=== PATIENT | female | born 1950 | race American Indian/Alaskan Native ===

== ENCOUNTER 2017-01-18 07:45 | Outpatient (CLI) | payer MEDICARE ==
--- NOTE | 2017-01-18 09:22 | Mammography Report ---
BILATERAL MAMMOGRAM with CAD: HISTORY:Cancer screening. Comparison study is dated December 22, 2015. FINDINGS: The breasts are almost entirely fat (<25% glandular). No mass, distortion, suspicious calcification, or skin change is seen. IMPRESSION: Negative mammogram. There is no mammographic evidence of malignancy. RECOMMENDATION: Follow-up per ACS guidelines. BI-RADS CATEGORY: 1 = Negative ACR BI-RADS MAMMOGRAPHIC CODES: 0 = Needs additional imaging evaluation; 1 = Negative; 2 = Benign; 3 = Probably benign; 4 = Suspicious; 5 = Malignant; 6 = Known biopsy-proven malignancy COMMENT: 1. Dense breast tissue, i.e., adenosis, fibrocystic changes, etc., may obscure an underlying neoplasm. 2. Approximately 10% of cancers are not detected with mammography. 3. A negative mammography report should not delay biopsy if a clinically suspicious mass is present. COMMENT: Patient follow-up letters are generated in [employer].
== END 2017-01-18 07:46 | disposition home or self-care (01) ==
LOC: MAMMO 07:45
PROVIDERS: ATTEND Family Medicine
DX: Z12.31 Encounter for screening mammogram for malignant neoplasm of breast (principal)
CPT/HCPCS: 77067; G0202

== ENCOUNTER 2018-02-01 08:44 | Outpatient (CLI) | payer MEDICAID, MEDICARE ==
--- NOTE | 2018-02-02 11:36 | Mammography Report ---
BILATERAL DIGITAL SCREENING MAMMOGRAM with CAD: 02/01/18 08:44:00 CLINICAL: Routine screening. COMPARISON:01/18/17 FINDINGS: The breasts are almost entirely fatty. No mass, architectural distortion or suspicious calcifications. IMPRESSION: No mammographic evidence of malignancy. BI-RADS CATEGORY: 1 - - Negative RECOMMENDATION: Routine mammographic screening in one year. COMMENT: Patient follow-up letters are generated by our [employer] application.
== END 2018-02-01 08:45 | disposition home or self-care (01) ==
LOC: MAMMO 08:44
PROVIDERS: ATTEND Internal Medicine
DX: Z12.31 Encounter for screening mammogram for malignant neoplasm of breast (principal)
CPT/HCPCS: 77067

== ENCOUNTER 2018-07-08 17:53 | Inpatient (IN) | payer MEDICARE ==
--- NOTE | 2018-07-08 19:39 | Emergency Department Report ---
HPI - General Chief Complaint: Dyspnea/Respdistress Time Seen by Provider: 07/08/18 19:22 - HPI HPI: Room 3 The patient is a 67-year-old female presenting with a chief complaint of extremity paresthesia and weakness. The patient states her symptoms began at 15 :30 with numbness of the digits of the left hand and numbness in the region under her left bicep. The patient states she had difficulty moving the digits of her left hand and all her symptoms lasted for 10 minutes. 2 minutes later the patient states her right upper extremity became heavy and she developed severe pain in the right shoulder. Patient states these symptoms lasted for approximately 15 minutes and then resolved. Patient denied ever having dysarthria, dysphagia, chest pain or lower extremity symptoms. The patient states she has had dyspnea on exertion for the past 3 days. Of note the patient had a history of a CVA in 2009 but states she was taken off of aspirin approximately one year ago. Patient currently has no complaints Location: See above Duration: [See above] Quality: [See above] Severity: [See above] Modifying factors: [see above] Context: [see above] Mode of transportation: [not driving] ED Past Medical Hx - Past Medical History Hx Hypertension: Yes Hx CVA: Yes (no deficits) - Surgical History Additional Surgical History: ectopic - Family History Family history: no significant - Social History Smoking Status: Former Smoker (none 25 years) Substance Use Type: None - Medications Home Medications: Home Medications Medication Instructions Recorded Confirmed Last Taken Type Aspirin [Aspirin TAB] 325 mg PO QDAY 07/26/14 11/28/14 11/27/14 20:00 History ED Review of Systems ROS: Stated complaint: NUMB RT SIDE/PAIN Other details as noted in HPI Constitutional: no symptoms reported Eyes: denies: eye pain ENT: denies: throat pain Respiratory: no symptoms reported Cardiovascular: denies: chest pain Endocrine: no symptoms reported Gastrointestinal: denies: abdominal pain, nausea, vomiting Genitourinary: denies: dysuria Musculoskeletal: arthralgia Neurological: headache, weakness, paresthesias Physical Exam - Physical Exam Vital Signs: Vital Signs 07/08/18 07/08/18 07/08/18 18:18 18:46 19:00 Temperature 98.3 F Pulse Rate 107 H 92 H Respiratory 25 H 15 Rate Blood Pressure 188/108 159/94 O2 Sat by Pulse 81 L 94 Oximetry 07/08/18 07/08/18 19:16 19:21 Temperature Pulse Rate 89 Respiratory 21 18 Rate Blood Pressure 133/113 O2 Sat by Pulse 94 94 Oximetry Physical Exam: GENERAL: The patient is well-developed well-nourished female sitting on stretcher not appearing to be in acute distress. [] HEENT: Normocephalic. Atraumatic. Extraocular motions are intact. Patient has moist mucous membranes. NECK: Supple. Trachea midline CHEST/LUNGS: Clear to auscultation. There is no respiratory distress noted. HEART/CARDIOVASCULAR: Regular. There is no tachycardia. There is no gallop rub or murmur. ABDOMEN: Abdomen is soft, nontender. Patient has normal bowel sounds. There is no abdominal distention. SKIN: There is no rash. There is no edema. There is no diaphoresis. NEURO: The patient is awake, alert, and oriented. The patient is cooperative. The patient has no focal neurologic deficits. The patient has normal speech. Cranial nerves II through XII grossly intact, no drift. Moves all extremities well MUSCULOSKELETAL: There is no evidence of acute injury. NIHSS= 0 LOC a. Alert= 0 Not alert but arousable to minor stimuli=1 Not alert requires repeated or strong stimuli to move= 2 Responds only reflex motor or unresponsive=3 b. asks month and age answers both correctly= 0 answers one correctly= 1 answers neither correctly= 2 Best Gaze normal= 0 abnormal in one or both but forced deviation or total paresis absent= 1 forced deviation or total gaze paresis= 2 Visual no visual loss= 0 partial hemianopia= 1 complete hemianopia= 2 bilateral hemianopia= 3 Facial Palsy normal= 0 minor paralysis= 1 partial paralysis= 2 complete paralysis= 3 Motor Arm no drift= 0 drift before 10 secs but doesnt hit bed= 1 some effort against gravity= 2 no effort against gravity= 3 no movement= 4 Motor leg no drift= 0 drift before 5 secs but doesnt hit bed= 1 drifts to bed before 5 secs= 2 no effort against gravity= 3 no movement= 4 Limb ataxia absent=0 present in one limb= 1 present in two limbs= 2 Sensory normal= 0 mild sensory loss= 1 severe (unaware of being touched)= 2 Best language mild/some loss of fluency= 1 severe= 2 mute= 3 Dysarthria normal= 0 slurs some words= 1 severe/unintelligible= 2 Extinction and Inattention no abnormality= 0 visual, tactile, auditory or personal inattention= 1 profound (doesnt recognize own hand or orients to only one side= 2 ED Course Vital Signs 07/08/18 07/08/18 07/08/18 18:18 18:46 19:00 Temperature 98.3 F Pulse Rate 107 H 92 H Respiratory 25 H 15 Rate Blood Pressure 188/108 159/94 O2 Sat by Pulse 81 L 94 Oximetry 07/08/18 07/08/18 19:16 19:21 Temperature Pulse Rate 89 Respiratory 21 18 Rate Blood Pressure 133/113 O2 Sat by Pulse 94 94 Oximetry - Reevaluation(s) Reevaluation #1: 07/08/18 20:05 Informed by nursing that the patient decided to 70% when she attempted to walk to the bathroom. Patient return and placed on 6 L O2 with SPO2 94%. D-dimer added to the labs ED Medical Decision Making - Lab Data Result diagrams: 07/08/18 19:37 07/08/18 19:37 Laboratory Tests 07/08/18 07/08/18 07/08/18 19:37 19:37 19:37 WBC 6.5 RBC 4.88 Hgb 15.0 H Hct 45.1 H MCV 93 MCH 31 MCHC 33 RDW 14.7 Plt Count 172 Lymph % (Auto) 29.9 [place] % (Auto) 7.8 H Eos % (Auto) 0.4 Baso % (Auto) 0.5 Lymph # 2.0 [place] # 0.5 Eos # 0.0 Baso # 0.0 Seg Neutrophils % 61.4 Seg Neutrophils # 4.0 PT 12.9 INR 0.93 APTT 23.4 L D-Dimer Sodium 144 Potassium 3.4 L Chloride 103.1 Carbon Dioxide 26 Anion Gap 18 BUN 14 Creatinine 1.1 Estimated GFR 60 BUN/Creatinine Ratio 13 Glucose 150 H Calcium 9.5 Total Creatine Kinase 208 H CK-MB (CK-2) 6.3 H CK-MB (CK-2) Rel Index 3.0 Troponin T < 0.010 NT-Pro-B Natriuret Pep 2412 H 07/08/18 20:02 WBC RBC Hgb Hct MCV MCH MCHC RDW Plt Count Lymph % (Auto) [place] % (Auto) Eos % (Auto) Baso % (Auto) Lymph # [place] # Eos # Baso # Seg Neutrophils % Seg Neutrophils # PT INR APTT D-Dimer 6133 H Sodium Potassium Chloride Carbon Dioxide Anion Gap BUN Creatinine Estimated GFR BUN/Creatinine Ratio Glucose Calcium Total Creatine Kinase CK-MB (CK-2) CK-MB (CK-2) Rel Index Troponin T NT-Pro-B Natriuret Pep - EKG Data -: EKG Interpreted by Me EKG shows normal: sinus rhythm Rate: normal - EKG Data When compared to previous EKG there are: changes noted Interpretation: nonspecific ST-T wave milvia (T-wave inversions in leads V2, V3 not seen on previous EKG dated 03/24/2010) - Radiology Data Radiology results: report reviewed (CT head, chest x-ray), image reviewed (CT head, chest x-ray) interpreted by me: Chest x-ray-no focal infiltrates, no pneumothorax [facility] [address] [place] [address] Cat Scan Report Signed Patient: SHEELA MCGOVERN MR#: [id number] : 1949 Acct:[id number] Age/Sex: 67 / F ADM Date: 07/08/18 Loc: ED Attending Dr: Ordering Physician: WILFRIDO JOAQUIN MD Date of Service: 07/08/18 Procedure(s): CT head/brain wo con Accession Number(s): [id number] cc: WILFRIDO JOAQUIN MD FINAL REPORT EXAM: CT HEAD/BRAIN WO CON HISTORY: transient LUE paresthesia, transient RUE weakness COMPARISON: None available. TECHNIQUE: Axial images obtained skull base through vertex. FINDINGS: No acute intracranial hemorrhage, midline shift or pathologic extra axial fluid collection. Ventricles and cisterns are normal in size and configuration for the patient's age. Gonsalves-white differentiation preserved. Calvarium grossly intact. [id number] chronic small vessel ischemic disease. Mild to moderate calcified plaque along the carotid siphons. Partially calcified meningioma along the left anterior temporal convexity measuring 1.1 x 1.2 centimeters in axial dimension. No significant mass effect. Patchy low-attenuation the midbrain and crista compatible sequelae of chronic small vessel ischemic disease. Minimal mucosal thickening the paranasal sinuses. Mastoid air cells are clear. Ocular globes are grossly unremarkable. IMPRESSION: No grossly acute intracranial abnormality. Mild to moderate chronic small vessel ischemic disease. No evidence of acute transcortical infarct by CT at this time. White matter changes could obscure subtle area of ischemia. If clinical concern for acute intracranial process remains, MRI would be suggested for further evaluation. Transcribed By: LMShruthi Dictated By: LEONARDO NINO MD Electronically Authenticated By: LEONARDO NINO MD Signed Date/Time: 07/08/182009 DD/ 09 TD/TT: 07/08/182009 - Differential Diagnosis TIA, anginal equivalent Critical care attestation.: If time is entered above; I have spent that time in minutes in the direct care of this critically ill patient, excluding procedure time. ED Disposition Clinical Impression: Hypoxia, Pulmonary embolus, Transient neurological symptoms Disposition: OP ADMIT IP TO THIS HOSP Is pt being admited?: Yes Does the pt Need Aspirin: No Condition: Serious Time of Disposition: 22:10 (hospitalist notified processes Dr. Rochelle Major))
[2018-07-08 19:47] LABS: Basophils % (Auto) 0.5 % (0.0-1.8); Eosinophils % (Auto) 0.4 % (0.0-4.3); Hematocrit 45.1 % (30.3-42.9); Lymphocytes % (Auto) 29.9 % (13.4-35.0); Mean Corpuscular HGB Conc 33 % (30-34); Mean Corpuscular Hemoglobin 31 pg (28-32); Mean Corpuscular Volume 93 fl (79-97); Monocytes # (Auto) 0.5 K/mm3 (0.0-0.8); Monocytes % (Auto) 7.8 % (0.0-7.3); Platelet Count 172 K/mm3 (140-440); Red Blood Count 4.88 M/mm3 (3.65-5.03); Red Cell Distribution Width 14.7 % (13.2-15.2)
[2018-07-08 19:57] LABS: INR 0.93 (0.87-1.13)
[2018-07-08 19:58] LABS: Partial Thromboplastin Time 23.4 Sec. (24.2-36.6)
[2018-07-08 20:08] LABS: Creatine Kinase MB 6.3 ng/mL (0.0-4.0)
[2018-07-08 20:09] LABS: BUN/Creatinine Ratio 13; Blood Urea Nitrogen 14 mg/dL (7-17); Calcium 9.5 mg/dL (8.4-10.2); Hemolysis Index 9
--- NOTE | 2018-07-08 20:12 | Cat Scan Report ---
FINAL REPORT EXAM: CT HEAD/BRAIN WO CON HISTORY: transient LUE paresthesia, transient RUE weakness COMPARISON: None available. TECHNIQUE: Axial images obtained skull base through vertex. FINDINGS: No acute intracranial hemorrhage, midline shift or pathologic extra axial fluid collection. Ventricles and cisterns are normal in size and configuration for the patient's age. Gonsalves-white differentiation preserved. Calvarium grossly intact. [id number] chronic small vessel ischemic disease. Mild to moderate calcified plaque along the carotid siphons. Partially calcified meningioma along the left anterior temporal convexity measuring 1.1 x 1.2 centimeters in axial dimension. No significant mass effect. Patchy low-attenuation the midbrain and crista compatible sequelae of chronic small vessel ischemic disease. Minimal mucosal thickening the paranasal sinuses. Mastoid air cells are clear. Ocular globes are grossly unremarkable. IMPRESSION: No grossly acute intracranial abnormality. Mild to moderate chronic small vessel ischemic disease. No evidence of acute transcortical infarct by CT at this time. White matter changes could obscure subtle area of ischemia. If clinical concern for acute intracranial process remains, MRI would be suggested for further evaluation.
--- NOTE | 2018-07-08 21:00 | XRay Report ---
FINAL REPORT EXAM: XR CHEST 1V AP HISTORY: dyspnea on exertion COMPARISON: None available. FINDINGS: Frontal view(s) of the chest obtained. Cardiac silhouette within normal limits. No gross consolidation or effusion. No pneumothorax. IMPRESSION: No grossly acute findings.
--- NOTE | 2018-07-08 22:06 | Cat Scan Report ---
FINAL REPORT EXAM: CT ANGIO CHEST HISTORY: shortness of breath, elevated d-dimer COMPARISON: Chest x-ray from the same date. TECHNIQUE: Contiguous axial images were obtained. Additional sagittal and coronal reformatted images were obtained. Administration of IV contrast given per institution protocol. Images submitted for interpretation. Max intensity projection images. 100 cc Omnipaque 350. FINDINGS: Multiple bilateral pulmonary emboli with mild right ventricular strain. Right ventricle measures 5.5 centimeters in diameter in the left ventricle 5.0 centimeters. There is thrombus within the distal right main pulmonary artery and to lesser extent distal left main pulmonary artery. There nonocclusive emboli involving upper and lower lobar branches as well as occlusive thrombus within the distal right lower lobe. Main pulmonary arteries measure up to 2.5 centimeters in diameter, upper limits of normal. Heart is upper limits normal in size. Thoracic aorta is normal in caliber. No acute dissection or rupture. No pathologically enlarged intrathoracic or axillary lymph nodes. Mild linear atelectasis or scarring at the lung bases. Mild bronchial wall thickening concerning for bronchitis which may be chronic. No large airspace consolidation or pleural effusion. Mild degenerative changes of the thoracic spine. Nodular thickening of adrenal glands. Small hiatal hernia. 1 centimeter superior left hepatic lobe cyst. IMPRESSION: Extensive bilateral pulmonary emboli, slightly more numerous on the right with mild right ventricular strain. Mild linear atelectasis and scarring at the lung bases. No large consolidation or effusion. Mild bronchial wall thickening concerning for bronchitis which may be chronic. Findings discussed with Dr. Guerra on July 08, 2018 at 2205 hours EST.
[2018-07-08] MEDS ORDERED: LOVENOX SUB-Q ONE (22:09)
--- NOTE | 2018-07-08 23:37 | History and Physical Report ---
History of Present Illness Date of examination: 07/08/18 History of present illness: 6-year-old in with a history of hypertension, CVA comes to the emergency room with complaint of left arm numbness that lasted for 5 minutes. She subsequently had right arm numbness that lasted for 10 minutes. While in the emergency room, She was getting out of the bed to use the bathroom, will oxygen saturation dropped, and she complained of shortness of breath Review of systems Constitutional: no weight loss, chills, fever Ears, eyes, nose, mouth and throat: no nasal congestion, no nasal discharge, no sinus pressure, no vision change, no red eye. Neck: No neck pain or rigidity. Cardiovascular: no chest pain, palpitations Respiratory: no cough Gastrointestinal: no abdominal pain hematochezia Genitourinary : no frequency , no hematuria Musculoskeletal: no joint swelling or muscle ache Integumentary: no rash, no pruritis Neurological: no parathesias, no numbness, no focal weakness Endocrine: no cold or heat intolerance, no polyuria or polydipsia Hematologic/Lymphatic: no easy bruising, no easy bleeding, no gland swelling Allergic/Immunologic: no urticaria, no angioedema. PAST MEDICAL HISTORY: hypertension, CVA PAST SURGICAL HISTORY: None SOCIAL HISTORY: No alcohol, no drugs, tobacco FAMILY HISTORY: Hypertension Medications and Allergies Allergies Allergy/AdvReac Type Severity Reaction Status Date / Time No Known Allergies Allergy Verified 11/28/14 18:52 Home Medications Medication Instructions Recorded Confirmed Last Taken Type Aspirin [Aspirin TAB] 325 mg PO QDAY 07/26/14 11/28/14 11/27/14 20:00 History Exam - Physical Exam Narrative exam: Gen. appearance: Patient lying in bed, no apparent distress HEENT: Normocephalic, atraumatic, pupils equally round and reactive to light, extraocular movement intact, and no sclericterus,. No JVD or thyromegaly or nodule,neck supple, no carotid bruit ,mucous membranes moist, no exudate or erythema Heart: S1, S2, regular rate and rhythm Lungs: Clear bilaterally, breathing comfortable Abdomen: Positive bowel sounds, non-tender, nondistended, no organomegaly Extremity:no edema cyanosis, clubbing Skin: no rash, dry, warm Neuro: Oriented 3, cranial nerves II-12 intact, speech is fluent, motor and sensory intact - Constitutional Vitals: Temp Pulse Resp BP Pulse Ox 98.3 F 79 24 175/99 89 07/08/18 18:18 07/08/18 23:00 07/08/18 23:00 07/08/18 23:00 07/08/18 21:30 Results - Labs CBC & Chem 7: 07/08/18 19:37 07/08/18 19:37 Labs: Abnormal lab results 07/08/18 07/08/18 07/08/18 Range/Units 19:37 19:37 19:37 Hgb 15.0 H (10.1-14.3) gm/dl Hct 45.1 H (30.3-42.9) % [place] % (Auto) 7.8 H (0.0-7.3) % APTT 23.4 L (24.2-36.6) Sec. D-Dimer (0-234) ng/mlDDU Potassium 3.4 L (3.6-5.0) mmol/L Glucose 150 H (65-100) mg/dL Total Creatine Kinase 208 H (30-135) units/L CK-MB (CK-2) 6.3 H (0.0-4.0) ng/mL NT-Pro-B Natriuret Pep 2412 H (0-900) pg/mL 07/08/18 Range/Units 20:02 Hgb (10.1-14.3) gm/dl Hct (30.3-42.9) % [place] % (Auto) (0.0-7.3) % APTT (24.2-36.6) Sec. D-Dimer 6133 H (0-234) ng/mlDDU Potassium (3.6-5.0) mmol/L Glucose (65-100) mg/dL Total Creatine Kinase (30-135) units/L CK-MB (CK-2) (0.0-4.0) ng/mL NT-Pro-B Natriuret Pep (0-900) pg/mL - Imaging and Cardiology EKG: image reviewed Chest x-ray: image reviewed CT scan - chest: report reviewed Assessment and Plan Assessment Bilateral pulmonary emboli Hypertension History of CVA Plan Admit to medicine Start full dose Lovenox, obtain Doppler of the lower extremity Check cardiac enzymes, continue appropriate outpatient medications DVT prophylaxis
[2018-07-09] MEDS ORDERED: PERCOCET 5/325 PO PRN (03:04)
[2018-07-09] MEDS ORDERED: SODIUM CHLORIDE FLUSH SYRINGE 10 ML IV PRN (03:04)
[2018-07-09] MEDS ORDERED: ZOFRAN IV PRN (03:04)
[2018-07-09] MEDS ORDERED: TYLENOL PO PRN (03:04)
[2018-07-09 05:45] LABS: Basophils % (Auto) 0.5 % (0.0-1.8); Eosinophils % (Auto) 0.7 % (0.0-4.3); Hematocrit 40.8 % (30.3-42.9); Hemoglobin 13.3 gm/dl (10.1-14.3); Lymphocytes # (Auto) 3.2 K/mm3 (1.2-5.4); Lymphocytes % (Auto) 45.3 % (13.4-35.0); Mean Corpuscular HGB Conc 33 % (30-34); Mean Corpuscular Hemoglobin 31 pg (28-32); Mean Corpuscular Volume 93 fl (79-97); Monocytes # (Auto) 0.5 K/mm3 (0.0-0.8); Monocytes % (Auto) 7.7 % (0.0-7.3); Platelet Count 176 K/mm3 (140-440); Red Blood Count 4.38 M/mm3 (3.65-5.03); Red Cell Distribution Width 14.5 % (13.2-15.2)
[2018-07-09 05:56] LABS: BUN/Creatinine Ratio 14; Blood Urea Nitrogen 13 mg/dL (7-17); Calcium 8.8 mg/dL (8.4-10.2); Hemolysis Index 39
[2018-07-09 06:04] LABS: Creatine Kinase MB 5.6 ng/mL (0.0-4.0)
[2018-07-09] MEDS: LOVENOX SUB-Q SCH ×2 (09:04→22:50)
[2018-07-09] MEDS: SODIUM CHLORIDE FLUSH SYRINGE 10 ML IV SCH ×2 (09:05→22:50)
--- NOTE | 2018-07-09 15:13 | Progress Note ---
Assessment and Plan Assessment and plan: 67-year-old in with a history of hypertension, CVA comes to the emergency room with complaint of left arm numbness that lasted for 5 minutes. She subsequently had right arm numbness that lasted for 10 minutes. While in the emergency room, She was getting out of the bed to use the bathroom, will oxygen saturation dropped, and she complained of shortness of breath Bilateral pulmonary emboli DVT right lower ext Hypertension History of CVA Plan Supportive care Evaluate for CVA with MRI and carotid Doppler Continue full dose Lovenox, START Coumadin Check cardiac enzymes, continue appropriate outpatient medications DVT prophylaxis History Interval history: Patient seen and examined, son at bedside. Reports improving shortness of breath. No new complaints. Hospitalist Physical - Physical exam Narrative exam: VITAL SIGNS: Reviewed. GENERAL: The patient appeared well nourished and normally developed. Vital signs as documented. HEAD: No signs of head trauma. EYES: Pupils are equal. Extraocular motions intact. EARS: Hearing grossly intact. MOUTH: Oropharynx is normal. NECK: No adenopathy, no JVD. CHEST: Chest with clear breath sounds bilaterally. No wheezes, rales, or rhonchi. CARDIAC: Regular rate and rhythm. S1 and S2, without murmurs, gallops, or rubs. VASCULAR: No Edema. Peripheral pulses normal and equal in all extremities. ABDOMEN: Soft, without detectable tenderness. No sign of distention. No rebound or guarding, and no masses palpated. Bowel Sounds normal. MUSCULOSKELETAL: Good range of motion of all major joints. Extremities without clubbing, cyanosis or edema. NEUROLOGIC EXAM: Alert and oriented x 3. No focal sensory or strength deficits. Speech normal. Follows commands. PSYCHIATRIC: Mood normal. SKIN: No rash or lesions. - Constitutional Vitals: Temp Pulse Resp BP Pulse Ox 98.2 F 73 22 132/70 94 07/09/18 07:54 07/09/18 10:00 07/09/18 10:00 07/09/18 07:54 07/09/18 10:00 Results - Labs CBC & Chem 7: 07/09/18 05:17 07/09/18 05:17 Labs: Laboratory Last Values WBC 7.0 K/mm3 (4.5-11.0) 07/09/18 05:17 RBC 4.38 M/mm3 (3.65-5.03) 07/09/18 05:17 Hgb 13.3 gm/dl (10.1-14.3) 07/09/18 05:17 Hct 40.8 % (30.3-42.9) 07/09/18 05:17 MCV 93 fl (79-97) 07/09/18 05:17 MCH 31 pg (28-32) 07/09/18 05:17 MCHC 33 % (30-34) 07/09/18 05:17 RDW 14.5 % (13.2-15.2) 07/09/18 05:17 Plt Count 176 K/mm3 (140-440) 07/09/18 05:17 Lymph % (Auto) 45.3 % (13.4-35.0) H 07/09/18 05:17 [place] % (Auto) 7.7 % (0.0-7.3) H 07/09/18 05:17 Eos % (Auto) 0.7 % (0.0-4.3) 07/09/18 05:17 Baso % (Auto) 0.5 % (0.0-1.8) 07/09/18 05:17 Lymph # 3.2 K/mm3 (1.2-5.4) 07/09/18 05:17 [place]ell # 0.5 K/mm3 (0.0-0.8) 07/09/18 05:17 Eos # 0.0 K/mm3 (0.0-0.4) 07/09/18 05:17 Baso # 0.0 K/mm3 (0.0-0.1) 07/09/18 05:17 Seg Neutrophils % 45.8 % (40.0-70.0) 07/09/18 05:17 Seg Neutrophils # 3.2 K/mm3 (1.8-7.7) 07/09/18 05:17 PT 12.9 Sec. (12.2-14.9) 07/08/18 19:37 INR 0.93 (0.87-1.13) 07/08/18 19:37 APTT 23.4 Sec. (24.2-36.6) L 07/08/18 19:37 D-Dimer 6133 ng/mlDDU (0-234) H 07/08/18 20:02 Sodium 142 mmol/L (137-145) 07/09/18 05:17 Potassium 4.0 mmol/L (3.6-5.0) 07/09/18 05:17 Chloride 105.6 mmol/L (98-107) 07/09/18 05:17 Carbon Dioxide 25 mmol/L (22-30) 07/09/18 05:17 Anion Gap 15 mmol/L 07/09/18 05:17 BUN 13 mg/dL (7-17) 07/09/18 05:17 Creatinine 0.9 mg/dL (0.7-1.2) 07/09/18 05:17 Estimated GFR > 60 ml/min 07/09/18 05:17 BUN/Creatinine Ratio 14 % 07/09/18 05:17 Glucose 119 mg/dL (65-100) H 07/09/18 05:17 Calcium 8.8 mg/dL (8.4-10.2) 07/09/18 05:17 Total Creatine Kinase 174 units/L (30-135) H 07/09/18 05:17 CK-MB (CK-2) 5.6 ng/mL (0.0-4.0) H 07/09/18 05:17 CK-MB (CK-2) Rel Index 3.2 (0-4) 07/09/18 05:17 Troponin T 0.010 ng/mL (0.00-0.029) 07/09/18 05:17 NT-Pro-B Natriuret Pep 2412 pg/mL (0-900) H 07/08/18 19:37
--- NOTE | 2018-07-09 15:57 | Progress Note ---
Subjective Date of service: 07/09/18 Interval history: see the dictated note on the patient this was assessed and reviewed there is acute left sided medial thalamic stroke seen on the diffusion weighted images neuro exam is normal at present Objective - Vital Sign Vital Signs - 12hr 07/09/18 07/09/18 07/09/18 04:44 05:24 07:54 Temperature 98.9 F 98.2 F Pulse Rate 83 80 79 Pulse Rate [ Apical] Pulse Rate [ Left Radial] Pulse Rate [ Right Radial] Respiratory 18 20 Rate Blood Pressure 127/74 132/70 Blood Pressure 127/74 [Left] O2 Sat by Pulse 88 99 93 Oximetry 07/09/18 07/09/18 08:00 10:00 Temperature Pulse Rate 80 Pulse Rate [ 73 Apical] Pulse Rate [ 73 Left Radial] Pulse Rate [ 73 Right Radial] Respiratory 22 Rate Blood Pressure Blood Pressure [Left] O2 Sat by Pulse 94 Oximetry - Laboratory Findings CBC and BMP: 07/09/18 05:17 07/09/18 05:17 Abnormal Lab Findings: Abnormal Labs 07/08/18 07/08/18 07/08/18 19:37 19:37 19:37 Hgb 15.0 H Hct 45.1 H Lymph % (Auto) [place] % (Auto) 7.8 H APTT 23.4 L D-Dimer Potassium 3.4 L Glucose 150 H Total Creatine Kinase 208 H CK-MB (CK-2) 6.3 H NT-Pro-B Natriuret Pep 2412 H 07/08/18 07/09/18 07/09/18 20:02 05:17 05:17 Hgb Hct Lymph % (Auto) 45.3 H [place] % (Auto) 7.7 H APTT D-Dimer 6133 H Potassium Glucose 119 H Total Creatine Kinase CK-MB (CK-2) NT-Pro-B Natriuret Pep 07/09/18 05:17 Hgb Hct Lymph % (Auto) [place] % (Auto) APTT D-Dimer Potassium Glucose Total Creatine Kinase 174 H CK-MB (CK-2) 5.6 H NT-Pro-B Natriuret Pep
[2018-07-09] MEDS: COUMADIN PO SCH (17:54)
--- NOTE | 2018-07-10 01:32 | Consultation ---
HISTORY OF PRESENT ILLNESS: This is a 67-year-old female that is admitted to [facility] for an onset of severe right-sided chest pain following knee pain. History guzman, she had an injection in her right knee 4-5 days ago, cortisone for persistent right knee pain, which is a new finding, although she does have progress of her arthritis. This past week, she developed shortness of breath, right-sided chest pain and was thought to have pulmonary embolization. In addition, she now is experiencing numbness of her left arm. She has a prior history of a right-sided stroke involving face, arm, and leg and I have reviewed her CT scan of the head, which does show old pontine stroke as well as a small lesion along the inner table of the skull, which has appearance of being a small meningioma off the sphenoid wing laterally and this was seen on the current CAT scan of the brain. I plan to discuss this issue with the radiologist because they do also comment on the small meningioma which may be responsible for her current numbness of her arm. I have reviewed the CTs, the MRI scan of the brain, which shows on the diffusion weighted images a small stroke involving the left internal thalamus of the left hemisphere which still shows up on the current MRI. IMPRESSION: MRI showing an acute ischemic infarct in the medial thalamus of the left hemisphere. I think this is response for the patient's symptoms. In addition, she also has a left-sided meningioma, which is very small and probably not worth pursuing as far as workup. Carotid ultrasound is pending, I would like to look at that as well. JOB# [id number] YOSHI/NICANOR
--- NOTE | 2018-07-10 02:19 | Magnetic Resonance Report ---
FINAL REPORT PROCEDURE: MR BRAIN WO CON TECHNIQUE: Magnetic resonance imaging of the brain was performed without contrast material. HISTORY: CVA COMPARISON: No prior studies are available for comparison. FINDINGS: Skull base and calvarium: Normal. Paranasal sinuses: The visualized paranasal sinuses are clear. Cerebellum: No evidence of hemorrhage, ischemia or mass. Brainstem: There is an area of irregular signal identified in the right crista, this measures 8 millimeters and is consistent with an old lacunar infarction in this region.. Cerebrum: Restricted diffusion identified in area of the left basal ganglia this measures approximately 5 millimeters. An acute lacunar infarction this region of the left basal ganglia is noted. Remainder of the cerebral imaging shows no evidence of acute irregularity. No acute hemorrhage or hematoma. Mild atrophy and slight periventricular deep white matter changes noted.. Ventricles: Normal in size and morphology for the patient's age. Pituitary gland and sella: Normal. Globes and orbits: Normal. Vasculature: Normal arterial and venous flow voids. Other: None. IMPRESSION: Acute lacunar infarction identified in the left basal ganglia measuring approximately 5 millimeters. Mild atrophy and periventricular deep white matter change. Old lacunar infarction of the right crista measures approximately 8 millimeters.
[2018-07-10 05:40] LABS: INR 1.11 (0.87-1.13)
--- NOTE | 2018-07-10 09:00 | Progress Note ---
Assessment and Plan Assessment and plan: 67-year-old in with a history of hypertension, CVA comes to the emergency room with complaint of left arm numbness that lasted for 5 minutes. She subsequently had right arm numbness that lasted for 10 minutes. While in the emergency room, She was getting out of the bed to use the bathroom, will oxygen saturation dropped, and she complained of shortness of breath, diagnosed with bilateral pulmonary embolism Bilateral pulmonary emboli DVT right lower ext Acute ischemic stroke Hypertension History of CVA Plan Supportive care Continue full dose Lovenox, coumadin INR 1.11 today Neurology following. consult Hematology to work up DVT, PE. patient had DVT about 40yrs ago about time of giving . Family history of DVT. Her son had DVT after knee surgery patient states she had procedure to left knee last week. Check cardiac enzymes, continue appropriate outpatient medications Full code status History Interval history: Mild pain right leg, Less shortness of breath Hospitalist Physical - Physical exam Narrative exam: GEN:Not in acute distress, lying in bed HEENT: Normocephalic, atraumatic, Neck: supple, No JVD Lungs: Clear to auscultaion bilaterally, no crackles Heart:S1 and S2 reg, no murmurs, rubs or gallop Abd:soft, non-tender, non-distended, Normal bowel sounds Ext: No edema, clubbing or cyanosis Neuro: Awake, alert, oriented X 3, Moves all extremities - Constitutional Vitals: Temp Pulse Resp BP Pulse Ox 97.9 F 86 21 161/88 94 07/09/18 17:00 07/10/18 08:40 07/10/18 08:40 07/09/18 17:00 07/09/18 17:00 Results - Labs CBC & Chem 7: 07/09/18 05:17 07/09/18 05:17 Labs: Laboratory Last Values WBC 7.0 K/mm3 (4.5-11.0) 07/09/18 05:17 RBC 4.38 M/mm3 (3.65-5.03) 07/09/18 05:17 Hgb 13.3 gm/dl (10.1-14.3) 07/09/18 05:17 Hct 40.8 % (30.3-42.9) 07/09/18 05:17 MCV 93 fl (79-97) 07/09/18 05:17 MCH 31 pg (28-32) 07/09/18 05:17 MCHC 33 % (30-34) 07/09/18 05:17 RDW 14.5 % (13.2-15.2) 07/09/18 05:17 Plt Count 176 K/mm3 (140-440) 07/09/18 05:17 Lymph % (Auto) 45.3 % (13.4-35.0) H 07/09/18 05:17 [place] % (Auto) 7.7 % (0.0-7.3) H 07/09/18 05:17 Eos % (Auto) 0.7 % (0.0-4.3) 07/09/18 05:17 Baso % (Auto) 0.5 % (0.0-1.8) 07/09/18 05:17 Lymph # 3.2 K/mm3 (1.2-5.4) 07/09/18 05:17 [place] # 0.5 K/mm3 (0.0-0.8) 07/09/18 05:17 Eos # 0.0 K/mm3 (0.0-0.4) 07/09/18 05:17 Baso # 0.0 K/mm3 (0.0-0.1) 07/09/18 05:17 Seg Neutrophils % 45.8 % (40.0-70.0) 07/09/18 05:17 Seg Neutrophils # 3.2 K/mm3 (1.8-7.7) 07/09/18 05:17 PT 14.9 Sec. (12.2-14.9) 07/10/18 04:48 INR 1.11 (0.87-1.13) 07/10/18 04:48 APTT 23.4 Sec. (24.2-36.6) L 07/08/18 19:37 D-Dimer 6133 ng/mlDDU (0-234) H 07/08/18 20:02 Sodium 142 mmol/L (137-145) 07/09/18 05:17 Potassium 4.0 mmol/L (3.6-5.0) 07/09/18 05:17 Chloride 105.6 mmol/L (98-107) 07/09/18 05:17 Carbon Dioxide 25 mmol/L (22-30) 07/09/18 05:17 Anion Gap 15 mmol/L 07/09/18 05:17 BUN 13 mg/dL (7-17) 07/09/18 05:17 Creatinine 0.9 mg/dL (0.7-1.2) 07/09/18 05:17 Estimated GFR > 60 ml/min 07/09/18 05:17 BUN/Creatinine Ratio 14 % 07/09/18 05:17 Glucose 119 mg/dL (65-100) H 07/09/18 05:17 Calcium 8.8 mg/dL (8.4-10.2) 07/09/18 05:17 Total Creatine Kinase 174 units/L (30-135) H 07/09/18 05:17 CK-MB (CK-2) 5.6 ng/mL (0.0-4.0) H 07/09/18 05:17 CK-MB (CK-2) Rel Index 3.2 (0-4) 07/09/18 05:17 Troponin T 0.010 ng/mL (0.00-0.029) 07/09/18 05:17 NT-Pro-B Natriuret Pep 2412 pg/mL (0-900) H 07/08/18 19:37
[2018-07-10] MEDS: LOVENOX SUB-Q SCH (09:17)
[2018-07-10] MEDS: SODIUM CHLORIDE FLUSH SYRINGE 10 ML IV SCH (09:19)
--- NOTE | 2018-07-10 13:11 | Vascular Lab Report ---
LOWER EXTREMITY VENOUS DUPLEX: REASON FOR EXAM: Each venous thrombosis. COMMENTS ON THE RIGHT: All veins visualized are freely compressible without evidence of internal echogenicity. Flow is spontaneous and phasic throughout. COMMENTS ON THE LEFT: All veins visualized are freely compressible without evidence of internal echogenicity. Flow is spontaneous and phasic throughout. IMPRESSION: No evidence of acute or chronic deep venous thrombosis in either lower extremity.
--- NOTE | 2018-07-10 16:12 | Progress Note ---
Subjective Date of service: 07/10/18 Interval history: the formal report of the radiologist on the MRI is identical to my reading this is acute small infarct need to be sure on ECHO there is NO FFO that could result in embbolus to brain this is such tiny lacunar infarct there is no reason to hold anticoagulation based on " risk benefit ratio" explained to paient Objective - Vital Sign Vital Signs - 12hr 07/10/18 07/10/18 07/10/18 04:13 08:32 08:40 Temperature 98.6 F 97.7 F Pulse Rate 80 Pulse Rate [ 86 Apical] Pulse Rate [ 86 Left Dorsalis Pedis] Pulse Rate [ 86 Left Radial] Pulse Rate [ 86 Right Dorsalis Pedis] Pulse Rate [ 86 Right Radial] Respiratory 18 20 21 Rate Blood Pressure 117/62 137/85 Blood Pressure [Left] O2 Sat by Pulse 94 98 Oximetry 07/10/18 07/10/18 07/10/18 09:15 10:00 12:00 Temperature 98.3 F Pulse Rate 79 80 Pulse Rate [ Apical] Pulse Rate [ Left Dorsalis Pedis] Pulse Rate [ Left Radial] Pulse Rate [ Right Dorsalis Pedis] Pulse Rate [ Right Radial] Respiratory 21 Rate Blood Pressure Blood Pressure 130/77 [Left] O2 Sat by Pulse 97 97 Oximetry - Laboratory Findings CBC and BMP: 07/09/18 05:17 07/09/18 05:17 Abnormal Lab Findings: Abnormal Labs 07/08/18 07/08/18 07/08/18 19:37 19:37 19:37 Hgb 15.0 H Hct 45.1 H Lymph % (Auto) [place] % (Auto) 7.8 H APTT 23.4 L D-Dimer Potassium 3.4 L Glucose 150 H Total Creatine Kinase 208 H CK-MB (CK-2) 6.3 H NT-Pro-B Natriuret Pep 2412 H 07/08/18 07/09/18 07/09/18 20:02 05:17 05:17 Hgb Hct Lymph % (Auto) 45.3 H [place] % (Auto) 7.7 H APTT D-Dimer 6133 H Potassium Glucose 119 H Total Creatine Kinase CK-MB (CK-2) NT-Pro-B Natriuret Pep 07/09/18 05:17 Hgb Hct Lymph % (Auto) [place] % (Auto) APTT D-Dimer Potassium Glucose Total Creatine Kinase 174 H CK-MB (CK-2) 5.6 H NT-Pro-B Natriuret Pep
[2018-07-10] MEDS: COUMADIN PO SCH (16:40)
--- NOTE | 2018-07-10 21:50 | Hem/Onc Consultation ---
History of Present Illness - Reason for Consult Consult date: 07/10/18 PE Requesting physician: JAYANT SCOTT - History of Present Illness 67-year-old in with a history of hypertension, CVA comes to the emergency room with complaint of left arm numbness that lasted for 5 minutes. She subsequently had right arm numbness that lasted for 10 minutes. While in the emergency room, She was getting out of the bed to use the bathroom, will oxygen saturation dropped, and she complained of shortness of breath She mentions she was SOB ~ 2 days prior to admission Past History Past Medical History: DVT, hypertension, other (cva/TIA ) Past Surgical History: No surgical history Social history: denies: smoking, alcohol abuse Family history: hypertension Medications and Allergies Allergies Allergy/AdvReac Type Severity Reaction Status Date / Time No Known Allergies Allergy Verified 11/28/14 18:52 Home Medications Medication Instructions Recorded Confirmed Last Taken Type Aspirin [Aspirin TAB] 325 mg PO QDAY 07/26/14 07/10/18 11/27/14 20:00 History Active Meds: Active Medications Acetaminophen (Tylenol) 650 mg PO Q4H PRN PRN Reason: Pain MILD(1-3)/Fever >100.5/SARABIA Enoxaparin Sodium (Lovenox) 100 mg 1 mg/kg (100 mg) SUB-Q Q12HR [facility] Last Admin: 07/10/18 09:17 Dose: 100 mg Ondansetron HCl (Zofran) 4 mg IV Q8H PRN PRN Reason: Nausea And Vomiting Oxycodone/Acetaminophen (Percocet 5/325) 1 tab PO Q6H PRN PRN Reason: Pain, Moderate (4-6) Sodium Chloride (Sodium Chloride Flush Syringe 10 Ml) 10 ml IV BID [facility] Last Admin: 07/10/18 09:19 Dose: 10 ml Sodium Chloride (Sodium Chloride Flush Syringe 10 Ml) 10 ml IV PRN PRN PRN Reason: LINE FLUSH Warfarin Sodium (Coumadin) 5 mg PO DAILY@1700 [facility]; Protocol Last Admin: 07/10/18 16:40 Dose: 5 mg Review of Systems Constitutional: no weight loss, no fever Ears, nose, mouth and throat: no epistaxis Cardiovascular: shortness of breath Respiratory: no hemoptysis Gastrointestinal: no diarrhea Genitourinary Female: no abnormal vaginal bleeding Rectal: no pain Musculoskeletal: no neck pain Neurological: no paralysis Psychiatric: no anxiety Hematologic/Lymphatic: no easy bleeding Exam - Constitutional Vitals: Last Vital Signs Temp 98.0 F 07/10/18 18:12 Pulse 75 07/10/18 18:12 Resp 20 07/10/18 18:12 BP 125/91 07/10/18 18:12 Pulse Ox 96 07/10/18 18:12 Pain Intensity (0-10): denies any pain General appearance: no acute distress Performance status: 0-fully active - EENT Eyes: PERRL ENT: clear oral mucosa Lymph node exam: negative cervical, negative supraclavicular - Neck Neck: supple - Respiratory Respiratory effort: Positive: normal Respiratory: negative: CTA - Cardiovascular Heart Sounds: Present: S1 & S2 Extremities: No edema - Gastrointestinal General gastrointestinal: Present: soft, non-tender Rectal Exam: deferred - Genitourinary Female genitourinary: Present: deferred - Integumentary Integumentary: warm - Musculoskeletal Musculoskeletal: strength equal bilaterally - Neurologic Neurologic: moves all extremities Results - Labs lab Results: Laboratory Results - last 24 hr 07/10/18 04:48 PT 14.9 INR 1.11 - Imaging and cardiology CT scan - chest: report reviewed Assessment and Plan # Admitted for SOB - Bilateral pulmonary emboli - on anticoagulation hypercoag IX will be done - optionof IP vs OP pt had DVT after child ~ 40 years ago - was on coumadin for 1 year. Pt says had ministroke ~ 10 years ago recent h/o left arm weakness for ~ 5 mins and later rt arm weakness for 10 mins - seen by neurology # Hypertension - Patient Problems (1) Pulmonary embolus Current Visit: Yes Status: Acute
[2018-07-11] MEDS: LOVENOX SUB-Q SCH ×2 (00:18→10:21)
[2018-07-11] MEDS: SODIUM CHLORIDE FLUSH SYRINGE 10 ML IV SCH ×3 (00:19→22:04)
[2018-07-11 05:46] LABS: INR 1.08 (0.87-1.13)
--- NOTE | 2018-07-11 08:27 | Progress Note ---
Subjective Date of service: 07/11/18 Interval history: explained to patient he nature of the small stroke and provided her thorough discussion of the safety factors that must be addressed in future etc. clinically the stroke is not symptomatic at this point Objective - Vital Sign Vital Signs - 12hr 07/10/18 07/11/18 07/11/18 22:00 00:26 04:00 Temperature 98.9 F Pulse Rate 90 78 Respiratory 18 Rate Blood Pressure 118/61 [Left] O2 Sat by Pulse 97 92 Oximetry 07/11/18 05:17 Temperature 98.6 F Pulse Rate 83 Respiratory 20 Rate Blood Pressure 133/67 [Left] O2 Sat by Pulse 95 Oximetry - Laboratory Findings CBC and BMP: 07/09/18 05:17 07/09/18 05:17 Abnormal Lab Findings: Abnormal Labs 07/08/18 07/08/18 07/08/18 19:37 19:37 19:37 Hgb 15.0 H Hct 45.1 H Lymph % (Auto) [place] % (Auto) 7.8 H APTT 23.4 L D-Dimer Potassium 3.4 L Glucose 150 H Total Creatine Kinase 208 H CK-MB (CK-2) 6.3 H NT-Pro-B Natriuret Pep 2412 H 07/08/18 07/09/18 07/09/18 20:02 05:17 05:17 Hgb Hct Lymph % (Auto) 45.3 H [place] % (Auto) 7.7 H APTT D-Dimer 6133 H Potassium Glucose 119 H Total Creatine Kinase CK-MB (CK-2) NT-Pro-B Natriuret Pep 07/09/18 05:17 Hgb Hct Lymph % (Auto) [place] % (Auto) APTT D-Dimer Potassium Glucose Total Creatine Kinase 174 H CK-MB (CK-2) 5.6 H NT-Pro-B Natriuret Pep
[2018-07-11] MEDS ORDERED: SODIUM CHLORIDE FLUSH SYRINGE 10 ML IV PRN (12:20)
--- NOTE | 2018-07-11 12:26 | Hem/Onc Progress Note ---
Assessment and Plan # Admitted for SOB - Bilateral pulmonary emboli - on anticoagulation hypercoag IX will be done - option of IP vs OP. NOAC xarelto or eliquis an option pt had DVT after child ~ 40 years ago - was on coumadin for 1 year. prothrombin gene mutation and Fctor V leiden mutation # Pt says had ministroke ~ 10 years ago recent h/o left arm weakness for ~ 5 mins and later rt arm weakness for 10 mins - seen by neurology # Hypertension - Patient Problems (1) Pulmonary embolus Current Visit: Yes Status: Acute Subjective Date of service: 07/11/18 Principal diagnosis: PE Interval history: feeling better h/o leg discomfort Objective - Constitutional Vitals: Last Vital Signs Temp 98.6 F 07/11/18 05:17 Pulse 76 07/11/18 11:42 Resp 20 07/11/18 10:00 BP 133/67 07/11/18 05:17 Pulse Ox 96 07/11/18 10:00 Pain Intensity (0-10): 1/10 General appearance: no acute distress Performance status: 0-fully active - EENT Eyes: PERRL ENT: clear oral mucosa Lymph node exam: bilateral cervical, bilateral supraclavicular - Neck Neck: supple - Respiratory Respiratory effort: Positive: normal Respiratory: bilateral: CTA - Cardiovascular Heart Sounds: Present: S1 & S2 Extremities: No edema - Gastrointestinal General gastrointestinal: Present: soft, non-tender Rectal Exam: deferred - Genitourinary Female genitourinary: Present: deferred - Integumentary Integumentary: warm - Musculoskeletal Musculoskeletal: strength equal bilaterally - Neurologic Neurologic: moves all extremities - Psychiatric Psychiatric: appropriate mood/affect - Allied health notes Allied health notes reviewed: nursing - Labs Lab Results: Laboratory Results - last 24 hr 07/11/18 04:58 PT 14.6 INR 1.08
[2018-07-11 14:08] LABS: Chol/HDL Ratio 6.11 %
--- NOTE | 2018-07-11 14:27 | Progress Note ---
Assessment and Plan Assessment and plan: 67-year-old in with a history of hypertension, CVA comes to the emergency room with complaint of left arm numbness that lasted for 5 minutes. She subsequently had right arm numbness that lasted for 10 minutes. While in the emergency room, She was getting out of the bed to use the bathroom, will oxygen saturation dropped, and she complained of shortness of breath, diagnosed with bilateral pulmonary embolism Bilateral pulmonary emboli DVT right lower ext Acute ischemic stroke Hypertension History of CVA PFO Plan Supportive care On Lovenox, coumadin. Will d/c and start Eliquis. INR 1.08 today I discussed with Hematology, . He states can switch to Eliquis for PE/ DVT treatment.. I also discussed with Dr. Wilson, Neuro about antiplatelet for stroke. He states Eliquis alone is enough. No need to add aspirin. Neurology following. consult Hematology to work up DVT, PE. patient had DVT about 40yrs ago about time of giving . Family history of DVT. Her son had DVT after knee surgery patient states she had procedure to left knee last week. Obtain PT/OT/Speech Consult cardiology for PFO seen on Echo Full code status History Interval history: Mild pain right leg, Less shortness of breath Hospitalist Physical - Physical exam Narrative exam: GEN:Not in acute distress, lying in bed HEENT: Normocephalic, atraumatic, Neck: supple, No JVD Lungs: Clear to auscultaion bilaterally, no crackles Heart:S1 and S2 reg, no murmurs, rubs or gallop Abd:soft, non-tender, non-distended, Normal bowel sounds Ext: Tender right leg, no clubbing or cyanosis Neuro: Awake, alert, oriented X 3, Moves all extremities - Constitutional Vitals: Temp Pulse Resp BP Pulse Ox 98.6 F 76 20 133/67 96 07/11/18 05:17 07/11/18 11:42 07/11/18 10:00 07/11/18 05:17 07/11/18 10:00 Results - Labs CBC & Chem 7: 07/09/18 05:17 07/09/18 05:17 Labs: Laboratory Last Values WBC 7.0 K/mm3 (4.5-11.0) 07/09/18 05:17 RBC 4.38 M/mm3 (3.65-5.03) 07/09/18 05:17 Hgb 13.3 gm/dl (10.1-14.3) 07/09/18 05:17 Hct 40.8 % (30.3-42.9) 07/09/18 05:17 MCV 93 fl (79-97) 07/09/18 05:17 MCH 31 pg (28-32) 07/09/18 05:17 MCHC 33 % (30-34) 07/09/18 05:17 RDW 14.5 % (13.2-15.2) 07/09/18 05:17 Plt Count 176 K/mm3 (140-440) 07/09/18 05:17 Lymph % (Auto) 45.3 % (13.4-35.0) H 07/09/18 05:17 [place] % (Auto) 7.7 % (0.0-7.3) H 07/09/18 05:17 Eos % (Auto) 0.7 % (0.0-4.3) 07/09/18 05:17 Baso % (Auto) 0.5 % (0.0-1.8) 07/09/18 05:17 Lymph # 3.2 K/mm3 (1.2-5.4) 07/09/18 05:17 [place] # 0.5 K/mm3 (0.0-0.8) 07/09/18 05:17 Eos # 0.0 K/mm3 (0.0-0.4) 07/09/18 05:17 Baso # 0.0 K/mm3 (0.0-0.1) 07/09/18 05:17 Seg Neutrophils % 45.8 % (40.0-70.0) 07/09/18 05:17 Seg Neutrophils # 3.2 K/mm3 (1.8-7.7) 07/09/18 05:17 PT 14.6 Sec. (12.2-14.9) 07/11/18 04:58 INR 1.08 (0.87-1.13) 07/11/18 04:58 APTT 23.4 Sec. (24.2-36.6) L 07/08/18 19:37 D-Dimer 6133 ng/mlDDU (0-234) H 07/08/18 20:02 Sodium 142 mmol/L (137-145) 07/09/18 05:17 Potassium 4.0 mmol/L (3.6-5.0) 07/09/18 05:17 Chloride 105.6 mmol/L (98-107) 07/09/18 05:17 Carbon Dioxide 25 mmol/L (22-30) 07/09/18 05:17 Anion Gap 15 mmol/L 07/09/18 05:17 BUN 13 mg/dL (7-17) 07/09/18 05:17 Creatinine 0.9 mg/dL (0.7-1.2) 07/09/18 05:17 Estimated GFR > 60 ml/min 07/09/18 05:17 BUN/Creatinine Ratio 14 % 07/09/18 05:17 Glucose 119 mg/dL (65-100) H 07/09/18 05:17 Calcium 8.8 mg/dL (8.4-10.2) 07/09/18 05:17 Total Creatine Kinase 174 units/L (30-135) H 07/09/18 05:17 CK-MB (CK-2) 5.6 ng/mL (0.0-4.0) H 07/09/18 05:17 CK-MB (CK-2) Rel Index 3.2 (0-4) 07/09/18 05:17 Troponin T 0.010 ng/mL (0.00-0.029) 07/09/18 05:17 NT-Pro-B Natriuret Pep 2412 pg/mL (0-900) H 07/08/18 19:37 Triglycerides 144 mg/dL (2-149) 07/11/18 13:24 Cholesterol 275 mg/dL (50-199) H 07/11/18 13:24 LDL Cholesterol Direct 217 mg/dL (50-130) H 07/11/18 13:24 HDL Cholesterol 45 mg/dL (40-59) 07/11/18 13:24 Cholesterol/HDL Ratio 6.11 % 07/11/18 13:24
[2018-07-11] MEDS ORDERED: COUMADIN PO SCH (17:00)
[2018-07-11] MEDS: ELIQUIS PO SCH (22:03)
[2018-07-12 05:50] LABS: INR 1.17 (0.87-1.13)
[2018-07-12 08:11] LABS: Alanine Aminotransferase 20 units/L (7-56); Albumin 3.4 g/dL (3.9-5)
[2018-07-12 08:15] LABS: Bilirubin,Direct < 0.2 mg/dL (0-0.2)
[2018-07-12] MEDS: SODIUM CHLORIDE FLUSH SYRINGE 10 ML IV SCH ×2 (11:44→21:39)
[2018-07-12] MEDS: ELIQUIS PO SCH ×2 (11:44→21:38)
--- NOTE | 2018-07-12 13:09 | Hem/Onc Progress Note ---
Assessment and Plan Generic Name Dose Route Start Last Admin Trade Name Freq PRN Reason Stop Dose Admin Acetaminophen 650 mg 07/09/18 03:04 Tylenol PO Q4H PRN Pain MILD(1-3)/Fever >100.5/SARABIA Apixaban 10 mg 07/11/18 20:00 07/12/18 21:38 Eliquis PO 10 mg Q12HR SHAILESH Administration Protocol Atorvastatin Calcium 40 mg 07/12/18 12:30 07/12/18 18:32 Lipitor PO Not Given DAILY SHAILESH Ondansetron HCl 4 mg 07/09/18 03:04 Zofran IV Q8H PRN Nausea And Vomiting Oxycodone/Acetaminophen 1 tab 07/09/18 03:04 Percocet 5/325 PO Q6H PRN Pain, Moderate (4-6) Sodium Chloride 10 ml 07/09/18 10:00 07/12/18 21:39 Sodium Chloride Flush Syringe 10 Ml IV 10 ml BID SHAILESH Administration Sodium Chloride 10 ml 07/09/18 03:04 Sodium Chloride Flush Syringe 10 Ml IV PRN PRN LINE FLUSH # Admitted for SOB - Bilateral pulmonary emboli - on anticoagulation NOAC xarelto or eliquis an option pt had DVT after child ~ 40 years ago - was on coumadin for 1 year. prothrombin gene mutation and Fctor V leiden mutation # Pt says had ministroke ~ 10 years ago recent h/o left arm weakness for ~ 5 mins and later rt arm weakness for 10 mins - seen by neurology # Hypertension OP follow up an option d/w dr Vizcarra - Patient Problems (1) Pulmonary embolus Current Visit: Yes Status: Acute Subjective Date of service: 07/12/18 Principal diagnosis: PE Interval history: feeling better no leg pain no SOB now Objective - Constitutional Vitals: Last Vital Signs Temp 98.2 F 07/12/18 08:52 Pulse 83 07/12/18 08:52 Resp 20 07/12/18 08:52 BP 150/80 07/12/18 08:52 Pulse Ox 96 07/12/18 10:46 Pain Intensity (0-10): denies any pain General appearance: no acute distress Performance status: 0-fully active - EENT Eyes: PERRL ENT: clear oral mucosa Lymph node exam: negative cervical, negative supraclavicular - Neck Neck: supple - Respiratory Respiratory effort: Positive: normal Respiratory: bilateral: CTA - Cardiovascular Heart Sounds: Present: S1 & S2 Extremities: No edema - Gastrointestinal General gastrointestinal: Present: soft, non-tender Rectal Exam: deferred - Genitourinary Female genitourinary: Present: deferred - Integumentary Integumentary: warm - Musculoskeletal Musculoskeletal: strength equal bilaterally - Neurologic Neurologic: moves all extremities - Psychiatric Psychiatric: appropriate mood/affect - Labs Lab Results: Laboratory Results - last 24 hr 07/11/18 07/12/18 07/12/18 13:24 05:09 07:33 PT 15.6 H INR 1.17 H Total Bilirubin 0.20 Direct Bilirubin < 0.2 Indirect Bilirubin 0.0 AST 23 ALT 20 Alkaline Phosphatase 66 Total Protein 5.9 L Albumin 3.4 L Albumin/Globulin Ratio 1.4 Triglycerides 144 Cholesterol 275 H LDL Cholesterol Direct 217 H HDL Cholesterol 45 Cholesterol/HDL Ratio 6.11
--- NOTE | 2018-07-12 16:26 | Progress Note ---
Assessment and Plan Assessment and plan: 67-year-old in with a history of hypertension, CVA comes to the emergency room with complaint of left arm numbness that lasted for 5 minutes. She subsequently had right arm numbness that lasted for 10 minutes. While in the emergency room, She was getting out of the bed to use the bathroom, will oxygen saturation dropped, and she complained of shortness of breath, diagnosed with bilateral pulmonary embolism Acute respiratory failure due to pulmonary embolism Bilateral pulmonary emboli DVT right lower ext Acute ischemic stroke Hypertension History of CVA PFO Plan Supportive care On Lovenox, coumadin. Will d/c and start Eliquis. INR 1.08 today I discussed with Hematology, . He states can switch to Eliquis for PE/ DVT treatment.. I also discussed with Dr. Wilsno, Neuro about antiplatelet for stroke. He states Eliquis alone is enough. No need to add aspirin. Neurology following. consult Hematology to work up DVT, PE. patient had DVT about 40yrs ago about time of giving . Family history of DVT. Her son had DVT after knee surgery patient states she had procedure to left knee last week. Obtain PT/OT/Speech Consulted cardiology for PFO seen on Echo Full code status Patient had desaturation on room air o2 sat 88%. Will recheck tomorrow. cancel intended discharge. History Interval history: Mild pain right leg, shortness of breath Low Oxygen sat 88% on room air Hospitalist Physical - Physical exam Narrative exam: GEN:Not in acute distress, lying in bed HEENT: Normocephalic, atraumatic, Neck: supple, No JVD Lungs: Clear to auscultaion bilaterally, no crackles Heart:S1 and S2 reg, no murmurs, rubs or gallop Abd:soft, non-tender, non-distended, Normal bowel sounds Ext: Tender right leg, no clubbing or cyanosis Neuro: Awake, alert, oriented X 3, Moves all extremities - Constitutional Vitals: Temp Pulse Resp BP Pulse Ox 98.2 F 80 20 150/80 96 07/12/18 08:52 07/12/18 10:00 07/12/18 10:00 07/12/18 08:52 07/12/18 10:46 Results - Labs CBC & Chem 7: 07/09/18 05:17 07/09/18 05:17 Labs: Laboratory Last Values WBC 7.0 K/mm3 (4.5-11.0) 07/09/18 05:17 RBC 4.38 M/mm3 (3.65-5.03) 07/09/18 05:17 Hgb 13.3 gm/dl (10.1-14.3) 07/09/18 05:17 Hct 40.8 % (30.3-42.9) 07/09/18 05:17 MCV 93 fl (79-97) 07/09/18 05:17 MCH 31 pg (28-32) 07/09/18 05:17 MCHC 33 % (30-34) 07/09/18 05:17 RDW 14.5 % (13.2-15.2) 07/09/18 05:17 Plt Count 176 K/mm3 (140-440) 07/09/18 05:17 Lymph % (Auto) 45.3 % (13.4-35.0) H 07/09/18 05:17 [place] % (Auto) 7.7 % (0.0-7.3) H 07/09/18 05:17 Eos % (Auto) 0.7 % (0.0-4.3) 07/09/18 05:17 Baso % (Auto) 0.5 % (0.0-1.8) 07/09/18 05:17 Lymph # 3.2 K/mm3 (1.2-5.4) 07/09/18 05:17 [place] # 0.5 K/mm3 (0.0-0.8) 07/09/18 05:17 Eos # 0.0 K/mm3 (0.0-0.4) 07/09/18 05:17 Baso # 0.0 K/mm3 (0.0-0.1) 07/09/18 05:17 Seg Neutrophils % 45.8 % (40.0-70.0) 07/09/18 05:17 Seg Neutrophils # 3.2 K/mm3 (1.8-7.7) 07/09/18 05:17 PT 15.6 Sec. (12.2-14.9) H 07/12/18 05:09 INR 1.17 (0.87-1.13) H 07/12/18 05:09 APTT 23.4 Sec. (24.2-36.6) L 07/08/18 19:37 D-Dimer 6133 ng/mlDDU (0-234) H 07/08/18 20:02 Sodium 142 mmol/L (137-145) 07/09/18 05:17 Potassium 4.0 mmol/L (3.6-5.0) 07/09/18 05:17 Chloride 105.6 mmol/L (98-107) 07/09/18 05:17 Carbon Dioxide 25 mmol/L (22-30) 07/09/18 05:17 Anion Gap 15 mmol/L 07/09/18 05:17 BUN 13 mg/dL (7-17) 07/09/18 05:17 Creatinine 0.9 mg/dL (0.7-1.2) 07/09/18 05:17 Estimated GFR > 60 ml/min 07/09/18 05:17 BUN/Creatinine Ratio 14 % 07/09/18 05:17 Glucose 119 mg/dL (65-100) H 07/09/18 05:17 Calcium 8.8 mg/dL (8.4-10.2) 07/09/18 05:17 Total Bilirubin 0.20 mg/dL (0.1-1.2) 07/12/18 07:33 Direct Bilirubin < 0.2 mg/dL (0-0.2) 07/12/18 07:33 Indirect Bilirubin 0.0 mg/dL 07/12/18 07:33 AST 23 units/L (5-40) 07/12/18 07:33 ALT 20 units/L (7-56) 07/12/18 07:33 Alkaline Phosphatase 66 units/L (35-129) 07/12/18 07:33 Total Creatine Kinase 174 units/L (30-135) H 07/09/18 05:17 CK-MB (CK-2) 5.6 ng/mL (0.0-4.0) H 07/09/18 05:17 CK-MB (CK-2) Rel Index 3.2 (0-4) 07/09/18 05:17 Troponin T 0.010 ng/mL (0.00-0.029) 07/09/18 05:17 NT-Pro-B Natriuret Pep 2412 pg/mL (0-900) H 07/08/18 19:37 Total Protein 5.9 g/dL (6.3-8.2) L 07/12/18 07:33 Albumin 3.4 g/dL (3.9-5) L 07/12/18 07:33 Albumin/Globulin Ratio 1.4 % 07/12/18 07:33 Triglycerides 144 mg/dL (2-149) 07/11/18 13:24 Cholesterol 275 mg/dL (50-199) H 07/11/18 13:24 LDL Cholesterol Direct 217 mg/dL (50-130) H 07/11/18 13:24 HDL Cholesterol 45 mg/dL (40-59) 07/11/18 13:24 Cholesterol/HDL Ratio 6.11 % 07/11/18 13:24
--- NOTE | 2018-07-12 16:31 | Discharge Summary ---
Providers - Providers Date of Admission: 07/08/18 23:33 Date of discharge: 07/12/18 Attending physician: JAYANT SCOTT 07/09/18 09:58 Consult to Physician [CONS] Routine Comment: spoke with Elida at 1258 at office Consulting Provider: LOUIS DIEGO Physician Instructions: Reason For Exam: TIA 07/10/18 13:04 Consult to Physician [CONS] Routine Comment: Consulting Provider: CASSIE BARBA Physician Instructions: Reason For Exam: DVT, pulm embolism 07/11/18 12:18 Consult to Physician [CONS] Routine Comment: Consulting Provider: KENNEY PISANO Physician Instructions: Reason For Exam: PFO, Atrial septal defect in patient with stroke 07/11/18 12:20 Occupational Therapy Evaluate and Treat [CONS] Routine Comment: Reason For Exam: Neuro deficits Physical Therapy Evaluation and Treat [CONS] Routine Comment: Reason For Exam: Neuro deficits Primary care physician: PRODUCT SUPPORT ANALYST Hospitalization Condition: Fair Disposition: DC-01 TO HOME OR SELFCARE - Discharge Diagnoses (1) DVT (deep venous thrombosis) Status: Acute (2) Acute ischemic stroke Status: Acute (3) Pulmonary embolus Status: Acute (4) Acute and chronic respiratory failure Status: Acute Core Measure Documentation - Palliative Care Palliative Care/ Comfort Measures: Not Applicable - Core Measures Any of the following diagnoses?: DVT/PE, stroke - VTE Discharge Requirements Deep Vein Thrombosis/Pulmonary Embolism Present on Admission: Yes Has pt received <5 days of overlap therapy or INR<2.0: Yes Anticoagulant overlap therapy prescribed at discharge: No Contraindication No Overlap Therapy order at DC: Not Indicated (Discjharge on Eliquis) Exam - Constitutional Vitals: Temp Pulse Resp BP Pulse Ox 98.2 F 80 20 150/80 96 07/12/18 08:52 07/12/18 10:00 07/12/18 10:00 07/12/18 08:52 07/12/18 10:46 Plan Activity: advance as tolerated Diet: low fat, low cholesterol, low salt Special Instructions: home oxygen via, home health RN Additional Instructions: 1.Follow up with PCP in 1 week. 2.Follow up with Dr. Barba, Heme/Onc in 1 week. 3.Follow up with Dr. Hermann awan, Cardiology in 1 week to evaluate PFO. 4.Follow up with Dr. Lenore, Pulm for respiratory failure , on home oxygen. 5.Continue home Oxygen 2l/min Follow up with: PRIMARY CARE, [Primary Care Provider] - 3-5 Days Prescriptions: Apixaban [Eliquis] 10 mg PO Q12HR 3 Days tablet Apixaban [Eliquis] 5 mg PO BID #60 tablet AtorvaSTATin [Lipitor] 40 mg PO DAILY #30 tablet
--- NOTE | 2018-07-12 17:27 | Vascular Lab Report ---
CAROTID DUPLEX STUDY: RIGHT PSVEDV CCA PROX:6717 CCA DIST:4615 ICA PROX:6116 ICA MID:6726 ICA DIST:7226 ECA: 69 VERT: 60 23 LEFT PSVEDV CCA PROX:6719 CCA DIST:5724 ICA PROX:6927 ICA MID:9637 ICA DIST:8230 ECA: 82 VERT: 38 12 REASON FOR EXAM: Stroke. COMMENTS ON THE RIGHT: Doppler frequency analysis is consistent with 16 to 49 percent diameter reduction of the internal carotid artery. A moderate amount of extensive plaque is seen. The common carotid artery is patent. The external carotid artery is patent. The vertebral artery has antegrade flow. COMMENTS ON THE LEFT: Doppler frequency analysis is consistent with 16 to 49 percent diameter reduction of the internal carotid artery. A small amount of plaque is seen. The common carotid artery is patent. The external carotid artery is patent. The vertebral artery has antegrade flow. IMPRESSION: Less than 50% diameter reduction in the internal carotid arteries bilaterally. A moderate amount of mixed density plaque is seen in the right internal carotid artery. Consider CT angiography for further evaluation.
[2018-07-13 05:54] LABS: INR 1.17 (0.87-1.13)
[2018-07-13] MEDS: ELIQUIS PO SCH ×2 (11:13→22:47)
[2018-07-13] MEDS: SODIUM CHLORIDE FLUSH SYRINGE 10 ML IV SCH ×2 (11:14→22:47)
--- NOTE | 2018-07-13 11:17 | Consultation ---
History of Present Illness Consult date: 07/13/18 Consult reason: other (PFO) History of present illness: This is a 67 year old woman who presented to this hospital 07/08 with bilateral upper extremity numbness and shortness of breath, found to have acute DVT, bilateral PE and acute CVA. Patient reports a history of hypertension, remote history of DVT following of a child and prior CVA. She also reports recent right knee surgery. Further evaluation with an echocardiogram revealed a patent foramen ovale. There is also evidence of atrial septal aneurysm. Ejection fraction is well preserved. Cardiac consultation is requested following findings of her echocardiogram. Patient denies chest pain, shortness of breath and palpitations. There is no prior cardiac history. a week ago she underwent outpatient cardiac workup with a thallium stress test but she has not follow up for her results. 12 lead ECG shows a sinus rhythm with nonspecific Twave abnormalities. Past History Past Medical History: DVT, hypertension, other (CVA) Family history: hypertension Medications and Allergies Allergies Allergy/AdvReac Type Severity Reaction Status Date / Time No Known Allergies Allergy Verified 11/28/14 18:52 Home Medications Medication Instructions Recorded Confirmed Last Taken Type Apixaban [Eliquis] 5 mg PO BID #60 tablet 07/12/18 Unknown Rx AtorvaSTATin [Lipitor] 40 mg PO DAILY #30 tablet 07/12/18 Unknown Rx Active Meds: Active Medications Acetaminophen (Tylenol) 650 mg PO Q4H PRN PRN Reason: Pain MILD(1-3)/Fever >100.5/[place] Apixaban (Eliquis) 10 mg PO Q12HR [facility]; Protocol Last Admin: 07/12/18 21:38 Dose: 10 mg Atorvastatin Calcium (Lipitor) 40 mg PO DAILY [facility] Last Admin: 07/12/18 18:32 Dose: Not Given Ondansetron HCl (Zofran) 4 mg IV Q8H PRN PRN Reason: Nausea And Vomiting Oxycodone/Acetaminophen (Percocet 5/325) 1 tab PO Q6H PRN PRN Reason: Pain, Moderate (4-6) Sodium Chloride (Sodium Chloride Flush Syringe 10 Ml) 10 ml IV BID [facility] Last Admin: 07/12/18 21:39 Dose: 10 ml Sodium Chloride (Sodium Chloride Flush Syringe 10 Ml) 10 ml IV PRN PRN PRN Reason: LINE FLUSH Physical Examination Vital Signs Temp Pulse BP Pulse Ox 98.3 F 107 H 188/108 81 L 07/08/18 18:18 07/08/18 18:18 07/08/18 18:18 07/08/18 18:18 General appearance: no acute distress HEENT: Positive: PERRL Cardiac: Positive: Reg Rate and Rhythm Lungs: Positive: Decreased Breath Sounds Neuro: Positive: Grossly Intact Extremities: Absent: edema Results 07/09/18 05:17 07/09/18 05:17 Coagulation 07/13/18 Range/Units 05:19 PT 15.4 H (12.2-14.9) Sec. INR 1.17 H (0.87-1.13) Assessment and Plan Acute CVA/PE/DVT initiated on eliquis for oral anticoagulation Hypertension Hx of CVA Echocardiogram revealed a patent foramen ovale. There is also evidence of atrial septal aneurysm. Ejection fraction is well preserved.
--- NOTE | 2018-07-13 13:58 | Hem/Onc Progress Note ---
Assessment and Plan # Admitted for SOB - Bilateral pulmonary emboli - on anticoagulation NOAC pt had DVT after child ~ 40 years ago - was on coumadin for 1 year. prothrombin gene mutation and Fctor V leiden mutation # Pt says had ministroke ~ 10 years ago recent h/o left arm weakness for ~ 5 mins and later rt arm weakness for 10 mins - seen by neurology # Hypertension # Cardiac shunt PFO - seen byc ardiology # h/o low 02 sats OP follow up an option d/w dr Vizcarra 07/13 - Patient Problems (1) Pulmonary embolus Current Visit: Yes Status: Acute Subjective Date of service: 07/13/18 Principal diagnosis: PE Interval history: feeling better no leg pain o2 sats were low - on o2 Objective - Constitutional Vitals: Last Vital Signs Temp 98.0 F 07/13/18 09:35 Pulse 78 07/13/18 09:35 Resp 20 07/13/18 09:35 BP 120/58 07/13/18 09:35 Pulse Ox 96 07/13/18 09:35 Pain Intensity (0-10): denies any pain General appearance: no acute distress Performance status: 2- selfcare, ambulatory - EENT Eyes: PERRL ENT: clear oral mucosa Lymph node exam: negative cervical, negative supraclavicular - Neck Neck: supple - Respiratory Respiratory effort: Positive: other (on o2) Respiratory: bilateral: CTA - Cardiovascular Heart Sounds: Present: S1 & S2 Extremities: No edema - Gastrointestinal General gastrointestinal: Present: soft, non-tender Rectal Exam: deferred - Genitourinary Female genitourinary: Present: deferred - Integumentary Integumentary: warm - Musculoskeletal Musculoskeletal: strength equal bilaterally - Neurologic Neurologic: moves all extremities - Psychiatric Psychiatric: appropriate mood/affect - Allied health notes Allied health notes reviewed: nursing - Labs Lab Results: Laboratory Results - last 24 hr 07/13/18 05:19 PT 15.4 H INR 1.17 H
--- NOTE | 2018-07-13 14:11 | Event Note ---
Date: 07/13/18 Patient has acute respiratory failure due to pulmonary embolism. Oxygen saturation 80% on ambulation. She will need home Oxygen.
--- NOTE | 2018-07-13 14:54 | Event Note ---
Date: 07/13/18 Patient with acute on chronic respiratory failure. To discharge home after Oxygen arranged.
[2018-07-13] MEDS ORDERED: APRESOLINE IV PRN (17:37)
--- NOTE | 2018-07-13 19:28 | Progress Note ---
Assessment and Plan Assessment and plan: 67-year-old in with a history of hypertension, CVA comes to the emergency room with complaint of left arm numbness that lasted for 5 minutes. She subsequently had right arm numbness that lasted for 10 minutes. While in the emergency room, She was getting out of the bed to use the bathroom, will oxygen saturation dropped, and she complained of shortness of breath, diagnosed with bilateral pulmonary embolism Acute respiratory failure due to pulmonary embolism Bilateral pulmonary emboli DVT right lower ext Acute ischemic stroke Hypertension History of CVA PFO Plan Supportive care I discussed with Hematology, . He states can switch to Eliquis for PE/ DVT treatment.. I also discussed with Dr. Wilson, Neuro about antiplatelet for stroke. He states Eliquis alone is enough. No need to add aspirin. Neurology following. patient had DVT about 40yrs ago about time of giving . Family history of DVT. Her son had DVT after knee surgery patient states she had procedure to left knee last week. Obtain PT/OT/Speech Consulted cardiology for PFO seen on Echo. cardiology recommends folow up in office for poss closure. I discussed this with her. Full code status Patient had desaturation on room air o2 sat 88%. Acute on chronic respiratory failure,likely. She is medically stable to go home, awaiting home Oxygen arrangements. - Patient Problems (1) DVT (deep venous thrombosis) Current Visit: Yes Status: Acute (2) Acute ischemic stroke Current Visit: Yes Status: Acute (3) Pulmonary embolus Current Visit: Yes Status: Acute (4) Acute and chronic respiratory failure Current Visit: Yes Status: Acute History Interval history: Mild pain right leg, shortness of breath Low Oxygen sat 88% on room air, Did not go yesterday because home Oxygen not arranged Hospitalist Physical - Physical exam Narrative exam: GEN:Not in acute distress, lying in bed HEENT: Normocephalic, atraumatic, Neck: supple, No JVD Lungs: Clear to auscultaion bilaterally, no crackles Heart:S1 and S2 reg, no murmurs, rubs or gallop Abd:soft, non-tender, non-distended, Normal bowel sounds Ext: Tender right leg, no clubbing or cyanosis Neuro: Awake, alert, oriented X 3, Moves all extremities - Constitutional Vitals: Temp Pulse Resp BP Pulse Ox 97.6 F 73 20 145/79 94 07/13/18 16:35 07/13/18 16:35 07/13/18 15:56 07/13/18 16:35 07/13/18 15:56 General appearance: Present: no acute distress Results - Labs CBC & Chem 7: 07/09/18 05:17 07/09/18 05:17 Labs: Laboratory Last Values WBC 7.0 K/mm3 (4.5-11.0) 07/09/18 05:17 RBC 4.38 M/mm3 (3.65-5.03) 07/09/18 05:17 Hgb 13.3 gm/dl (10.1-14.3) 07/09/18 05:17 Hct 40.8 % (30.3-42.9) 07/09/18 05:17 MCV 93 fl (79-97) 07/09/18 05:17 MCH 31 pg (28-32) 07/09/18 05:17 MCHC 33 % (30-34) 07/09/18 05:17 RDW 14.5 % (13.2-15.2) 07/09/18 05:17 Plt Count 176 K/mm3 (140-440) 07/09/18 05:17 Lymph % (Auto) 45.3 % (13.4-35.0) H 07/09/18 05:17 [place] % (Auto) 7.7 % (0.0-7.3) H 07/09/18 05:17 Eos % (Auto) 0.7 % (0.0-4.3) 07/09/18 05:17 Baso % (Auto) 0.5 % (0.0-1.8) 07/09/18 05:17 Lymph # 3.2 K/mm3 (1.2-5.4) 07/09/18 05:17 [place] # 0.5 K/mm3 (0.0-0.8) 07/09/18 05:17 Eos # 0.0 K/mm3 (0.0-0.4) 07/09/18 05:17 Baso # 0.0 K/mm3 (0.0-0.1) 07/09/18 05:17 Seg Neutrophils % 45.8 % (40.0-70.0) 07/09/18 05:17 Seg Neutrophils # 3.2 K/mm3 (1.8-7.7) 07/09/18 05:17 PT 15.4 Sec. (12.2-14.9) H 07/13/18 05:19 INR 1.17 (0.87-1.13) H 07/13/18 05:19 APTT 23.4 Sec. (24.2-36.6) L 07/08/18 19:37 D-Dimer 6133 ng/mlDDU (0-234) H 07/08/18 20:02 Sodium 142 mmol/L (137-145) 07/09/18 05:17 Potassium 4.0 mmol/L (3.6-5.0) 07/09/18 05:17 Chloride 105.6 mmol/L (98-107) 07/09/18 05:17 Carbon Dioxide 25 mmol/L (22-30) 07/09/18 05:17 Anion Gap 15 mmol/L 07/09/18 05:17 BUN 13 mg/dL (7-17) 07/09/18 05:17 Creatinine 0.9 mg/dL (0.7-1.2) 07/09/18 05:17 Estimated GFR > 60 ml/min 07/09/18 05:17 BUN/Creatinine Ratio 14 % 07/09/18 05:17 Glucose 119 mg/dL (65-100) H 07/09/18 05:17 Calcium 8.8 mg/dL (8.4-10.2) 07/09/18 05:17 Total Bilirubin 0.20 mg/dL (0.1-1.2) 07/12/18 07:33 Direct Bilirubin < 0.2 mg/dL (0-0.2) 07/12/18 07:33 Indirect Bilirubin 0.0 mg/dL 07/12/18 07:33 AST 23 units/L (5-40) 07/12/18 07:33 ALT 20 units/L (7-56) 07/12/18 07:33 Alkaline Phosphatase 66 units/L (35-129) 07/12/18 07:33 Total Creatine Kinase 174 units/L (30-135) H 07/09/18 05:17 CK-MB (CK-2) 5.6 ng/mL (0.0-4.0) H 07/09/18 05:17 CK-MB (CK-2) Rel Index 3.2 (0-4) 07/09/18 05:17 Troponin T 0.010 ng/mL (0.00-0.029) 07/09/18 05:17 NT-Pro-B Natriuret Pep 2412 pg/mL (0-900) H 07/08/18 19:37 Total Protein 5.9 g/dL (6.3-8.2) L 07/12/18 07:33 Albumin 3.4 g/dL (3.9-5) L 07/12/18 07:33 Albumin/Globulin Ratio 1.4 % 07/12/18 07:33 Triglycerides 144 mg/dL (2-149) 07/11/18 13:24 Cholesterol 275 mg/dL (50-199) H 07/11/18 13:24 LDL Cholesterol Direct 217 mg/dL (50-130) H 07/11/18 13:24 HDL Cholesterol 45 mg/dL (40-59) 07/11/18 13:24 Cholesterol/HDL Ratio 6.11 % 07/11/18 13:24
[2018-07-14] MEDS: ELIQUIS PO SCH (09:53)
[2018-07-14] MEDS: SODIUM CHLORIDE FLUSH SYRINGE 10 ML IV SCH (09:54)
--- NOTE | 2018-07-14 11:40 | Progress Note ---
Assessment and Plan 1. Acute CVA 2. Acute bilateral pulmonary embolism 3. Acute right DVT 4. History of recent right knee surgery 5. Patent forearm and over all body within normal left ventricular ejection fraction 6. Essential hypertension. Plan. Patient is currently stable although she has episodes of arterial desaturation requiring portable oxygen. Patient has had prior episode of CVA associated with DVT. There is evidence on Echo of a patent forearm [place]. She will require anticoagulation at this point and further evaluation for patent foramen ovale closure electively Subjective Date of service: 07/14/18 Principal diagnosis: PE Interval history: No cardiac Objective Vital Signs Temp Pulse Resp BP BP Pulse Ox 07/14/18 07:50 98.3 F 71 16 137/67 94 07/14/18 04:53 98.0 F 74 18 143/82 94 07/14/18 04:00 90 07/13/18 23:36 98.3 F 85 18 110/36 95 07/13/18 22:00 18 07/13/18 19:41 97.8 F 79 18 124/61 94 07/13/18 16:35 97.6 F 73 145/79 07/13/18 15:56 97.6 F 71 20 177/81 94 - Physical Examination General: Appears Well, No Apparent Distress HEENT: Positive: PERRL, Normocephaly, Mucus Membranes Moist Neck: Positive: neck supple, trachea midline. Negative: JVD/HJR Cardiac: Positive: Reg Rate and Rhythm, Regular Rate, S1/S2, S3, PMI, Dilated, Laterally Displaced Lungs: Positive: clear to auscultation, No Wheeze, Rales, Rhonchi Neuro: Positive: Grossly Intact, No Lateralizing Findings Abdomen: Positive: Unremarkable, Active Bowel Sounds Extremities: Absent: edema - Imaging and Cardiology EKG: image reviewed
--- NOTE | 2018-07-14 12:56 | Progress Note ---
Assessment and Plan - Patient Problems (1) DVT (deep venous thrombosis) Current Visit: Yes Status: Acute (2) Acute ischemic stroke Current Visit: Yes Status: Acute (3) Pulmonary embolus Current Visit: Yes Status: Acute (4) Acute and chronic respiratory failure Current Visit: Yes Status: Acute Hospitalist Physical - Constitutional Vitals: Temp Pulse Resp BP Pulse Ox 98.3 F 71 16 137/67 94 07/14/18 07:50 07/14/18 07:50 07/14/18 07:50 07/14/18 07:50 07/14/18 07:50 General appearance: Present: no acute distress Results - Labs CBC & Chem 7: 07/09/18 05:17 07/09/18 05:17 Labs: Laboratory Last Values WBC 7.0 K/mm3 (4.5-11.0) 07/09/18 05:17 RBC 4.38 M/mm3 (3.65-5.03) 07/09/18 05:17 Hgb 13.3 gm/dl (10.1-14.3) 07/09/18 05:17 Hct 40.8 % (30.3-42.9) 07/09/18 05:17 MCV 93 fl (79-97) 07/09/18 05:17 MCH 31 pg (28-32) 07/09/18 05:17 MCHC 33 % (30-34) 07/09/18 05:17 RDW 14.5 % (13.2-15.2) 07/09/18 05:17 Plt Count 176 K/mm3 (140-440) 07/09/18 05:17 Lymph % (Auto) 45.3 % (13.4-35.0) H 07/09/18 05:17 [place] % (Auto) 7.7 % (0.0-7.3) H 07/09/18 05:17 Eos % (Auto) 0.7 % (0.0-4.3) 07/09/18 05:17 Baso % (Auto) 0.5 % (0.0-1.8) 07/09/18 05:17 Lymph # 3.2 K/mm3 (1.2-5.4) 07/09/18 05:17 [place] # 0.5 K/mm3 (0.0-0.8) 07/09/18 05:17 Eos # 0.0 K/mm3 (0.0-0.4) 07/09/18 05:17 Baso # 0.0 K/mm3 (0.0-0.1) 07/09/18 05:17 Seg Neutrophils % 45.8 % (40.0-70.0) 07/09/18 05:17 Seg Neutrophils # 3.2 K/mm3 (1.8-7.7) 07/09/18 05:17 PT 15.4 Sec. (12.2-14.9) H 07/13/18 05:19 INR 1.17 (0.87-1.13) H 07/13/18 05:19 APTT 23.4 Sec. (24.2-36.6) L 07/08/18 19:37 D-Dimer 6133 ng/mlDDU (0-234) H 07/08/18 20:02 Sodium 142 mmol/L (137-145) 07/09/18 05:17 Potassium 4.0 mmol/L (3.6-5.0) 07/09/18 05:17 Chloride 105.6 mmol/L (98-107) 07/09/18 05:17 Carbon Dioxide 25 mmol/L (22-30) 07/09/18 05:17 Anion Gap 15 mmol/L 07/09/18 05:17 BUN 13 mg/dL (7-17) 07/09/18 05:17 Creatinine 0.9 mg/dL (0.7-1.2) 07/09/18 05:17 Estimated GFR > 60 ml/min 07/09/18 05:17 BUN/Creatinine Ratio 14 % 07/09/18 05:17 Glucose 119 mg/dL (65-100) H 07/09/18 05:17 Calcium 8.8 mg/dL (8.4-10.2) 07/09/18 05:17 Total Bilirubin 0.20 mg/dL (0.1-1.2) 07/12/18 07:33 Direct Bilirubin < 0.2 mg/dL (0-0.2) 07/12/18 07:33 Indirect Bilirubin 0.0 mg/dL 07/12/18 07:33 AST 23 units/L (5-40) 07/12/18 07:33 ALT 20 units/L (7-56) 07/12/18 07:33 Alkaline Phosphatase 66 units/L (35-129) 07/12/18 07:33 Total Creatine Kinase 174 units/L (30-135) H 07/09/18 05:17 CK-MB (CK-2) 5.6 ng/mL (0.0-4.0) H 07/09/18 05:17 CK-MB (CK-2) Rel Index 3.2 (0-4) 07/09/18 05:17 Troponin T 0.010 ng/mL (0.00-0.029) 07/09/18 05:17 NT-Pro-B Natriuret Pep 2412 pg/mL (0-900) H 07/08/18 19:37 Total Protein 5.9 g/dL (6.3-8.2) L 07/12/18 07:33 Albumin 3.4 g/dL (3.9-5) L 07/12/18 07:33 Albumin/Globulin Ratio 1.4 % 07/12/18 07:33 Triglycerides 144 mg/dL (2-149) 07/11/18 13:24 Cholesterol 275 mg/dL (50-199) H 07/11/18 13:24 LDL Cholesterol Direct 217 mg/dL (50-130) H 07/11/18 13:24 HDL Cholesterol 45 mg/dL (40-59) 07/11/18 13:24 Cholesterol/HDL Ratio 6.11 % 07/11/18 13:24
[2018-07-14 13:25] VITALS: BP 140/79
--- NOTE | 2018-07-14 14:29 | Progress Note ---
Subjective Date of service: 07/14/18 Principal diagnosis: PE Interval history: patient will follow up with me she has patent PFO this explained the small embolus with embiolic snall stroke agree with anrticoaman patient explained risk /benefit of therapy Objective - Vital Sign Vital Signs - 12hr 07/14/18 07/14/18 07/14/18 04:00 04:53 07:50 Temperature 98.0 F 98.3 F Pulse Rate 90 74 71 Respiratory 18 16 Rate Blood Pressure 143/82 137/67 O2 Sat by Pulse 94 94 Oximetry 07/14/18 11:42 Temperature 98.3 F Pulse Rate 71 Respiratory 18 Rate Blood Pressure 140/79 O2 Sat by Pulse 93 Oximetry - Laboratory Findings CBC and BMP: 07/09/18 05:17 07/09/18 05:17 Abnormal Lab Findings: Abnormal Labs 07/08/18 07/08/18 07/08/18 19:37 19:37 19:37 Hgb 15.0 H Hct 45.1 H Lymph % (Auto) [place] % (Auto) 7.8 H PT INR APTT 23.4 L D-Dimer Potassium 3.4 L Glucose 150 H Total Creatine Kinase 208 H CK-MB (CK-2) 6.3 H NT-Pro-B Natriuret Pep 2412 H Total Protein Albumin Cholesterol LDL Cholesterol Direct 07/08/18 07/09/18 07/09/18 20:02 05:17 05:17 Hgb Hct Lymph % (Auto) 45.3 H [place] % (Auto) 7.7 H PT INR APTT D-Dimer 6133 H Potassium Glucose 119 H Total Creatine Kinase CK-MB (CK-2) NT-Pro-B Natriuret Pep Total Protein Albumin Cholesterol LDL Cholesterol Direct 07/09/18 07/11/18 07/12/18 05:17 13:24 05:09 Hgb Hct Lymph % (Auto) [place] % (Auto) PT 15.6 H INR 1.17 H APTT D-Dimer Potassium Glucose Total Creatine Kinase 174 H CK-MB (CK-2) 5.6 H NT-Pro-B Natriuret Pep Total Protein Albumin Cholesterol 275 H LDL Cholesterol Direct 217 H 07/12/18 07/13/18 07:33 05:19 Hgb Hct Lymph % (Auto) [place] % (Auto) PT 15.4 H INR 1.17 H APTT D-Dimer Potassium Glucose Total Creatine Kinase CK-MB (CK-2) NT-Pro-B Natriuret Pep Total Protein 5.9 L Albumin 3.4 L Cholesterol LDL Cholesterol Direct
[2018-07-18] MEDS ORDERED: ELIQUIS PO SCH (22:00)
== END 2018-07-14 15:00 | disposition home or self-care (01) | DRG 64 ==
LOC: ED 17:53 → 4A 23:33
PROVIDERS: ADMIT Internal Medicine; ATTEND Internal Medicine
DX: I63.9 Cerebral infarction, unspecified (principal); I26.99 Other pulmonary embolism without acute cor pulmonale; J96.21 Acute and chronic respiratory failure with hypoxia; Q21.1 Atrial septal defect; I82.401 Acute embolism and thrombosis of unspecified deep veins of right lower extremity; I10 Essential (primary) hypertension; Z82.49 Family history of ischemic heart disease and other diseases of the circulatory system; Z79.899 Other long term (current) drug therapy; Z79.82 Long term (current) use of aspirin
CPT/HCPCS: 36415; 70450; 70551; 71045; 71275; 80048; 80061; 80074; 82550; 82553; 83880; 84484; 85025; 85210; 85220; 85379; 85610; 85730; 93005; 93010; 93306; 93880; 93970; 94760; 96372; A9270-GY; G8978-GP; G8979-GP; J1650; Q9967

== ENCOUNTER 2018-08-01 08:28 | Outpatient (CLI) | payer MEDICARE, MEDICAID ==
--- NOTE | 2018-08-02 08:27 | Mammography Report ---
BONE DEXA:08/01/18 09:30:00 CLINICAL: Postmenopausal COMPARISON: 11/23/15 TECHNIQUE: Two site bone DEXA performed on an [employer] scanner. FINDINGS: The average BMD of the lumbar spine L1-L4 is 0.846g/cm squared with a T-score of -1.8 and a Z-score of +0.1. This compares to 0.881 g/cm squared on the last exam and represents a -3.9% change in BMD. The average BMD of the left hip is 0.732g/cm squared with a T-score of -1.7 and a Z-score of -0.3.This compares to 0.800g/cm squared on the last exam and represents a -8.5% change in BMD. IMPRESSION: 1.WHO classification: Osteopenia with increased fracture risk based on both spine and left hip measurements. A moderate decrease in spine BMD and a greater decrease in left hip BMD compared to baseline. 2. The FRAX 10 year fracture probability for a major osteoporotic fracture is 12%. 3.The FRAX 10 year fracture probability for hip fracture is 2.3%. Note: FRAX version 3.01. Fracture probability calculated for an untreated patient. Fracture probability may be lower if the patient has received treatment. RECOMMENDATION: Clinical correlation and routine screening. DEFINITIONS: BMD = Bone Mineral Density T-score = BMD related to mean peak bone mass of young adult (mean expressed in Standard Deviation) Z-score = Age matched BMD expressed in SD World Health Organization (WHO) Diagnostic Criteria Normal T-score > -1 SD Osteopenia T-score between -1 and -2.4 SD Osteoporosis T-score -2.5 SD or below NOTE: BMD is not the only risk factor for fracture; also consider factors such as the patient's age, risk of falling, previous osteoporotic fracture, family history of osteoporotic fractures, current smoker, and low body weight. All treatment decisions require clinical judgment and consideration of individual patient factors, including patient preferences, comorbidities, previous drug use and wrist factors not captured in the FRAX model (e.g. frailty, falls, vitamin D deficiency, increased bone turnover, interval significant decline in BMD). Z-scores are not calculated if >80 years of age.
== END 2018-08-01 08:29 | disposition home or self-care (01) ==
LOC: MAMMO 08:28
PROVIDERS: ATTEND Hospitalist
DX: M85.88 Other specified disorders of bone density and structure, other site (principal); E55.9 Vitamin D deficiency, unspecified; Z87.891 Personal history of nicotine dependence
CPT/HCPCS: 77080

== ENCOUNTER 2019-04-07 09:16 | Inpatient (IN) | payer MEDICARE ==
--- NOTE | 2019-04-07 09:31 | Consultation ---
History of Present Illness Consult date: 04/07/19 Medications and Allergies Allergies Allergy/AdvReac Type Severity Reaction Status Date / Time No Known Allergies Allergy Verified 11/28/14 18:52 Home Medications Medication Instructions Recorded Confirmed Last Taken Type Apixaban [Eliquis] 5 mg PO BID #60 tablet 07/12/18 Unknown Rx AtorvaSTATin [Lipitor] 40 mg PO DAILY #30 tablet 07/12/18 Unknown Rx Apixaban [Eliquis] 10 mg PO Q12HR 3 Days tablet 07/14/18 Unknown Rx Physical Examination - Vital Signs Vital Signs: Vital Signs Temp Pulse Resp BP Pulse Ox 98 F 90 18 223/91 98 04/07/19 09:19 04/07/19 09:19 04/07/19 09:19 04/07/19 09:19 04/07/19 09:19 - Assessment Assessment Interval: Baseline - Level of Consciousness 1a. Level of Consciousness: alert/keenly responsive - LOC Questions 1b. LOC Questions: answers both correctly - LOC Command 1c. LOC Commands: performs tasks correctly - Best Gaze 2. Best Gaze: normal - Visual 3. Visual: no visual loss - Facial Palsy 4. Facial Palsy: normal symmetrical movement - Motor Arm 5a. Motor Arm Left: no drift 5b. Motor Arm Right: no drift - Motor Leg 6a. Motor Leg Left: no drift 6b. Motor Leg Right: drift - Limb Ataxia 7. Limb Ataxia: absent - Sensory 8. Sensory: normal - Best Language 9. Best Language: no aphasia - Dysarthria 10. Dysarthria: mild/moderate dysarthria - Extinction and Inattention 11. Extinction/Inattention: no abnormality - Scoring Total Score: 2 Stroke Severity: Minor Stroke Results - Laboratory Findings Abnormal Lab Findings: Abnormal Labs 04/07/19 09:24 POC Glucose 150 H Assessment and Plan Date of Service 04/07/2019 [facility] Comments: Last time known well: _ 04/06/19 21:00 Door time: _916 [facility] contacted: _[phone] [facility] at bedside: _926 NIHSS assessment time: _931 consult end time: _ 9:46 Impression: slurred speech and mild right sided weakness Consistent with Acute Ischemic Stroke Does (not) meet Large Vessel Occlusion (LVO) screening criteria (Aphasia, Neglect, Gaze deviation/preference, Dense hemiparesis, or Visual field deficits on exam), therefore advanced imaging (CTA head and neck and CTP brain) is (not) indicated. Differential Diagnosis: 1. Cardioembolic stroke 2. Small vessel disease/ lacune 3. Thromboembolic, [id number] mechanism 4. Hypercoagulable state-related infarct 5. Transient ischemic attack 6. Thrombotic mechanism, large artery disease tPA decision and other recommendations: _ Patient is not a tPA candidate Head CT did not show any acute hemorrhage. reviewed report (if available) and images Reason: _ last time known well>4.5 hours, also on eliquis Patient is not a REGINA candidate: _ Thrombectomy not considered since large proximal intracranial vessel occlusion is not suspected. Recommendations dysphagia screen (General approach to antithrombotic therapy for acute ischemic stroke (suspected or proven) in patient on long-term anticoagulation (appropriately) prior to stroke onset) Will hold anticoagulation and will start aspirin for now (if no contraindication) till follow up head imaging result is available within 24 hours, if follow up head imaging (preferably a brain MRI) shows no acute stroke or small ischemic stroke without any hemorrhage then can stop aspirin and resume anticoagulation in 24-48 hours after stroke symptom onset, if imaging shows large stroke (but no hemorrhagic conversion) then will continue aspirin and keep holding anticoagulation (Warfarin for at least 10 days and NOAC agents for 14 days (from onset of stroke)). prior to initiating anticoagulation, a noncontrast head CT should be obtained to evaluate for hemorrhagic conversion. once anticoagulation started then aspirin should be stopped. head of bed flat IV fluids NS Stroke work up with: noncontrast brain MRI, head and neck MRA (or CTA), 2D ECHO, lipid panel, HbA1c (Goal LDL<70, HbA1c<7) inpatient neurology consultation Inpatient stroke evaluation as per Neurology/ Internal Medicine Discussed with ED physician/medical staff Please contact [facility] to reach me if further questions/concerns arise. Reason for Stroke Alert and History of Present Illness: _ Patient is a(n) 68 years old female, with history of DVT on Eliquis, hypertension last known well: 04/06/19 21:00 woke up at about 5:30 had walking difficulty and then developed speech difficulty Review of Systems: Constitutional: Negative except as documented in history of present illness. Eye: Negative except as documented in history of present illness. Ear/Nose/Mouth/Throat: Negative except as documented in history of present illness. Respiratory: Negative except as documented in history of present illness. Cardiovascular: Negative except as documented in history of present illness. Gastrointestinal: Negative except as documented in history of present illness. Musculoskeletal: Negative except as documented in history of present illness. Neurologic: Negative except as documented in history of present illness. ------- Examination: NIHSS Details documented in the note ___ 2 Medical Decision Making: - Extensive number of diagnosis or management options are considered above. - Extensive amount of complex data reviewed. - High risk of complication and/or morbidity or mortality are associated with differential diagnostic considerations above. - There may be Uncertain outcome and increased probability of prolonged functional impairment or high probability of severe prolonged functional impairment associated with some of these differential diagnoses. Medical Data Reviewed: 1.Data reviewed include clinical labs, radiology, Medical Tests; 2.Tests results discussed w/performing or interpreting physician; 3.Obtaining/reviewing old medical records; 4.Obtaining case history from another source; 5.Independent review of image, tracing or specimen. When possible Patient/family were informed the Neurology Consult would happen via TeleHealth consult by way of interactive audio and video telecommunications and consented to receiving care in this manner. Case discussed with the Medical staff. Critical Care notation: I was called to see this critical patient emergently. I personally evaluated this critical patient for acute stroke evaluation and determining their eligibility for IV Alteplase and interventional therapies. I have spent approximately _20_ minutes with the patient, including time at bedside, time discussing the case with other physicians, reviewing plan of care, and time independently reviewing the records and scans.
--- NOTE | 2019-04-07 09:42 | Cat Scan Report ---
PROCEDURE: CT HEAD/BRAIN WO CON TECHNIQUE: Computerized tomography of the head was performed without contrast material. CT DOSE LENGTH PRODUCT: 805.42 mGy-cm. HISTORY: neuro deficits <6hrs or sx present upon awakening COMPARISONS: CT head July 08, 2018. FINDINGS: Decreased attenuation regions in the periventricular and subcortical white matter are nonspecific and may represent small vessel ischemic disease, encephalopathy, edema, or a demyelinating process. Smal l vessel ischemic disease (leukoaraiosis) favored. Chronic encephalomalacia at the crista is stable compared to prior and probably represent chronic ische nino disease. Vascular calcifications. There is no evidence for acute ischemia. Calcified left frontal temporal extra-axial lesion measuring 1.1 cm is stable compared to prior and r epresents a calcified meningioma. There is no hemorrhage. There is no midline shift. There is no hydrocephalus. Age appropriate savage-white matter attenuation is noted. There is no calvarial fracture. The temporal bones demonstrate aerated mastoid air cells. The middle ears appear unremarkable. Paranasal sinuses are unremarkable. Globes are intact. IMPRESSION: * Comparison with prior will be made as an addendum once requested prior images and report are provi ded. * No acute intracranial findings. * Chronic ischemic disease. * Stable left frontal temporal calcified meningioma. * 04/07/2019 at 0640 PT: I, Lior Abdi MD, discussed the findings over the phone with Dr. Connolly. This document is electronically signed by Lior Abdi MD., April 07 2019 09:40:38 AM ET
[2019-04-07 09:50] LABS: Basophils # (Auto) 0.1 K/mm3 (0.0-0.1); Basophils % (Auto) 1.6 % (0.0-1.8); Eosinophils % (Auto) 0.3 % (0.0-4.3); Hematocrit 44.1 % (30.3-42.9); Hemoglobin 15.3 gm/dl (10.1-14.3); Lymphocytes % (Auto) 17.9 % (13.4-35.0); Mean Corpuscular HGB Conc 35 % (30-34); Mean Corpuscular Volume 91 fl (79-97); Monocytes # (Auto) 0.4 K/mm3 (0.0-0.8); Monocytes % (Auto) 6.1 % (0.0-7.3); Platelet Count 267 K/mm3 (140-440); Red Blood Count 4.85 M/mm3 (3.65-5.03); Red Cell Distribution Width 14.2 % (13.2-15.2)
[2019-04-07 10:05] LABS: INR 1.05 (0.87-1.13); Partial Thromboplastin Time 26.1 Sec. (24.2-36.6); Thrombin Time 18.1 Sec. (15.1-19.6)
[2019-04-07 10:08] LABS: BUN/Creatinine Ratio 11; Blood Urea Nitrogen 11 mg/dL (7-17); Hemolysis Index 4
[2019-04-07 10:10] LABS: Creatine Kinase MB 4.1 ng/mL (0.0-4.0)
[2019-04-07 10:12] LABS: Alanine Aminotransferase 23 units/L (7-56); Albumin 4.1 g/dL (3.9-5)
[2019-04-07 10:13] LABS: Bilirubin,Direct < 0.2 mg/dL (0-0.2)
--- NOTE | 2019-04-07 10:17 | Emergency Department Report ---
ED Neuro Deficit HPI - General Chief Complaint: Neuro Symptoms/Deficit Stated Complaint: CVA Time Seen by Provider: 04/07/19 09:23 Source: patient, family Mode of arrival: Wheelchair Limitations: Physical Limitation - History of Present Illness Initial Comments: This 68 year old woman with stroke symptoms at wake up this morning. Patient had difficulty ambulating secondary to right sided weakness. She has residual right-sided weakness from a prior stroke but is able to ambulate. She also is able to speak coherently but was found to be dysarthric by her son this morning. The son stated that the difficulty with her slurred speech was improving and routes of the hospital. The patient states that she has some weakness on her right side but thinks she has returned to her baseline. She is still dysarthric at the time of my evaluation. The son reports that the patient has had similar presentations. Last presentation was in 2018. The patient has a history of DVT and pulmonary embolism. She was found to have a patent foramen ovale. She was placed on Eliquis. She states she took her last Eliquis this morning. The patient herself is able to tell me that she has a "hole in her heart". Her previous cardiology note 2018: 1. Acute CVA 2. Acute bilateral pulmonary embolism 3. Acute right DVT 4. History of recent right knee surgery 5. Patent forearm and over all body within normal left ventricular ejection fraction 6. Essential hypertension. Plan. Patient is currently stable although she has episodes of arterial desaturation requiring portable oxygen. Patient has had prior episode of CVA associated with DVT. There is evidence on Echo of a patent forearm [place]. She will require anticoagulation at this point and further evaluation for patent foramen ovale closure electively -: During the night Location: right face, right arm, right leg Presenting Symptoms: Present: Weak/Paralyzed One Side, Unable to Speak Clearly History of same: Yes Place: home Severity: mild, moderate Quality: weak Improves With: other (spontaneously improving) Worsens With: none On Anticoagulants: Yes Context: other (wake-up symptoms. Greater than 4.5 hours outside the window for TPA.) Associated Symptoms: denies other symptoms - Related Data Home Medications: Previous Rx's Medication Instructions Recorded Last Taken Type Apixaban [Eliquis] 5 mg PO BID #60 tablet 07/12/18 Unknown Rx AtorvaSTATin [Lipitor] 40 mg PO DAILY #30 tablet 07/12/18 Unknown Rx Apixaban [Eliquis] 10 mg PO Q12HR 3 Days tablet 07/14/18 Unknown Rx Allergies/Adverse Reactions: Allergies Allergy/AdvReac Type Severity Reaction Status Date / Time No Known Allergies Allergy Verified 11/28/14 18:52 ED Review of Systems ROS: Stated complaint: CVA Other details as noted in HPI Constitutional: denies: chills, fever Eyes: denies: eye pain, eye discharge, vision change ENT: denies: ear pain, throat pain Respiratory: denies: cough, shortness of breath, wheezing Cardiovascular: denies: chest pain, palpitations Endocrine: no symptoms reported Gastrointestinal: denies: abdominal pain, nausea, diarrhea Genitourinary: denies: urgency, dysuria, discharge Musculoskeletal: denies: back pain, joint swelling, arthralgia Skin: denies: rash, lesions Neurological: as per HPI, weakness. denies: headache, paresthesias Psychiatric: denies: anxiety, depression Hematological/Lymphatic: denies: easy bleeding, easy bruising ED Past Medical Hx - Past Medical History Previous Medical History?: Yes Hx Hypertension: Yes Hx CVA: Yes (no deficits) - Surgical History Past Surgical History?: Yes Additional Surgical History: ectopic - Social History Smoking Status: Never Smoker Substance Use Type: Prescribed - Medications Home Medications: Home Medications Medication Instructions Recorded Confirmed Last Taken Type Apixaban [Eliquis] 5 mg PO BID #60 tablet 07/12/18 Unknown Rx AtorvaSTATin [Lipitor] 40 mg PO DAILY #30 tablet 07/12/18 Unknown Rx Apixaban [Eliquis] 10 mg PO Q12HR 3 Days tablet 07/14/18 Unknown Rx ED Neuro Physical Exam - General Limitations: Physical Limitation General appearance: alert, in no apparent distress, obese Suspected Stroke: Yes - Head Head exam: Present: atraumatic, normocephalic - Eye Eye exam: Present: normal appearance, PERRL, EOMI. Absent: scleral icterus - ENT ENT exam: Present: mucous membranes moist - Neck Neck exam: Present: normal inspection - Respiratory Respiratory exam: Present: normal lung sounds bilaterally. Absent: respiratory distress - Cardiovascular Cardiovascular Exam: Present: regular rate, normal rhythm. Absent: systolic murmur, diastolic murmur, rubs, gallop - GI/Abdominal GI/Abdominal exam: Present: soft, normal bowel sounds. Absent: distended, tenderness, guarding, rebound, rigid - Extremities Exam Extremities exam: Present: other (pretibial edema bilaterally) - Back Exam Back exam: Present: normal inspection - Neurological Exam Neurological exam: Present: alert, oriented X3, motor sensory deficit (mild right hemiparesis). Absent: CN II-XII intact (right facial asymmetry), normal gait (not tested probably abnormal) - NIHSS Assessment Interval: Baseline 1a. Level of Consciousness: alert/keenly responsive 1b. LOC Questions: answers both correctly 1c. LOC Commands: performs tasks correctly 2. Best Gaze: normal 3. Visual: no visual loss 4. Facial Palsy: minor paralysis 5b. Motor Arm Right: drift (very mild drift) 5a. Motor Arm Left: no drift 6a. Motor Leg Left: drift (t) 6b. Motor Leg Right: no drift (mild drift) 7. Limb Ataxia: absent 8. Sensory: normal 9. Best Language: no aphasia 10. Dysarthria: mild/moderate dysarthria 11. Extinction/Inattention: no abnormality Total Score: 4 Stroke Severity: Minor Stroke - Psychiatric Psychiatric exam: Present: normal affect, normal mood - Skin Skin exam: Present: warm, dry, intact, normal color. Absent: rash ED Course Vital Signs 04/07/19 04/07/19 04/07/19 09:19 09:47 09:50 Temperature 98 F Pulse Rate 90 88 Respiratory 18 18 Rate Blood Pressure 223/91 Blood Pressure 157/85 [Right] O2 Sat by Pulse 98 98 94 Oximetry - Reevaluation(s) Reevaluation #1: The tele-neurologist came up with a lower NIHSS than I did. Patient does have stroke syndrome which appears to be subacute and outside the window for TPA. She has other concerns for relative exclusions to include the fact that she is t aking Eliquis and took it this morning. She has a large calcified meningioma on the left which is could potentially have something to do with her symptoms. I would have a concern for paradoxical embolism and pulmonary embolism. Patient was found to have a pulse-oximetry of 80% on room air. She does not complain of shortness of breath. She has had previous pulmonary embolism. We'll check a d-dimer and decide on pulmonary angiography. 04/07/19 10:26 The neurologist stated to hold the patient's Eliquis onto an MRI could determine the size of her stroke. However this may be a especially more complex situation if the patient is found to have pulmonary embolism or acute DVT with a patent foramen ovale. It is certainly a bit of a high risk situation. Reevaluation #2: 04/07/19 10:[address] angiogram is pending. Further care and man agement of anticoagulation status per hospitalist. Neurologist does recommend aspirin. - Lab Data Result diagrams: 04/07/19 09:43 04/07/19 09:43 Lab Results 04/07/19 04/07/19 04/07/19 Range/Units 09:24 09:43 09:43 WBC 5.8 (4.5-11.0) K/mm3 RBC 4.85 (3.65-5.03) M/mm3 Hgb 15.3 H (10.1-14.3) gm/dl Hct 44.1 H (30.3-42.9) % MCV 91 (79-97) fl MCH 32 (28-32) pg MCHC 35 H (30-34) % RDW 14.2 (13.2-15.2) % Plt Count 267 (140-440) K/mm3 Lymph % (Auto) 17.9 (13.4-35.0) % [place]chran % (Auto) 6.1 (0.0-7.3) % Eos % (Auto) 0.3 (0.0-4.3) % Baso % (Auto) 1.6 (0.0-1.8) % Lymph # 1.0 L (1.2-5.4) K/mm3 [place]chran # 0.4 (0.0-0.8) K/mm3 Eos # 0.0 (0.0-0.4) K/mm3 Baso # 0.1 (0.0-0.1) K/mm3 Seg Neutrophils % 74.1 H (40.0-70.0) % Seg Neutrophils # 4.3 (1.8-7.7) K/mm3 PT 14.4 (12.2-14.9) Sec. INR 1.05 (0.87-1.13) APTT 26.1 (24.2-36.6) Sec. Thrombin Time 18.1 (15.1-19.6) Sec. D-Dimer 532.59 H (0-234) ng/mlDDU Sodium (137-145) mmol/L Potassium (3.6-5.0) mmol/L Chloride (98-107) mmol/L Carbon Dioxide (22-30) mmol/L Anion Gap mmol/L BUN (7-17) mg/dL Creatinine (0.7-1.2) mg/dL Estimated GFR ml/min BUN/Creatinine Ratio % Glucose (65-100) mg/dL POC Glucose 150 H (70-105) Calcium (8.4-10.2) mg/dL Magnesium (1.7-2.3) mg/dL Total Bilirubin (0.1-1.2) mg/dL Direct Bilirubin (0-0.2) mg/dL Indirect Bilirubin mg/dL AST (5-40) units/L ALT (7-56) units/L Alkaline Phosphatase (35-129) units/L Total Creatine Kinase (30-135) units/L CK-MB (CK-2) (0.0-4.0) ng/mL CK-MB (CK-2) Rel Index (0-4) Troponin T (0.00-0.029) ng/mL NT-Pro-B Natriuret Pep (0-900) pg/mL Total Protein (6.3-8.2) g/dL Albumin (3.9-5) g/dL Albumin/Globulin Ratio % 04/07/19 04/07/19 Range/Units 09:43 09:43 WBC (4.5-11.0) K/mm3 RBC (3.65-5.03) M/mm3 Hgb (10.1-14.3) gm/dl Hct (30.3-42.9) % MCV (79-97) fl MCH (28-32) pg MCHC (30-34) % RDW (13.2-15.2) % Plt Count (140-440) K/mm3 Lymph % (Auto) (13.4-35.0) % [place]ran % (Auto) (0.0-7.3) % Eos % (Auto) (0.0-4.3) % Baso % (Auto) (0.0-1.8) % Lymph # (1.2-5.4) K/mm3 [place]ran # (0.0-0.8) K/mm3 Eos # (0.0-0.4) K/mm3 Baso # (0.0-0.1) K/mm3 Seg Neutrophils % (40.0-70.0) % Seg Neutrophils # (1.8-7.7) K/mm3 PT (12.2-14.9) Sec. INR (0.87-1.13) APTT (24.2-36.6) Sec. Thrombin Time (15.1-19.6) Sec. D-Dimer (0-234) ng/mlDDU Sodium 142 (137-145) mmol/L Potassium 4.2 (3.6-5.0) mmol/L Chloride 100.6 (98-107) mmol/L Carbon Dioxide 26 (22-30) mmol/L Anion Gap 20 mmol/L BUN 11 (7-17) mg/dL Creatinine 1.0 (0.7-1.2) mg/dL Estimated GFR > 60 ml/min BUN/Creatinine Ratio 11 % Glucose 154 H (65-100) mg/dL POC Glucose (70-105) Calcium 9.0 (8.4-10.2) mg/dL Magnesium 1.90 (1.7-2.3) mg/dL Total Bilirubin 0.40 (0.1-1.2) mg/dL Direct Bilirubin < 0.2 (0-0.2) mg/dL Indirect Bilirubin 0.2 mg/dL AST 23 (5-40) units/L ALT 23 (7-56) units/L Alkaline Phosphatase 71 (35-129) units/L Total Creatine Kinase 277 H (30-135) units/L CK-MB (CK-2) 4.1 H (0.0-4.0) ng/mL CK-MB (CK-2) Rel Index 1.4 (0-4) Troponin T < 0.010 (0.00-0.029) ng/mL NT-Pro-B Natriuret Pep 103.4 (0-900) pg/mL Total Protein 7.7 (6.3-8.2) g/dL Albumin 4.1 (3.9-5) g/dL Albumin/Globulin Ratio 1.1 % Laboratory Results - last 24 hr 04/07/19 04/07/19 04/07/19 09:24 09:43 09:43 WBC 5.8 RBC 4.85 Hgb 15.3 H Hct 44.1 H MCV 91 MCH 32 MCHC 35 H RDW 14.2 Plt Count 267 Lymph % (Auto) 17.9 [place]chran % (Auto) 6.1 Eos % (Auto) 0.3 Baso % (Auto) 1.6 Lymph # 1.0 L [place]chran # 0.4 Eos # 0.0 Baso # 0.1 Seg Neutrophils % 74.1 H Seg Neutrophils # 4.3 PT 14.4 INR 1.05 APTT 26.1 Thrombin Time 18.1 D-Dimer 532.59 H Sodium Potassium Chloride Carbon Dioxide Anion Gap BUN Creatinine Estimated GFR BUN/Creatinine Ratio Glucose POC Glucose 150 H Calcium Magnesium Total Bilirubin Direct Bilirubin Indirect Bilirubin AST ALT Alkaline Phosphatase Total Creatine Kinase CK-MB (CK-2) CK-MB (CK-2) Rel Index Troponin T NT-Pro-B Natriuret Pep Total Protein Albumin Albumin/Globulin Ratio 04/07/19 04/07/19 09:43 09:43 WBC RBC Hgb Hct MCV MCH MCHC RDW Plt Count Lymph % (Auto) Cochran % (Auto) Eos % (Auto) Baso % (Auto) Lymph # Cochran # Eos # Baso # Seg Neutrophils % Seg Neutrophils # PT INR APTT Thrombin Time D-Dimer Sodium 142 Potassium 4.2 Chloride 100.6 Carbon Dioxide 26 Anion Gap 20 BUN 11 Creatinine 1.0 Estimated GFR > 60 BUN/Creatinine Ratio 11 Glucose 154 H POC Glucose Calcium 9.0 Magnesium 1.90 Total Bilirubin 0.40 Direct Bilirubin < 0.2 Indirect Bilirubin 0.2 AST 23 ALT 23 Alkaline Phosphatase 71 Total Creatine Kinase 277 H CK-MB (CK-2) 4.1 H CK-MB (CK-2) Rel Index 1.4 Troponin T < 0.010 NT-Pro-B Natriuret Pep 103.4 Total Protein 7.7 Albumin 4.1 Albumin/Globulin Ratio 1.1 Critical Care Time: Yes Critical care time in (mins) excluding proc time.: 70 Critical care attestation.: If time is entered above; I have spent that time in minutes in the direct care of this critically ill patient, excluding procedure time. ED Disposition Clinical Impression: Acute CVA (cerebrovascular accident), Patent foramen ovale, History of pulmon susan embolism Disposition: OP ADMIT IP TO THIS HOSP Is pt being admited?: Yes Does the pt Need Aspirin: Yes Condition: Stable Time of Disposition: 10:35
[2019-04-07] MEDS ORDERED: BABY ASPIRIN PO ONE (10:35)
--- NOTE | 2019-04-07 10:58 | XRay Report ---
PROCEDURE: XR CHEST 1V AP TECHNIQUE: Chest radiograph, AP portable upright view. HISTORY: hypertension COMPARISONS: Chest x-ray July 08, 2018. FINDINGS: Cardiac silhouette is within normal limits. Aortic calcifications. There is no effusion. There is no pneumothorax. There is no consolidation. There are no suspicious osseous lesions. IMPRESSION: * No acute cardiopulmonary findings. This document is electronically signed by Lior Abdi MD., April 07 2019 10:56:41 AM ET
--- NOTE | 2019-04-07 11:54 | Cat Scan Report ---
PROCEDURE: CT ANGIO CHEST TECHNIQUE: Computerized tomographic angiography of the chest was performed after the IV injection of iodinated nonionic contrast including image processing. The image data was postprocessed using 2-di mensional multiplanar reformatted (MPR) and 3-dimensional (MIP and/or volume rendered) techniques. Au tomated exposure control, adjustment of mA and/or kV according to patient size, or iterative reconstr uction dose optimization techniques were utilized. CT DOSE LENGTH PRODUCT: 826.17 mGy-cm. HISTORY: elevated d-dimer, PFO, history of PE COMPARISONS: CT chest July 08, 2018. FINDINGS: Chest: Scattered areas of interseptal thickening at the periphery of both lungs identified. Scattered areas of cystic change or honeycombing noted. No traction bronchiectasis. No centrilobular nodules. 4.8 mm subpleural solid nodule right upper lobe series 2:52. No pneumothorax. No consolidation. No effusion. No endobronchial lesions. Mild groundglass opacities in both perihilar regions. Prominent main pulmonary artery may represent hypertension pulmonary vascular congestion. Congestion favored. No aneurysm. No dissection. Major branch arteries are within normal limits. Mild atherosclerotic dise ase. [id number] cardiomegaly. No pericardial effusion. Coronary artery disease. There is no axillary adenopathy. There is no hilar or mediastinal mass or adenopathy. Limited images of the thyroid gland are unremarkable. Limited images of the esophagus are unremarkable. Bones: No suspicious osseous lesions on this limited examination of the skeleton. Metastatic disease better evaluated with bone scan. Degenerative changes are present in the spine. IMPRESSION: * Comparison with prior will be made as an addendum once requested prior images and report are provi ded. * No pulmonary embolus. No aortic aneurysm. No dissection. * Suspect mild pulmonary vascular congestion. Differential diagnosis includes interstitial pneumonit is. * Mild to moderate cardiomegaly. * Right upper lobe subcentimeter pulmonary nodule. Stable compared to prior. 2017 [employer] GUIDELINES FOR PULMONARY NODULE MANAGEMENT Solitary nodule size: <6 mm * low risk patients: no follow-up needed * high risk patients: optional CT at 12 months Solitary nodule size: 6-8 mm * low risk patients: follow-up at 6-12 months, then consider further follow-up at 18-24 months * high risk patients: initial follow-up CT at 6-12 months and then at 18-24 months if no change Solitary nodule size: >8 mm * either low or high risk patients * consider follow-up CT at 3 months, and/or CT-PET, and/or biopsy and then at 18-24 months if no milvia nge. Note: newly detected indeterminate nodule in persons 35 years of age or older Low risk patients: minimal or absent history of smoking and or other known risk factors High risk patients: history of smoking or of other known risk factors (e.g. first degree relative wit h lung cancer, or exposure to asbestos, radon, uranium) This document is electronically signed by Lior Abdi MD., April 07 2019 11:53:11 AM ET
[2019-04-07] MEDS ORDERED: TYLENOL PO PRN (12:20)
[2019-04-07] MEDS ORDERED: REGLAN PO PRN (12:20)
[2019-04-07] MEDS ORDERED: DULCOLAX PR PRN (12:20)
[2019-04-07] MEDS ORDERED: PHENERGAN PR PRN (12:20)
[2019-04-07] MEDS ORDERED: MILK OF MAGNESIA PO PRN (12:20)
[2019-04-07] MEDS ORDERED: ZOFRAN IV PRN (12:20)
[2019-04-07 12:57] LABS: Amorphous Crystals,Urine Few; Bilirubin,Urine NEG (Negative); Blood,Urine NEG (Negative); Color,Urine Yellow (Yellow); Mucus,Urine FEW /HPF; Protein,Urine <15 mg/dL mg/dL (Negative); Urobilinogen,Urine < 2.0 mg/dL (<2.0)
[2019-04-07 13:05] LABS: Amphetamine Screen,Urine PRESUMPTIVE NEGATIVE; Benzodiazepines Screen,Urine PRESUMPTIVE NEGATIVE; Cannabinoid Screen,Urine PRESUMPTIVE NEGATIVE; Cocaine Screen,Urine PRESUMPTIVE NEGATIVE; Methadone Screen,Urine PRESUMPTIVE NEGATIVE; Opiate Screen,Urine PRESUMPTIVE NEGATIVE
[2019-04-07] MEDS ORDERED: NORMODYNE IV PRN (13:23)
[2019-04-07 13:36] LABS: Creatine Kinase MB 3.5 ng/mL (0.0-4.0)
--- NOTE | 2019-04-07 14:35 | Vascular Lab Report ---
PROCEDURE: VL CAROTID DUPLEX BILAT TECHNIQUE: Carotid ultrasound. Degree of carotid stenosis calculated by indirect methods via the peak systolic velocities of the ICA and CCA and reference with the society of Radiologist and Ultrasound consensus conference radiology 2003. HISTORY: stroke COMPARISONS: Carotid ultrasound July 09, 2018. FINDINGS: Note: Measurement of carotid stenosis is based on flow velocity values that correlate with the [place] Symptomatic Carotid Endarterectomy Trial (NASCET) based stenosis criteria using the internal carotid artery diameter as the denominator for stenosis calculation. RIGHT CCA, ICA, and ECA (cm/s): 70, 86, and 77. Ratio = 1.22. LEFT CCA, ICA, and ECA (cm/s): 85, 89, and 65. Ratio = 1.05. There is plaque in both carotids. Both vertebral arteries demonstrate antegrade flow. Normal spectral rhythm is identified. IMPRESSION: * Comparison with prior will be made as an addendum once requested prior images and report are provi ded. * No hemodynamically significant (>50%) stenosis noted based on the ratios, velocities, and color Do ppler images. This document is electronically signed by Lior Abdi MD., April 07 2019 02:33:38 PM ET
--- NOTE | 2019-04-07 21:06 | History and Physical Report ---
History of Present Illness Date of admission: 04/07/19 12:20 Chief complaint: Right-sided weakness History of present illness: 68-year-old woman with history of multiple strokes who presents with right-sided weakness. He states that she has residual right-sided weakness from previous stroke but was able to ambulate at that time. Also Noted Some Dysarthria. The Patient Seemed Less Bothered, but Her Son States That She's Had Multiple Strokes and Continues to Get Worse after Each Stroke. Past Medical History; Hypertension, Multiple Strokes Greater Than 6 Strokes, not on statin because she had muscle weakness -History of PFO, patient also has history of right lower extremity DVT which she takes eliquis for Surgical History; Salpingectomy for Ectopic Social History; Never Smoker, Denies Tobacco or Illicit Drug Use Lives at Home Family History; History of Strokes and CAD in Her Family Medications and Allergies Allergies Allergy/AdvReac Type Severity Reaction Status Date / Time atorvastatin [From Lipitor] AdvReac Unknown Verified 04/07/19 22:51 Home Medications Medication Instructions Recorded Confirmed Last Taken Type Hydrochlorothiazide 25 mg PO DAILY 04/07/19 04/12/19 04/06/19 History Losartan Potassium 100 mg PO DAILY 04/07/19 04/12/19 04/06/19 History Aspirin EC 81 mg PO QDAY #30 tablet. 04/11/19 04/12/19 Unknown Rx Warfarin [Coumadin] 7.5 mg PO DAILY@1700 tablet 04/11/19 04/12/19 Unknown Rx Active Meds: Active Medications Acetaminophen (Tylenol) 650 mg PO Q4H PRN PRN Reason: Pain, Mild (1-3) Aspirin (Aspirin) 325 mg PO QDAY SHAILESH Atorvastatin Calcium (Lipitor) 40 mg PO QHS SHAILESH Bisacodyl (Dulcolax) 10 mg IA QDAY PRN PRN Reason: Constipation Labetalol HCl (Normodyne) 10 mg IV Q4H PRN PRN Reason: BP >170/105; hold for HR <60 Magnesium Hydroxide (Milk Of Magnesia) 30 ml PO Q4H PRN PRN Reason: Constipation Metoclopramide HCl (Reglan) 10 mg PO Q6H PRN PRN Reason: Nausea And Vomiting Ondansetron HCl (Zofran) 4 mg IV Q8H PRN PRN Reason: Nausea And Vomiting Promethazine HCl (Phenergan) 25 mg IA Q6H PRN PRN Reason: Nausea And Vomiting Sodium Chloride (Sodium Chloride Flush Syringe 10 Ml) 10 ml IV PRN PRN PRN Reason: LINE FLUSH Exam - Constitutional Vitals: Temp Pulse Resp BP Pulse Ox 98 F 72 22 141/71 96 04/07/19 09:19 04/07/19 16:15 04/07/19 16:15 04/07/19 16:15 04/07/19 16:15 General appearance: Present: no acute distress, well-nourished - EENT Eyes: Present: PERRL ENT: hearing intact, clear oral mucosa - Neck Neck: Present: supple, normal ROM - Respiratory Respiratory effort: normal Respiratory: bilateral: CTA - Cardiovascular Heart Sounds: Present: S1 & S2. Absent: rub, click - Extremities Extremities: pulses symmetrical, No edema Peripheral Pulses: within normal limits - Abdominal General gastrointestinal: Present: soft, non-tender, non-distended, normal bowel sounds Female genitourinary: Present: normal - Integumentary Integumentary: Present: clear, warm, dry - Musculoskeletal Musculoskeletal: gait normal, strength equal bilaterally - Psychiatric Psychiatric: appropriate mood/affect, intact judgment & insight - Neurologic Neurologic: CNII-XII intact, focal deficits (r weakness, slurred speech), moves all extremities Results - Labs CBC & Chem 7: 04/07/19 09:43 04/07/19 09:43 Labs: Laboratory Last Values WBC 5.8 K/mm3 (4.5-11.0) 04/07/19 09:43 RBC 4.85 M/mm3 (3.65-5.03) 04/07/19 09:43 Hgb 15.3 gm/dl (10.1-14.3) H 04/07/19 09:43 Hct 44.1 % (30.3-42.9) H 04/07/19 09:43 MCV 91 fl (79-97) 04/07/19 09:43 MCH 32 pg (28-32) 04/07/19 09:43 MCHC 35 % (30-34) H 04/07/19 09:43 RDW 14.2 % (13.2-15.2) 04/07/19 09:43 Plt Count 267 K/mm3 (140-440) 04/07/19 09:43 Lymph % (Auto) 17.9 % (13.4-35.0) 04/07/19 09:43 [place] % (Auto) 6.1 % (0.0-7.3) 04/07/19 09:43 Eos % (Auto) 0.3 % (0.0-4.3) 04/07/19 09:43 Baso % (Auto) 1.6 % (0.0-1.8) 04/07/19 09:43 Lymph # 1.0 K/mm3 (1.2-5.4) L 04/07/19 09:43 [place] # 0.4 K/mm3 (0.0-0.8) 04/07/19 09:43 Eos # 0.0 K/mm3 (0.0-0.4) 04/07/19 09:43 Baso # 0.1 K/mm3 (0.0-0.1) 04/07/19 09:43 Seg Neutrophils % 74.1 % (40.0-70.0) H 04/07/19 09:43 Seg Neutrophils # 4.3 K/mm3 (1.8-7.7) 04/07/19 09:43 PT 14.4 Sec. (12.2-14.9) 04/07/19 09:43 INR 1.05 (0.87-1.13) 04/07/19 09:43 APTT 26.1 Sec. (24.2-36.6) 04/07/19 09:43 18.1 Sec. (15.1-19.6) 04/07/19 09:43 532.59 ng/mlDDU (0-234) H 04/07/19 09:43 Sodium 142 mmol/L (137-145) 04/07/19 09:43 Potassium 4.2 mmol/L (3.6-5.0) 04/07/19 09:43 Chloride 100.6 mmol/L (98-107) 04/07/19 09:43 Carbon Dioxide 26 mmol/L (22-30) 04/07/19 09:43 20 mmol/L 04/07/19 09:43 BUN 11 mg/dL (7-17) 04/07/19 09:43 1.0 mg/dL (0.7-1.2) 04/07/19 09:43 Estimated GFR > 60 ml/min 04/07/19 09:43 11 % 04/07/19 09:43 Glucose 154 mg/dL (65-100) H 04/07/19 09:43 POC Glucose 150 (70-105) H 04/07/19 09:24 Calcium 9.0 mg/dL (8.4-10.2) 04/07/19 09:43 Magnesium 1.90 mg/dL (1.7-2.3) 04/07/19 09:43 0.40 mg/dL (0.1-1.2) 04/07/19 09:43 < 0.2 mg/dL (0-0.2) 04/07/19 09:43 0.2 mg/dL 04/07/19 09:43 AST 23 units/L (5-40) 04/07/19 09:43 ALT 23 units/L (7-56) 04/07/19 09:43 71 units/L (35-129) 04/07/19 09:43 278 units/L (30-135) H 04/07/19 12:35 CK-MB (CK-2) 3.5 ng/mL (0.0-4.0) 04/07/19 12:35 CK-MB (CK-2) Rel Index 1.2 (0-4) 04/07/19 12:35 < 0.010 ng/mL (0.00-0.029) 04/07/19 12:35 NT-Pro-B Natriuret Pep 103.4 pg/mL (0-900) 04/07/19 09:43 7.7 g/dL (6.3-8.2) 04/07/19 09:43 4.1 g/dL (3.9-5) 04/07/19 09:43 1.1 % 04/07/19 09:43 Yellow (Yellow) 04/07/19 12:39 Hazy (Clear) 04/07/19 12:39 8.0 (5.0-7.0) H 04/07/19 12:39 Ur Specific [place] 1.016 (1.003-1.030) 04/07/19 12:39 <15 mg/dl mg/dL (Negative) 04/07/19 12:39 Neg mg/dL (Negative) 04/07/19 12:39 Neg mg/dL (Negative) 04/07/19 12:39 Neg (Negative) 04/07/19 12:39 Neg (Negative) 04/07/19 12:39 Neg (Negative) 04/07/19 12:39 < 2.0 mg/dL (<2.0) 04/07/19 12:39 Ur Leukocyte Esterase Tr (Negative) 04/07/19 12:39 3.0 /HPF (0.0-6.0) 04/07/19 12:39 1.0 /HPF (0.0-6.0) 04/07/19 12:39 U Epithel Cells (Auto) 4.0 /HPF (0-13.0) 04/07/19 12:39 Amorphous Crystals Few 04/07/19 12:39 Few /HPF 04/07/19 12:39 Presumptive negative 04/07/19 12:39 Presumptive negative 04/07/19 12:39 Ur Barbiturates Screen Presumptive negative 04/07/19 12:39 Ur Phencyclidine Scrn Presumptive negative 04/07/19 12:39 Ur Amphetamines Screen Presumptive negative 04/07/19 12:39 U Benzodiazepines Scrn Presumptive negative 04/07/19 12:39 Presumptive negative 04/07/19 12:39 U Marijuana (THC) Screen Presumptive negative 04/07/19 12:39 Disclamer 04/07/19 12:39 Assessment and Plan Assessment and plan: 68F with hx of multiple cva who pw cva Acute Stroke -stroke protocol, fup MRI -aspirin, statin -neurology consult -allow permissive htn hx of RLE dvt eliquis on hold per tele-neurologist htn -allow permissive htn given acute cva
[2019-04-08 05:18] LABS: Chol/HDL Ratio 4.93 %
--- NOTE | 2019-04-08 12:16 | Magnetic Resonance Report ---
MRI BRAIN WITHOUT CONTRAST: 04/07/19 12:20:00 CLINICAL: Stroke. COMPARISON: 04/07/19 CT head TECHNIQUE: Axial diffusion, T1, T2, gradient echo T2*, coronal and axial FLAIR and sagittal T1 sequences on a 1.5 Sandra magnet. FINDINGS: Normal ventricles and sulci. Two foci of restricted diffusion in the left crista measure 1.0 x 0.8 cm and 0.4 x 0.4 cm. No corresponding signal abnormality on T2 or FLAIR. No other restricted diffusion. Chronic lacunar infarcts in the right crista. Extensive bilateral multifocal periventricular and subcortical white matter hyperintensities on FLAIR and T2. No mass or mass effect. No hemorrhage, edema or extra-axial collection. Normal pituitary and optic chiasm. The cerebellum is normal. Intact vascular flow voids. Normal sinuses. The orbits, and soft tissues are normal. Normal calvarium and skull base. IMPRESSION: 1. Acute nonhemorrhagic left pontine lacunar infarcts and no other acute infarct. 2. Chronic right pontine lacunar infarcts. 3. Extensive bilateral chronic white matter microangiopathy. 4. No hemorrhage.
--- NOTE | 2019-04-08 12:16 | Consultation ---
History of Present Illness Consult date: 04/08/19 Medications and Allergies Allergies Allergy/AdvReac Type Severity Reaction Status Date / Time atorvastatin [From Lipitor] AdvReac Unknown Verified 04/07/19 22:51 Home Medications Medication Instructions Recorded Confirmed Last Taken Type Apixaban [Eliquis] 5 mg PO Q12HR 04/07/19 04/07/19 04/07/19 07:30 History Hydrochlorothiazide 25 mg PO DAILY 04/07/19 04/07/19 04/06/19 History Losartan Potassium 100 mg PO DAILY 04/07/19 04/07/19 04/06/19 History Active Meds: Active Medications Acetaminophen (Tylenol) 650 mg PO Q4H PRN PRN Reason: Pain, Mild (1-3) Aspirin (Aspirin) 325 mg PO QDAY SHAILESH Atorvastatin Calcium (Lipitor) 40 mg PO QHS SHAILESH Bisacodyl (Dulcolax) 10 mg SD QDAY PRN PRN Reason: Constipation Labetalol HCl (Normodyne) 10 mg IV Q4H PRN PRN Reason: BP >170/105; hold for HR <60 Magnesium Hydroxide (Milk Of Magnesia) 30 ml PO Q4H PRN PRN Reason: Constipation Metoclopramide HCl (Reglan) 10 mg PO Q6H PRN PRN Reason: Nausea And Vomiting Ondansetron HCl (Zofran) 4 mg IV Q8H PRN PRN Reason: Nausea And Vomiting Promethazine HCl (Phenergan) 25 mg SD Q6H PRN PRN Reason: Nausea And Vomiting Sodium Chloride (Sodium Chloride Flush Syringe 10 Ml) 10 ml IV PRN PRN PRN Reason: LINE FLUSH Physical Examination - Vital Signs Vital Signs: Vital Signs Temp Pulse Resp BP Pulse Ox 98 F 90 18 223/91 98 04/07/19 09:19 04/07/19 09:19 04/07/19 09:19 04/07/19 09:19 04/07/19 09:19 Results - Laboratory Findings CBC and BMP: 04/07/19 09:43 04/07/19 09:43 Abnormal Lab Findings: Abnormal Labs 04/07/19 04/07/19 04/07/19 09:24 09:43 09:43 Hgb 15.3 H Hct 44.1 H MCHC 35 H Lymph # 1.0 L Seg Neutrophils % 74.1 H D-Dimer 532.59 H Glucose POC Glucose 150 H Hemoglobin A1c Total Creatine Kinase CK-MB (CK-2) Cholesterol LDL Cholesterol Direct HDL Cholesterol Urine pH 04/07/19 04/07/19 04/07/19 09:43 09:43 12:35 Hgb Hct MCHC Lymph # Seg Neutrophils % D-Dimer Glucose 154 H POC Glucose Hemoglobin A1c Total Creatine Kinase 277 H 278 H CK-MB (CK-2) 4.1 H Cholesterol LDL Cholesterol Direct HDL Cholesterol Urine pH 04/07/19 04/08/19 04/08/19 12:39 04:11 04:11 Hgb Hct MCHC Lymph # Seg Neutrophils % D-Dimer Glucose POC Glucose Hemoglobin A1c 6.6 H Total Creatine Kinase CK-MB (CK-2) Cholesterol 306 H LDL Cholesterol Direct 235 H HDL Cholesterol 62 H Urine pH 8.0 H Assessment and Plan 68-year-old female with history of prior stroke with very minimal residual right-sided weakness, hypertension hyperlipidemia and patent foramen ovale who came into the hospital on 04/07/2019 because of increased weakness on the right side which she noticed on waking up from sleep. Right-sided weakness was also associated with slurred speech. Patient stated that she understood what was spoken to her but could not get the word out, and when she did get the words out they were slurred. Patient was brought to the hospital by her son and since the therapeutic window was more than 4.5 hour,tPA was not given. Patient was evaluated by Teleneurologist and necessary recommendations were given. CT scan was done which did not show any acute change any acute infarct or hemorrhage. MRI of the brain was done which has not been read by radiologist but I have seen the MRI and to me seems that she has left frontal infarct. Labs shows that the patient's triglycerides and LDL including total cholesterol is very high. Her LDL is 235, total cholesterol visits 306. HDL is 62. Workup including carotid duplex showed evidence of stenosis in both internal carotid arteries but they are not hemodynamically significant both stenoses at less than 50%. Patient has been on Apixaban, current dose is 5 mg by mouth twice a day and patient states that se has been following up with her [employer] and last time she saw her was in . Patient stated that she was complaint with the medication. Physical examination. Patient is alert and awake and answers questions appropriately has insight into her problem she is a good historian. Speech. Comprehension was intact. Seemed to have expressive aphasia. Heart. Normal rate and rhythm. Carotid both palpable no bruit. Cranial nerves. Patient has right facial weakness, upper motor neuron type, and sparing the right forehead. Extraocular movements are intact patient could swallow, and other cranial nerves are within normal limits. Motor. Patient has weak right upper and lower extremities, muscle tones are increased in both upper and lower extremities right upper extremity cannot be released against gravity. Right lower extremity is also weak both proximally and distally but not as much as the right upper extremity. Reflexes. Increased reflexes on the right upper and lower extremities with upgoing toe on the right site. Sensory. Sensory examination was grossly within normal limits. Coordination. Finger to nose within normal limit. On the right side was not able to perform finger to nose test. Unable to perform [id number] on the right site. Gait. Gait testing was deferred considering discomfort to the patient. Impression. Right hemiparesis with expressive aphasia new-onset in a patient with similar symptoms the past from which she recovered almost completely. It seems anticoagulation at a dose of 5 mg po bid is not protecting her. Patient also has hyperlipidemia and hypercholesterolemia,patient also has foramen ovale which is patent, indicating that she is at the risk of emboli contributing to stroke which are coming from DVT or any other source from the right side of the heart getting into left atrium. Recommendation #1 since Apixaban 5mg bid is not preventing stroke, it may be incraesed to 10 mg bid. # 2. Dietary and nutritional consult # Continue PT,OT and speech therapy. #. Lipitor 40mg po qd. #. Will need Cardiology consult to close the patent foramen ovale,as she is at a risk of future stroke if the foramen is not closed.
[2019-04-08] MEDS: ASPIRIN PO SCH (12:19)
--- NOTE | 2019-04-08 13:00 | Magnetic Resonance Report ---
MRA HEAD WITHOUT CONTRAST: 04/07/19 CLINICAL: Stroke TECHNIQUE: Axial 3-D [id number] MR angiography of the [place] with review of axial source images. FINDINGS: There is a 5 mm saccular aneurysm of the right ICA lacerum segment(C3) which is apparent on MIP and source images. The [place] is otherwise intact with no stenosis or occlusion. Symmetric blood flow in the anterior, middle and posterior cerebral arteries. Normal basilar and vertebral arteries. The right vertebral artery is dominant. IMPRESSION: 1. 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 2. No evidence of stenosis or occlusion.
--- NOTE | 2019-04-08 14:17 | Progress Note ---
Assessment and Plan Assessment and plan: 60-year-old woman with history of multiple strokes who presents with acute onset of worsening right-sided weakness Acute Stroke -stroke protocol, fup MRI -aspirin, statin -neurology consult appreciated -allow permissive htn -cardiology consult given PFO -increase eliquis to 10 bid per neurologist hx of RLE dvt anticoagulated htn -allow permissive htn given acute cva History Interval history: Continues to have right-sided weakness Review of systems Constitutional: No fevers, no malaise, no joint pains CVS: No chest pain, no orthopnea, no dyspnea on exertion, no pedal edema GI: No abdominal pain, no diarrhea, no vomiting, no constipation Respiratory: no wheezing, no coughing Hospitalist Physical - Physical exam Narrative exam: General.: Appears well, no distress, nontoxic HEENT: Moist mucous membranes, extraocular muscles intact, no lymphadenopathy Neck: supple Cardiac: S1-S2 heard Lungs: clear to auscultation bilaterally Abdomen: soft , nontender, nondistended, bowel sounds positive Extremities: no edema clubbing or cyanosis Skin: no rash or lesions Neurologic: Right-sided weakness Psych: calm, and cooperative - Constitutional Vitals: Temp Pulse Resp BP Pulse Ox 98.9 F 68 18 156/81 93 04/08/19 07:37 04/08/19 12:00 04/08/19 12:00 04/08/19 07:37 04/08/19 12:00 Results - Labs CBC & Chem 7: 04/07/19 09:43 04/07/19 09:43 Labs: Laboratory Last Values WBC 5.8 K/mm3 (4.5-11.0) 04/07/19 09:43 RBC 4.85 M/mm3 (3.65-5.03) 04/07/19 09:43 Hgb 15.3 gm/dl (10.1-14.3) H 04/07/19 09:43 Hct 44.1 % (30.3-42.9) H 04/07/19 09:43 MCV 91 fl (79-97) 04/07/19 09:43 MCH 32 pg (28-32) 04/07/19 09:43 MCHC 35 % (30-34) H 04/07/19 09:43 RDW 14.2 % (13.2-15.2) 04/07/19 09:43 Plt Count 267 K/mm3 (140-440) 04/07/19 09:43 Lymph % (Auto) 17.9 % (13.4-35.0) 04/07/19 09:43 [place] % (Auto) 6.1 % (0.0-7.3) 04/07/19 09:43 Eos % (Auto) 0.3 % (0.0-4.3) 04/07/19 09:43 Baso % (Auto) 1.6 % (0.0-1.8) 04/07/19 09:43 Lymph # 1.0 K/mm3 (1.2-5.4) L 04/07/19 09:43 [place] # 0.4 K/mm3 (0.0-0.8) 04/07/19 09:43 Eos # 0.0 K/mm3 (0.0-0.4) 04/07/19 09:43 Baso # 0.1 K/mm3 (0.0-0.1) 04/07/19 09:43 Seg Neutrophils % 74.1 % (40.0-70.0) H 04/07/19 09:43 Seg Neutrophils # 4.3 K/mm3 (1.8-7.7) 04/07/19 09:43 PT 14.4 Sec. (12.2-14.9) 04/07/19 09:43 INR 1.05 (0.87-1.13) 04/07/19 09:43 APTT 26.1 Sec. (24.2-36.6) 04/07/19 09:43 18.1 Sec. (15.1-19.6) 04/07/19 09:43 532.59 ng/mlDDU (0-234) H 04/07/19 09:43 Sodium 142 mmol/L (137-145) 04/07/19 09:43 Potassium 4.2 mmol/L (3.6-5.0) 04/07/19 09:43 Chloride 100.6 mmol/L (98-107) 04/07/19 09:43 Carbon Dioxide 26 mmol/L (22-30) 04/07/19 09:43 20 mmol/L 04/07/19 09:43 BUN 11 mg/dL (7-17) 04/07/19 09:43 1.0 mg/dL (0.7-1.2) 04/07/19 09:43 Estimated GFR > 60 ml/min 04/07/19 09:43 11 % 04/07/19 09:43 Glucose 154 mg/dL (65-100) H 04/07/19 09:43 POC Glucose 150 (70-105) H 04/07/19 09:24 6.6 % (4-6) H 04/08/19 04:11 Calcium 9.0 mg/dL (8.4-10.2) 04/07/19 09:43 Magnesium 1.90 mg/dL (1.7-2.3) 04/07/19 09:43 0.40 mg/dL (0.1-1.2) 04/07/19 09:43 < 0.2 mg/dL (0-0.2) 04/07/19 09:43 0.2 mg/dL 04/07/19 09:43 AST 23 units/L (5-40) 04/07/19 09:43 ALT 23 units/L (7-56) 04/07/19 09:43 71 units/L (35-129) 04/07/19 09:43 278 units/L (30-135) H 04/07/19 12:35 CK-MB (CK-2) 3.5 ng/mL (0.0-4.0) 04/07/19 12:35 CK-MB (CK-2) Rel Index 1.2 (0-4) 04/07/19 12:35 < 0.010 ng/mL (0.00-0.029) 04/07/19 12:35 NT-Pro-B Natriuret Pep 103.4 pg/mL (0-900) 04/07/19 09:43 7.7 g/dL (6.3-8.2) 04/07/19 09:43 4.1 g/dL (3.9-5) 04/07/19 09:43 1.1 % 04/07/19 09:43 Triglycerides 107 mg/dL (2-149) 04/08/19 04:11 Cholesterol 306 mg/dL (50-199) H 04/08/19 04:11 235 mg/dL (50-130) H 04/08/19 04:11 62 mg/dL (40-59) H 04/08/19 04:11 4.93 % 04/08/19 04:11 Yellow (Yellow) 04/07/19 12:39 Hazy (Clear) 04/07/19 12:39 8.0 (5.0-7.0) H 04/07/19 12:39 Ur Specific [place] 1.016 (1.003-1.030) 04/07/19 12:39 <15 mg/dl mg/dL (Negative) 04/07/19 12:39 Neg mg/dL (Negative) 04/07/19 12:39 Neg mg/dL (Negative) 04/07/19 12:39 Neg (Negative) 04/07/19 12:39 Neg (Negative) 04/07/19 12:39 Neg (Negative) 04/07/19 12:39 < 2.0 mg/dL (<2.0) 04/07/19 12:39 Ur Leukocyte Esterase Tr (Negative) 04/07/19 12:39 3.0 /HPF (0.0-6.0) 04/07/19 12:39 1.0 /HPF (0.0-6.0) 04/07/19 12:39 U Epithel Cells (Auto) 4.0 /HPF (0-13.0) 04/07/19 12:39 Amorphous Crystals Few 04/07/19 12:39 Few /HPF 04/07/19 12:39 Presumptive negative 04/07/19 12:39 Presumptive negative 04/07/19 12:39 Ur Barbiturates Screen Presumptive negative 04/07/19 12:39 Ur Phencyclidine Scrn Presumptive negative 04/07/19 12:39 Ur Amphetamines Screen Presumptive negative 04/07/19 12:39 U Benzodiazepines Scrn Presumptive negative 04/07/19 12:39 Presumptive negative 04/07/19 12:39 U Marijuana (THC) Screen Presumptive negative 04/07/19 12:39 Disclamer 04/07/19 12:39 Active Medications - Current Medications Current Medications: Generic Name Dose Route Start Last Admin Trade Name Freq PRN Reason Stop Dose Admin Acetaminophen 650 mg 04/07/19 12:20 Tylenol PO Q4H PRN Pain, Mild (1-3) Aspirin 325 mg 04/08/19 10:00 04/08/19 12:19 Aspirin PO Not Given QDAY SHAILESH Atorvastatin Calcium 40 mg 04/08/19 22:00 Lipitor PO QHS SHAILESH Bisacodyl 10 mg 04/07/19 12:20 Dulcolax ND QDAY PRN Constipation Labetalol HCl 10 mg 04/07/19 13:23 Normodyne IV Q4H PRN BP >170/105; hold for HR <60 Magnesium Hydroxide 30 ml 04/07/19 12:20 Milk Of Magnesia PO Q4H PRN Constipation Metoclopramide HCl 10 mg 04/07/19 12:20 Reglan PO Q6H PRN Nausea And Vomiting Ondansetron HCl 4 mg 04/07/19 12:20 Zofran IV Q8H PRN Nausea And Vomiting Promethazine HCl 25 mg 04/07/19 12:20 Phenergan ND Q6H PRN Nausea And Vomiting Sodium Chloride 10 ml 04/07/19 12:20 Sodium Chloride Flush Syringe 10 Ml IV PRN PRN LINE FLUSH
[2019-04-08] MEDS: ELIQUIS PO SCH (22:11)
[2019-04-08] MEDS: PRAVACHOL PO SCH (22:11)
[2019-04-09] MEDS: ELIQUIS PO SCH (10:00)
[2019-04-09] MEDS: ASPIRIN PO SCH (10:00)
--- NOTE | 2019-04-09 11:33 | Consultation ---
History of Present Illness Consult date: 04/09/19 Consult reason: other (PFO) History of present illness: This is a 68 year old woman admitted with acute CVA with right sided deficits. Neurology evaluation and management is in progress. Patient has a history of hypertension, remote history of DVT following of a child and prior CVA. She is on eliquis for oral anticoagulation and reports compliance. An echocardiogram 8 months ago revealed a patent foramen ovale. There is also evidence of atrial septal aneurysm. Ejection fraction is well preserved. As an outpatient, patient was referred to Dr Elliott for PFO closure evaluation. Patient declined stating his office was too far from her home. Cardiac consultation is requested. Patient denies chest pain, shortness of breath and palpitations. There is no prior cardiac history. Patient has a normal treadmill test, as an outpatient, w filiberto the last year. Medications and Allergies Allergies Allergy/AdvReac Type Severity Reaction Status Date / Time atorvastatin [From Lipitor] AdvReac Unknown Verified 04/07/19 22:51 Home Medications Medication Instructions Recorded Confirmed Last Taken Type Apixaban [Eliquis] 5 mg PO Q12HR 04/07/19 04/07/19 04/07/19 07:30 History Hydrochlorothiazide 25 mg PO DAILY 04/07/19 04/07/19 04/06/19 History Losartan Potassium 100 mg PO DAILY 04/07/19 04/07/19 04/06/19 History Active Meds: Active Medications Acetaminophen (Tylenol) 650 mg PO Q4H PRN PRN Reason: Pain, Mild (1-3) Apixaban (Eliquis) 10 mg PO Q12HR [facility]; Protocol Last Admin: 04/09/19 10:00 Dose: 10 mg Documented by: Aspirin (Aspirin) 325 mg PO QDAY [facility] Last Admin: 04/09/19 10:00 Dose: Not Given Documented by: Bisacodyl (Dulcolax) 10 mg MO QDAY PRN PRN Reason: Constipation Labetalol HCl (Normodyne) 10 mg IV Q4H PRN PRN Reason: BP >170/105; hold for HR <60 Magnesium Hydroxide (Milk Of Magnesia) 30 ml PO Q4H PRN PRN Reason: Constipation Metoclopramide HCl (Reglan) 10 mg PO Q6H PRN PRN Reason: Nausea And Vomiting Ondansetron HCl (Zofran) 4 mg IV Q8H PRN PRN Reason: Nausea And Vomiting Pravastatin Sodium (Pravachol) 40 mg PO QHS SHAILESH Last Admin: 04/08/19 22:11 Dose: 40 mg Documented by: Promethazine HCl (Phenergan) 25 mg MO Q6H PRN PRN Reason: Nausea And Vomiting Sodium Chloride (Sodium Chloride Flush Syringe 10 Ml) 10 ml IV PRN PRN PRN Reason: LINE FLUSH Physical Examination Vital Signs Temp Pulse Resp BP Pulse Ox 98 F 90 18 223/91 98 04/07/19 09:19 04/07/19 09:19 04/07/19 09:19 04/07/19 09:19 04/07/19 09:19 General appearance: no acute distress HEENT: Positive: PERRL Cardiac: Positive: Reg Rate and Rhythm Lungs: Positive: Decreased Breath Sounds Neuro: Positive: Other (right sided residual) Extremities: Absent: edema Results 04/07/19 09:43 04/07/19 09:43
--- NOTE | 2019-04-09 11:46 | Progress Note ---
Assessment and Plan Assessment and plan: Acute Stroke -stroke protocol, MRI confirms acute pontine cva -aspirin, statin -neurology consult appreciated -allow permissive htn -cardiology consult given PFO, they recommended warfarin as she is still having strokes on eliquis, switched to warfarin hx of RLE dvt anticoagulated htn -allow permissive htn given acute cva History Interval history: Continues to have right-sided weakness Review of systems Constitutional: No fevers, no malaise, no joint pains CVS: No chest pain, no orthopnea, no dyspnea on exertion, no pedal edema GI: No abdominal pain, no diarrhea, no vomiting, no constipation Respiratory: no wheezing, no coughing Hospitalist Physical - Physical exam Narrative exam: General.: Appears well, no distress, nontoxic HEENT: Moist mucous membranes, extraocular muscles intact, no lymphadenopathy Neck: supple Cardiac: S1-S2 heard Lungs: clear to auscultation bilaterally Abdomen: soft , nontender, nondistended, bowel sounds positive Extremities: no edema clubbing or cyanosis Skin: no rash or lesions Neurologic: Right-sided weakness Psych: calm, and cooperative - Constitutional Vitals: Temp Pulse Resp BP Pulse Ox 98.3 F 64 20 156/77 95 04/09/19 07:28 04/09/19 07:28 04/09/19 07:28 04/09/19 07:28 04/09/19 07:28 General appearance: Present: no acute distress Results - Labs CBC & Chem 7: 04/07/19 09:43 04/07/19 09:43 Labs: Laboratory Last Values WBC 5.8 K/mm3 (4.5-11.0) 04/07/19 09:43 RBC 4.85 M/mm3 (3.65-5.03) 04/07/19 09:43 Hgb 15.3 gm/dl (10.1-14.3) H 04/07/19 09:43 Hct 44.1 % (30.3-42.9) H 04/07/19 09:43 MCV 91 fl (79-97) 04/07/19 09:43 MCH 32 pg (28-32) 04/07/19 09:43 MCHC 35 % (30-34) H 04/07/19 09:43 RDW 14.2 % (13.2-15.2) 04/07/19 09:43 Plt Count 267 K/mm3 (140-440) 04/07/19 09:43 Lymph % (Auto) 17.9 % (13.4-35.0) 04/07/19 09:43 [place] % (Auto) 6.1 % (0.0-7.3) 04/07/19 09:43 Eos % (Auto) 0.3 % (0.0-4.3) 04/07/19 09:43 Baso % (Auto) 1.6 % (0.0-1.8) 04/07/19 09:43 Lymph # 1.0 K/mm3 (1.2-5.4) L 04/07/19 09:43 [place] # 0.4 K/mm3 (0.0-0.8) 04/07/19 09:43 Eos # 0.0 K/mm3 (0.0-0.4) 04/07/19 09:43 Baso # 0.1 K/mm3 (0.0-0.1) 04/07/19 09:43 Seg Neutrophils % 74.1 % (40.0-70.0) H 04/07/19 09:43 Seg Neutrophils # 4.3 K/mm3 (1.8-7.7) 04/07/19 09:43 PT 14.4 Sec. (12.2-14.9) 04/07/19 09:43 INR 1.05 (0.87-1.13) 04/07/19 09:43 APTT 26.1 Sec. (24.2-36.6) 04/07/19 09:43 18.1 Sec. (15.1-19.6) 04/07/19 09:43 532.59 ng/mlDDU (0-234) H 04/07/19 09:43 Sodium 142 mmol/L (137-145) 04/07/19 09:43 Potassium 4.2 mmol/L (3.6-5.0) 04/07/19 09:43 Chloride 100.6 mmol/L (98-107) 04/07/19 09:43 Carbon Dioxide 26 mmol/L (22-30) 04/07/19 09:43 20 mmol/L 04/07/19 09:43 BUN 11 mg/dL (7-17) 04/07/19 09:43 1.0 mg/dL (0.7-1.2) 04/07/19 09:43 Estimated GFR > 60 ml/min 04/07/19 09:43 11 % 04/07/19 09:43 Glucose 154 mg/dL (65-100) H 04/07/19 09:43 POC Glucose 150 (70-105) H 04/07/19 09:24 6.6 % (4-6) H 04/08/19 04:11 Calcium 9.0 mg/dL (8.4-10.2) 04/07/19 09:43 Magnesium 1.90 mg/dL (1.7-2.3) 04/07/19 09:43 0.40 mg/dL (0.1-1.2) 04/07/19 09:43 < 0.2 mg/dL (0-0.2) 04/07/19 09:43 0.2 mg/dL 04/07/19 09:43 AST 23 units/L (5-40) 04/07/19 09:43 ALT 23 units/L (7-56) 04/07/19 09:43 71 units/L (35-129) 04/07/19 09:43 278 units/L (30-135) H 04/07/19 12:35 CK-MB (CK-2) 3.5 ng/mL (0.0-4.0) 04/07/19 12:35 CK-MB (CK-2) Rel Index 1.2 (0-4) 04/07/19 12:35 < 0.010 ng/mL (0.00-0.029) 04/07/19 12:35 NT-Pro-B Natriuret Pep 103.4 pg/mL (0-900) 04/07/19 09:43 7.7 g/dL (6.3-8.2) 04/07/19 09:43 4.1 g/dL (3.9-5) 04/07/19 09:43 1.1 % 04/07/19 09:43 Triglycerides 107 mg/dL (2-149) 04/08/19 04:11 Cholesterol 306 mg/dL (50-199) H 04/08/19 04:11 235 mg/dL (50-130) H 04/08/19 04:11 62 mg/dL (40-59) H 04/08/19 04:11 4.93 % 04/08/19 04:11 Yellow (Yellow) 04/07/19 12:39 Hazy (Clear) 04/07/19 12:39 8.0 (5.0-7.0) H 04/07/19 12:39 Ur Specific [place] 1.016 (1.003-1.030) 04/07/19 12:39 <15 mg/dl mg/dL (Negative) 04/07/19 12:39 Neg mg/dL (Negative) 04/07/19 12:39 Neg mg/dL (Negative) 04/07/19 12:39 Neg (Negative) 04/07/19 12:39 Neg (Negative) 04/07/19 12:39 Neg (Negative) 04/07/19 12:39 < 2.0 mg/dL (<2.0) 04/07/19 12:39 Ur Leukocyte Esterase Tr (Negative) 04/07/19 12:39 3.0 /HPF (0.0-6.0) 04/07/19 12:39 1.0 /HPF (0.0-6.0) 04/07/19 12:39 U Epithel Cells (Auto) 4.0 /HPF (0-13.0) 04/07/19 12:39 Amorphous Crystals Few 04/07/19 12:39 Few /HPF 04/07/19 12:39 Presumptive negative 04/07/19 12:39 Presumptive negative 04/07/19 12:39 Ur Barbiturates Screen Presumptive negative 04/07/19 12:39 Ur Phencyclidine Scrn Presumptive negative 04/07/19 12:39 Ur Amphetamines Screen Presumptive negative 04/07/19 12:39 U Benzodiazepines Scrn Presumptive negative 04/07/19 12:39 Presumptive negative 04/07/19 12:39 U Marijuana (THC) Screen Presumptive negative 04/07/19 12:39 Disclamer 04/07/19 12:39 Active Medications - Current Medications Current Medications: Generic Name Dose Route Start Last Admin Trade Name Freq PRN Reason Stop Dose Admin Acetaminophen 650 mg 04/07/19 12:20 Tylenol PO Q4H PRN Pain, Mild (1-3) Apixaban 10 mg 04/08/19 22:00 04/09/19 10:00 Eliquis PO 10 mg Q12HR SHAILESH Administration Protocol Aspirin 325 mg 04/08/19 10:00 04/09/19 10:00 Aspirin PO Not Given QDAY SHAILESH Bisacodyl 10 mg 04/07/19 12:20 Dulcolax IA QDAY PRN Constipation Labetalol HCl 10 mg 04/07/19 13:23 Normodyne IV Q4H PRN BP >170/105; hold for HR <60 Magnesium Hydroxide 30 ml 04/07/19 12:20 Milk Of Magnesia PO Q4H PRN Constipation Metoclopramide HCl 10 mg 04/07/19 12:20 Reglan PO Q6H PRN Nausea And Vomiting Ondansetron HCl 4 mg 04/07/19 12:20 Zofran IV Q8H PRN Nausea And Vomiting Pravastatin Sodium 40 mg 04/08/19 22:00 04/08/19 22:11 Pravachol PO 40 mg QHS SHAILESH Administration Promethazine HCl 25 mg 04/07/19 12:20 Phenergan IA Q6H PRN Nausea And Vomiting Sodium Chloride 10 ml 04/07/19 12:20 Sodium Chloride Flush Syringe 10 Ml IV PRN PRN LINE FLUSH Nutrition/Malnutrition Assess - Dietary Evaluation Nutrition/Malnutrition Findings: Nutrition Notes Start: 04/08/19 16:36 Freq: Status: Active Protocol: Document 04/08/19 16:36 RM (Rec: 04/08/19 16:40 RM [id number]) Nutrition Notes Need for Assessment generated from: MD Order,Education Initial or Follow up Assessment Current Diagnosis Hypertension,Stroke Current Diet Cardiac Labs/Tests A1c 6.6 Pertinent Medications Reviewed Height 5 ft 6 in Weight 117.934 kg [place] Body Weight (kg) 59.09 BMI 41.9 Subjective/Other Information Consulted for CVA diet education and nutrition recommendations. Jameel 21 points. Pt stated that her appetite is good and that she eats most of her meals. Pt already familiar w/CVA diet . Reviewed DM diet education and gave handout. Burn Absent Trauma Absent #1 Nutrition Diagnosis Food and nutrition-related knowledge deficit Etiology lack of prior education As Evidenced by Signs and Symptoms no prior knowledge of need for food and nutrition recommendations Nutrition Intervention Teaching Recipient Patient Learning Readiness Good Teaching Methods Discussion,Handout Response to Teaching Reinforcement needed Education Handouts Provided Carbohydrate counting for people with diabetes Barriers to Learning No Barriers RD phone number provided Yes Patient aware of follow up options Yes Goal #1 Utilize carbohydrate counting Revisit per MD consult or patient Sign Off request:
[2019-04-09 13:25] LABS: INR 1.19 (0.87-1.13)
[2019-04-09] MEDS: COUMADIN PO SCH (17:12)
[2019-04-09] MEDS: PRAVACHOL PO SCH (22:00)
[2019-04-09] MEDS: SODIUM CHLORIDE FLUSH SYRINGE 10 ML IV PRN (22:00)
[2019-04-10 06:22] LABS: INR 0.97 (0.87-1.13)
--- NOTE | 2019-04-10 08:29 | Anesthesia Consultation ---
Anesthesia Consult and Med Hx Date of service: 04/10/19 - Airway Anesthetic Teeth Evaluation: Partials (upper ) ROM Head & Neck: Adequate Mental/Hyoid Distance: Adequate Mallampati Class: Class II Intubation Access Assessment: Probably Good - Pre-Operative Health Status ASA Pre-Surgery Classification: ASA3 Proposed Anesthetic Plan: MAC - Pulmonary Hx Smoking: Yes - Cardiovascular System Hx Hypertension: Yes Hx Heart Murmur: Yes - Central Nervous System CVA: Yes (stroke x 3, right hemiparesis ) - Other Systems Hx Cancer: No Hx Obesity: Yes (BMI 42.0)
--- NOTE | 2019-04-10 08:29 | Anesthesia Day of Surgery ---
Anesthesia Day of Surgery - Day of Surgery Patient Examined: Yes Patient H&P Reviewed: Yes Patient is NPO: Yes Beta Blockers: Yes
[2019-04-10] MEDS ORDERED: XYLOCAINE MPF 2% ONE (09:19)
[2019-04-10] MEDS ORDERED: DIPRIVAN 10 MG/ML IV ONE ×2 (09:19)
[2019-04-10] MEDS ORDERED: HURRICAINE ONE 20% TOPICAL SPRAY MM (09:33)
[2019-04-10] MEDS ORDERED: NACL 0.9% 500 ML 500 ML IV SCH (10:00)
[2019-04-10] MEDS ORDERED: HURRICAINE ONE 20% TOPICAL SPRAY MM NR (10:00)
--- NOTE | 2019-04-10 10:44 | Progress Note ---
Assessment and Plan Acute CVA with right sided hemiparesis Patent foramen ovale with interatrial septal aneurysm documented by JAN this admission History of DVT and PE Systemic Hypertension Type II DM Hyperlipidemia LDL 254 Recommendations: Risk factor modification with antiplatelet therapy, statin therapy, BP and glucose control Continue warfarin therapy with a target INR 2-3 Need neurology confirmation that this is truly an embolic stroke and not a thrombotic stroke prior to PFO closure. Patient with multiple stroke risk factors (DM, HTN, Hyperlipidemia) If deemed embolic then PFO closure is warranted in the near future Patient is also a great candidate for PCSk9 inhibitor therapy Subjective Date of service: 04/10/19 Principal diagnosis: CVA Interval history: Patient underwent a JAN today without complications Objective Vital Signs Temp Temp Temp Pulse Pulse Pulse Resp 04/10/19 10:10 63 04/10/19 09:56 98.1 F 66 04/10/19 09:40 98.1 F 72 04/10/19 07:00 97.8 F 63 18 04/10/19 02:19 99.1 F 74 18 04/10/19 00:00 20 04/09/19 22:00 04/09/19 19:24 97.7 F 72 18 04/09/19 19:17 04/09/19 13:49 97.6 F 68 20 04/09/19 12:54 100 H 04/09/19 12:00 Resp Resp Resp BP BP BP BP 04/10/19 10:10 22 143/67 04/10/19 09:56 18 164/82 04/10/19 09:40 24 158/85 04/10/19 07:00 148/72 04/10/19 02:19 148/83 04/10/19 00:00 04/09/19 22:00 20 04/09/19 19:24 137/74 04/09/19 19:17 137/74 04/09/19 13:49 141/65 04/09/19 12:54 04/09/19 12:00 Pulse Ox Pulse Ox Pulse Ox 04/10/19 10:10 95 04/10/19 09:56 96 04/10/19 09:40 95 04/10/19 07:00 96 04/10/19 02:19 97 04/10/19 00:00 04/09/19 22:00 04/09/19 19:24 96 04/09/19 19:17 76 L 04/09/19 13:49 97 04/09/19 12:54 04/09/19 12:00 95 - Physical Examination HEENT: Positive: PERRL Neck: Positive: neck supple Cardiac: Positive: Reg Rate and Rhythm Lungs: Positive: Normal Exam Neuro: Positive: Other (right sided residual) Abdomen: Positive: Soft Extremities: Absent: edema - Labs and Meds Coagulation 04/09/19 04/10/19 Range/Units 12:31 05:11 PT 15.9 H 13.5 (12.2-14.9) Sec. INR 1.19 H 0.97 (0.87-1.13)
[2019-04-10] MEDS: ASPIRIN PO SCH (11:28)
--- NOTE | 2019-04-10 13:30 | Progress Note ---
Assessment and Plan Assessment and plan: Acute Stroke -stroke protocol, MRI confirms acute pontine cva -aspirin, statin -neurology consult appreciated -allow permissive htn -cardiology consult given PFO, they recommended warfarin as she is still having strokes on eliquis, switched to warfarin sp JAN no clots in atria, no significant atrial dysfunction, PFO closure not indicated at this time, OP cardiology fup hx of RLE dvt anticoagulated htn -optimize bp meds History Interval history: Continues to have right-sided weakness Review of systems Constitutional: No fevers, no malaise, no joint pains CVS: No chest pain, no orthopnea, no dyspnea on exertion, no pedal edema GI: No abdominal pain, no diarrhea, no vomiting, no constipation Respiratory: no wheezing, no coughing Hospitalist Physical - Physical exam Narrative exam: General.: Appears well, no distress, nontoxic HEENT: Moist mucous membranes, extraocular muscles intact, no lymphadenopathy Neck: supple Cardiac: S1-S2 heard Lungs: clear to auscultation bilaterally Abdomen: soft , nontender, nondistended, bowel sounds positive Extremities: no edema clubbing or cyanosis Skin: no rash or lesions Neurologic: Right-sided weakness Psych: calm, and cooperative - Constitutional Vitals: Temp Pulse Resp BP Pulse Ox 98.1 F 61 18 155/73 95 04/10/19 09:56 04/10/19 10:25 04/10/19 11:15 04/10/19 10:25 04/10/19 10:25 General appearance: Present: no acute distress Results - Labs CBC & Chem 7: 04/07/19 09:43 04/07/19 09:43 Labs: Laboratory Last Values WBC 5.8 K/mm3 (4.5-11.0) 04/07/19 09:43 RBC 4.85 M/mm3 (3.65-5.03) 04/07/19 09:43 Hgb 15.3 gm/dl (10.1-14.3) H 04/07/19 09:43 Hct 44.1 % (30.3-42.9) H 04/07/19 09:43 MCV 91 fl (79-97) 04/07/19 09:43 MCH 32 pg (28-32) 04/07/19 09:43 MCHC 35 % (30-34) H 04/07/19 09:43 RDW 14.2 % (13.2-15.2) 04/07/19 09:43 Plt Count 267 K/mm3 (140-440) 04/07/19 09:43 Lymph % (Auto) 17.9 % (13.4-35.0) 04/07/19 09:43 [place] % (Auto) 6.1 % (0.0-7.3) 04/07/19 09:43 Eos % (Auto) 0.3 % (0.0-4.3) 04/07/19 09:43 Baso % (Auto) 1.6 % (0.0-1.8) 04/07/19 09:43 Lymph # 1.0 K/mm3 (1.2-5.4) L 04/07/19 09:43 [place] # 0.4 K/mm3 (0.0-0.8) 04/07/19 09:43 Eos # 0.0 K/mm3 (0.0-0.4) 04/07/19 09:43 Baso # 0.1 K/mm3 (0.0-0.1) 04/07/19 09:43 Seg Neutrophils % 74.1 % (40.0-70.0) H 04/07/19 09:43 Seg Neutrophils # 4.3 K/mm3 (1.8-7.7) 04/07/19 09:43 PT 13.5 Sec. (12.2-14.9) 04/10/19 05:11 INR 0.97 (0.87-1.13) 04/10/19 05:11 APTT 26.1 Sec. (24.2-36.6) 04/07/19 09:43 18.1 Sec. (15.1-19.6) 04/07/19 09:43 532.59 ng/mlDDU (0-234) H 04/07/19 09:43 Sodium 142 mmol/L (137-145) 04/07/19 09:43 Potassium 4.2 mmol/L (3.6-5.0) 04/07/19 09:43 Chloride 100.6 mmol/L (98-107) 04/07/19 09:43 Carbon Dioxide 26 mmol/L (22-30) 04/07/19 09:43 20 mmol/L 04/07/19 09:43 BUN 11 mg/dL (7-17) 04/07/19 09:43 1.0 mg/dL (0.7-1.2) 04/07/19 09:43 Estimated GFR > 60 ml/min 04/07/19 09:43 11 % 04/07/19 09:43 Glucose 154 mg/dL (65-100) H 04/07/19 09:43 POC Glucose 150 (70-105) H 04/07/19 09:24 6.6 % (4-6) H 04/08/19 04:11 Calcium 9.0 mg/dL (8.4-10.2) 04/07/19 09:43 Magnesium 1.90 mg/dL (1.7-2.3) 04/07/19 09:43 0.40 mg/dL (0.1-1.2) 04/07/19 09:43 < 0.2 mg/dL (0-0.2) 04/07/19 09:43 0.2 mg/dL 04/07/19 09:43 AST 23 units/L (5-40) 04/07/19 09:43 ALT 23 units/L (7-56) 04/07/19 09:43 71 units/L (35-129) 04/07/19 09:43 278 units/L (30-135) H 04/07/19 12:35 CK-MB (CK-2) 3.5 ng/mL (0.0-4.0) 04/07/19 12:35 CK-MB (CK-2) Rel Index 1.2 (0-4) 04/07/19 12:35 < 0.010 ng/mL (0.00-0.029) 04/07/19 12:35 NT-Pro-B Natriuret Pep 103.4 pg/mL (0-900) 04/07/19 09:43 7.7 g/dL (6.3-8.2) 04/07/19 09:43 4.1 g/dL (3.9-5) 04/07/19 09:43 1.1 % 04/07/19 09:43 Triglycerides 107 mg/dL (2-149) 04/08/19 04:11 Cholesterol 306 mg/dL (50-199) H 04/08/19 04:11 235 mg/dL (50-130) H 04/08/19 04:11 62 mg/dL (40-59) H 04/08/19 04:11 4.93 % 04/08/19 04:11 Yellow (Yellow) 04/07/19 12:39 Hazy (Clear) 04/07/19 12:39 8.0 (5.0-7.0) H 04/07/19 12:39 Ur Specific [place] 1.016 (1.003-1.030) 04/07/19 12:39 <15 mg/dl mg/dL (Negative) 04/07/19 12:39 Neg mg/dL (Negative) 04/07/19 12:39 Neg mg/dL (Negative) 04/07/19 12:39 Neg (Negative) 04/07/19 12:39 Neg (Negative) 04/07/19 12:39 Neg (Negative) 04/07/19 12:39 < 2.0 mg/dL (<2.0) 04/07/19 12:39 Ur Leukocyte Esterase Tr (Negative) 04/07/19 12:39 3.0 /HPF (0.0-6.0) 04/07/19 12:39 1.0 /HPF (0.0-6.0) 04/07/19 12:39 U Epithel Cells (Auto) 4.0 /HPF (0-13.0) 04/07/19 12:39 Amorphous Crystals Few 04/07/19 12:39 Few /HPF 04/07/19 12:39 Presumptive negative 04/07/19 12:39 Presumptive negative 04/07/19 12:39 Ur Barbiturates Screen Presumptive negative 04/07/19 12:39 Ur Phencyclidine Scrn Presumptive negative 04/07/19 12:39 Ur Amphetamines Screen Presumptive negative 04/07/19 12:39 U Benzodiazepines Scrn Presumptive negative 04/07/19 12:39 Presumptive negative 04/07/19 12:39 U Marijuana (THC) Screen Presumptive negative 04/07/19 12:39 Disclamer 04/07/19 12:39 Active Medications - Current Medications Current Medications: Generic Name Dose Route Start Last Admin Trade Name Freq PRN Reason Stop Dose Admin Acetaminophen 650 mg 04/07/19 12:20 Tylenol PO Q4H PRN Pain, Mild (1-3) Aspirin 325 mg 04/08/19 10:00 04/10/19 11:28 Aspirin PO Not Given QDAY SHAILESH Benzocaine 3 spray 04/10/19 10:00 04/10/19 09:43 Hurricaine One 20% Topical [place] MM 04/10/19 23:59 3 spray PREOP NR Administration Bisacodyl 10 mg 04/07/19 12:20 Dulcolax [place] QDAY PRN Constipation Sodium Chloride 500 mls @ 50 mls/hr 04/10/19 10:00 04/10/19 09:40 Nacl 0.9% 500 Ml IV 50 mls/hr DIRECT SHAILESH Administration Labetalol HCl 10 mg 04/07/19 13:23 Normodyne IV Q4H PRN BP >170/105; hold for HR <60 Magnesium Hydroxide 30 ml 04/07/19 12:20 04/09/19 15:05 Milk Of Magnesia PO 30 ml Q4H PRN Administration Constipation Metoclopramide HCl 10 mg 04/07/19 12:20 Reglan PO Q6H PRN Nausea And Vomiting Ondansetron HCl 4 mg 04/07/19 12:20 Zofran IV Q8H PRN Nausea And Vomiting Pravastatin Sodium 40 mg 04/08/19 22:00 04/09/19 22:00 Pravachol PO 40 mg QHS SHAILESH Administration Promethazine HCl 25 mg 04/07/19 12:20 Phenergan [place] Q6H PRN Nausea And Vomiting Sodium Chloride 10 ml 04/07/19 12:20 04/09/19 22:00 Sodium Chloride Flush Syringe 10 Ml IV 10 ml PRN PRN Administration LINE FLUSH Warfarin Sodium 7.5 mg 04/09/19 17:00 04/09/19 17:12 Coumadin PO 7.5 mg DAILY@1700 SHAILESH Administration Nutrition/Malnutrition Assess - Dietary Evaluation Nutrition/Malnutrition Findings: Nutrition Notes Start: 04/08/19 16:36 Freq: Status: Active Protocol: Document 04/08/19 16:36 RM (Rec: 04/08/19 16:40 RM [id number]) Nutrition Notes Need for Assessment generated from: MD Order,Education Initial or Follow up Assessment Current Diagnosis Hypertension,Stroke Current Diet Cardiac Labs/Tests A1c 6.6 Pertinent Medications Reviewed Height 5 ft 6 in Weight 117.934 kg [place] Body Weight (kg) 59.09 BMI 41.9 Subjective/Other Information Consulted for CVA diet education and nutrition recommendations. Jameel 21 points. Pt stated that her appetite is good and that she eats most of her meals. Pt already familiar w/CVA diet . Reviewed DM diet education and gave handout. Burn Absent Trauma Absent #1 Nutrition Diagnosis Food and nutrition-related knowledge deficit Etiology lack of prior education As Evidenced by Signs and Symptoms no prior knowledge of need for food and nutrition recommendations Nutrition Intervention Teaching Recipient Patient Learning Readiness Good Teaching Methods Discussion,Handout Response to Teaching Reinforcement needed Education Handouts Provided Carbohydrate counting for people with diabetes Barriers to Learning No Barriers RD phone number provided Yes Patient aware of follow up options Yes Goal #1 Utilize carbohydrate counting Revisit per MD consult or patient Sign Off request:
[2019-04-10] MEDS: COUMADIN PO SCH (16:47)
[2019-04-10] MEDS: PRAVACHOL PO SCH (22:00)
[2019-04-11 07:05] LABS: INR 1.05 (0.87-1.13)
[2019-04-11 08:34] VITALS: BP 153/79
[2019-04-11] MEDS: ASPIRIN PO SCH (09:54)
[2019-04-11] MEDS: SODIUM CHLORIDE FLUSH SYRINGE 10 ML IV PRN (09:54)
--- NOTE | 2019-04-11 11:22 | Progress Note ---
Assessment and Plan Acute CVA with right sided hemiparesis while on eliquis. Patient has been initiated on warfarin. Patent foramen ovale with interatrial septal aneurysm documented by JAN this admission History of DVT and PE Systemic Hypertension Type II DM Hyperlipidemia Recommendations: Continue warfarin therapy with a target INR 2-3. Continue physical therapy for neuro deficits. PFO closure is warranted in the near future. 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 Subjective Date of service: 04/11/19 Principal diagnosis: CVA Interval history: Patient is sitting up in the bedside chair. She has no complaints. Objective Vital Signs Temp Pulse Resp BP BP Pulse Ox 04/11/19 08:08 98.2 F 64 20 153/79 92 04/11/19 03:00 69 94 04/11/19 02:49 98.6 F 20 147/84 04/10/19 19:40 67 96 04/10/19 19:39 98.3 F 18 133/69 04/10/19 14:49 98.0 F 78 16 141/72 93 04/10/19 14:19 98.0 F 16 141/72 - Physical Examination General: No Apparent Distress HEENT: Positive: PERRL Neck: Positive: trachea midline Cardiac: Positive: Reg Rate and Rhythm Lungs: Positive: Decreased Breath Sounds Neuro: Positive: Other (right sided residual) Abdomen: Positive: Soft Extremities: Absent: edema - Labs and Meds Coagulation 04/11/19 Range/Units 05:40 PT 14.4 (12.2-14.9) Sec. INR 1.05 (0.87-1.13)
--- NOTE | 2019-04-11 11:31 | Discharge Summary ---
Providers - Providers Date of Admission: 04/07/19 12:20 Attending physician: YOSSI JOHNSON MD 04/07/19 Consult to Physician [CONS] Routine Comment: desiree/michelle Consulting Provider: IZAIAH FAUSTIN Physician Instructions: Reason For Exam: cva 04/07/19 12:20 Consult to Dietitian/Nutrition [CONS] Routine Physician Instructions: Reason For Exam: Reason for Consult: Nutrition Recommendations Reason for Consult: Diet education Occupational Therapy Evaluate and Treat [CONS] Routine Comment: Reason For Exam: Neuro deficits Physical Therapy Evaluation and Treat [CONS] Routine Comment: Reason For Exam: Neuro deficits 04/08/19 14:15 Consult to Physician [CONS] Routine Comment: Consulting Provider: KATE AGUIRRE Physician Instructions: Reason For Exam: pfo Primary care physician: GUMARO LOTT Hospitalization Condition: Stable Hospital course: 68F w worsening of R sided weakness Acute Stroke -she received stroke protocol, MRI confirms acute pontine cva -she was medically rx, she had had muscle weakness from statins in the past therefore she was switched to a different statin encouraged to take it -neurology consult appreciated -allow permissive htn and then restarted her blood pressure medications -cardiology consult given PFO, they recommended warfarin as she is still having strokes on eliquis, switched to warfarin sp JAN no clots in atria, no significant atrial dysfunction, PFO closure not indicated at this time, OP cardiology fup hx of RLE dvt anticoagulated htn -optimize bp meds Disposition: [id number] Time spent for discharge: 35 minutes Core Measure Documentation - Palliative Care Palliative Care/ Comfort Measures: Not Applicable - Core Measures Any of the following diagnoses?: stroke - Stroke Discharge Requirements Statin for LDL = or >70 mg/dl on DC: Yes Anticoag for atrial fib/atrial flutter: Not Applicable Antithrombotic for ischemic stroke: Yes Exam - Physical Exam Narrative exam: General.: Appears well, no distress, nontoxic HEENT: Moist mucous membranes, extraocular muscles intact, no lymphadenopathy Neck: supple Cardiac: S1-S2 heard Lungs: clear to auscultation bilaterally Abdomen: soft , nontender, nondistended, bowel sounds positive Extremities: no edema clubbing or cyanosis Skin: no rash or lesions Neurologic: Right-sided weakness Psych: calm, and cooperative - Constitutional Vitals: Temp Pulse Resp BP Pulse Ox 98.2 F 64 20 153/79 92 04/11/19 08:08 04/11/19 08:08 04/11/19 08:08 04/11/19 08:08 04/11/19 08:08 Plan Follow up with: GUMARO LOTT MD [Primary Care Provider] - 3-5 Days Forms: Warfarin Discharge Instruction Prescriptions: Aspirin EC 81 mg PO QDAY #30 tablet.
[2019-04-12] MEDS ORDERED: COZAAR PO SCH (10:00)
[2019-04-12] MEDS ORDERED: HCTZ PO SCH (10:00)
[2019-04-12] MEDS ORDERED: NON-FORMULARY (Hydrochlorothiazide 25 MG) PO SCH (10:00)
[2019-04-12] MEDS ORDERED: NON-FORMULARY (Losartan Potassium 100 MG) PO SCH (10:00)
== END 2019-04-11 14:15 | DRG 65 ==
LOC: ED 09:16 → 2B-ACE 12:20
PROVIDERS: ADMIT Internal Medicine; ATTEND Internal Medicine
DX: I63.9 Cerebral infarction, unspecified (principal); G81.91 Hemiplegia, unspecified affecting right dominant side; Q21.1 Atrial septal defect; R47.1 Dysarthria and anarthria; Z88.8 Allergy status to other drugs, medicaments and biological substances; I10 Essential (primary) hypertension; E78.5 Hyperlipidemia, unspecified; R47.81 Slurred speech; Z86.718 Personal history of other venous thrombosis and embolism; Z86.711 Personal history of pulmonary embolism; E11.9 Type 2 diabetes mellitus without complications
CPT/HCPCS: 36415; 70450; 70544; 70551; 71045; 71275; 80048; 80061; 80076; 80307; 81001; 82550; 82553; 82962; 83036; 83735; 83880; 84484; 85025; 85379; 85610; 85670; 85730; 87116; 93005; 93010; 93306; 93312; 93320; 93325; 93880; G0378; A9270-GY; J2704; J7040; Q9967

== ENCOUNTER 2019-04-11 09:36 | Inpatient (IN) | payer MEDICARE ==
[2019-04-11] MEDS ORDERED: MILK OF MAGNESIA PO PRN (12:58)
[2019-04-11] MEDS ORDERED: TYLENOL PO PRN (12:58)
[2019-04-11] MEDS ORDERED: DULCOLAX PR PRN (12:58)
[2019-04-11] MEDS ORDERED: PHENERGAN PO PRN (13:18)
[2019-04-11] MEDS: GLUCOPHAGE PO SCH (17:54)
--- NOTE | 2019-04-11 19:32 | History and Physical Report ---
History of Present Illness Date: 04/11/19 Date of admission: 04/11/19 15:18 Chief Complaint: CVA History of present illness: 68 yo RHD female who woke up with right sided weakness and dysarthria. Son was present for the exam. She states she had a previous CVA and TIA and records confirm. She was evaluated and found to have acute left pontine lacunar infarcts. Cardiology was consulted due to previously known PFO. JAN showed EF 55-60, no thrombus and a PFO. She was advised to follow up as outpatient for PFO closure. No PE seen on chest CTA. Per cardiology, she was transitioned from Eliquis to Coumadin and is currently subtherapeutic. I will start her on a lovenox bridge until she has therapeutic INR. A1C was above the cutoff for diabetes - discussed with her and her son. Will start on carb controlled diet and metformin. After the patient was medically stabilized they were transferred for further rehabilitation. All available medical records have been reviewed. Plan of care was discussed with patient and family. Past History Past Medical History: DVT, hypertension, stroke Past Surgical History: Other (knee surgery) Social history: single, lives with family (single level, spends time between [place], [place]. Family in [place]), full code. denies: smoking, alcohol abuse, prescription drug abuse, IV drug use Family history: hypertension Medications and Allergies Allergies Allergy/AdvReac Type Severity Reaction Status Date / Time atorvastatin [From Lipitor] AdvReac Unknown Verified 04/07/19 22:51 Home Medications Medication Instructions Recorded Confirmed Last Taken Type Hydrochlorothiazide 25 mg PO DAILY 04/07/19 04/12/19 04/06/19 History Losartan Potassium 100 mg PO DAILY 04/07/19 04/12/19 04/06/19 History Aspirin EC 81 mg PO QDAY #30 tablet. 04/11/19 04/12/19 Unknown Rx Warfarin [Coumadin] 7.5 mg PO DAILY@1700 tablet 04/11/19 04/12/19 Unknown Rx Active Meds: Active Medications Acetaminophen (Tylenol) 650 mg PO Q4H PRN PRN Reason: Pain MILD(1-3)/Fever >100.5/SARABIA Aspirin (Halfprin Ec) 81 mg PO QDAY [facility] Bisacodyl (Dulcolax) 10 mg ME QDAY PRN PRN Reason: Constipation unrelieved by MOM Enoxaparin Sodium (Lovenox) 40 mg SUB-Q QDAY [facility] Hydrochlorothiazide (Hctz) 25 mg PO QDAY [facility] Losartan Potassium (Cozaar) 100 mg PO QDAY [facility] Magnesium Hydroxide (Milk Of Magnesia) 30 ml PO Q4H PRN PRN Reason: Constipation Metformin HCl (Glucophage) 500 mg PO BIDDIAB [facility] Last Admin: 04/11/19 17:54 Dose: Not Given Documented by: Pravastatin Sodium (Pravachol) 40 mg PO QHS [facility] Promethazine HCl (Phenergan) 25 mg PO Q6H PRN PRN Reason: Nausea And Vomiting Warfarin Sodium (Coumadin) 7.5 mg PO DAILY@1700 [facility] Review of Systems All systems: negative (ROS negative for 12 systems except as noted below with pertinent positives and negatives.) Ears, nose, mouth and throat: no dysphagia (Denies but sounds uncertain. Will have BIOINFORMATICS ENGINEER assess) Cardiovascular: high blood pressure, decreased exercise tolerance, no chest pain, no palpitations, no rapid/irregular heart beat, no edema, no dyspnea on exertion Respiratory: no cough Gastrointestinal: no abdominal pain, no nausea, no vomiting, no diarrhea, no constipation Musculoskeletal: gait dysfunction Integumentary: no rash, no pruritis, no sores Neurological: change in speech, balance difficulties, gait dysfunction, paralysis (right angel) Psychiatric: no anxiety, no depression Exam - Exam Narrative exam: MUSCULOSKELETAL SPECIALTY EXAM CONSTITUTIONAL: Well developed, well nourished, obese, appropriately groomed. RIGHT hand dominant. LYMPHATIC: No appreciable abnormalities palpable in neck RESPIRATORY: Clear to auscultation bilaterally, no increased work of breathing CARDIOVASCULAR: Regular Rate/ Rhythm, no swelling, edema or tenderness in BUE or BLE. Pulses palpable in all extremities. All extremities warm. GI: + bowel sounds, soft, NTTP, nondistended. INTEGUMENTARY: Normal, no lesion, rash, masses or bruising noted in extremities. MUSCULOSKELETAL: BUE and BLE normal without defect, crepitus, subluxation, effusion, arthritic changes or TTP. SA EF WE EE FF FA HF KE ADF EHL APF R 1/5 2/5 1/5 1/5 0/5 0/5 0/5 0/5 0/5 0/5 0/5 L 4+/5 ROM decreased on right Tone decreased on the right NEURO: CN II : Visual glass full to confrontation CN II, III : PERRL CN III, IV, : EOMI CN V : Facial sensation intact CN VII : Right facial droop and symmetric eye closure CN VIII : Hearing intact to finger rustle CN IX, X : Palate/uvula elevate midline, phonation normal CN XI : Intact shoulder shrug and head rotation CN XII : Tongue protrudes slightly left Sensation intact in all extremities without extinction. Reflexes 2+ bilaterally at biceps, brachioradialis and patella. No clonus at ankles. Coordination intact in LUE, no dysmetria noted. No tremor noted in 4 extremities. Naming and repetition intact. Follows 2 step commands. Aphasia not appreciated Dysarthria present Dysphagia uncertain Neglect not appreciated POSTURE and GAIT: Sitting posture good. Balance and Gait deferred until seen with therapy. PSYCH: Alert, orientated x3, affect appears euthymic. Insight appears intact. - Constitutional Vitals: Vital Signs - 12hr 04/11/19 04/11/19 15:00 18:12 Temperature 36.8 C 36.8 C Pulse Rate 72 Pulse Rate [ 72 Left] Respiratory 18 20 Rate Blood Pressure 134/64 [Left Arm] Blood Pressure 134/64 [Left] O2 Sat by Pulse 96 Oximetry - Labs CBC & Chem 7: 04/12/19 04:40 04/12/19 04:40 Assessment and Plan Assessment and plan: Patient was assessed and evaluated for Acute Inpatient Rehab Unit. Due to the patients above-mentioned medical complexity, along with decreased functional mobility and self care, this patient continues to require and be appropriate for a comprehensive, multidisciplinary [id number] rehabilitation program. These needs cannot be met in an outpatient or other less intensive setting. The patient would continue to benefit from skilled therapy intervention for at least 3 hours per day, five days a week, with techniques specific to the needs of the patient to improve function, activities of daily living, and reintegration into the community. The patient continues to require: -- OT to improve ROM, self-care, and learn use of adaptive equipment -- PT to improve strength and balance, functional transfers, and ambulation with energy conservation techniques to improve functional mobility -- BIOINFORMATICS ENGINEER to address cognitive deficits and swallowing ability -- 24 hour RN to ensure and prevent skin breakdown, promote progressive independence while ensuring safety, ensure education regarding medications, and incorporation of the rehabilitation at the bedside -- 24 hour Administrative Representative to coordinate this interdisciplinary program, and to manage/prevent complications as a result of the patients medical comorbidities. -Plan of care by day 4 -Weekly team conferences With such a program, there is a reasonable certainty that the goals individualized for this patient can be achieved within the specified length of stay. I69.351 hemiplegia affecting right dominant side after CVA: Continue secondary stroke prevention, discussed prognosis with patient and family, monitor for neurological decline, therapy is below, monitor for post stroke depression, monitor for shoulder hand syndrome. I69.322 dysarthria: BIOINFORMATICS ENGINEER for improving ability to speak clearly and improve vocal quality. I10 hypertension: Continue medications and adjust as needed. We'll consult medicine for further management. E11.9 DM: A1c this admission is 6.6, cutoff for prediabetes is 6.4 according to [facility]. Discussed with patient that this is also a risk factor for future strokes and will need to monitor this closely for her via dietary control and starting low-dose metformin. She may be able to discontinue metformin in the future if she is able to control her glucose with diet. Z73.6 ADL dysfunction: OT will work on improving ability to perform ADLs (including assistive devices) to increase independence and decrease caregiver burden and improve functional transfers and mobility training. R26.2 Difficulty walking: PT will work on gait training and proper use of assistive devices and advance as appropriate to use of stairs and outside ambulation on uneven surfaces. R26.81 Unsteadiness on feet: PT will work on improving static and dynamic sitting and standing balance as well as proper use of assistive devices to decrease risk of falls. R26.89 Abnormality of gait: PT will work to improve safety and efficiency of gait through neuromotor training and gait training along with instruction on proper use of assistive devices. M62.81 Muscle weakness: PT & OT will work on strengthening exercises to improve functional strength including mixture of closed and open kinetic chain exerc ises. R53.81 Debility: PT & OT will work on improving overall functional status to improve participation with ADLs, mobility and social involvement. R53.83 Fatigue: PT & OT will work on improving endurance through aerobic exercises and therapeutic activity while monitoring patients tolerance for ac tivity and vital signs as needed. PFO: We'll maintain patient on Coumadin with a goal INR of 2-3. She transitioned from Eliquis but did not have Lovenox in place. She is currently subtherapeutic. Will continue Lovenox daily until she has a therapeutic INR. DVT ppx: Coumadin with lovenox bridge Pain: Continue physical modalities in therapy and pain medications as needed to achieve functional pain control. Sleep: Monitor and address as needed. Bowel: Monitor and address as needed. Appetite: Monitor and address as needed. Discharge planning: Pending therapy progress and care plan meeting. Will continue discussion with therapy team, SW, patient and family. Restrictions/ Precautions: Falls, aspiration until cleared by BIOINFORMATICS ENGINEER WB status: FWB Functional Hx: ADLs: Independent Cognition: Independent Mobility: No AD mostly, used a cane occasionally. Barriers to Discharge: Decreased mobility and ability to perform self care, balance deficits, weakness, dysarthria, possible dysphagia and visual field deficit Estimated Length of Stay: 14-21 days Discharge Destination: Home with family POST ADMISSION PHYSICIAN EVALUATION I have examined the patient and find that functional status, medical condition and appropriateness for IRF admission are essentially unchanged from those described in the preadmission screening. Will monitor for worsening neurologic condition, aspiration, shoulder hand syndrome, poststroke depression, DVT/PE, bowel and bladder complications and complications due to HTN, hyperglycemia, and electrolyte abnormalities. Will attempt to avoid occurrence of these issues or treat them if they present themselves.
[2019-04-11] MEDS: PRAVACHOL PO SCH (22:49)
[2019-04-11] MEDS: COUMADIN PO SCH (22:52)
[2019-04-12 05:09] LABS: Basophils % (Auto) 0.6 % (0.0-1.8); Eosinophils # (Auto) 0.1 K/mm3 (0.0-0.4); Eosinophils % (Auto) 2.1 % (0.0-4.3); Hematocrit 39.4 % (30.3-42.9); Hemoglobin 13.3 gm/dl (10.1-14.3); Lymphocytes # (Auto) 2.1 K/mm3 (1.2-5.4); Lymphocytes % (Auto) 43.7 % (13.4-35.0); Mean Corpuscular HGB Conc 34 % (30-34); Mean Corpuscular Volume 93 fl (79-97); Monocytes # (Auto) 0.5 K/mm3 (0.0-0.8); Monocytes % (Auto) 9.6 % (0.0-7.3); Platelet Count 236 K/mm3 (140-440); Red Blood Count 4.24 M/mm3 (3.65-5.03); Red Cell Distribution Width 14.4 % (13.2-15.2)
[2019-04-12 05:27] LABS: Alanine Aminotransferase 17 units/L (7-56); Albumin 3.3 g/dL (3.9-5); BUN/Creatinine Ratio 15; Blood Urea Nitrogen 12 mg/dL (7-17); Calcium 8.9 mg/dL (8.4-10.2); Hemolysis Index 3
[2019-04-12 07:40] LABS: INR 1.28 (0.87-1.13)
[2019-04-12] MEDS: COZAAR PO SCH (08:52)
[2019-04-12] MEDS: HALFPRIN EC PO SCH (08:53)
[2019-04-12] MEDS: GLUCOPHAGE PO SCH ×2 (08:54→18:43)
[2019-04-12] MEDS: LOVENOX SUB-Q SCH (08:54)
--- NOTE | 2019-04-12 14:15 | Consultation ---
History of Present Illness - Reason for Consult Consult date: 04/12/19 medical management Requesting physician: DIONI STOKES III - History of Present Illness Patient is a 68 year old male admitted to the Inpatient Rehab unit for management of right sided weakness and dysarthria secondary to CVA. Patient has had 2 perivous CVA in the past, multiple work up has not shown an etiology and there is currently a discussion about Outpatien PFO closure as PFO was see on JAN with no thrombus and an EF of 55-60% Patient was transitioned to coumadin and is subtherapeutic on arrival to our facility and has been started on a lovenox bridge, she was previously on Eliquis but transition was done per the patient due to recurrent stroke on Eliquis She reports compliance with her medication. She also has metabolic syndrome with boardline DM and on carb controlled diet an d metformin. At the time of my exam she denies any chest pain, nausea, vomiting, blurry vision, polyuria. she is transferring from bed to chair with the Nurse Past History Past Medical History: DVT, hypertension, stroke Past Surgical History: Other (knee surgery) Social history: single, lives with family (single level, spends time between [place], [place]. Family in [place]), full code. denies: smoking, alcohol abuse, prescription drug abuse, IV drug use Family history: hypertension Medications and Allergies Allergies Allergy/AdvReac Type Severity Reaction Status Date / Time atorvastatin [From Lipitor] AdvReac Unknown Verified 04/07/19 22:51 Home Medications Medication Instructions Recorded Confirmed Last Taken Type Hydrochlorothiazide 25 mg PO DAILY 04/07/19 04/12/19 04/06/19 History Losartan Potassium 100 mg PO DAILY 04/07/19 04/12/19 04/06/19 History Aspirin EC 81 mg PO QDAY #30 tablet. 04/11/19 04/12/19 Unknown Rx Warfarin [Coumadin] 7.5 mg PO DAILY@1700 tablet 04/11/19 04/12/19 Unknown Rx Active Meds: Active Medications Acetaminophen (Tylenol) 650 mg PO Q4H PRN PRN Reason: Pain MILD(1-3)/Fever >100.5/SAR[place]IA Aspirin (Halfprin Ec) 81 mg PO QDAY [facility] Last Admin: 04/12/19 08:53 Dose: 81 mg Documented by: Bisacodyl (Dulcolax) 10 mg ME QDAY PRN PRN Reason: Constipation unrelieved by MOM Enoxaparin Sodium (Lovenox) 40 mg SUB-Q QDAY [facility] Last Admin: 04/12/19 08:54 Dose: 40 mg Documented by: Hydrochlorothiazide (Hctz) 25 mg PO QDAY [facility] Losartan Potassium (Cozaar) 100 mg PO QDAY [facility] Last Admin: 04/12/19 08:52 Dose: 100 mg Documented by: Magnesium Hydroxide (Milk Of Magnesia) 30 ml PO Q4H PRN PRN Reason: Constipation Metformin HCl (Glucophage) 500 mg PO BIDDIAB [facility] Last Admin: 04/12/19 08:54 Dose: 500 mg Documented by: Pravastatin Sodium (Pravachol) 40 mg PO QHS [facility] Last Admin: 04/11/19 22:49 Dose: 40 mg Documented by: Promethazine HCl (Phenergan) 25 mg PO Q6H PRN PRN Reason: Nausea And Vomiting Warfarin Sodium (Coumadin) 7.5 mg PO DAILY@1700 [facility] Last Admin: 04/11/19 22:52 Dose: 7.5 mg Documented by: Review of Systems All systems: negative Constitutional: weakness (RIGHT SIDED) Musculoskeletal: limitation of motion Neurological: paralysis, parathesias, ataxia, gait dysfunction, motor disturbance, sensory deficit Exam - Constitutional Vitals: Temp Pulse Resp BP Pulse Ox 97.3 F L 68 18 164/83 94 04/12/19 12:29 04/12/19 12:29 04/12/19 12:29 04/12/19 12:29 04/12/19 12:29 General appearance: Present: no acute distress, well-nourished - EENT Eyes: Present: PERRL ENT: clear oral mucosa - Neck Neck: Present: supple, normal ROM - Respiratory Respiratory effort: normal Respiratory: bilateral: CTA - Cardiovascular Rhythm: regular Heart Sounds: Present: S1 & S2. Absent: systolic murmur - Extremities Extremities: no ischemia, pulses intact, pulses symmetrical, No edema, normal temperature, normal color, Full ROM Peripheral Pulses: within normal limits - Abdominal General gastrointestinal: Present: soft, non-tender, non-distended, normal bowel sounds - Integumentary Integumentary: Present: clear, warm, dry - Musculoskeletal Musculoskeletal: right sided weakness - Psychiatric Psychiatric: appropriate mood/affect, intact judgment & insight, cooperative - Neurologic Neurologic: CNII-XII intact, focal deficits (right sided hemiparesis) - Allied Health Allied health notes reviewed: nursing Results - Labs CBC & Chem 7: 04/12/19 04:40 04/12/19 04:40 Labs: Abnormal lab results 04/12/19 04/12/19 04/12/19 Range/Units 00:06 04:40 04:40 Lymph % (Auto) 43.7 H (13.4-35.0) % Day % (Auto) 9.6 H (0.0-7.3) % PT (12.2-14.9) Sec. INR (0.87-1.13) Chloride 107.7 H (98-107) mmol/L Glucose 121 H (65-100) mg/dL POC Glucose 120 H (70-105) Albumin 3.3 L (3.9-5) g/dL 04/12/19 Range/Units 07:19 Lymph % (Auto) (13.4-35.0) % Day % (Auto) (0.0-7.3) % PT 16.8 H (12.2-14.9) Sec. INR 1.28 H (0.87-1.13) Chloride (98-107) mmol/L Glucose (65-100) mg/dL POC Glucose (70-105) Albumin (3.9-5) g/dL Assessment and Plan Patient is a 68 year old male admitted to the Inpatient Rehab unit for management of right sided weakness and dysarthria secondary to CVA. 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 She also has metabolic syndrome with boardeline DM and on carb controlled diet and metformin. At the time of my exam she denies any chest pain, nausea, vomiting, blurry vision, polyuria. she is transferring from bed to chair with the Nurse CVA-Right sided Hemiplegia Dysarthria Hypertension DM Obese Debility PFO Plan Continue supportive care Accu check AcHS Continue Metformin Continue Rehab assessment and plan Continue Coumadin with a goal INR of 2-3. continue Lovenox daily until she has a therapeutic INR. DVT and GI prophy
[2019-04-12] MEDS: HCTZ PO SCH (16:30)
[2019-04-12] MEDS: COUMADIN PO SCH (18:43)
[2019-04-12] MEDS: PRAVACHOL PO SCH (21:30)
[2019-04-13 07:28] LABS: INR 1.48 (0.87-1.13)
--- NOTE | 2019-04-13 09:01 | Progress Note ---
Subjective Date of service: 04/13/19 Principal diagnosis: CVA Interval history: 68 yo RHD female who woke up with right sided weakness and dysarthria. Son was present for the exam. She states she had a previous CVA and TIA and records confirm. She was evaluated and found to have acute left pontine lacunar infarcts. Cardiology was consulted due to previously known PFO. JAN showed EF 55-60, no thrombus and a PFO. She was advised to follow up as outpatient for PFO closure. No PE seen on chest CTA. Per cardiology, she was transitioned from Eliquis to Coumadin and is currently subtherapeutic. I will start her on a lovenox bridge until she has therapeutic INR. A1C was above the cutoff for diabetes - discussed with her and her son. Will start on carb controlled diet and metformin. Patient is participating in therapy and making reasonable progress. Taking rest breaks as needed. +BM but not quite her normal schedule, no incontinence of B/B. Denies pain, palpitations, dyspnea, cough, N/V, or joint pain. Has not walked yet but is tolerating some standing - will continue to build up pre-gait ability. Reminded to elevate right hand, and was propped on a pillow however her hand itself was in a down position at the wrist. We'll continue to monitor and remind her to elevate the hand itself to avoid any issues with dependent edema until she gets muscular function back. No tenderness to palpation or signs of shoulder-hand syndrome at this point. INR is not therapeutic yet, continue Lovenox. All records, vitals, labs and medications were reviewed. No other issues per p atient, nursing or therapy. Objective - Exam Narrative Exam: MUSCULOSKELETAL SPECIALTY EXAM CONSTITUTIONAL: Well developed, well nourished, obese, appropriately groomed. RIGHT hand dominant. RESPIRATORY: Clear to auscultation bilaterally, no increased work of breathing CARDIOVASCULAR: Regular Rate/ Rhythm, no swelling, edema or tenderness in BUE or BLE. All extremities warm. GI: + bowel sounds, soft, NTTP, nondistended. INTEGUMENTARY: Normal, no lesion, rash, masses or bruising noted in extremities. MUSCULOSKELETAL: BUE and BLE normal without defect, crepitus, subluxation, effusion, arthritic changes or TTP. SA EF WE EE FF FA HF KE ADF EHL APF R / 2/5 1/5 1/5 0/5 0/5 0/5 0/5 0/5 0/5 0/5 L 4+/5 ROM decreased on right Tone decreased on the right NEURO: CN II-XII grossly intact except for Right facial droop and tongue protrudes slightly left Sensation intact in all extremities without extinction. No tremor noted in 4 extremities. Naming and repetition intact. Follows 2 step commands. Aphasia not appreciated Dysarthria present Dysphagia not appreciated Neglect not appreciated POSTURE and GAIT: Sitting posture good. Balance and Gait deferred until seen with therapy. PSYCH: Alert, orientated x3, affect appears euthymic. Insight appears intact. - Constitutional Vitals: Vital Signs - 12hr 04/12/19 04/12/19 04/13/19 22:38 23:36 04:30 Temperature 36.7 C 37.0 C Pulse Rate 78 80 Respiratory 18 18 18 Rate Blood Pressure 112/66 126/69 O2 Sat by Pulse 95 95 Oximetry 04/13/19 04/13/19 04/13/19 04:31 07:07 07:28 Temperature 36.8 C Pulse Rate 81 63 Respiratory 18 Rate Blood Pressure 143/68 O2 Sat by Pulse 96 96 96 Oximetry - Allied health notes Allied health notes reviewed: nursing, PT, ST, OT FIMS assessment as documented by PT/OT/ST: Grooming Patient cleans teeth/dentures: Yes Patient capellan/brushes hair: No Patient washes, rinses and Yes dries face: Patient washes, rinses and Yes dries hands: Patient performs (no make-up/ 3/4 (75%) shaving): Grooming FIM Score 4. Minimal Assistance (Patient = 75% or more. Needs touching.) Toileting Patient able to: Clean self Patient able to perform: 1/3 (33%) Toileting FIM Score 2. Maximal Assistance (Patient = 25% or more) Social interaction/Memory/Problem solving Social Interaction FIM Score 7. Complete [place] (Interacts appropriately. Controls temper.) Memory FIM Score 7. Complete [place] (Remembers people and routines.) Problem Solving FIM Score 7. Complete [place] (Solves complex problems. Self corrects.) Transfers Mode of Locomotion: Wheelchair Bed/Chair/Wheelchair Transfers 3. Moderate Assistance (Patient = 50% or more. FIM Score Some lifting.) Toilet Transfers FIM Score 3. Moderate Assistance (Patient = 50% or more. Some lifting.) Patient transferred to: Shower Shower Transfers FIM Score 3. Moderate Assistance (Patient = 50% or more. Some lifting.) Eating Eating FIM Score 5. Supervision/Set-Up (Needs help w/ containers, cutting meat, etc.) Dressing-Upper body Patient retrieves clothing No items: Patient applies/removes UE n/a prosthesis or orthosis: Upper Body Dressing FIM Score 2. Maximal Assistance (Patient = 25% or more) Dressing-lower body Patient retrieves clothing No items: Patient applies/removes LE n/a prosthesis or orthosis: Lower Body Dressing FIM Score 2. Maximal Assistance (Patient = 25% or more) - Labs CBC & Chem 7: 04/12/19 04:40 04/12/19 04:40 Labs: Laboratory Results - last 72 hr 04/12/19 04/12/19 04/12/19 00:06 04:40 04:40 WBC 4.7 RBC 4.24 Hgb 13.3 Hct 39.4 MCV 93 MCH 31 MCHC 34 RDW 14.4 Plt Count 236 Lymph % (Auto) 43.7 H [place] % (Auto) 9.6 H Eos % (Auto) 2.1 Baso % (Auto) 0.6 Lymph # 2.1 [place] # 0.5 Eos # 0.1 Baso # 0.0 Seg Neutrophils % 44.0 Seg Neutrophils # 2.1 PT INR Sodium 144 Potassium 3.9 Chloride 107.7 H Carbon Dioxide 25 Anion Gap 15 BUN 12 Creatinine 0.8 Estimated GFR > 60 BUN/Creatinine Ratio 15 Glucose 121 H POC Glucose 120 H Calcium 8.9 Total Bilirubin 0.30 AST 16 ALT 17 Alkaline Phosphatase 57 Total Protein 6.3 Albumin 3.3 L Albumin/Globulin Ratio 1.1 04/12/19 04/12/19 04/13/19 07:19 23:24 06:45 WBC RBC Hgb Hct MCV MCH MCHC RDW Plt Count Lymph % (Auto) [place] % (Auto) Eos % (Auto) Baso % (Auto) Lymph # [place] # Eos # Baso # Seg Neutrophils % Seg Neutrophils # PT 16.8 H 17.6 H INR 1.28 H 1.48 H Sodium Potassium Chloride Carbon Dioxide Anion Gap BUN Creatinine Estimated GFR BUN/Creatinine Ratio Glucose POC Glucose 138 H Calcium Total Bilirubin AST ALT Alkaline Phosphatase Total Protein Albumin Albumin/Globulin Ratio Assessment and Plan I69.351 hemiplegia affecting right dominant side after CVA: Continue secondary stroke prevention, discussed prognosis with patient and family, monitor for neurological decline, therapy is below, monitor for post stroke depression, monitor for shoulder hand syndrome. I69.322 dysarthria: P[employer]ER for improving ability to speak clearly and improve vocal quality. I10 hypertension: Continue medications and adjust as needed. We'll consult medicine for further management. E11.9 DM: A1c this admission is 6.6, cutoff for prediabetes is 6.4 according to [facility]. Discussed with patient that this is also a risk factor for future strokes and will need to monitor this closely for her via dietary control and starting low-dose metformin. She may be able to discontinue metformin in the future if she is able to control her glucose with diet. Z73.6 ADL dysfunction: OT will work on improving ability to perform ADLs (including assistive devices) to increase independence and decrease caregiver burden and improve functional transfers and mobility training. R26.2 Difficulty walking: PT will work on gait training and proper use of assistive devices and advance as appropriate to use of stairs and outside ambulation on uneven surfaces. R26.81 Unsteadiness on feet: PT will work on improving static and dynamic sitting and standing balance as well as proper use of assistive devices to decrease risk of falls. R26.89 Abnormality of gait: PT will work to improve safety and efficiency of gait through neuromotor training and gait training along with instruction on proper use of assistive devices. M62.81 Muscle weakness: PT & OT will work on strengthening exercises to improve functional strength including mixture of closed and open kinetic chain exercises. R53.81 Debility: PT & OT will work on improving overall functional status to improve participation with ADLs, mobility and social involvement. R53.83 Fatigue: PT & OT will work on improving endurance through aerobic exercises and therapeutic activity while monitoring patients tolerance for activity and vital signs as needed. PFO: We'll maintain patient on Coumadin with a goal INR of 2-3. She transitioned from Eliquis but did not have Lovenox in place. She is currently subtherapeutic. Will continue Lovenox daily until she has a therapeutic INR. DVT ppx: Coumadin with lovenox bridge Pain: Continue physical modalities in therapy and pain medications as needed to achieve functional pain control. Sleep: Monitor and address as needed. Bowel: Monitor and address as needed. Appetite: Monitor and address as needed. Discharge planning: Pending therapy progress and care plan meeting. Will continue discussion with therapy team, SW, patient and family. Restrictions/ Precautions: Falls, aspiration until cleared by PICKER FEEDER WB status: FWB Functional Hx: ADLs: Independent Cognition: Independent Mobility: No AD mostly, used a cane occasionally. Barriers to Discharge: Decreased mobility and ability to perform self care, balance deficits, weakness, dysarthria, possible dysphagia and visual field deficit Estimated Length of Stay: 14-21 days Discharge Destination: Home with family
[2019-04-13] MEDS: GLUCOPHAGE PO SCH ×2 (11:30→17:38)
[2019-04-13] MEDS: HCTZ PO SCH (11:34)
[2019-04-13] MEDS: COZAAR PO SCH (11:46)
[2019-04-13] MEDS: HALFPRIN EC PO SCH (11:47)
[2019-04-13] MEDS: LOVENOX SUB-Q SCH (11:49)
--- NOTE | 2019-04-13 12:14 | Progress Note ---
Assessment and Plan Assessment and plan: Patient is a 68 year old male admitted to the Inpatient Rehab unit for management of right sided weakness and dysarthria secondary to CVA. 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 She also has metabolic syndrome with boardeline DM and on carb controlled diet and metformin. At the time of my exam she denies any chest pain, nausea, vomiting, blurry vision, polyuria. she is transferring from bed to chair with the Nurse CVA-Right sided Hemiplegia Dysarthria Hypertension Costochondritis-improved with adjustment of bra DM-DISCUSSED Diagnosis with the patient. Obese Debility PFO Plan Continue supportive care Accu check AcHS still subtherapeutic, pharmacy adjusting meds check troponin x1 Continue Metformin Continue Rehab assessment and plan Outpatient cardiolog Continue Coumadin with a goal INR of 2-3. continue Lovenox daily until she has a therapeutic INR. DVT and GI prophy History Interval history: Patient seen and examined, reports mild intermittent left sided chest dyscomfo rt, now resolved. lasted a few seconds, non radiating no associated shortness of breath or palpitation or diaphoresis associated Hospitalist Physical - Physical exam Narrative exam: General appearance: Present: no acute distress, well-nourished - EENT Eyes: Present: PERRL ENT: clear oral mucosa - Neck Neck: Present: supple, normal ROM - Respiratory Respiratory effort: normal Respiratory: bilateral: CTA - Cardiovascular Rhythm: regular Heart Sounds: Present: S1 & S2. Absent: systolic murmur - Extremities Extremities: no ischemia, pulses intact, pulses symmetrical, No edema, normal temperature, normal color, Full ROM Peripheral Pulses: within normal limits - Abdominal General gastrointestinal: Present: soft, non-tender, non-distended, normal bowel sounds - Integumentary Integumentary: Present: clear, warm, dry - Musculoskeletal Musculoskeletal: right sided weakness - Psychiatric Psychiatric: appropriate mood/affect, intact judgment & insight, cooperative - Neurologic Neurologic: CNII-XII intact, focal deficits (right sided hemiparesis) - Allied Health Allied health notes reviewed: nursing - Constitutional Vitals: Temp Pulse Resp BP Pulse Ox 98.2 F 85 18 145/79 95 04/13/19 07:07 04/13/19 11:49 04/13/19 11:49 04/13/19 11:49 04/13/19 11:49 General appearance: Present: no acute distress, well-nourished Results - Labs CBC & Chem 7: 04/12/19 04:40 04/12/19 04:40 Labs: Laboratory Last Values WBC 4.7 K/mm3 (4.5-11.0) 04/12/19 04:40 RBC 4.24 M/mm3 (3.65-5.03) 04/12/19 04:40 Hgb 13.3 gm/dl (10.1-14.3) 04/12/19 04:40 Hct 39.4 % (30.3-42.9) 04/12/19 04:40 MCV 93 fl (79-97) 04/12/19 04:40 MCH 31 pg (28-32) 04/12/19 04:40 MCHC 34 % (30-34) 04/12/19 04:40 RDW 14.4 % (13.2-15.2) 04/12/19 04:40 Plt Count 236 K/mm3 (140-440) 04/12/19 04:40 Lymph % (Auto) 43.7 % (13.4-35.0) H 04/12/19 04:40 [place] % (Auto) 9.6 % (0.0-7.3) H 04/12/19 04:40 Eos % (Auto) 2.1 % (0.0-4.3) 04/12/19 04:40 Baso % (Auto) 0.6 % (0.0-1.8) 04/12/19 04:40 Lymph # 2.1 K/mm3 (1.2-5.4) 04/12/19 04:40 [place] # 0.5 K/mm3 (0.0-0.8) 04/12/19 04:40 Eos # 0.1 K/mm3 (0.0-0.4) 04/12/19 04:40 Baso # 0.0 K/mm3 (0.0-0.1) 04/12/19 04:40 Seg Neutrophils % 44.0 % (40.0-70.0) 04/12/19 04:40 Seg Neutrophils # 2.1 K/mm3 (1.8-7.7) 04/12/19 04:40 PT 17.6 Sec. (12.2-14.9) H 04/13/19 06:45 INR 1.48 (0.87-1.13) H 04/13/19 06:45 Sodium 144 mmol/L (137-145) 04/12/19 04:40 Potassium 3.9 mmol/L (3.6-5.0) 04/12/19 04:40 Chloride 107.7 mmol/L (98-107) H 04/12/19 04:40 Carbon Dioxide 25 mmol/L (22-30) 04/12/19 04:40 15 mmol/L 04/12/19 04:40 BUN 12 mg/dL (7-17) 04/12/19 04:40 0.8 mg/dL (0.7-1.2) 04/12/19 04:40 Estimated GFR > 60 ml/min 04/12/19 04:40 15 % 04/12/19 04:40 Glucose 121 mg/dL (65-100) H 04/12/19 04:40 POC Glucose 138 (70-105) H 04/12/19 23:24 Calcium 8.9 mg/dL (8.4-10.2) 04/12/19 04:40 0.30 mg/dL (0.1-1.2) 04/12/19 04:40 AST 16 units/L (5-40) 04/12/19 04:40 ALT 17 units/L (7-56) 04/12/19 04:40 57 units/L (35-129) 04/12/19 04:40 6.3 g/dL (6.3-8.2) 04/12/19 04:40 3.3 g/dL (3.9-5) L 04/12/19 04:40 1.1 % 04/12/19 04:40 Active Medications - Current Medications Current Medications: Generic Name Dose Route Start Last Admin Trade Name Freq PRN Reason Stop Dose Admin Acetaminophen 650 mg 04/11/19 12:58 Tylenol PO Q4H PRN Pain MILD(1-3)/Fever >100.5/[place] Aspirin 81 mg 04/12/19 08:00 04/13/19 11:47 Halfprin Ec PO 81 mg QDAY SHAILESH Administration Bisacodyl 10 mg 04/11/19 12:58 Dulcolax IA QDAY PRN Constipation unrelieved by MOM Enoxaparin Sodium 40 mg 04/12/19 08:00 04/13/19 11:49 Lovenox SUB-Q 40 mg QDAY SHAILESH Administration Hydrochlorothiazide 25 mg 04/12/19 08:00 04/12/19 16:30 Hctz PO 25 mg QDAY SHAILESH Administration Losartan Potassium 100 mg 04/12/19 08:00 04/13/19 11:46 Cozaar PO 100 mg QDAY SHAILESH Administration Magnesium Hydroxide 30 ml 04/11/19 12:58 Milk Of Magnesia PO Q4H PRN Constipation Metformin HCl 500 mg 04/11/19 17:00 04/13/19 11:30 Glucophage PO 500 mg BIDDIAB SHAILESH Administration Pravastatin Sodium 40 mg 04/11/19 21:00 04/12/19 21:30 Pravachol PO 40 mg QHS SHAILESH Administration Promethazine HCl 25 mg 04/11/19 13:18 Phenergan PO Q6H PRN Nausea And Vomiting Warfarin Sodium 7.5 mg 04/11/19 20:00 04/12/19 18:43 Coumadin PO 7.5 mg DAILY@1700 SHAILESH Administration Nutrition/Malnutrition Assess - Dietary Evaluation Nutrition/Malnutrition Findings: Nutrition Notes Start: 04/12/19 17:44 Freq: Status: Active Protocol: Document 04/12/19 17:44 RM (Rec: 04/12/19 17:55 RM [id number]) Nutrition Notes Need for Assessment generated from: MD Order Initial or Follow up Assessment Current Diagnosis Hypertension,Stroke Current Diet Consistent CHO, Mech soft Labs/Tests Reviewed Pertinent Medications Reviewed Height 5 ft 6 in Weight 105 kg [place] Body Weight (kg) 59.09 BMI 37.3 Subjective/Other Information Consulted for DM diet education. Screened for DNI. Consistent CHO, Mech soft diet in place earlier today. Consistent CHO regular consistency ordered later today. Pt stated that her appetite is good but that she eats 25% of her meals d/t disliking the consistency of them. Stated that ST is planning to reevaluate her soon and she thinks she will eat more once her diet is advanced. Pt is already familiar w/DM and DNI diet education. Percent of energy/protein needs met: 36%/27% Burn Absent Trauma Absent #1 Nutrition Diagnosis Inadequate oral intake Etiology diet consistency As Evidenced by Signs and Symptoms pt statement that she eats 25% of her meals Is Patient Ambulatory and/or Out of Bed No REE-(Warren- Cathryn-confined to bed) 1921.368 Kcal/Kg value to use for calculation 14 Approximate Energy Requirements Using 1470 kcal/Kg Calculation Used for Recommendations Kcal/kg Additional Notes Protein Needs: 82-98g (1-1.25g /kg 82 kg adjBW) Fluid Needs: 1 ml/kcal Nutrition Intervention Change Diet Order: Cardiac/Consistent CHO Add Supplement/Snack (indicate name/kcal Glucerna Chocolate 1 daily /protein ) Provides kCal: 220 Provides Protein (gm) 10 Goal #1 Meet at least 75% of calorie and protein needs via PO and ONS intakes Anticipated Discharge Needs: Cardiac/Consistent CHO diet Follow-Up By: 04/16/19 Additional Comments Follow for PO and ONS intakes
[2019-04-13] MEDS: COUMADIN PO SCH (17:38)
[2019-04-13] MEDS: PRAVACHOL PO SCH (21:47)
--- NOTE | 2019-04-14 08:00 | Progress Note ---
Assessment and Plan Assessment and plan: Patient is a 68 year old male admitted to the Inpatient Rehab unit for management of right sided weakness and dysarthria secondary to CVA. 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 She also has metabolic syndrome with boardeline DM and on carb controlled diet and metformin. At the time of my exam she denies any chest pain, nausea, vomiting, blurry vision, polyuria. she is transferring from bed to chair with the Nurse CVA-Right sided Hemiplegia Dysarthria Hypertension Costochondritis-improved * cardiac enzymes are negative. No reoccurrence DM-DISCUSSED Diagnosis with the patient. Obese Debility PFO Plan Continue supportive care Accu check AcHS still subtherapeutic, pharmacy adjusting meds Continue Metformin Continue Rehab assessment and plan Outpatient cardiology for PFO closure Continue Coumadin with a goal INR of 2-3. continue Lovenox daily until she has a therapeutic INR. DVT and GI prophy History Interval history: Patient seen and examined, No new complaints. Tolerating Therapy Hospitalist Physical - Physical exam Narrative exam: General appearance: Present: no acute distress, well-nourished - EENT Eyes: Present: PERRL ENT: clear oral mucosa - Neck Neck: Present: supple, normal ROM - Respiratory Respiratory effort: normal Respiratory: bilateral: CTA - Cardiovascular Rhythm: regular Heart Sounds: Present: S1 & S2. Absent: systolic murmur - Extremities Extremities: no ischemia, pulses intact, pulses symmetrical, No edema, normal temperature, normal color, Full ROM Peripheral Pulses: within normal limits - Abdominal General gastrointestinal: Present: soft, non-tender, non-distended, normal bowel sounds - Integumentary Integumentary: Present: clear, warm, dry - Musculoskeletal Musculoskeletal: right sided weakness - Psychiatric Psychiatric: appropriate mood/affect, intact judgment & insight, cooperative - Neurologic Neurologic: CNII-XII intact, focal deficits (right sided hemiparesis) - Allied Health Allied health notes reviewed: nursing - Constitutional Vitals: Temp Pulse Resp BP Pulse Ox 98.0 F 71 17 155/89 96 04/13/19 19:08 04/13/19 19:08 04/14/19 01:00 04/13/19 19:08 04/14/19 01:00 General appearance: Present: no acute distress, well-nourished Results - Labs CBC & Chem 7: 04/14/19 10:49 04/12/19 04:40 Labs: Laboratory Last Values WBC 4.7 K/mm3 (4.5-11.0) 04/12/19 04:40 RBC 4.24 M/mm3 (3.65-5.03) 04/12/19 04:40 Hgb 13.3 gm/dl (10.1-14.3) 04/12/19 04:40 Hct 39.4 % (30.3-42.9) 04/12/19 04:40 MCV 93 fl (79-97) 04/12/19 04:40 MCH 31 pg (28-32) 04/12/19 04:40 MCHC 34 % (30-34) 04/12/19 04:40 RDW 14.4 % (13.2-15.2) 04/12/19 04:40 Plt Count 236 K/mm3 (140-440) 04/12/19 04:40 Lymph % (Auto) 43.7 % (13.4-35.0) H 04/12/19 04:40 Alexander % (Auto) 9.6 % (0.0-7.3) H 04/12/19 04:40 Eos % (Auto) 2.1 % (0.0-4.3) 04/12/19 04:40 Baso % (Auto) 0.6 % (0.0-1.8) 04/12/19 04:40 Lymph # 2.1 K/mm3 (1.2-5.4) 04/12/19 04:40 Alexander # 0.5 K/mm3 (0.0-0.8) 04/12/19 04:40 Eos # 0.1 K/mm3 (0.0-0.4) 04/12/19 04:40 Baso # 0.0 K/mm3 (0.0-0.1) 04/12/19 04:40 Seg Neutrophils % 44.0 % (40.0-70.0) 04/12/19 04:40 Seg Neutrophils # 2.1 K/mm3 (1.8-7.7) 04/12/19 04:40 PT 17.6 Sec. (12.2-14.9) H 04/13/19 06:45 INR 1.48 (0.87-1.13) H 04/13/19 06:45 Sodium 144 mmol/L (137-145) 04/12/19 04:40 Potassium 3.9 mmol/L (3.6-5.0) 04/12/19 04:40 Chloride 107.7 mmol/L (98-107) H 04/12/19 04:40 Carbon Dioxide 25 mmol/L (22-30) 04/12/19 04:40 15 mmol/L 04/12/19 04:40 BUN 12 mg/dL (7-17) 04/12/19 04:40 0.8 mg/dL (0.7-1.2) 04/12/19 04:40 Estimated GFR > 60 ml/min 04/12/19 04:40 15 % 04/12/19 04:40 Glucose 121 mg/dL (65-100) H 04/12/19 04:40 POC Glucose 112 (70-105) H 04/14/19 00:24 Calcium 8.9 mg/dL (8.4-10.2) 04/12/19 04:40 0.30 mg/dL (0.1-1.2) 04/12/19 04:40 AST 16 units/L (5-40) 04/12/19 04:40 ALT 17 units/L (7-56) 04/12/19 04:40 57 units/L (35-129) 04/12/19 04:40 < 0.010 ng/mL (0.00-0.029) 04/13/19 16:42 6.3 g/dL (6.3-8.2) 04/12/19 04:40 3.3 g/dL (3.9-5) L 04/12/19 04:40 1.1 % 04/12/19 04:40 Active Medications - Current Medications Current Medications: Generic Name Dose Route Start Last Admin Trade Name Freq PRN Reason Stop Dose Admin Acetaminophen 650 mg 04/11/19 12:58 Tylenol PO Q4H PRN Pain MILD(1-3)/Fever >100.5/SARABIA Aspirin 81 mg 04/12/19 08:00 04/13/19 11:47 Halfprin Ec PO 81 mg QDAY SHAILESH Administration Bisacodyl 10 mg 04/11/19 12:58 Dulcolax UT QDAY PRN Constipation unrelieved by MOM Enoxaparin Sodium 40 mg 04/12/19 08:00 04/13/19 11:49 Lovenox SUB-Q 40 mg QDAY SHAILESH Administration Hydrochlorothiazide 25 mg 04/12/19 08:00 04/13/19 11:34 Hctz PO 25 mg QDAY SHAILESH Administration Losartan Potassium 100 mg 04/12/19 08:00 04/13/19 11:46 Cozaar PO 100 mg QDAY SHAILESH Administration Magnesium Hydroxide 30 ml 04/11/19 12:58 Milk Of Magnesia PO Q4H PRN Constipation Metformin HCl 500 mg 04/11/19 17:00 04/13/19 17:38 Glucophage PO 500 mg BIDDIAB SHAILESH Administration Pravastatin Sodium 40 mg 04/11/19 21:00 04/13/19 21:47 Pravachol PO 40 mg QHS SHAILESH Administration Promethazine HCl 25 mg 04/11/19 13:18 Phenergan PO Q6H PRN Nausea And Vomiting Warfarin Sodium 7.5 mg 04/11/19 20:00 04/13/19 17:38 Coumadin PO 7.5 mg DAILY@1700 [facility] Administration Nutrition/Malnutrition Assess - Dietary Evaluation Nutrition/Malnutrition Findings: Nutrition Notes Start: 04/12/19 17:44 Freq: Status: Active Protocol: Document 04/12/19 17:44 RM (Rec: 04/12/19 17:55 RM [id number]) Nutrition Notes Need for Assessment generated from: MD Order Initial or Follow up Assessment Current Diagnosis Hypertension,Stroke Current Diet Consistent CHO, Mech soft Labs/Tests Reviewed Pertinent Medications Reviewed Height 5 ft 6 in Weight 105 kg [place] Body Weight (kg) 59.09 BMI 37.3 Subjective/Other Information Consulted for DM diet education. Screened for DNI. Consistent CHO, Mech soft diet in place earlier today. Consistent CHO regular consistency ordered later today. Pt stated that her appetite is good but that she eats 25% of her meals d/t disliking the consistency of them. Stated that ST is planning to reevaluate her soon and she thinks she will eat more once her diet is advanced. Pt is already familiar w/DM and DNI diet education. Percent of energy/protein needs met: 36%/27% Burn Absent Trauma Absent #1 Nutrition Diagnosis Inadequate oral intake Etiology diet consistency As Evidenced by Signs and Symptoms pt statement that she eats 25% of her meals Is Patient Ambulatory and/or Out of Bed No REE-([place]-StKait Cathryn-confined to bed) 1921.368 Kcal/Kg value to use for calculation 14 Approximate Energy Requirements Using 1470 kcal/Kg Calculation Used for Recommendations Kcal/kg Additional Notes Protein Needs: 82-98g (1-1.25g /kg 82 kg adjBW) Fluid Needs: 1 ml/kcal Nutrition Intervention Change Diet Order: Cardiac/Consistent CHO Add Supplement/Snack (indicate name/kcal Glucerna Chocolate 1 daily /protein ) Provides kCal: 220 Provides Protein (gm) 10 Goal #1 Meet at least 75% of calorie and protein needs via PO and ONS intakes Anticipated Discharge Needs: Cardiac/Consistent CHO diet Follow-Up By: 04/16/19 Additional Comments Follow for PO and ONS intakes
[2019-04-14] MEDS: HALFPRIN EC PO SCH (11:05)
[2019-04-14] MEDS: COZAAR PO SCH (11:08)
[2019-04-14] MEDS: GLUCOPHAGE PO SCH ×2 (11:09→17:10)
[2019-04-14 12:09] LABS: Hemoglobin 13.9 gm/dl (10.1-14.3); Mean Corpuscular HGB Conc 34 % (30-34); Mean Corpuscular Volume 92 fl (79-97); Platelet Count 243 K/mm3 (140-440); Red Blood Count 4.45 M/mm3 (3.65-5.03); Red Cell Distribution Width 14.6 % (13.2-15.2)
[2019-04-14] MEDS: HCTZ PO SCH (12:09)
[2019-04-14] MEDS: LOVENOX SUB-Q SCH (12:10)
[2019-04-14 12:24] LABS: INR 1.78 (0.87-1.13)
[2019-04-14] MEDS: COUMADIN PO SCH (17:09)
--- NOTE | 2019-04-14 22:24 | IRU Plan of Care ---
Interdisciplinary Plan of Care - IP IRU INTERDISCIPLINARY PLAN: [facility] Inpatient Rehab Unit Plan of Care IRU Interdisciplinary Care Plan Start: 04/11/19 15:56 Freq: Admission then PRN Status: Active Protocol: Document 04/14/19 08:23 TH (Rec: 04/14/19 08:26 TH [id number]) Interdisciplinary Problem List Interdisciplinary Problem List Interdisciplinary Problem List Impaired Bathing/Grooming, Query Text:Answers will Trigger Problems Impaired Dressing,Impaired and Outcomes on Worklist. Mobility,Impaired Transfers, Impaired Toileting,Impaired Expression,Discharge Concerns, Impaired Safety,Medications Education IRU Interdisciplinary Care Plan Therapy Services Therapy Services Will Include: Physical Therapy,Occupational Query Text:Patient will be seen for a Therapy,Speech Therapy minimum of 3 hours of daily therapy 5 out of 7 days a week. Therapy intensity may be adjusted within a 7 consecutive day period to effectively serve the individual needs of the patient. Treatment Frequency/Intensity/Duration Treatment Frequency 5 days per week Treatment Intensity 3 hours per day Treatment Duration 14-21 days Problem Area: Eating/Swallowing Eating/Swallowing Outcomes Eating/Swallowing Interventions Problem Area: Bathing/Grooming Bathing/Grooming Outcomes Improve Milnor w/ Grooming,Improve Milnor w/ Bathing Bathing/Grooming Interventions ADL Training,Use of Assistive Devices,Therapeutic Exercise, Therapeutic Activity, Neuromuscular Re-Education, Balance Work,Activity Tolerance Work,Patient/ Caregiver Education Problem Area: Dressing Dressing Outcomes Improve Milnor w/ UB Dressing,Improve Milnor w/ LB Dressing Dressing Interventions ADL Training,Use of Assistive Devices,Neuromuscular Re- Education,Therapeutic Exercise ,Balance Work,Modalities, Patient/Caregiver Education Problem Area: Mobility Mobility Outcomes Improve Milnor w/ Bed Mobility,Improve Milnor w/ Ambulation,Improve Milnor w/ Stairs/Curb, Improve Milnor w/ Wheelchair Mobility Interventions Therapeutic Exercise, Neuromuscular Re-Ed.,Activity Tolerance Work,Use of Assistive Devices,Patient/ Caregiver Education,Bed Mobility Work,Gait Training,W/ C Mobility Work Problem Area: Transfers Transfers Outcomes Improve Milnor w/ Bed Transfers,Improve Milnor w/ Toilet Transfers,Improve Milnor w/ Tub/Shower Transfers,Improve Milnor w/ Car Transfers Transfers Interventions Transfer Training,Therapeutic Exercise,Neuromuscular Re- Education,Visual/Perceptual Training,Activity Tolerance Work,Modalities,Use of Assistive Devices,Patient/ Caregiver Education Problem Area: Bowel/Bladder Managment Bowel/Bladder Outcomes Bowel/Bladder Interventions Problem Area: Toileting Toileting Outcomes Improve Milnor w/ Toileting Toileting Interventions ADL Training,Balance Work,Use of Assistive Devices,Patient/ Caregiver Education Problem Area: Nutrition Nutrition Outcomes Nutrition Interventions Problem Area: Comprehension Comprehension Outcomes Comprehension Interventions Problem Area: Expression Expression Outcomes Improve Intelligibility Expression Interventions Patient/Caregiver Education Problem Area: Problem Solving Problem Solving Outcomes Problem Solving Interventions Problem Area: Memory Memory Outcomes Memory Interventions Problem Area: Pain Management Pain Management Outcomes Pain Management Interventions Problem Area: Knowledge Deficits Knowledge Deficits Outcomes Knowledge Deficits Interventions Problem Area: Skin/Tissue Integrity Skin/Tissue Integrity Outcomes Skin/Tissue Integrity Interventions Problem Area: Social Interaction Social Interaction Outcomes Social Interaction Interventions Problem Area: Adjustment to Disability Adjustment to Disability Outcomes Adjustment to Disability Interventions Problem Area: Discharge Concerns Discharge Concerns Outcomes Discharge w/ Necessary Equipment,Have Home Health/ Outpatient Services Discharge Concerns Interventions Discharge Planning,Equipment Assessment, Acquisition and Placement,Family/Caregiver Training Problem Area: Community Reintegration Community Reintegration Outcomes Community Reintegration Interventions Problem Area: Home Management Home Management Outcomes Improve Milnor w/ Home Management Home Management Interventions Clothing Care,Activity Tolerance Work,Patient/ Caregiver Education Problem Area: Safety Safety Outcomes Provide Safe Environment, Perform Selfcare Safely, Demonstrate Good Safety w/ Transfers/Mobility Safety Interventions Identify Fall Risk,Dover Pt. to Environment,Reduce Environmental Hazards, Implement Mechanical Devices, i.e. Chair Alarm (Post Fall Update),Re-Educate Patient/ Caregiver for Safety (Post Fall Update) Problem Area: Medication Education Medication Education Outcomes Patient/Caregiver will Verbalize Understanding of Medications Medication Education Interventions Explain Administration/Side Effects/Interactions Problem Area: Diabetes Education Diabetes Education Outcomes Diabetes Education Interventions Problem Area: Oxygenation Oxygenation Outcomes Oxygenation Interventions Problem Area: Cardiovascular Cardiovascular Outcomes Cardiovascular Interventions Physician Only Medical Prognosis and Rehabilitation Fair prognosis, good rehab potential. New diabetes. Will monitor for post stroke depression. Will need R AFO. Continue to urge follow up for PFO closure. Potential (Completed by Physician) This plan of care has been developed based on the findings from the pre-adm ission assessment, post admission physician evaluation, information gathered from the assessments from all therapy disciplines and other pertinent clinicians. The plan of care has been reviewed and discussed in collaboration with the interdisciplinary team. The plan of care will be reviewed and updated at least weekly.
[2019-04-14] MEDS: PRAVACHOL PO SCH (23:37)
[2019-04-15 08:27] LABS: INR 1.91 (0.87-1.13)
[2019-04-15] MEDS: LOVENOX SUB-Q SCH (08:34)
[2019-04-15] MEDS: HALFPRIN EC PO SCH (08:34)
[2019-04-15] MEDS: COZAAR PO SCH (08:34)
[2019-04-15] MEDS: GLUCOPHAGE PO SCH ×2 (08:34→16:44)
[2019-04-15] MEDS: HCTZ PO SCH (08:34)
[2019-04-15] MEDS: COUMADIN PO SCH (16:43)
[2019-04-15] MEDS: PRAVACHOL PO SCH (21:44)
[2019-04-16 07:26] LABS: INR 2.15 (0.87-1.13)
--- NOTE | 2019-04-16 11:21 | Progress Note ---
Subjective Date of service: 04/16/19 Principal diagnosis: CVA Interval history: 68 yo RHD female who woke up with right sided weakness and dysarthria. Son was present for the exam. She states she had a previous CVA and TIA and records confirm. She was evaluated and found to have acute left pontine lacunar infarcts. Cardiology was consulted due to previously known PFO. JAN showed EF 55-60, no thrombus and a PFO. She was advised to follow up as outpatient for PFO closure. No PE seen on chest CTA. Per cardiology, she was transitioned from Eliquis to Coumadin and is currently subtherapeutic. I will start her on a lovenox bridge until she has therapeutic INR. A1C was above the cutoff for diabetes - discussed with her and her son. Will start on carb controlled diet and metformin. Patient is participating in therapy and making reasonable progress. Taking rest breaks as needed. +BM, no incontinence of B/B. Denies pain, palpitations, dyspnea, cough, N/V. Has increased pain in the right knee worse with weightbearing and not as bad when sitting or lying. States that she had an injection in the past but this caused a blood clot and at that time she was told she had fairly bad arthritis. We'll try Voltaren gel to see if this helps improve the pain. Able to walk with a hemiwalker and assistance as well as knee immobilizer and dorsiflexion assist. We'll continue improving balance and ambulation and may need to order a custom KAFO. Right hand strength has improved and she can make a fist currently with some pressure to reduce ability to remove my fingers when she is squeezing. No tenderness to palpation or signs of shoulder-hand syndrome at this point. INR is therapeutic d/c Lovenox. Uncertain if medicine is signed off or not, there was not a note yesterday. I will adjust her losartan slightly to better improve blood pressure without hypotension. Patient was discussed in team conference today. She is making improvements and has returned strength in her left upper extremity, still fairly weak. He also has some proximal return of strength in left lower extremity still does not have stability of the knee are dorsiflexion at the ankle. She is walking with a hemiwalker and assistance and does require a knee immobilizer and dorsiflexion assistance in order to take steps. We will continue therapy to improve her balance and gait as well as her dysarthria. Set a planned discharge date for the week of May 02 depending on her recovery level. All records, vitals, labs and medications were reviewed. No other issues per patient, nursing or therapy. Objective - Exam Narrative Exam: MUSCULOSKELETAL SPECIALTY EXAM CONSTITUTIONAL: Well developed, well nourished, obese, appropriately groomed. RIGHT hand dominant. RESPIRATORY: Clear to auscultation bilaterally, no increased work of breathing CARDIOVASCULAR: Regular Rate/ Rhythm, no swelling, edema or tenderness in BUE or BLE. All extremities warm. GI: + bowel sounds, soft, NTTP, nondistended. INTEGUMENTARY: Normal, no lesion, rash, masses or bruising noted in extremities. MUSCULOSKELETAL: BUE and BLE normal without defect, crepitus, subluxation, effusion, arthritic changes or TTP. SA EF WE EE FF FA HF KE ADF EHL APF R 2/5 3/5 3/5 3/5 3/5 3/5 2/5 0/5 0/5 0/5 0/5 L 4+/5 ROM decreased on right Tone decreased on the right NEURO: CN II-XII grossly intact except for Right facial droop and tongue protrudes slightly left Sensation intact in all extremities without extinction. No tremor noted in 4 extremities. Naming and repetition intact. Follows 2 step commands. Aphasia not appreciated Dysarthria present Dysphagia not appreciated Neglect not appreciated POSTURE and GAIT: Sitting posture good. Balance and Gait need improvement. Utilizing hemiwalker, knee immobilizer and dorsiflexion assist PSYCH: Alert, orientated x3, affect appears euthymic. Insight appears intact. - Constitutional Vitals: Vital Signs - 12hr 04/16/19 04/16/19 04/16/19 04:23 05:53 07:30 Temperature 36.8 C 36.5 C Pulse Rate 84 63 Respiratory 18 20 Rate Blood Pressure 133/82 121/67 O2 Sat by Pulse 94 95 98 Oximetry - Allied health notes Allied health notes reviewed: nursing, PT, ST, OT FIMS assessment as documented by PT/OT/ST: Grooming Patient cleans teeth/dentures: Yes Patient capellan/brushes hair: Yes Patient washes, rinses and Yes dries face: Patient washes, rinses and Yes dries hands: Patient shaves: No Patient applies make-up: No Patient performs (no make-up/ 01/31 (100%) shaving): Grooming FIM Score 5. Supervision ([place] applies toothpaste or opens containers.) Toileting Patient able to: Clean self Patient able to perform: 1/3 (33%) Toileting FIM Score 2. Maximal Assistance (Patient = 25% or more) Social interaction/Memory/Problem solving Social Interaction FIM Score 7. Complete [place] (Interacts appropriately. Controls temper.) Memory FIM Score 7. Complete [place] (Remembers people and routines.) Problem Solving FIM Score 7. Complete [place] (Solves complex problems. Self corrects.) Transfers Mode of Locomotion: Wheelchair Bed/Chair/Wheelchair Transfers 4. Minimal Assistance (Patient = 75% or more. FIM Score Needs touching.) Toilet Transfers FIM Score 3. Moderate Assistance (Patient = 50% or more. Some lifting.) Patient transferred to: Shower Shower Transfers FIM Score 3. Moderate Assistance (Patient = 50% or more. Some lifting.) Locomotion- walk/wheelchair Most Frequent Mode of Wheelchair Locomotion: Ambulation Distance 12 Walking FIM Score 1. Total Assistance (Pt. < 25%, 2 or more person assist, or <50 ft.) Wheelchair Propulsion Distance 75 Wheelchair FIM Score 2. Maximal Assistance (Patient = 25% or more. Minimum of 50 ft.) Eating Eating FIM Score 5. Supervision/Set-Up (Needs help w/ containers, cutting meat, etc.) Dressing-Upper body Patient retrieves clothing No items: Patient applies/removes UE n/a prosthesis or orthosis: Upper Body Dressing FIM Score 2. Maximal Assistance (Patient = 25% or more) Dressing-lower body Patient retrieves clothing No items: Patient applies/removes LE n/a prosthesis or orthosis: Lower Body Dressing FIM Score 2. Maximal Assistance (Patient = 25% or more) - Labs CBC & Chem 7: 04/14/19 10:49 04/12/19 04:40 Labs: Laboratory Results - last 72 hr 04/13/19 04/13/19 04/14/19 13:34 16:42 00:24 WBC RBC Hgb Hct MCV MCH MCHC RDW Plt Count PT INR POC Glucose 112 H Troponin T < 0.010 < 0.010 04/14/19 04/14/19 04/15/19 10:49 10:49 06:09 WBC 4.9 RBC 4.45 Hgb 13.9 Hct 41.0 MCV 92 MCH 31 MCHC 34 RDW 14.6 Plt Count 243 PT 20.3 H INR 1.78 H POC Glucose 191 H Troponin T 04/15/19 04/15/19 04/15/19 08:06 11:26 16:13 WBC RBC Hgb Hct MCV MCH MCHC RDW Plt Count PT 21.5 H INR 1.91 H POC Glucose 96 148 H Troponin T 04/15/19 04/16/19 04/16/19 23:43 06:00 06:51 WBC RBC Hgb Hct MCV MCH MCHC RDW Plt Count PT 23.6 H INR 2.15 H POC Glucose 111 H 107 H Troponin T Assessment and Plan I69.351 hemiplegia affecting right dominant side after CVA: Continue secondary stroke prevention, discussed prognosis with patient and family, monitor for neurological decline, therapy is below, monitor for post stroke depression, monitor for shoulder hand syndrome. I69.322 dysarthria: RESIDENTIAL ELECTRICIAN for improving ability to speak clearly and improve vocal quality. I10 hypertension: Continue medications and adjust as needed. We'll consult medicine for further management. E11.9 DM: A1c this admission is 6.6, cutoff for prediabetes is 6.4 according to NIH. Discussed with patient that this is also a risk factor for future strokes and will need to monitor this closely for her via dietary control and starting low-dose metformin. She may be able to discontinue metformin in the future if she is able to control her glucose with diet. Z73.6 ADL dysfunction: OT will work on improving ability to perform ADLs (including assistive devices) to increase independence and decrease caregiver burden and improve functional transfers and mobility training. R26.2 Difficulty walking: PT will work on gait training and proper use of assistive devices and advance as appropriate to use of stairs and outside ambulation on uneven surfaces. R26.81 Unsteadiness on feet: PT will work on improving static and dynamic sitting and standing balance as well as proper use of assistive devices to decrease risk of falls. R26.89 Abnormality of gait: PT will work to improve safety and efficiency of gait through neuromotor training and gait training along with instruction on proper use of assistive devices. M62.81 Muscle weakness: PT & OT will work on strengthening exercises to improve functional strength including mixture of closed and open kinetic chain exercises. R53.81 Debility: PT & OT will work on improving overall functional status to improve participation with ADLs, mobility and social involvement. R53.83 Fatigue: PT & OT will work on improving endurance through aerobic exercises and therapeutic activity while monitoring patients tolerance for activity and vital signs as needed. PFO: We'll maintain patient on Coumadin with a goal INR of 2-3. DVT ppx: Coumadin for a/c Pain: Continue physical modalities in therapy and pain medications as needed to achieve functional pain control. Sleep: Monitor and address as needed. Bowel: Monitor and address as needed. Appetite: Monitor and address as needed. Discharge planning: Pending therapy progress and care plan meeting. Will vipul nue discussion with therapy team, SW, patient and family. Restrictions/ Precautions: Falls, aspiration until cleared by RESIDENTIAL ELECTRICIAN WB status: FWB Functional Hx: ADLs: Independent Cognition: Independent Mobility: No AD mostly, used a cane occasionally. Barriers to Discharge: Decreased mobility and ability to perform self care, balance deficits, weakness, dysarthria, possible dysphagia and visual field deficit Estimated Length of Stay: 14-21 days Discharge Destination: Home with family
[2019-04-16] MEDS: HCTZ PO SCH (11:59)
[2019-04-16] MEDS: HALFPRIN EC PO SCH (11:59)
[2019-04-16] MEDS: GLUCOPHAGE PO SCH ×2 (11:59→17:36)
[2019-04-16] MEDS: COZAAR PO SCH ×2 (12:00→17:35)
[2019-04-16] MEDS ORDERED: MYLICON PO PRN (13:10)
--- NOTE | 2019-04-16 15:32 | Progress Note ---
Assessment and Plan Assessment and plan: Patient is a 68 year old male admitted to the Inpatient Rehab unit for management of right sided weakness and dysarthria secondary to CVA. 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 She also has metabolic syndrome with boardeline DM and on carb controlled diet and metformin. At the time of my exam she denies any chest pain, nausea, vomiting, blurry vision, polyuria. she is transferring from bed to chair with the Nurse CVA-Right sided Hemiplegia Dysarthria Hypertension Costochondritis-improved * cardiac enzymes are negative. No reoccurrence DM Type 2, new onset-Discussed this new diagnosis with the patient. Obese Debility PFO Plan Continue supportive care Accu check AcHS still subtherapeutic, pharmacy adjusting meds Continue Metformin Continue Rehab assessment and plan Outpatient cardiology for PFO closure Continue Coumadin with a goal INR of 2-3. INR 2.15 today. DVT and GI prophy History Interval history: Stroke with right sided weakness No chest pain Hospitalist Physical - Physical exam Narrative exam: Gen: Not in acute distress, lying in bed,obese HEENT: Normocephalic, atraumatic Neck: supple, no JVD Heart: S1 and S2 reg, no murmurs, rubs or gallop Lungs: Clear, no crackles, no wheeze Abd: soft, non tender, non distended, normal BS Ext: No edema, no clubbing, no cyanosis, Neuro: Awake,alert, oriented x 3, right sided weakness residual from stroke - Constitutional Vitals: Temp Pulse Resp BP Pulse Ox 97.7 F 79 20 104/69 91 04/16/19 12:49 04/16/19 12:49 04/16/19 12:49 04/16/19 12:49 04/16/19 12:49 General appearance: Present: no acute distress, obese Results - Labs CBC & Chem 7: 04/14/19 10:49 04/12/19 04:40 Labs: Laboratory Last Values WBC 4.9 K/mm3 (4.5-11.0) 04/14/19 10:49 RBC 4.45 M/mm3 (3.65-5.03) 04/14/19 10:49 Hgb 13.9 gm/dl (10.1-14.3) 04/14/19 10:49 Hct 41.0 % (30.3-42.9) 04/14/19 10:49 MCV 92 fl (79-97) 04/14/19 10:49 MCH 31 pg (28-32) 04/14/19 10:49 MCHC 34 % (30-34) 04/14/19 10:49 RDW 14.6 % (13.2-15.2) 04/14/19 10:49 Plt Count 243 K/mm3 (140-440) 04/14/19 10:49 Lymph % (Auto) 43.7 % (13.4-35.0) H 04/12/19 04:40 [place] % (Auto) 9.6 % (0.0-7.3) H 04/12/19 04:40 Eos % (Auto) 2.1 % (0.0-4.3) 04/12/19 04:40 Baso % (Auto) 0.6 % (0.0-1.8) 04/12/19 04:40 Lymph # 2.1 K/mm3 (1.2-5.4) 04/12/19 04:40 [place] # 0.5 K/mm3 (0.0-0.8) 04/12/19 04:40 Eos # 0.1 K/mm3 (0.0-0.4) 04/12/19 04:40 Baso # 0.0 K/mm3 (0.0-0.1) 04/12/19 04:40 Seg Neutrophils % 44.0 % (40.0-70.0) 04/12/19 04:40 Seg Neutrophils # 2.1 K/mm3 (1.8-7.7) 04/12/19 04:40 PT 23.6 Sec. (12.2-14.9) H 04/16/19 06:51 INR 2.15 (0.87-1.13) H 04/16/19 06:51 Sodium 144 mmol/L (137-145) 04/12/19 04:40 Potassium 3.9 mmol/L (3.6-5.0) 04/12/19 04:40 Chloride 107.7 mmol/L (98-107) H 04/12/19 04:40 Carbon Dioxide 25 mmol/L (22-30) 04/12/19 04:40 15 mmol/L 04/12/19 04:40 BUN 12 mg/dL (7-17) 04/12/19 04:40 0.8 mg/dL (0.7-1.2) 04/12/19 04:40 Estimated GFR > 60 ml/min 04/12/19 04:40 15 % 04/12/19 04:40 Glucose 121 mg/dL (65-100) H 04/12/19 04:40 POC Glucose 140 (70-105) H 04/16/19 11:39 Calcium 8.9 mg/dL (8.4-10.2) 04/12/19 04:40 0.30 mg/dL (0.1-1.2) 04/12/19 04:40 AST 16 units/L (5-40) 04/12/19 04:40 ALT 17 units/L (7-56) 04/12/19 04:40 57 units/L (35-129) 04/12/19 04:40 < 0.010 ng/mL (0.00-0.029) 04/13/19 16:42 6.3 g/dL (6.3-8.2) 04/12/19 04:40 3.3 g/dL (3.9-5) L 04/12/19 04:40 1.1 % 04/12/19 04:40 Active Medications - Current Medications Current Medications: Generic Name Dose Route Start Last Admin Trade Name Freq PRN Reason Stop Dose Admin Acetaminophen 650 mg 04/11/19 12:58 Tylenol PO Q4H PRN Pain MILD(1-3)/Fever >100.5/[place]AR[place]IA Aspirin 81 mg 04/12/19 08:00 04/16/19 11:59 Halfprin Ec PO 81 mg QDAY SHAILESH Administration Bisacodyl 10 mg 04/11/19 12:58 Dulcolax CA QDAY PRN Constipation unrelieved by MOM Diclofenac Sodium 1 applic 04/16/19 14:00 Diclofenac 1% TP 04/30/19 13:59 TID SHAILESH Hydrochlorothiazide 25 mg 04/12/19 08:00 04/16/19 11:59 Hctz PO 25 mg QDAY SHAILESH Administration Losartan Potassium 75 mg 04/16/19 13:11 Cozaar PO QDAY SHAILESH Magnesium Hydroxide 30 ml 04/11/19 12:58 Milk Of Magnesia PO Q4H PRN Constipation Metformin HCl 500 mg 04/11/19 17:00 04/16/19 11:59 Glucophage PO 500 mg BIDDIAB SHAILESH Administration Pravastatin Sodium 40 mg 04/11/19 21:00 04/15/19 21:44 Pravachol PO 40 mg QHS SHAILESH Administration Promethazine HCl 25 mg 04/11/19 13:18 Phenergan PO Q6H PRN Nausea And Vomiting Simethicone 80 mg 04/16/19 13:10 Mylicon PO Q6H PRN Gas pain Warfarin Sodium 7.5 mg 04/11/19 20:00 04/15/19 16:43 Coumadin PO 7.5 mg DAILY@1700 [facility] Administration Nutrition/Malnutrition Assess - Dietary Evaluation Nutrition/Malnutrition Findings: Nutrition Notes Start: 04/12/19 17:44 Freq: Status: Active Protocol: Document 04/12/19 17:44 RM (Rec: 04/12/19 17:55 RM [id number]) Nutrition Notes Need for Assessment generated from: MD Order Initial or Follow up Assessment Current Diagnosis Hypertension,Stroke Current Diet Consistent CHO, Mech soft Labs/Tests Reviewed Pertinent Medications Reviewed Height 5 ft 6 in Weight 105 kg [place] Body Weight (kg) 59.09 BMI 37.3 Subjective/Other Information Consulted for DM diet education. Screened for DNI. Consistent CHO, Mech soft diet in place earlier today. Consistent CHO regular consistency ordered later today. Pt stated that her appetite is good but that she eats 25% of her meals d/t disliking the consistency of them. Stated that ST is planning to reevaluate her soon and she thinks she will eat more once her diet is advanced. Pt is already familiar w/DM and DNI diet education. Percent of energy/protein needs met: 36%/27% Burn Absent Trauma Absent #1 Nutrition Diagnosis Inadequate oral intake Etiology diet consistency As Evidenced by Signs and Symptoms pt statement that she eats 25% of her meals Is Patient Ambulatory and/or Out of Bed No REE-([place]-St Jeor-confined to bed) 1921.368 Kcal/Kg value to use for calculation 14 Approximate Energy Requirements Using 1470 kcal/Kg Calculation Used for Recommendations Kcal/kg Additional Notes Protein Needs: 82-98g (1-1.25g /kg 82 kg adjBW) Fluid Needs: 1 ml/kcal Nutrition Intervention Change Diet Order: Cardiac/Consistent CHO Add Supplement/Snack (indicate name/kcal Glucerna Chocolate 1 daily /protein ) Provides kCal: 220 Provides Protein (gm) 10 Goal #1 Meet at least 75% of calorie and protein needs via PO and ONS intakes Anticipated Discharge Needs: Cardiac/Consistent CHO diet Follow-Up By: 04/16/19 Additional Comments Follow for PO and ONS intakes
[2019-04-16] MEDS: DICLOFENAC 1% TP SCH ×2 (15:36→21:38)
[2019-04-16] MEDS: COUMADIN PO SCH (17:36)
[2019-04-16] MEDS: PRAVACHOL PO SCH (21:37)
[2019-04-17] MEDS: GLUCOPHAGE PO SCH ×2 (08:46→17:05)
[2019-04-17] MEDS: HALFPRIN EC PO SCH (08:46)
[2019-04-17] MEDS: COZAAR PO SCH (08:47)
[2019-04-17] MEDS: DICLOFENAC 1% TP SCH ×3 (08:49→21:44)
[2019-04-17 10:25] LABS: INR 2.59 (0.87-1.13)
[2019-04-17] MEDS: HCTZ PO SCH (12:45)
--- NOTE | 2019-04-17 14:10 | Progress Note ---
Assessment and Plan Assessment and plan: Patient is a 68 year old male admitted to the Inpatient Rehab unit for management of right sided weakness and dysarthria secondary to CVA. 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 She also has metabolic syndrome with boardeline DM and on carb controlled diet and metformin. At the time of my exam she denies any chest pain, nausea, vomiting, blurry vision, polyuria. she is transferring from bed to chair with the Nurse CVA-Right sided Hemiplegia Dysarthria Hypertension Costochondritis-improved * cardiac enzymes are negative. No reoccurrence DM Type 2, new onset-Discussed this new diagnosis with the patient. Obese Debility PFO Plan Continue supportive care Accu check AcHS still subtherapeutic, pharmacy adjusting meds Continue Metformin Continue Rehab assessment and plan Outpatient cardiology for PFO closure Continue Coumadin with a goal INR of 2-3. INR 2.59 today. DVT and GI prophy History Interval history: Stroke with right sided weakness No chest pain Hospitalist Physical - Physical exam Narrative exam: Gen: Not in acute distress, lying in bed,obese HEENT: Normocephalic, atraumatic Neck: supple, no JVD Heart: S1 and S2 reg, no murmurs, rubs or gallop Lungs: Clear, no crackles, no wheeze Abd: soft, non tender, non distended, normal BS Ext: No edema, no clubbing, no cyanosis, Neuro: Awake,alert, oriented x 3, right sided weakness residual from stroke - Constitutional Vitals: Temp Pulse Resp BP Pulse Ox 97 F L 74 18 126/56 91 04/17/19 08:41 04/17/19 08:47 04/17/19 08:41 04/17/19 08:47 04/17/19 08:41 General appearance: Present: no acute distress, obese Results - Labs CBC & Chem 7: 04/18/19 07:37 04/18/19 07:37 Labs: Laboratory Last Values WBC 4.9 K/mm3 (4.5-11.0) 04/14/19 10:49 RBC 4.45 M/mm3 (3.65-5.03) 04/14/19 10:49 Hgb 13.9 gm/dl (10.1-14.3) 04/14/19 10:49 Hct 41.0 % (30.3-42.9) 04/14/19 10:49 MCV 92 fl (79-97) 04/14/19 10:49 MCH 31 pg (28-32) 04/14/19 10:49 MCHC 34 % (30-34) 04/14/19 10:49 RDW 14.6 % (13.2-15.2) 04/14/19 10:49 Plt Count 243 K/mm3 (140-440) 04/14/19 10:49 Lymph % (Auto) 43.7 % (13.4-35.0) H 04/12/19 04:40 [place] % (Auto) 9.6 % (0.0-7.3) H 04/12/19 04:40 Eos % (Auto) 2.1 % (0.0-4.3) 04/12/19 04:40 Baso % (Auto) 0.6 % (0.0-1.8) 04/12/19 04:40 Lymph # 2.1 K/mm3 (1.2-5.4) 04/12/19 04:40 [place] # 0.5 K/mm3 (0.0-0.8) 04/12/19 04:40 Eos # 0.1 K/mm3 (0.0-0.4) 04/12/19 04:40 Baso # 0.0 K/mm3 (0.0-0.1) 04/12/19 04:40 Seg Neutrophils % 44.0 % (40.0-70.0) 04/12/19 04:40 Seg Neutrophils # 2.1 K/mm3 (1.8-7.7) 04/12/19 04:40 PT 27.3 Sec. (12.2-14.9) H 04/17/19 09:40 INR 2.59 (0.87-1.13) H 04/17/19 09:40 Sodium 144 mmol/L (137-145) 04/12/19 04:40 Potassium 3.9 mmol/L (3.6-5.0) 04/12/19 04:40 Chloride 107.7 mmol/L (98-107) H 04/12/19 04:40 Carbon Dioxide 25 mmol/L (22-30) 04/12/19 04:40 15 mmol/L 04/12/19 04:40 BUN 12 mg/dL (7-17) 04/12/19 04:40 0.8 mg/dL (0.7-1.2) 04/12/19 04:40 Estimated GFR > 60 ml/min 04/12/19 04:40 15 % 04/12/19 04:40 Glucose 121 mg/dL (65-100) H 04/12/19 04:40 POC Glucose 86 (70-105) 04/17/19 12:26 Calcium 8.9 mg/dL (8.4-10.2) 04/12/19 04:40 0.30 mg/dL (0.1-1.2) 04/12/19 04:40 AST 16 units/L (5-40) 04/12/19 04:40 ALT 17 units/L (7-56) 04/12/19 04:40 57 units/L (35-129) 04/12/19 04:40 < 0.010 ng/mL (0.00-0.029) 04/13/19 16:42 6.3 g/dL (6.3-8.2) 04/12/19 04:40 3.3 g/dL (3.9-5) L 04/12/19 04:40 1.1 % 04/12/19 04:40 Active Medications - Current Medications Current Medications: Generic Name Dose Route Start Last Admin Trade Name Freq PRN Reason Stop Dose Admin Acetaminophen 650 mg 04/11/19 12:58 Tylenol PO Q4H PRN Pain MILD(1-3)/Fever >100.5/[place] Aspirin 81 mg 04/12/19 08:00 04/17/19 08:46 Halfprin Ec PO 81 mg QDAY SHAILESH Administration Bisacodyl 10 mg 04/11/19 12:58 Dulcolax [place] QDAY PRN Constipation unrelieved by MOM Diclofenac Sodium 1 applic 04/16/19 14:00 04/17/19 08:49 Diclofenac 1% TP 04/30/19 13:59 1 applic TID SHAILESH Administration Hydrochlorothiazide 25 mg 04/12/19 08:00 04/16/19 11:59 Hctz PO 25 mg QDAY SHAILESH Administration Losartan Potassium 75 mg 04/16/19 14:11 04/17/19 08:47 Cozaar PO 75 mg QDAY SHAILESH Administration Magnesium Hydroxide 30 ml 04/11/19 12:58 Milk Of Magnesia PO Q4H PRN Constipation Metformin HCl 500 mg 04/11/19 17:00 04/17/19 08:46 Glucophage PO 500 mg BIDDIAB SHAILESH Administration Pravastatin Sodium 40 mg 04/11/19 21:00 04/16/19 21:37 Pravachol PO 40 mg QHS SHAILESH Administration Promethazine HCl 25 mg 04/11/19 13:18 Phenergan PO Q6H PRN Nausea And Vomiting Simethicone 80 mg 04/16/19 13:10 Mylicon PO Q6H PRN Gas pain Warfarin Sodium 7.5 mg 04/11/19 20:00 04/16/19 17:36 Coumadin PO 7.5 mg DAILY@1700 SHAILESH Administration Nutrition/Malnutrition Assess - Dietary Evaluation Nutrition/Malnutrition Findings: Nutrition Notes Start: 04/12/19 17:44 Freq: Status: Active Protocol: Document 04/16/19 16:38 RM (Rec: 04/16/19 16:41 RM [id number]) Nutrition Notes Initial or Follow up Reassessment Current Diagnosis Hypertension,Stroke Current Diet Consistent CHO, Cardiac w/ Glucerna Chocolate daily Labs/Tests No recent labs Pertinent Medications Reviewed Height 5 ft 6 in Weight 105 kg [place] Body Weight (kg) 59.09 BMI 37.3 Subjective/Other Information Pt stated that her appetite is good and that she eats 50% of her meals. Stated she is also drinking the Glucerna. Percent of energy/protein needs met: 82%/63% Burn Absent Trauma Absent #1 Nutrition Diagnosis Inadequate oral intake As Evidenced by Signs and Symptoms pt meeting 82% of calorie and 63% of protein needs Diagnosis Progress(for reassessment Improved documentation) Is patient on ventilator? No Is Patient Ambulatory and/or Out of Bed No REE-([place]-St. Jeor-confined to bed) 1921.368 Kcal/Kg value to use for calculation 14 Approximate Energy Requirements Using 1470 kcal/Kg Calculation Used for Recommendations Kcal/kg Additional Notes Protein Needs: 82-98g (1-1.25g /kg 82 kg adjBW) Fluid Needs: 1 ml/kcal Nutrition Intervention Change Diet Order: Cardiac/Consistent CHO Add Supplement/Snack (indicate name/kcal Glucerna Chocolate 1 daily /protein ) Provides kCal: 220 Provides Protein (gm) 10 Goal #1 Meet at least 75% of calorie and protein needs via PO and ONS intakes Anticipated Discharge Needs: Cardiac/Consistent CHO diet Follow-Up By: 04/19/19 Additional Comments Follow for PO and ONS intakes
[2019-04-17] MEDS: COUMADIN PO SCH (17:05)
[2019-04-17] MEDS: PRAVACHOL PO SCH (21:43)
[2019-04-18 08:08] LABS: Hematocrit 40.7 % (30.3-42.9); Hemoglobin 14.2 gm/dl (10.1-14.3); Mean Corpuscular HGB Conc 35 % (30-34); Mean Corpuscular Volume 91 fl (79-97); Platelet Count 271 K/mm3 (140-440); Red Blood Count 4.46 M/mm3 (3.65-5.03); Red Cell Distribution Width 14.1 % (13.2-15.2)
[2019-04-18 08:19] LABS: INR 2.79 (0.87-1.13)
[2019-04-18] MEDS: GLUCOPHAGE PO SCH ×2 (08:20→17:04)
[2019-04-18 08:28] LABS: Calcium 9.1 mg/dL (8.4-10.2)
[2019-04-18] MEDS: DICLOFENAC 1% TP SCH ×3 (08:35→21:58)
--- NOTE | 2019-04-18 09:45 | Progress Note ---
Subjective Date of service: 04/18/19 Principal diagnosis: CVA Interval history: 68 yo RHD female who woke up with right sided weakness and dysarthria. Son was present for the exam. She states she had a previous CVA and TIA and records confirm. She was evaluated and found to have acute left pontine lacunar infarcts. Cardiology was consulted due to previously known PFO. JAN showed EF 55-60, no thrombus and a PFO. She was advised to follow up as outpatient for PFO closure. No PE seen on chest CTA. Per cardiology, she was transitioned from Eliquis to Coumadin and is currently subtherapeutic. I will start her on a lovenox bridge until she has therapeutic INR. A1C was above the cutoff for diabetes - discussed with her and her son. Will start on carb controlled diet and metformin. Patient is participating in therapy and making reasonable progress. Taking rest breaks as needed. +BM, no incontinence of B/B. Denies pain, palpitations, dyspnea, cough, N/V. Has increased pain in the right knee worse with weightbearing and not as bad when sitting or lying. Ordered XR today and knee brace States that she had an injection in the past but this caused a blood clot and at that time she was told she had fairly bad arthritis. We'll try Voltaren gel to see if this helps improve the pain. Able to walk with a hemiwalker and assistance as well as knee immobilizer and dorsiflexion assist. We'll continue improving balance and ambulation and may need to order a custom KAFO. Right hand strength has improved since Monday and she can make a tighter fist currently. No tenderness to palpation or signs of shoulder-hand syndrome at this point. INR 2.79, likely need to reduce dose slightly due to rate of increase, pharmacy is managing. Vitals better with reduction of losartan. Monitor All records, vitals, labs and medications were reviewed. No other issues per patient, nursing or therapy. Objective - Exam Narrative Exam: MUSCULOSKELETAL SPECIALTY EXAM CONSTITUTIONAL: Well developed, well nourished, obese, appropriately groomed. RIGHT hand dominant. RESPIRATORY: Clear to auscultation bilaterally, no increased work of breathing CARDIOVASCULAR: Regular Rate/ Rhythm, no swelling, edema or tenderness in BUE or BLE. All extremities warm. GI: + bowel sounds, soft, NTTP, nondistended. INTEGUMENTARY: Normal, no lesion, rash, masses or bruising noted in extremities. MUSCULOSKELETAL: BUE and BLE normal without defect, crepitus, subluxation, effusion, arthritic changes or TTP. Likely Arthritis in right knee but NTTP SA EF WE EE FF FA HF KE ADF EHL APF R 2/5 3/5 3/5 3/5 3/5 3/5 2/5 0/5 0/5 0/5 0/5 L 4+/5 ROM decreased on right Tone decreased on the right NEURO: CN II-XII grossly intact except for Right facial droop and tongue protrudes slightly left Sensation intact in all extremities without extinction. No tremor noted in 4 extremities. Naming and repetition intact. Follows 2 step commands. Aphasia not appreciated Dysarthria present but improved today Dysphagia not appreciated Neglect not appreciated POSTURE and GAIT: Sitting posture good. Balance and Gait need improvement. Utilizing hemiwalker, knee immobilizer and dorsiflexion assist PSYCH: Alert, orientated x3, affect appears euthymic. Insight appears intact. - Constitutional Vitals: Vital Signs - 12hr 04/18/19 04/18/19 04:49 07:22 Temperature 36.7 C Pulse Rate 71 67 Respiratory 19 Rate Blood Pressure 135/62 O2 Sat by Pulse 91 95 Oximetry - Allied health notes Allied health notes reviewed: nursing, PT, ST, OT FIMS assessment as documented by PT/OT/ST: Grooming Patient cleans teeth/dentures: Yes Patient capellan/brushes hair: Yes Patient washes, rinses and Yes dries face: Patient washes, rinses and Yes dries hands: Patient shaves: No Patient applies make-up: No Patient performs (no make-up/ / (100%) shaving): Grooming FIM Score 5. Supervision ([place] applies toothpaste or opens containers.) Toileting Patient able to: Clean self Patient able to perform: 1/3 (33%) Toileting FIM Score 2. Maximal Assistance (Patient = 25% or more) Social interaction/Memory/Problem solving Social Interaction FIM Score 7. Complete [place] (Interacts appropriately. Controls temper.) Memory FIM Score 7. Complete [place] (Remembers people and routines.) Problem Solving FIM Score 7. Complete [place] (Solves complex problems. Self corrects.) Transfers Mode of Locomotion: Wheelchair Bed/Chair/Wheelchair Transfers 4. Minimal Assistance (Patient = 75% or more. FIM Score Needs touching.) Toilet Transfers FIM Score 3. Moderate Assistance (Patient = 50% or more. Some lifting.) Patient transferred to: Shower Shower Transfers FIM Score 3. Moderate Assistance (Patient = 50% or more. Some lifting.) Locomotion- walk/wheelchair Most Frequent Mode of Wheelchair Locomotion: Ambulation Distance 68 Walking FIM Score 2. Maximal Assistance (Patient = 25% or more. Minimum of 50 ft.) Wheelchair Propulsion Distance 20 Wheelchair FIM Score 2. Maximal Assistance (Patient = 25% or more. Minimum of 50 ft.) Eating Eating FIM Score 5. Supervision/Set-Up (Needs help w/ containers, cutting meat, etc.) Dressing-Upper body Patient retrieves clothing No items: Patient applies/removes UE n/a prosthesis or orthosis: Upper Body Dressing FIM Score 2. Maximal Assistance (Patient = 25% or more) Dressing-lower body Patient retrieves clothing No items: Patient applies/removes LE n/a prosthesis or orthosis: Lower Body Dressing FIM Score 2. Maximal Assistance (Patient = 25% or more) - Labs CBC & Chem 7: 04/18/19 07:37 04/18/19 07:37 Labs: Laboratory Results - last 72 hr 04/15/19 04/15/19 04/15/19 11:26 16:13 23:43 WBC RBC Hgb Hct MCV MCH MCHC RDW Plt Count PT INR Sodium Potassium Chloride Carbon Dioxide Anion Gap BUN Creatinine Estimated GFR BUN/Creatinine Ratio Glucose POC Glucose 96 148 H 111 H Calcium 04/16/19 04/16/19 04/16/19 06:00 06:51 11:39 WBC RBC Hgb Hct MCV MCH MCHC RDW Plt Count PT 23.6 H INR 2.15 H Sodium Potassium Chloride Carbon Dioxide Anion Gap BUN Creatinine Estimated GFR BUN/Creatinine Ratio Glucose POC Glucose 107 H 140 H Calcium 04/16/19 04/16/19 04/17/19 18:29 23:45 06:52 WBC RBC Hgb Hct MCV MCH MCHC RDW Plt Count PT INR Sodium Potassium Chloride Carbon Dioxide Anion Gap BUN Creatinine Estimated GFR BUN/Creatinine Ratio Glucose POC Glucose 134 H 107 H 115 H Calcium 04/17/19 04/17/19 04/17/19 09:40 12:26 17:18 WBC RBC Hgb Hct MCV MCH MCHC RDW Plt Count PT 27.3 H INR 2.59 H Sodium Potassium Chloride Carbon Dioxide Anion Gap BUN Creatinine Estimated GFR BUN/Creatinine Ratio Glucose POC Glucose 86 119 H Calcium 04/17/19 04/18/19 04/18/19 23:45 06:13 07:37 WBC RBC Hgb Hct MCV MCH MCHC RDW Plt Count PT 28.9 H INR 2.79 H Sodium Potassium Chloride Carbon Dioxide Anion Gap BUN Creatinine Estimated GFR BUN/Creatinine Ratio Glucose POC Glucose 100 109 H Calcium 04/18/19 04/18/19 07:37 07:37 WBC 4.7 RBC 4.46 Hgb 14.2 Hct 40.7 MCV 91 MCH 32 MCHC 35 H RDW 14.1 Plt Count 271 PT INR Sodium 141 Potassium 3.8 Chloride 99.8 Carbon Dioxide 28 Anion Gap 17 BUN 26 H Creatinine 1.2 Estimated GFR 54 BUN/Creatinine Ratio 22 Glucose 112 H POC Glucose Calcium 9.1 Assessment and Plan I69.351 hemiplegia affecting right dominant side after CVA: Continue secondary stroke prevention, discussed prognosis with patient and family, monitor for neurological decline, therapy is below, monitor for post stroke depression, monitor for shoulder hand syndrome. I69.322 dysarthria: DIGITAL MEDIA ASSOCIATE for improving ability to speak clearly and improve vocal quality. I10 hypertension: Continue medications and adjust as needed. We'll consult medicine for further management. E11.9 DM: A1c this admission is 6.6, cutoff for prediabetes is 6.4 according to [facility]. Discussed with patient that this is also a risk factor for future strokes and will need to monitor this closely for her via dietary control and starting low-dose metformin. She may be able to discontinue metformin in the future if she is able to control her glucose with diet. Z73.6 ADL dysfunction: OT will work on improving ability to perform ADLs ( including assistive devices) to increase independence and decrease caregiver burden and improve functional transfers and mobility training. R26.2 Difficulty walking: PT will work on gait training and proper use of assistive devices and advance as appropriate to use of stairs and outside ambulation on uneven surfaces. R26.81 Unsteadiness on feet: PT will work on improving static and dynamic sitting and standing balance as well as proper use of assistive devices to decrease risk of falls. R26.89 Abnormality of gait: PT will work to improve safety and efficiency of gait through neuromotor training and gait training along with instruction on proper use of assistive devices. M62.81 Muscle weakness: PT & OT will work on strengthening exercises to improve functional strength including mixture of closed and open kinetic chain exercises. R53.81 Debility: PT & OT will work on improving overall functional status to improve participation with ADLs, mobility and social involvement. R53.83 Fatigue: PT & OT will work on improving endurance through aerobic exercises and therapeutic activity while monitoring patients tolerance for activity and vital signs as needed. Right Knee pain: continue Voltaren gel, XR, knee brace PFO: We'll maintain patient on Coumadin with a goal INR of 2-3. DVT ppx: Coumadin for a/c Pain: Continue physical modalities in therapy and pain medications as needed to achieve functional pain control. Sleep: Monitor and address as needed. Bowel: Monitor and address as needed. Appetite: Monitor and address as needed. Discharge planning: Pending therapy progress and care plan meeting. Will continue discussion with therapy team, SW, patient and family. Restrictions/ Precautions: Falls, aspiration until cleared by DIGITAL MEDIA ASSOCIATE WB status: FWB Functional Hx: ADLs: Independent Cognition: Independent Mobility: No AD mostly, used a cane occasionally. Barriers to Discharge: Decreased mobility and ability to perform self care, balance deficits, weakness, dysarthria, possible dysphagia and visual field deficit Estimated Length of Stay: 14-21 days Discharge Destination: Home with family
--- NOTE | 2019-04-18 11:29 | Progress Note ---
Assessment and Plan Assessment and plan: Patient is a 68 year old male admitted to the Inpatient Rehab unit for management of right sided weakness and dysarthria secondary to CVA. 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 She also has metabolic syndrome with boardeline DM and on carb controlled diet and metformin. At the time of my exam she denies any chest pain, nausea, vomiting, blurry vision, polyuria. she is transferring from bed to chair with the Nurse CVA-Right sided Hemiplegia Dysarthria Hypertension Costochondritis-improved * cardiac enzymes are negative. No reoccurrence DM Type 2, new onset-Discussed this new diagnosis with the patient. Obese Debility PFO Plan Continue supportive care Accu check AcHS Continue Metformin Continue Rehab assessment and plan Outpatient cardiology for PFO closure Continue Coumadin with a goal INR of 2-3. INR therapeutic DVT and GI prophylaxis History Interval history: Stroke with right sided weakness No chest pain Hospitalist Physical - Physical exam Narrative exam: Gen: Not in acute distress, lying in bed,obese HEENT: Normocephalic, atraumatic Neck: supple, no JVD Heart: S1 and S2 reg, no murmurs, rubs or gallop Lungs: Clear, no crackles, no wheeze Abd: soft, non tender, non distended, normal BS Ext: No edema, no clubbing, no cyanosis, Neuro: Awake,alert, oriented x 3, right sided weakness residual from stroke - Constitutional Vitals: Temp Pulse Resp BP Pulse Ox 98.0 F 67 19 135/62 95 04/18/19 04:49 04/18/19 07:22 04/18/19 04:49 04/18/19 04:49 04/18/19 07:22 General appearance: Present: no acute distress, obese Results - Labs CBC & Chem 7: 04/18/19 07:37 04/18/19 07:37 Labs: Laboratory Last Values WBC 4.7 K/mm3 (4.5-11.0) 04/18/19 07:37 RBC 4.46 M/mm3 (3.65-5.03) 04/18/19 07:37 Hgb 14.2 gm/dl (10.1-14.3) 04/18/19 07:37 Hct 40.7 % (30.3-42.9) 04/18/19 07:37 MCV 91 fl (79-97) 04/18/19 07:37 MCH 32 pg (28-32) 04/18/19 07:37 MCHC 35 % (30-34) H 04/18/19 07:37 RDW 14.1 % (13.2-15.2) 04/18/19 07:37 Plt Count 271 K/mm3 (140-440) 04/18/19 07:37 Lymph % (Auto) 43.7 % (13.4-35.0) H 04/12/19 04:40 [place] % (Auto) 9.6 % (0.0-7.3) H 04/12/19 04:40 Eos % (Auto) 2.1 % (0.0-4.3) 04/12/19 04:40 Baso % (Auto) 0.6 % (0.0-1.8) 04/12/19 04:40 Lymph # 2.1 K/mm3 (1.2-5.4) 04/12/19 04:40 [place] # 0.5 K/mm3 (0.0-0.8) 04/12/19 04:40 Eos # 0.1 K/mm3 (0.0-0.4) 04/12/19 04:40 Baso # 0.0 K/mm3 (0.0-0.1) 04/12/19 04:40 Seg Neutrophils % 44.0 % (40.0-70.0) 04/12/19 04:40 Seg Neutrophils # 2.1 K/mm3 (1.8-7.7) 04/12/19 04:40 PT 28.9 Sec. (12.2-14.9) H 04/18/19 07:37 INR 2.79 (0.87-1.13) H 04/18/19 07:37 Sodium 141 mmol/L (137-145) 04/18/19 07:37 Potassium 3.8 mmol/L (3.6-5.0) 04/18/19 07:37 Chloride 99.8 mmol/L (98-107) 04/18/19 07:37 Carbon Dioxide 28 mmol/L (22-30) 04/18/19 07:37 17 mmol/L 04/18/19 07:37 BUN 26 mg/dL (7-17) H 04/18/19 07:37 1.2 mg/dL (0.7-1.2) 04/18/19 07:37 Estimated GFR 54 ml/min 04/18/19 07:37 22 % 04/18/19 07:37 Glucose 112 mg/dL (65-100) H 04/18/19 07:37 POC Glucose 109 (70-105) H 04/18/19 06:13 Calcium 9.1 mg/dL (8.4-10.2) 04/18/19 07:37 0.30 mg/dL (0.1-1.2) 04/12/19 04:40 AST 16 units/L (5-40) 04/12/19 04:40 ALT 17 units/L (7-56) 04/12/19 04:40 57 units/L (35-129) 04/12/19 04:40 < 0.010 ng/mL (0.00-0.029) 04/13/19 16:42 6.3 g/dL (6.3-8.2) 04/12/19 04:40 3.3 g/dL (3.9-5) L 04/12/19 04:40 1.1 % 04/12/19 04:40 Active Medications - Current Medications Current Medications: Generic Name Dose Route Start Last Admin Trade Name Freq PRN Reason Stop Dose Admin Acetaminophen 650 mg 04/11/19 12:58 Tylenol PO Q4H PRN Pain MILD(1-3)/Fever >100.5/[place] Aspirin 81 mg 04/12/19 08:00 04/17/19 08:46 Halfprin Ec PO 81 mg QDAY SHAILESH Administration Bisacodyl 10 mg 04/11/19 12:58 Dulcolax [place] QDAY PRN Constipation unrelieved by MOM Diclofenac Sodium 1 applic 04/16/19 14:00 04/17/19 21:44 Diclofenac 1% TP 04/30/19 13:59 1 applic TID SHAILESH Administration Hydrochlorothiazide 25 mg 04/12/19 08:00 04/17/19 12:45 Hctz PO 25 mg QDAY SHAILESH Administration Losartan Potassium 75 mg 04/16/19 14:11 04/17/19 08:47 Cozaar PO 75 mg QDAY SHAILESH Administration Magnesium Hydroxide 30 ml 04/11/19 12:58 Milk Of Magnesia PO Q4H PRN Constipation Metformin HCl 500 mg 04/11/19 17:00 04/17/19 17:05 Glucophage PO 500 mg BIDDIAB SHAILESH Administration Pravastatin Sodium 40 mg 04/11/19 21:00 04/17/19 21:43 Pravachol PO 40 mg QHS SHAILESH Administration Promethazine HCl 25 mg 04/11/19 13:18 Phenergan PO Q6H PRN Nausea And Vomiting Simethicone 80 mg 04/16/19 13:10 Mylicon PO Q6H PRN Gas pain Warfarin Sodium 7.5 mg 04/11/19 20:00 04/17/19 17:05 Coumadin PO 7.5 mg DAILY@1700 SHAILESH Administration Nutrition/Malnutrition Assess - Dietary Evaluation Nutrition/Malnutrition Findings: Nutrition Notes Start: 04/12/19 17:44 Freq: Status: Active Protocol: Document 04/16/19 16:38 RM (Rec: 04/16/19 16:41 RM [id number]) Nutrition Notes Initial or Follow up Reassessment Current Diagnosis Hypertension,Stroke Current Diet Consistent CHO, Cardiac w/ Glucerna Chocolate daily Labs/Tests No recent labs Pertinent Medications Reviewed Height 5 ft 6 in Weight 105 kg [place] Body Weight (kg) 59.09 BMI 37.3 Subjective/Other Information Pt stated that her appetite is good and that she eats 50% of her meals. Stated she is also drinking the Glucerna. Percent of energy/protein needs met: 82%/63% Burn Absent Trauma Absent #1 Nutrition Diagnosis Inadequate oral intake As Evidenced by Signs and Symptoms pt meeting 82% of calorie and 63% of protein needs Diagnosis Progress(for reassessment Improved documentation) Is patient on ventilator? No Is Patient Ambulatory and/or Out of Bed No REE-([facility]-confined to bed) 1921.368 Kcal/Kg value to use for calculation 14 Approximate Energy Requirements Using 1470 kcal/Kg Calculation Used for Recommendations Kcal/kg Additional Notes Protein Needs: 82-98g (1-1.25g /kg 82 kg adjBW) Fluid Needs: 1 ml/kcal Nutrition Intervention Change Diet Order: Cardiac/Consistent CHO Add Supplement/Snack (indicate name/kcal Glucerna Chocolate 1 daily /protein ) Provides kCal: 220 Provides Protein (gm) 10 Goal #1 Meet at least 75% of calorie and protein needs via PO and ONS intakes Anticipated Discharge Needs: Cardiac/Consistent CHO diet Follow-Up By: 04/19/19 Additional Comments Follow for PO and ONS intakes
[2019-04-18] MEDS: HALFPRIN EC PO SCH (12:35)
--- NOTE | 2019-04-18 13:35 | XRay Report ---
RIGHT KNEE, 3 views: History: Right knee pain. Findings: Mild osteoarthritic changes are identified in all 3 compartments. No evidence for fracture, bone lesion or joint effusion. The soft tissues are unremarkable. IMPRESSION: Mild osteoarthritis.
[2019-04-18] MEDS: HCTZ PO SCH (16:00)
[2019-04-18] MEDS ORDERED: COUMADIN PO SCH (17:00)
[2019-04-18] MEDS: COZAAR PO SCH (17:02)
[2019-04-18] MEDS: PRAVACHOL PO SCH (21:58)
[2019-04-19] MEDS: HALFPRIN EC PO SCH (08:13)
[2019-04-19] MEDS: GLUCOPHAGE PO SCH ×2 (08:13→17:47)
[2019-04-19] MEDS: COZAAR PO SCH (08:13)
[2019-04-19] MEDS: HCTZ PO SCH (08:13)
[2019-04-19] MEDS: DICLOFENAC 1% TP SCH ×3 (08:17→22:11)
[2019-04-19 12:58] LABS: INR 3.06 (0.87-1.13)
--- NOTE | 2019-04-19 14:18 | Progress Note ---
Assessment and Plan Assessment and plan: Patient is a 68 year old male admitted to the Inpatient Rehab unit for management of right sided weakness and dysarthria secondary to CVA. 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 She also has metabolic syndrome with boardeline DM and on carb controlled diet and metformin. At the time of my exam she denies any chest pain, nausea, vomiting, blurry vision, polyuria. she is transferring from bed to chair with the Nurse CVA-Right sided Hemiplegia Dysarthria Hypertension Costochondritis-improved * cardiac enzymes are negative. No reoccurrence DM Type 2, new onset-Discussed this new diagnosis with the patient. Obese Debility PFO Plan Continue supportive care Accu check ACHS Continue Metformin Continue Rehab assessment and plan Outpatient cardiology for PFO closure Continue Coumadin with a goal INR of 2-3. DVT and GI prophylaxis History Interval history: Stroke with right sided weakness No chest pain Hospitalist Physical - Physical exam Narrative exam: Gen: Not in acute distress, lying in bed,obese HEENT: Normocephalic, atraumatic Neck: supple, no JVD Heart: S1 and S2 reg, no murmurs, rubs or gallop Lungs: Clear, no crackles, no wheeze Abd: soft, non tender, non distended, normal BS Ext: No edema, no clubbing, no cyanosis, Neuro: Awake,alert, oriented x 3, right sided weakness residual from stroke - Constitutional Vitals: Temp Pulse Resp BP Pulse Ox 98.5 F 80 20 111/66 90 04/19/19 04:00 04/19/19 04:00 04/19/19 04:00 04/19/19 04:00 04/19/19 04:00 General appearance: Present: no acute distress, obese Results - Labs CBC & Chem 7: 04/18/19 07:37 04/18/19 07:37 Labs: Laboratory Last Values WBC 4.7 K/mm3 (4.5-11.0) 04/18/19 07:37 RBC 4.46 M/mm3 (3.65-5.03) 04/18/19 07:37 Hgb 14.2 gm/dl (10.1-14.3) 04/18/19 07:37 Hct 40.7 % (30.3-42.9) 04/18/19 07:37 MCV 91 fl (79-97) 04/18/19 07:37 MCH 32 pg (28-32) 04/18/19 07:37 MCHC 35 % (30-34) H 04/18/19 07:37 RDW 14.1 % (13.2-15.2) 04/18/19 07:37 Plt Count 271 K/mm3 (140-440) 04/18/19 07:37 Lymph % (Auto) 43.7 % (13.4-35.0) H 04/12/19 04:40 [place] % (Auto) 9.6 % (0.0-7.3) H 04/12/19 04:40 Eos % (Auto) 2.1 % (0.0-4.3) 04/12/19 04:40 Baso % (Auto) 0.6 % (0.0-1.8) 04/12/19 04:40 Lymph # 2.1 K/mm3 (1.2-5.4) 04/12/19 04:40 [place] # 0.5 K/mm3 (0.0-0.8) 04/12/19 04:40 Eos # 0.1 K/mm3 (0.0-0.4) 04/12/19 04:40 Baso # 0.0 K/mm3 (0.0-0.1) 04/12/19 04:40 Seg Neutrophils % 44.0 % (40.0-70.0) 04/12/19 04:40 Seg Neutrophils # 2.1 K/mm3 (1.8-7.7) 04/12/19 04:40 PT 31.1 Sec. (12.2-14.9) H 04/19/19 12:25 INR 3.06 (0.87-1.13) H 04/19/19 12:25 Sodium 141 mmol/L (137-145) 04/18/19 07:37 Potassium 3.8 mmol/L (3.6-5.0) 04/18/19 07:37 Chloride 99.8 mmol/L (98-107) 04/18/19 07:37 Carbon Dioxide 28 mmol/L (22-30) 04/18/19 07:37 17 mmol/L 04/18/19 07:37 BUN 26 mg/dL (7-17) H 04/18/19 07:37 1.2 mg/dL (0.7-1.2) 04/18/19 07:37 Estimated GFR 54 ml/min 04/18/19 07:37 22 % 04/18/19 07:37 Glucose 112 mg/dL (65-100) H 04/18/19 07:37 POC Glucose 85 (70-105) 04/19/19 11:34 Calcium 9.1 mg/dL (8.4-10.2) 04/18/19 07:37 0.30 mg/dL (0.1-1.2) 04/12/19 04:40 AST 16 units/L (5-40) 04/12/19 04:40 ALT 17 units/L (7-56) 04/12/19 04:40 57 units/L (35-129) 04/12/19 04:40 < 0.010 ng/mL (0.00-0.029) 04/13/19 16:42 6.3 g/dL (6.3-8.2) 04/12/19 04:40 3.3 g/dL (3.9-5) L 04/12/19 04:40 1.1 % 04/12/19 04:40 Active Medications - Current Medications Current Medications: Generic Name Dose Route Start Last Admin Trade Name Freq PRN Reason Stop Dose Admin Acetaminophen 650 mg 04/11/19 12:58 Tylenol PO Q4H PRN Pain MILD(1-3)/Fever >100.5/[place] Aspirin 81 mg 04/12/19 08:00 04/19/19 08:13 Halfprin Ec PO 81 mg QDAY SHAILESH Administration Bisacodyl 10 mg 04/11/19 12:58 Dulcolax [place] QDAY PRN Constipation unrelieved by MOM Diclofenac Sodium 1 applic 04/16/19 14:00 04/19/19 08:17 Diclofenac 1% TP 04/30/19 13:59 1 applic TID SHAILESH Administration Hydrochlorothiazide 25 mg 04/12/19 08:00 04/19/19 08:13 Hctz PO 25 mg QDAY SHAILESH Administration Losartan Potassium 75 mg 04/16/19 14:11 04/19/19 08:13 Cozaar PO 75 mg QDAY SHAILESH Administration Magnesium Hydroxide 30 ml 04/11/19 12:58 Milk Of Magnesia PO Q4H PRN Constipation Metformin HCl 500 mg 04/11/19 17:00 04/19/19 08:13 Glucophage PO 500 mg BIDDIAB SHAILESH Administration Pravastatin Sodium 40 mg 04/11/19 21:00 04/18/19 21:58 Pravachol PO 40 mg QHS SHAILESH Administration Promethazine HCl 25 mg 04/11/19 13:18 Phenergan PO Q6H PRN Nausea And Vomiting Simethicone 80 mg 04/16/19 13:10 Mylicon PO Q6H PRN Gas pain Warfarin Sodium 5 mg 04/18/19 17:00 04/18/19 17:05 Coumadin PO 5 mg DAILY@1700 SHAILESH Administration Nutrition/Malnutrition Assess - Dietary Evaluation Nutrition/Malnutrition Findings: Nutrition Notes Start: 04/12/19 17:44 Freq: Status: Active Protocol: Document 04/16/19 16:38 RM (Rec: 04/16/19 16:41 RM [id number]) Nutrition Notes Initial or Follow up Reassessment Current Diagnosis Hypertension,Stroke Current Diet Consistent CHO, Cardiac w/ Glucerna Chocolate daily Labs/Tests No recent labs Pertinent Medications Reviewed Height 5 ft 6 in Weight 105 kg [place] Body Weight (kg) 59.09 BMI 37.3 Subjective/Other Information Pt stated that her appetite is good and that she eats 50% of her meals. Stated she is also drinking the Glucerna. Percent of energy/protein needs met: 82%/63% Burn Absent Trauma Absent #1 Nutrition Diagnosis Inadequate oral intake As Evidenced by Signs and Symptoms pt meeting 82% of calorie and 63% of protein needs Diagnosis Progress(for reassessment Improved documentation) Is patient on ventilator? No Is Patient Ambulatory and/or Out of Bed No REE-([facility]-confined to bed) 192.368 Kcal/Kg value to use for calculation 14 Approximate Energy Requirements Using 1470 kcal/Kg Calculation Used for Recommendations Kcal/kg Additional Notes Protein Needs: 82-98g (1-1.25g /kg 82 kg adjBW) Fluid Needs: 1 ml/kcal Nutrition Intervention Change Diet Order: Cardiac/Consistent CHO Add Supplement/Snack (indicate name/kcal Glucerna Chocolate 1 daily /protein ) Provides kCal: 220 Provides Protein (gm) 10 Goal #1 Meet at least 75% of calorie and protein needs via PO and ONS intakes Anticipated Discharge Needs: Cardiac/Consistent CHO diet Follow-Up By: 04/19/19 Additional Comments Follow for PO and ONS intakes
[2019-04-19] MEDS: COUMADIN PO SCH (17:46)
[2019-04-19] MEDS: PRAVACHOL PO SCH (22:07)
[2019-04-20] MEDS: COZAAR PO SCH (08:30)
[2019-04-20] MEDS: HCTZ PO SCH (08:30)
[2019-04-20] MEDS: GLUCOPHAGE PO SCH ×2 (08:31→17:26)
[2019-04-20] MEDS: HALFPRIN EC PO SCH (08:31)
[2019-04-20] MEDS: DICLOFENAC 1% TP SCH ×3 (08:33→20:00)
--- NOTE | 2019-04-20 10:27 | Progress Note ---
Subjective Date of service: 04/20/19 Principal diagnosis: CVA Interval history: 68 yo RHD female who woke up with right sided weakness and dysarthria. Son was present for the exam. She states she had a previous CVA and TIA and records confirm. She was evaluated and found to have acute left pontine lacunar infarcts. Cardiology was consulted due to previously known PFO. JAN showed EF 55-60, no thrombus and a PFO. She was advised to follow up as outpatient for PFO closure. No PE seen on chest CTA. Per cardiology, she was transitioned from Eliquis to Coumadin and is currently subtherapeutic. I will start her on a lovenox bridge until she has therapeutic INR. A1C was above the cutoff for diabetes - discussed with her and her son. Will start on carb controlled diet and metformin. Patient is participating in therapy and making reasonable progress. Taking rest breaks as needed. +BM, no incontinence of B/B. Denies pain, palpitations, dyspnea, cough, N/V. Has increased pain in the right knee worse with weightbearing and not as bad when sitting or lying. Knee x-ray reviewed, mild arthritis, expected to see it worse picture of arthritis then was actually visualized. She states she is only getting the Voltaren gel once a day. I have asked that he be given 3 times a day as ordered. Patient also states that she is having her glucose checked 3-4 times daily, this was only ordered once daily have discussed this with nursing and will only have it once daily. Able to walk with a hemiwalker and assistance as well as knee immobilizer and dorsiflexion assist. We'll continue improving balance and ambulation and may need to order a custom KAFO. Right hand strength has improved but her fine motor skills are still lacking in the right hand. Right lower extremity strength is improving as well. No tenderness to palpation or signs of shoulder-hand syndrome at this point. INR did go supratherapeutic as expected, dose was reduced and pharmacy is still managing. Vitals stable. Monitor All records, vitals, labs and medications were reviewed. No other issues per patient, nursing or therapy. Objective - Exam Narrative Exam: MUSCULOSKELETAL SPECIALTY EXAM CONSTITUTIONAL: Well developed, well nourished, obese, appropriately groomed. RIGHT hand dominant. RESPIRATORY: Clear to auscultation bilaterally, no increased work of breathing CARDIOVASCULAR: Regular Rate/ Rhythm, no swelling, edema or tenderness in BUE or BLE. All extremities warm. GI: + bowel sounds, soft, NTTP, nondistended. INTEGUMENTARY: Normal, no lesion, rash, masses or bruising noted in extremities. MUSCULOSKELETAL: BUE and BLE normal without defect, crepitus, subluxation, effusion, arthritic changes or TTP. Likely Arthritis in right knee but NTTP SA EF WE EE FF FA HF KE ADF EHL APF R 2/5 4-/5 3/5 3/5 4-/5 3/5 2/5 2/5 2/5 2/5 2/5 L 4+/5 ROM decreased on right Tone decreased on the right NEURO: CN II-XII grossly intact except for Right facial droop and tongue protrudes slightly left Sensation intact in all extremities without extinction. No tremor noted in 4 extremities. Naming and repetition intact. Follows 2 step commands. Aphasia not appreciated Dysarthria present but improved today Dysphagia not appreciated Neglect not appreciated POSTURE and GAIT: Sitting posture good. Balance and Gait need improvement. Utilizing hemiwalker, knee immobilizer and dorsiflexion assist PSYCH: Alert, orientated x3, affect appears euthymic. Insight appears intact. - Constitutional Vitals: Vital Signs - 12hr 04/20/19 04/20/19 04/20/19 05:00 06:23 07:12 Temperature 36.7 C 36.7 C Pulse Rate 75 70 70 Respiratory 18 18 Rate Blood Pressure 117/62 117/62 [Right] O2 Sat by Pulse 98 90 90 Oximetry - Allied health notes Allied health notes reviewed: nursing, PT, ST, OT FIMS assessment as documented by PT/OT/ST: Grooming Patient cleans teeth/dentures: Yes Patient capellan/brushes hair: Yes Patient washes, rinses and Yes dries face: Patient washes, rinses and Yes dries hands: Patient shaves: No Patient applies make-up: No Patient performs (no make-up/ 01/31 (100%) shaving): Grooming FIM Score 4. Minimal Assistance (Patient = 75% or more. Needs touching.) Toileting Patient able to: Clean self Patient able to perform: 1/3 (33%) Toileting FIM Score 2. Maximal Assistance (Patient = 25% or more) Social interaction/Memory/Problem solving Social Interaction FIM Score 5. Supervision (Needs supv. <10%. Needs encouragement to participate.) Memory FIM Score 5. Supervision (Needs cueing <10%, stressful/ unfamiliar situations.) Problem Solving FIM Score 4. Minimal Assistance (Solves routine problems 75-90%.) Transfers Mode of Locomotion: Wheelchair Bed/Chair/Wheelchair Transfers 4. Minimal Assistance (Patient = 75% or more. FIM Score Needs touching.) Toilet Transfers FIM Score 3. Moderate Assistance (Patient = 50% or more. Some lifting.) Patient transferred to: Shower Shower Transfers FIM Score 3. Moderate Assistance (Patient = 50% or more. Some lifting.) Locomotion- walk/wheelchair Most Frequent Mode of Wheelchair Locomotion: Ambulation Distance 115 Walking FIM Score 2. Maximal Assistance (Patient = 25% or more. Minimum of 50 ft.) Wheelchair Propulsion Distance 150 Wheelchair FIM Score 3. Moderate Assistance (Patient = 50% or more. Minimum of 150 ft.) Eating Eating FIM Score 4. Minimal Assistance (Patient = 75% or more) Dressing-Upper body Patient retrieves clothing No items: Patient applies/removes UE n/a prosthesis or orthosis: Upper Body Dressing FIM Score 2. Maximal Assistance (Patient = 25% or more) Dressing-lower body Patient retrieves clothing No items: Patient applies/removes LE n/a prosthesis or orthosis: Lower Body Dressing FIM Score 2. Maximal Assistance (Patient = 25% or more) - Labs CBC & Chem 7: 04/18/19 07:37 04/18/19 07:37 Labs: Laboratory Results - last 72 hr 04/17/19 04/17/19 04/17/19 12:26 17:18 23:45 WBC RBC Hgb Hct MCV MCH MCHC RDW Plt Count PT INR Sodium Potassium Chloride Carbon Dioxide Anion Gap BUN Creatinine Estimated GFR BUN/Creatinine Ratio Glucose POC Glucose 86 119 H 100 Calcium 04/18/19 04/18/19 04/18/19 06:13 07:37 07:37 WBC 4.7 RBC 4.46 Hgb 14.2 Hct 40.7 MCV 91 MCH 32 MCHC 35 H RDW 14.1 Plt Count 271 PT 28.9 H INR 2.79 H Sodium Potassium Chloride Carbon Dioxide Anion Gap BUN Creatinine Estimated GFR BUN/Creatinine Ratio Glucose POC Glucose 109 H Calcium 0604/18/19 04/18/19 07:37 11:36 16:24 WBC RBC Hgb Hct MCV MCH MCHC RDW Plt Count PT INR Sodium 141 Potassium 3.8 Chloride 99.8 Carbon Dioxide 28 Anion Gap 17 BUN 26 H Creatinine 1.2 Estimated GFR 54 BUN/Creatinine Ratio 22 Glucose 112 H POC Glucose 76 107 H Calcium 9.1 04/18/19 04/19/19 04/19/19 23:37 06:14 11:34 WBC RBC Hgb Hct MCV MCH MCHC RDW Plt Count PT INR Sodium Potassium Chloride Carbon Dioxide Anion Gap BUN Creatinine Estimated GFR BUN/Creatinine Ratio Glucose POC Glucose 116 H 104 85 Calcium 04/19/19 04/19/19 04/19/19 12:25 16:39 21:43 WBC RBC Hgb Hct MCV MCH MCHC RDW Plt Count PT 31.1 H INR 3.06 H Sodium Potassium Chloride Carbon Dioxide Anion Gap BUN Creatinine Estimated GFR BUN/Creatinine Ratio Glucose POC Glucose 126 H 123 H Calcium 04/20/19 04/20/19 04:40 06:16 WBC RBC Hgb Hct MCV MCH MCHC RDW Plt Count PT 30.6 H INR 3.00 H Sodium Potassium Chloride Carbon Dioxide Anion Gap BUN Creatinine Estimated GFR BUN/Creatinine Ratio Glucose POC Glucose 113 H Calcium - Imaging and cardiology Other: report reviewed (right knee x-ray mild arthritis), image reviewed Assessment and Plan I69.351 hemiplegia affecting right dominant side after CVA: Continue secondary stroke prevention, discussed prognosis with patient and family, monitor for neurological decline, therapy is below, monitor for post stroke depression, monitor for shoulder hand syndrome. Strength is improving as noted in exam I69.322 dysarthria: [employer] for improving ability to speak clearly and improve vocal quality, improving I10 hypertension: Continue medications and adjust as needed. We'll consult medicine for further management. E11.9 DM: A1c this admission is 6.6, cutoff for prediabetes is 6.4 according to [employer]. Discussed with patient that this is also a risk factor for future strokes and will need to monitor this closely for her via dietary control and starting low-dose metformin. She may be able to discontinue metformin in the future if she is able to control her glucose with diet. Discussed with nursing to check glucose once daily, range has improved on metformin. Z73.6 ADL dysfunction: OT will work on improving ability to perform ADLs (including assistive devices) to increase independence and decrease caregiver burden and improve functional transfers and mobility training. R26.2 Difficulty walking: PT will work on gait training and proper use of assistive devices and advance as appropriate to use of stairs and outside ambulation on uneven surfaces. R26.81 Unsteadiness on feet: PT will work on improving static and dynamic sitting and standing balance as well as proper use of assistive devices to decrease risk of falls. R26.89 Abnormality of gait: PT will work to improve safety and efficiency of gait through neuromotor training and gait training along with instruction on proper use of assistive devices. M62.81 Muscle weakness: PT & OT will work on strengthening exercises to improve functional strength including mixture of closed and open kinetic chain exercises. R53.81 Debility: PT & OT will work on improving overall functional status to improve participation with ADLs, mobility and social involvement. R53.83 Fatigue: PT & OT will work on improving endurance through aerobic exercises and therapeutic activity while monitoring patients tolerance for activity and vital signs as needed. Right Knee pain: continue Voltaren gel 3 times a day as ordered, XR shows mild arthritis, knee brace. PFO: We'll maintain patient on Coumadin with a goal INR of 2-3. DVT ppx: Coumadin for a/c Pain: Continue physical modalities in therapy and pain medications as needed to achieve functional pain control. Sleep: Monitor and address as needed. Bowel: Monitor and address as needed. Appetite: Monitor and address as needed. Discharge planning: Pending therapy progress and care plan meeting. Will continue discussion with therapy team, SW, patient and family. Restrictions/ Precautions: Falls WB status: FWB Functional Hx: ADLs: Independent Cognition: Independent Mobility: No AD mostly, used a cane occasionally. Barriers to Discharge: Decreased mobility and ability to perform self care, balance deficits, weakness, dysarthria, possible dysphagia and visual field deficit Estimated Length of Stay: 14-21 days Discharge Destination: Home with family
--- NOTE | 2019-04-20 13:21 | Progress Note ---
Assessment and Plan Assessment and plan: Patient is a 68 year old male admitted to the Inpatient Rehab unit for management of right sided weakness and dysarthria secondary to CVA. 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 She also has metabolic syndrome with boardeline DM and on carb controlled diet and metformin. At the time of my exam she denies any chest pain, nausea, vomiting, blurry vision, polyuria. she is transferring from bed to chair with the Nurse CVA-Right sided Hemiplegia Dysarthria Hypertension Costochondritis-improved * cardiac enzymes are negative. No reoccurrence DM Type 2, new onset-Discussed this new diagnosis with the patient. Obese Debility PFO Plan Continue supportive care Accu check ACHS Continue Metformin Continue Rehab assessment and plan Outpatient cardiology for PFO closure Continue Coumadin with a goal INR of 2-3. DVT and GI prophylaxis History Interval history: Stroke with right sided weakness No chest pain Hospitalist Physical - Physical exam Narrative exam: Gen: Not in acute distress, lying in bed,obese HEENT: Normocephalic, atraumatic Neck: supple, no JVD Heart: S1 and S2 reg, no murmurs, rubs or gallop Lungs: Clear, no crackles, no wheeze Abd: soft, non tender, non distended, normal BS Ext: No edema, no clubbing, no cyanosis, Neuro: Awake,alert, oriented x 3, right sided weakness residual from stroke - Constitutional Vitals: Temp Pulse Resp BP Pulse Ox 98.2 F 82 18 115/60 95 04/20/19 11:47 04/20/19 11:47 04/20/19 11:47 04/20/19 11:47 04/20/19 11:49 General appearance: Present: no acute distress, obese Results - Labs CBC & Chem 7: 04/18/19 07:37 04/18/19 07:37 Labs: Laboratory Last Values WBC 4.7 K/mm3 (4.5-11.0) 04/18/19 07:37 RBC 4.46 M/mm3 (3.65-5.03) 04/18/19 07:37 Hgb 14.2 gm/dl (10.1-14.3) 04/18/19 07:37 Hct 40.7 % (30.3-42.9) 04/18/19 07:37 MCV 91 fl (79-97) 04/18/19 07:37 MCH 32 pg (28-32) 04/18/19 07:37 MCHC 35 % (30-34) H 04/18/19 07:37 RDW 14.1 % (13.2-15.2) 04/18/19 07:37 Plt Count 271 K/mm3 (140-440) 04/18/19 07:37 Lymph % (Auto) 43.7 % (13.4-35.0) H 04/12/19 04:40 Clarke % (Auto) 9.6 % (0.0-7.3) H 04/12/19 04:40 Eos % (Auto) 2.1 % (0.0-4.3) 04/12/19 04:40 Baso % (Auto) 0.6 % (0.0-1.8) 04/12/19 04:40 Lymph # 2.1 K/mm3 (1.2-5.4) 04/12/19 04:40 Clarke # 0.5 K/mm3 (0.0-0.8) 04/12/19 04:40 Eos # 0.1 K/mm3 (0.0-0.4) 04/12/19 04:40 Baso # 0.0 K/mm3 (0.0-0.1) 04/12/19 04:40 Seg Neutrophils % 44.0 % (40.0-70.0) 04/12/19 04:40 Seg Neutrophils # 2.1 K/mm3 (1.8-7.7) 04/12/19 04:40 PT 30.6 Sec. (12.2-14.9) H 04/20/19 04:40 INR 3.00 (0.87-1.13) H 04/20/19 04:40 Sodium 141 mmol/L (137-145) 04/18/19 07:37 Potassium 3.8 mmol/L (3.6-5.0) 04/18/19 07:37 Chloride 99.8 mmol/L (98-107) 04/18/19 07:37 Carbon Dioxide 28 mmol/L (22-30) 04/18/19 07:37 17 mmol/L 04/18/19 07:37 BUN 26 mg/dL (7-17) H 04/18/19 07:37 1.2 mg/dL (0.7-1.2) 04/18/19 07:37 Estimated GFR 54 ml/min 04/18/19 07:37 22 % 04/18/19 07:37 Glucose 112 mg/dL (65-100) H 04/18/19 07:37 POC Glucose 113 (70-105) H 04/20/19 06:16 Calcium 9.1 mg/dL (8.4-10.2) 04/18/19 07:37 0.30 mg/dL (0.1-1.2) 04/12/19 04:40 AST 16 units/L (5-40) 04/12/19 04:40 ALT 17 units/L (7-56) 04/12/19 04:40 57 units/L (35-129) 04/12/19 04:40 < 0.010 ng/mL (0.00-0.029) 04/13/19 16:42 6.3 g/dL (6.3-8.2) 04/12/19 04:40 3.3 g/dL (3.9-5) L 04/12/19 04:40 1.1 % 04/12/19 04:40 Active Medications - Current Medications Current Medications: Generic Name Dose Route Start Last Admin Trade Name Freq PRN Reason Stop Dose Admin Acetaminophen 650 mg 04/11/19 12:58 Tylenol PO Q4H PRN Pain MILD(1-3)/Fever >100.5/[place] Aspirin 81 mg 04/12/19 08:00 04/20/19 08:31 Halfprin Ec PO 81 mg QDAY SHAILESH Administration Bisacodyl 10 mg 04/11/19 12:58 Dulcolax IN QDAY PRN Constipation unrelieved by MOM Diclofenac Sodium 1 applic 04/16/19 14:00 04/20/19 08:33 Diclofenac 1% TP 04/30/19 13:59 Not Given TID SHAILESH Hydrochlorothiazide 25 mg 04/12/19 08:00 04/20/19 08:30 Hctz PO 25 mg QDAY SHAILESH Administration Losartan Potassium 75 mg 04/16/19 14:11 04/20/19 08:30 Cozaar PO 75 mg QDAY SHAILESH Administration Magnesium Hydroxide 30 ml 04/11/19 12:58 04/20/19 13:02 Milk Of Magnesia PO 30 ml Q4H PRN Administration Constipation Metformin HCl 500 mg 04/11/19 17:00 04/20/19 08:31 Glucophage PO 500 mg BIDDIAB SHAILESH Administration Pravastatin Sodium 40 mg 04/11/19 21:00 04/19/19 22:07 Pravachol PO 40 mg QHS SHAILESH Administration Promethazine HCl 25 mg 04/11/19 13:18 Phenergan PO Q6H PRN Nausea And Vomiting Simethicone 80 mg 04/16/19 13:10 Mylicon PO Q6H PRN Gas pain Warfarin Sodium 2.5 mg 04/19/19 17:00 04/19/19 17:46 Coumadin PO 2.5 mg DAILY@1700 SHAILESH Administration Nutrition/Malnutrition Assess - Dietary Evaluation Nutrition/Malnutrition Findings: Nutrition Notes Start: 04/12/19 17:44 Freq: Status: Active Protocol: Document 04/19/19 18:16 RM (Rec: 04/19/19 18:21 RM [id number]) Nutrition Notes Initial or Follow up Reassessment Current Diagnosis Hypertension,Stroke Current Diet Consistent CHO, Cardiac w/ Glucerna Chocolate daily Labs/Tests Reviewed Pertinent Medications Reviewed Height 5 ft 6 in Weight 105 kg [place] Body Weight (kg) 59.09 BMI 37.3 Subjective/Other Information Pt stated that she eats 1/3 of her meals. Stated she does not like the Glucerna but will try a different flavor. Percent of energy/protein needs met: 45%/34% Burn Absent Trauma Absent #1 Nutrition Diagnosis Inadequate oral intake As Evidenced by Signs and Symptoms pt meeting 45% of calorie and 34% of protein needs Diagnosis Progress(for reassessment Worsened documentation) Is patient on ventilator? No Is Patient Ambulatory and/or Out of Bed No REE-([place] Jeor-confined to bed) 1921.368 Kcal/Kg value to use for calculation 14 Approximate Energy Requirements Using 1470 kcal/Kg Calculation Used for Recommendations Kcal/kg Additional Notes Protein Needs: 82-98g (1-1.25g /kg 82 kg adjBW) Fluid Needs: 1 ml/kcal Nutrition Intervention Change Diet Order: Cardiac/Consistent CHO Add Supplement/Snack (indicate name/kcal Glucerna Butter Pecan 1 daily /protein ) Provides kCal: 220 Provides Protein (gm) 10 Goal #1 Meet at least 75% of calorie and protein needs via PO and ONS intakes Anticipated Discharge Needs: Cardiac/Consistent CHO diet Follow-Up By: 04/24/19 Additional Comments Follow for PO and ONS intakes
[2019-04-20] MEDS: COUMADIN PO SCH (17:25)
[2019-04-20] MEDS: PRAVACHOL PO SCH (21:34)
[2019-04-21 05:28] LABS: INR 2.48 (0.87-1.13)
[2019-04-21] MEDS: DICLOFENAC 1% TP SCH ×3 (08:40→21:59)
[2019-04-21] MEDS: COZAAR PO SCH (08:43)
[2019-04-21] MEDS: HCTZ PO SCH (08:43)
[2019-04-21] MEDS: GLUCOPHAGE PO SCH ×2 (08:44→18:01)
[2019-04-21] MEDS: HALFPRIN EC PO SCH (08:45)
--- NOTE | 2019-04-21 12:12 | Progress Note ---
Assessment and Plan Assessment and plan: Patient is a 68 year old male admitted to the Inpatient Rehab unit for management of right sided weakness and dysarthria secondary to CVA. Patient has had 2 previous strokes in the past, multiple work up has not shown an etiology and there is currently a discussion about Outpatien PFO closure as PFO was seen on JAN with no thrombus and an EF of 55-60% Patient was transitioned to Coumadin and is subtherapeutic on arrival to our facility and has been started on a lovenox bridge, she was previously on Eliquis but transition was done per the patient due to recurrent stroke on Eliquis She reports compliance with her medication. She also has metabolic syndrome with diabetes mellitus CVA-Right sided Hemiplegia Dysarthria Hypertension Costochondritis-improved * cardiac enzymes are negative. No reoccurrence DM Type 2, new onset-Discussed this new diagnosis with the patient. Obese Debility PFO Plan Continue supportive care Accu check ACHS Continue Metformin Continue Rehab assessment and plan Outpatient cardiology for PFO closure Continue Coumadin with a goal INR of 2-3. INR therapeutic today. DVT and GI prophylaxis To follow up with outpatient cardiology for PFO closure History Interval history: Stroke with right sided weakness No chest pain No new complaints Hospitalist Physical - Physical exam Narrative exam: Gen: Not in acute distress, lying in bed,obese HEENT: Normocephalic, atraumatic Neck: supple, no JVD Heart: S1 and S2 reg, no murmurs, rubs or gallop Lungs: Clear, no crackles, no wheeze Abd: soft, non tender, non distended, normal BS Ext: No edema, no clubbing, no cyanosis, Neuro: Awake,alert, oriented x 3, right sided weakness residual from stroke - Constitutional Vitals: Temp Pulse Resp BP Pulse Ox 98.0 F 73 20 122/75 95 04/21/19 07:22 04/21/19 08:43 04/21/19 07:22 04/21/19 08:43 04/21/19 11:56 General appearance: Present: no acute distress, obese Results - Labs CBC & Chem 7: 04/18/19 07:37 04/18/19 07:37 Labs: Laboratory Last Values WBC 4.7 K/mm3 (4.5-11.0) 04/18/19 07:37 RBC 4.46 M/mm3 (3.65-5.03) 04/18/19 07:37 Hgb 14.2 gm/dl (10.1-14.3) 04/18/19 07:37 Hct 40.7 % (30.3-42.9) 04/18/19 07:37 MCV 91 fl (79-97) 04/18/19 07:37 MCH 32 pg (28-32) 04/18/19 07:37 MCHC 35 % (30-34) H 04/18/19 07:37 RDW 14.1 % (13.2-15.2) 04/18/19 07:37 Plt Count 271 K/mm3 (140-440) 04/18/19 07:37 Lymph % (Auto) 43.7 % (13.4-35.0) H 04/12/19 04:40 [place] % (Auto) 9.6 % (0.0-7.3) H 04/12/19 04:40 Eos % (Auto) 2.1 % (0.0-4.3) 04/12/19 04:40 Baso % (Auto) 0.6 % (0.0-1.8) 04/12/19 04:40 Lymph # 2.1 K/mm3 (1.2-5.4) 04/12/19 04:40 [place] # 0.5 K/mm3 (0.0-0.8) 04/12/19 04:40 Eos # 0.1 K/mm3 (0.0-0.4) 04/12/19 04:40 Baso # 0.0 K/mm3 (0.0-0.1) 04/12/19 04:40 Seg Neutrophils % 44.0 % (40.0-70.0) 04/12/19 04:40 Seg Neutrophils # 2.1 K/mm3 (1.8-7.7) 04/12/19 04:40 PT 26.4 Sec. (12.2-14.9) H 04/21/19 04:33 INR 2.48 (0.87-1.13) H 04/21/19 04:33 Sodium 141 mmol/L (137-145) 04/18/19 07:37 Potassium 3.8 mmol/L (3.6-5.0) 04/18/19 07:37 Chloride 99.8 mmol/L (98-107) 04/18/19 07:37 Carbon Dioxide 28 mmol/L (22-30) 04/18/19 07:37 17 mmol/L 04/18/19 07:37 BUN 26 mg/dL (7-17) H 04/18/19 07:37 1.2 mg/dL (0.7-1.2) 04/18/19 07:37 Estimated GFR 54 ml/min 04/18/19 07:37 22 % 04/18/19 07:37 Glucose 112 mg/dL (65-100) H 04/18/19 07:37 POC Glucose 110 (70-105) H 04/21/19 07:27 Calcium 9.1 mg/dL (8.4-10.2) 04/18/19 07:37 0.30 mg/dL (0.1-1.2) 04/12/19 04:40 AST 16 units/L (5-40) 04/12/19 04:40 ALT 17 units/L (7-56) 04/12/19 04:40 57 units/L (35-129) 04/12/19 04:40 < 0.010 ng/mL (0.00-0.029) 04/13/19 16:42 6.3 g/dL (6.3-8.2) 04/12/19 04:40 3.3 g/dL (3.9-5) L 04/12/19 04:40 1.1 % 04/12/19 04:40 Active Medications - Current Medications Current Medications: Generic Name Dose Route Start Last Admin Trade Name Freq PRN Reason Stop Dose Admin Acetaminophen 650 mg 04/11/19 12:58 Tylenol PO Q4H PRN Pain MILD(1-3)/Fever >100.5/SARABIA Aspirin 81 mg 04/12/19 08:00 04/21/19 08:45 Halfprin Ec PO 81 mg QDAY SHAILESH Administration Bisacodyl 10 mg 04/11/19 12:58 Dulcolax OR QDAY PRN Constipation unrelieved by MOM Diclofenac Sodium 1 applic 04/16/19 14:00 04/21/19 08:40 Diclofenac 1% TP 04/30/19 13:59 1 applic TID SHAILESH Administration Hydrochlorothiazide 25 mg 04/12/19 08:00 04/21/19 08:43 Hctz PO 25 mg QDAY SHAILESH Administration Losartan Potassium 75 mg 04/16/19 14:11 04/21/19 08:43 Cozaar PO 75 mg QDAY SHAILESH Administration Magnesium Hydroxide 30 ml 04/11/19 12:58 04/20/19 13:02 Milk Of Magnesia PO 30 ml Q4H PRN Administration Constipation Metformin HCl 500 mg 04/11/19 17:00 04/21/19 08:44 Glucophage PO 500 mg BIDDIAB SHAILESH Administration Pravastatin Sodium 40 mg 04/11/19 21:00 04/20/19 21:34 Pravachol PO 40 mg QHS SHAILESH Administration Promethazine HCl 25 mg 04/11/19 13:18 Phenergan PO Q6H PRN Nausea And Vomiting Simethicone 80 mg 04/16/19 13:10 Mylicon PO Q6H PRN Gas pain Warfarin Sodium 2.5 mg 04/19/19 17:00 04/20/19 17:25 Coumadin PO 2.5 mg DAILY@1700 SHAILESH Administration Nutrition/Malnutrition Assess - Dietary Evaluation Nutrition/Malnutrition Findings: Nutrition Notes Start: 04/12/19 17:44 Freq: Status: Active Protocol: Document 04/19/19 18:16 RM (Rec: 04/19/19 18:21 RM [id number]) Nutrition Notes Initial or Follow up Reassessment Current Diagnosis Hypertension,Stroke Current Diet Consistent CHO, Cardiac w/ Glucerna Chocolate daily Labs/Tests Reviewed Pertinent Medications Reviewed Height 5 ft 6 in Weight 105 kg [place] Body Weight (kg) 59.09 BMI 37.3 Subjective/Other Information Pt stated that she eats 1/3 of her meals. Stated she does not like the Glucerna but will try a different flavor. Percent of energy/protein needs met: 45%/34% Burn Absent Trauma Absent #1 Nutrition Diagnosis Inadequate oral intake As Evidenced by Signs and Symptoms pt meeting 45% of calorie and 34% of protein needs Diagnosis Progress(for reassessment Worsened documentation) Is patient on ventilator? No Is Patient Ambulatory and/or Out of Bed No REE-([place]-confined to bed) 1921.368 Kcal/Kg value to use for calculation 14 Approximate Energy Requirements Using 1470 kcal/Kg Calculation Used for Recommendations Kcal/kg Additional Notes Protein Needs: 82-98g (1-1.25g /kg 82 kg adjBW) Fluid Needs: 1 ml/kcal Nutrition Intervention Change Diet Order: Cardiac/Consistent CHO Add Supplement/Snack (indicate name/kcal Glucerna Butter Pecan 1 daily /protein ) Provides kCal: 220 Provides Protein (gm) 10 Goal #1 Meet at least 75% of calorie and protein needs via PO and ONS intakes Anticipated Discharge Needs: Cardiac/Consistent CHO diet Follow-Up By: 04/24/19 Additional Comments Follow for PO and ONS intakes
[2019-04-21] MEDS ORDERED: COUMADIN PO SCH (17:00)
[2019-04-21] MEDS: PRAVACHOL PO SCH (21:59)
[2019-04-22 05:00] LABS: INR 2.31 (0.87-1.13)
[2019-04-22] MEDS: HALFPRIN EC PO SCH (07:53)
[2019-04-22] MEDS: COZAAR PO SCH (07:53)
[2019-04-22] MEDS: GLUCOPHAGE PO SCH ×2 (07:53→17:42)
[2019-04-22] MEDS: DICLOFENAC 1% TP SCH ×3 (07:54→21:37)
[2019-04-22] MEDS: HCTZ PO SCH (08:14)
[2019-04-22] MEDS ORDERED: COUMADIN PO SCH ×2 (17:00)
--- NOTE | 2019-04-22 19:43 | Progress Note ---
Assessment and Plan - Patient Problems (1) Diabetes 1.5, managed as type 1 Current Visit: Yes Status: Acute Plan to address problem: Patient diabetes as optimal control blood pressure 113 126. Continue metformin. His scale insulin coverage. (2) Diabetes 1.5, managed as type 2 Current Visit: Yes Status: Acute (3) Acute CVA (cerebrovascular accident) Current Visit: No Status: Acute Plan to address problem: It seemed to be coming along well with therapy. Continue current physical th erapy risk factors very well controlled. (4) Hypertension Current Visit: Yes Status: Acute Plan to address problem: Currently has optimal control with losartan. (5) Lipidemia Current Visit: Yes Status: Acute Plan to address problem: Continue statin goal LDL less than 70. History Interval history: 68-year-old presented with right sided weakness secondary to CVA. Found to have PFO on JAN patient started on Coumadin here for continue physical therapy. Patient states she's been doing well with physical therapy. No new concerns today stable vital stable. Hospitalist Physical - Constitutional Vitals: Temp Pulse Resp BP Pulse Ox 98 F 76 20 114/74 98 04/22/19 15:15 04/22/19 15:15 04/22/19 15:15 04/22/19 15:15 04/22/19 15:15 General appearance: Present: no acute distress, obese - EENT Eyes: Present: PERRL, EOM intact ENT: hearing intact, clear oral mucosa, dentition normal - Neck Neck: Present: supple, normal ROM - Respiratory Respiratory effort: normal Respiratory: bilateral: CTA - Cardiovascular Rhythm: regular - Extremities Extremities: no ischemia, pulses intact, pulses symmetrical, No edema, normal temperature Extremity abnormal: other (sided weakness. Right) Peripheral Pulses: within normal limits - Abdominal General gastrointestinal: soft, non-tender, non-distended, normal bowel sounds - Integumentary Integumentary: Present: clear, warm, dry - Psychiatric Psychiatric: appropriate mood/affect, intact judgment & insight, cooperative - Neurologic Neurologic: focal deficits, moves all extremities Results - Labs CBC & Chem 7: 04/18/19 07:37 04/18/19 07:37 Labs: Laboratory Last Values WBC 4.7 K/mm3 (4.5-11.0) 04/18/19 07:37 RBC 4.46 M/mm3 (3.65-5.03) 04/18/19 07:37 Hgb 14.2 gm/dl (10.1-14.3) 04/18/19 07:37 Hct 40.7 % (30.3-42.9) 04/18/19 07:37 MCV 91 fl (79-97) 04/18/19 07:37 MCH 32 pg (28-32) 04/18/19 07:37 MCHC 35 % (30-34) H 04/18/19 07:37 RDW 14.1 % (13.2-15.2) 04/18/19 07:37 Plt Count 271 K/mm3 (140-440) 04/18/19 07:37 Lymph % (Auto) 43.7 % (13.4-35.0) H 04/12/19 04:40 [place] % (Auto) 9.6 % (0.0-7.3) H 04/12/19 04:40 Eos % (Auto) 2.1 % (0.0-4.3) 04/12/19 04:40 Baso % (Auto) 0.6 % (0.0-1.8) 04/12/19 04:40 Lymph # 2.1 K/mm3 (1.2-5.4) 04/12/19 04:40 [place] # 0.5 K/mm3 (0.0-0.8) 04/12/19 04:40 Eos # 0.1 K/mm3 (0.0-0.4) 04/12/19 04:40 Baso # 0.0 K/mm3 (0.0-0.1) 04/12/19 04:40 Seg Neutrophils % 44.0 % (40.0-70.0) 04/12/19 04:40 Seg Neutrophils # 2.1 K/mm3 (1.8-7.7) 04/12/19 04:40 PT 24.9 Sec. (12.2-14.9) H 04/22/19 04:24 INR 2.31 (0.87-1.13) H 04/22/19 04:24 Sodium 141 mmol/L (137-145) 04/18/19 07:37 Potassium 3.8 mmol/L (3.6-5.0) 04/18/19 07:37 Chloride 99.8 mmol/L (98-107) 04/18/19 07:37 Carbon Dioxide 28 mmol/L (22-30) 04/18/19 07:37 17 mmol/L 04/18/19 07:37 BUN 26 mg/dL (7-17) H 04/18/19 07:37 1.2 mg/dL (0.7-1.2) 04/18/19 07:37 Estimated GFR 54 ml/min 04/18/19 07:37 22 % 04/18/19 07:37 Glucose 112 mg/dL (65-100) H 04/18/19 07:37 POC Glucose 113 (70-105) H 04/22/19 06:55 Calcium 9.1 mg/dL (8.4-10.2) 04/18/19 07:37 0.30 mg/dL (0.1-1.2) 04/12/19 04:40 AST 16 units/L (5-40) 04/12/19 04:40 ALT 17 units/L (7-56) 04/12/19 04:40 57 units/L (35-129) 04/12/19 04:40 < 0.010 ng/mL (0.00-0.029) 04/13/19 16:42 6.3 g/dL (6.3-8.2) 04/12/19 04:40 3.3 g/dL (3.9-5) L 04/12/19 04:40 1.1 % 04/12/19 04:40 Active Medications - Current Medications Current Medications: Generic Name Dose Route Start Last Admin Trade Name Jose Franciscoq PRN Reason Stop Dose Admin Acetaminophen 650 mg 04/11/19 12:58 Tylenol PO Q4H PRN Pain MILD(1-3)/Fever >100.5/[place]AR[place] Aspirin 81 mg 04/12/19 08:00 04/22/19 07:53 Halfprin Ec PO 81 mg QDAY SHAILESH Administration Bisacodyl 10 mg 04/11/19 12:58 Dulcolax [place] QDAY PRN Constipation unrelieved by MOM Diclofenac Sodium 1 applic 04/16/19 14:00 04/22/19 15:59 Diclofenac 1% TP 04/30/19 13:59 Not Given TID [facility] Hydrochlorothiazide 25 mg 04/12/19 08:00 04/22/19 08:14 Hctz PO 25 mg QDAY SHAILESH Administration Losartan Potassium 75 mg 04/16/19 14:11 04/22/19 07:53 Cozaar PO 75 mg QDAY SHAILESH Administration Magnesium Hydroxide 30 ml 04/11/19 12:58 04/20/19 13:02 Milk Of Magnesia PO 30 ml Q4H PRN Administration Constipation Metformin HCl 500 mg 04/11/19 17:00 04/22/19 17:42 Glucophage PO 500 mg BIDDIAB SHAILESH Administration Pravastatin Sodium 40 mg 04/11/19 21:00 04/21/19 21:59 Pravachol PO 40 mg QHS SHAILESH Administration Promethazine HCl 25 mg 04/11/19 13:18 Phenergan PO Q6H PRN Nausea And Vomiting Simethicone 80 mg 04/16/19 13:10 Mylicon PO Q6H PRN Gas pain Warfarin Sodium 5 mg 04/22/19 17:00 04/22/19 17:42 Coumadin PO 5 mg DAILY@1700 SHAILESH Administration Nutrition/Malnutrition Assess - Dietary Evaluation Nutrition/Malnutrition Findings: Nutrition Notes Start: 04/12/19 17:44 Freq: Status: Active Protocol: Document 04/19/19 18:16 RM (Rec: 04/19/19 18:21 RM [id number]) Nutrition Notes Initial or Follow up Reassessment Current Diagnosis Hypertension,Stroke Current Diet Consistent CHO, Cardiac w/ Glucerna Chocolate daily Labs/Tests Reviewed Pertinent Medications Reviewed Height 5 ft 6 in Weight 105 kg [place] Body Weight (kg) 59.09 BMI 37.3 Subjective/Other Information Pt stated that she eats 1/3 of her meals. Stated she does not like the Glucerna but will try a different flavor. Percent of energy/protein needs met: 45%/34% Burn Absent Trauma Absent #1 Nutrition Diagnosis Inadequate oral intake As Evidenced by Signs and Symptoms pt meeting 45% of calorie and 34% of protein needs Diagnosis Progress(for reassessment Worsened documentation) Is patient on ventilator? No Is Patient Ambulatory and/or Out of Bed No REE-([place]-confined to bed) 1921.368 Kcal/Kg value to use for calculation 14 Approximate Energy Requirements Using 1470 kcal/Kg Calculation Used for Recommendations Kcal/kg Additional Notes Protein Needs: 82-98g (1-1.25g /kg 82 kg adjBW) Fluid Needs: 1 ml/kcal Nutrition Intervention Change Diet Order: Cardiac/Consistent CHO Add Supplement/Snack (indicate name/kcal Glucerna Butter Pecan 1 daily /protein ) Provides kCal: 220 Provides Protein (gm) 10 Goal #1 Meet at least 75% of calorie and protein needs via PO and ONS intakes Anticipated Discharge Needs: Cardiac/Consistent CHO diet Follow-Up By: 04/24/19 Additional Comments Follow for PO and ONS intakes
[2019-04-22] MEDS: PRAVACHOL PO SCH (21:36)
[2019-04-23] MEDS: COZAAR PO SCH (07:07)
[2019-04-23] MEDS: GLUCOPHAGE PO SCH ×2 (07:07→17:19)
[2019-04-23] MEDS: HALFPRIN EC PO SCH (07:07)
[2019-04-23] MEDS: DICLOFENAC 1% TP SCH ×3 (07:07→21:50)
[2019-04-23] MEDS: HCTZ PO SCH (07:07)
--- NOTE | 2019-04-23 09:54 | Progress Note ---
Subjective Date of service: 04/23/19 Principal diagnosis: CVA Interval history: 68 yo RHD female who woke up with right sided weakness and dysarthria. Son was present for the exam. She states she had a previous CVA and TIA and records confirm. She was evaluated and found to have acute left pontine lacunar infarcts. Cardiology was consulted due to previously known PFO. JAN showed EF 55-60, no thrombus and a PFO. She was advised to follow up as outpatient for PFO closure. No PE seen on chest CTA. Per cardiology, she was transitioned from Eliquis to Coumadin and is currently subtherapeutic. I will start her on a lovenox bridge until she has therapeutic INR. A1C was above the cutoff for diabetes - discussed with her and her son. Will start on carb controlled diet and metformin. Patient is participating in therapy and making reasonable progress. Taking rest breaks as needed. +BM, no incontinence of B/B. Does note that she is having episodes of of urge but no UOP. Have asked nursing to obtain a post void residual bladder scan. Also notes tenderness in right flank, but NTTP. Denies pain, palpitations, dyspnea, cough, N/V. Has increased pain in the right knee worse with weightbearing and not as bad when sitting or lying. Able to walk with a hemiwalker and assistance as well as knee immobilizer and dorsiflexion assist. We'll continue improving balance and ambulation and may need to order a custom KAFO. Right hand strength has improved but her fine motor skills are still lacking in the right hand. Right lower extremity strength is improving as well. No tenderness to palpation or signs of shoulder-hand syndrome at this point. INR in range, pharmacy is still managing. Vitals stable. Monitor Discussed in Team Conference. Making good progress in all therapies. Will see if she tolerates walking without knee brace (not ordered yet). Concern for possible skin breakdown with use. On track for discharge next week. All records, vitals, labs and medications were reviewed. No other issues per patient, nursing or therapy. Objective - Exam Narrative Exam: MUSCULOSKELETAL SPECIALTY EXAM CONSTITUTIONAL: Well developed, well nourished, obese, appropriately groomed. RIGHT hand dominant. RESPIRATORY: Clear to auscultation bilaterally, no increased work of breathing CARDIOVASCULAR: Regular Rate/ Rhythm, no swelling, edema or tenderness in BUE or BLE. All extremities warm. GI: + bowel sounds, soft, NTTP, nondistended. INTEGUMENTARY: Normal, no lesion, rash, masses or bruising noted in extremities. MUSCULOSKELETAL: BUE and BLE normal without defect, crepitus, subluxation, effusion, arthritic changes or TTP. SA EF WE EE FF FA HF KE ADF EHL APF R 2/5 4-/5 3/5 3/5 4-/5 3/5 2/5 2/5 2/5 2/5 2/5 L 4+/5 ROM decreased on right Tone decreased on the right NEURO: CN II-XII grossly intact except for Right facial droop and tongue protrudes slightly left Sensation intact in all extremities without extinction. No tremor noted in 4 extremities. Naming and repetition intact. Follows 2 step commands. Aphasia not appreciated Dysarthria present but improved Dysphagia not appreciated Neglect not appreciated POSTURE and GAIT: Sitting posture good. Balance and Gait need improvement. Utilizing hemiwalker, knee immobilizer and dorsiflexion assist PSYCH: Alert, orientated x3, affect appears euthymic. Insight appears intact. - Constitutional Vitals: Vital Signs - 12hr 04/23/19 04/23/19 04/23/19 00:26 00:51 07:02 Temperature 37.1 C Pulse Rate 82 75 71 Respiratory 18 Rate Blood Pressure 105/70 [Right] O2 Sat by Pulse 86 94 94 Oximetry 04/23/19 07:05 Temperature 36.5 C Pulse Rate 71 Respiratory 18 Rate Blood Pressure 110/68 [Right] O2 Sat by Pulse 94 Oximetry - Allied health notes Allied health notes reviewed: nursing, PT, ST, OT FIMS assessment as documented by PT/OT/ST: Grooming Patient cleans teeth/dentures: Yes Patient capellan/brushes hair: Yes Patient washes, rinses and Yes dries face: Patient washes, rinses and Yes dries hands: Patient shaves: No Patient applies make-up: No Patient performs (no make-up/ 01/31 (100%) shaving): Grooming FIM Score 4. Minimal Assistance (Patient = 75% or more. Needs touching.) Toileting Patient able to: Clean self Patient able to perform: 1/3 (33%) Toileting FIM Score 2. Maximal Assistance (Patient = 25% or more) Social interaction/Memory/Problem solving Social Interaction FIM Score 5. Supervision (Needs supv. <10%. Needs encouragement to participate.) Memory FIM Score 5. Supervision (Needs cueing <10%, stressful/ unfamiliar situations.) Problem Solving FIM Score 5. Supervision (Needs cueing <10% to solve routine problems.) Transfers Mode of Locomotion: Wheelchair Bed/Chair/Wheelchair Transfers 4. Minimal Assistance (Patient = 75% or more. FIM Score Needs touching.) Toilet Transfers FIM Score 3. Moderate Assistance (Patient = 50% or more. Some lifting.) Patient transferred to: Shower Shower Transfers FIM Score 3. Moderate Assistance (Patient = 50% or more. Some lifting.) Locomotion- walk/wheelchair Most Frequent Mode of Wheelchair Locomotion: Ambulation Distance 110 Walking FIM Score 2. Maximal Assistance (Patient = 25% or more. Minimum of 50 ft.) Wheelchair Propulsion Distance 150 Wheelchair FIM Score 4. Minimal Assistance (Patient = 75% or more. Minimum of 150 ft.) Eating Eating FIM Score 4. Minimal Assistance (Patient = 75% or more) Dressing-Upper body Patient retrieves clothing No items: Patient applies/removes UE n/a prosthesis or orthosis: Upper Body Dressing FIM Score 2. Maximal Assistance (Patient = 25% or more) Dressing-lower body Patient retrieves clothing No items: Patient applies/removes LE n/a prosthesis or orthosis: Lower Body Dressing FIM Score 2. Maximal Assistance (Patient = 25% or more) - Labs CBC & Chem 7: 04/18/19 07:37 04/18/19 07:37 Labs: Laboratory Results - last 72 hr 04/21/19 04/21/19 04/22/19 04:33 07:27 04:24 PT 26.4 H 24.9 H INR 2.48 H 2.31 H POC Glucose 110 H 04/22/19 04/23/19 06:55 06:53 PT INR POC Glucose 113 H 119 H Assessment and Plan I69.351 hemiplegia affecting right dominant side after CVA: Continue secondary stroke prevention, discussed prognosis with patient and family, monitor for neurological decline, therapy is below, monitor for post stroke depression, monitor for shoulder hand syndrome. Strength is improving as noted in exam I69.322 dysarthria: POKE IN for improving ability to speak clearly and improve vocal quality, improving I10 hypertension: Continue medications and adjust as needed. We'll consult tawnya cooper for further management. E11.9 DM: A1c this admission is 6.6, cutoff for prediabetes is 6.4 according to [employer]. Discussed with patient that this is also a risk factor for future strokes and will need to monitor this closely for her via dietary control and starting low-dose metformin. She may be able to discontinue metformin in the future if she is able to control her glucose with diet. Discussed with nursing to check glucose once daily, range has improved on metformin. Z73.6 ADL dysfunction: OT will work on improving ability to perform ADLs (including assistive devices) to increase independence and decrease caregiver burden and improve functional transfers and mobility training. R26.2 Difficulty walking: PT will work on gait training and proper use of assistive devices and advance as appropriate to use of stairs and outside ambulation on uneven surfaces. R26.81 Unsteadiness on feet: PT will work on improving static and dynamic sitting and standing balance as well as proper use of assistive devices to decrease risk of falls. R26.89 Abnormality of gait: PT will work to improve safety and efficiency of gait through neuromotor training and gait training along with instruction on proper use of assistive devices. M62.81 Muscle weakness: PT & OT will work on strengthening exercises to improve functional strength including mixture of closed and open kinetic chain exercises. R53.81 Debility: PT & OT will work on improving overall functional status to improve participation with ADLs, mobility and social involvement. R53.83 Fatigue: PT & OT will work on improving endurance through aerobic exercises and therapeutic activity while monitoring patients tolerance for activity and vital signs as needed. Right Knee pain: continue Voltaren gel 3 times a day as ordered, XR shows mild arthritis, knee brace. PFO: We'll maintain patient on Coumadin with a goal INR of 2-3. Will need to follow up with cardiology as outpatient Bladder: likely incomplete emptying. Check PVR. Also check UA/C&S DVT ppx: Coumadin for a/c Pain: Continue physical modalities in therapy and pain medications as needed to achieve functional pain control. Sleep: Monitor and address as needed. Bowel: Monitor and address as needed. Appetite: Monitor and address as needed. Discharge planning: Pending therapy progress and care plan meeting. Will continue discussion with therapy team, SW, patient and family. Restrictions/ Precautions: Falls WB status: FWB Functional Hx: ADLs: Independent Cognition: Independent Mobility: No AD mostly, used a cane occasionally. Barriers to Discharge: Decreased mobility and ability to perform self care, balance deficits, weakness, dysarthria, possible dysphagia and visual field deficit Estimated Length of Stay: 14-21 days Discharge Destination: Home with family
[2019-04-23 14:40] LABS: INR 1.95 (0.87-1.13)
[2019-04-23] MEDS: COUMADIN PO SCH (17:19)
[2019-04-23 17:48] LABS: Bilirubin,Urine NEG (Negative); Blood,Urine NEG (Negative); Color,Urine Yellow (Yellow); Mucus,Urine FEW /HPF; Protein,Urine <15 mg/dL mg/dL (Negative); Urobilinogen,Urine < 2.0 mg/dL (<2.0)
[2019-04-23] MEDS: PRAVACHOL PO SCH (21:50)
[2019-04-24 05:31] LABS: INR 2.07 (0.87-1.13)
[2019-04-24] MEDS: GLUCOPHAGE PO SCH ×2 (09:16→17:29)
[2019-04-24] MEDS: HCTZ PO SCH (09:16)
[2019-04-24] MEDS: HALFPRIN EC PO SCH (09:17)
[2019-04-24] MEDS: COZAAR PO SCH (09:17)
[2019-04-24] MEDS: DICLOFENAC 1% TP SCH ×3 (09:19→22:12)
--- NOTE | 2019-04-24 12:13 | Progress Note ---
Assessment and Plan Assessment and plan: CVA-Right sided Hemiplegia Dysarthria Hypertension Costochondritis-improved * cardiac enzymes are negative. No reoccurrence DM Type 2, new onset-Discussed this new diagnosis with the patient. Obese Debility PFO Plan Continue supportive care Accu check ACHS Continue Metformin Continue Rehab assessment and plan Outpatient cardiology for PFO closure Continue Coumadin with a goal INR of 2-3. INR therapeutic today. DVT and GI prophylaxis To follow up with outpatient cardiology for PFO closure History Interval history: Patient is a 68 year old male admitted to the Inpatient Rehab unit for management of right sided weakness and dysarthria secondary to CVA. Patient has had 2 previous strokes in the past, multiple work up has not shown an etiology and there is currently a discussion about Outpatien PFO closure as PFO was seen on JAN with no thrombus and an EF of 55-60% Patient was transitioned to Coumadin and is subtherapeutic on arrival to our facility and has been started on a lovenox bridge, she was previously on Eliquis but transition was done per the patient due to recurrent stroke on Eliquis She reports compliance with her medication. She also has metabolic syndrome with diabetes mellitus No new issues overnight. Hospitalist Physical - Constitutional Vitals: Temp Pulse Resp BP Pulse Ox 97.0 F L 72 20 134/68 95 04/24/19 07:42 04/24/19 07:42 04/24/19 07:42 04/24/19 07:42 04/24/19 07:42 General appearance: Present: no acute distress, obese - EENT Eyes: Present: PERRL, EOM intact ENT: hearing intact, clear oral mucosa, dentition normal - Neck Neck: Present: supple, normal ROM - Respiratory Respiratory effort: normal Respiratory: bilateral: CTA - Cardiovascular Rhythm: regular Heart Sounds: Present: S1 & S2. Absent: gallop, rub - Extremities Extremities: no ischemia, No edema, Full ROM - Abdominal General gastrointestinal: soft, non-tender, non-distended, normal bowel sounds - Integumentary Integumentary: Present: clear, warm, dry - Neurologic Neurologic: CNII-XII intact, moves all extremities Results - Labs CBC & Chem 7: 04/18/19 07:37 04/18/19 07:37 Labs: Laboratory Last Values WBC 4.7 K/mm3 (4.5-11.0) 04/18/19 07:37 RBC 4.46 M/mm3 (3.65-5.03) 04/18/19 07:37 Hgb 14.2 gm/dl (10.1-14.3) 04/18/19 07:37 Hct 40.7 % (30.3-42.9) 04/18/19 07:37 MCV 91 fl (79-97) 04/18/19 07:37 MCH 32 pg (28-32) 04/18/19 07:37 MCHC 35 % (30-34) H 04/18/19 07:37 RDW 14.1 % (13.2-15.2) 04/18/19 07:37 Plt Count 271 K/mm3 (140-440) 04/18/19 07:37 Lymph % (Auto) 43.7 % (13.4-35.0) H 04/12/19 04:40 [place] % (Auto) 9.6 % (0.0-7.3) H 04/12/19 04:40 Eos % (Auto) 2.1 % (0.0-4.3) 04/12/19 04:40 Baso % (Auto) 0.6 % (0.0-1.8) 04/12/19 04:40 Lymph # 2.1 K/mm3 (1.2-5.4) 04/12/19 04:40 [place] # 0.5 K/mm3 (0.0-0.8) 04/12/19 04:40 Eos # 0.1 K/mm3 (0.0-0.4) 04/12/19 04:40 Baso # 0.0 K/mm3 (0.0-0.1) 04/12/19 04:40 Seg Neutrophils % 44.0 % (40.0-70.0) 04/12/19 04:40 Seg Neutrophils # 2.1 K/mm3 (1.8-7.7) 04/12/19 04:40 PT 22.9 Sec. (12.2-14.9) H 04/24/19 04:48 INR 2.07 (0.87-1.13) H 04/24/19 04:48 Sodium 141 mmol/L (137-145) 04/18/19 07:37 Potassium 3.8 mmol/L (3.6-5.0) 04/18/19 07:37 Chloride 99.8 mmol/L (98-107) 04/18/19 07:37 Carbon Dioxide 28 mmol/L (22-30) 04/18/19 07:37 17 mmol/L 04/18/19 07:37 BUN 26 mg/dL (7-17) H 04/18/19 07:37 1.2 mg/dL (0.7-1.2) 04/18/19 07:37 Estimated GFR 54 ml/min 04/18/19 07:37 22 % 04/18/19 07:37 Glucose 112 mg/dL (65-100) H 04/18/19 07:37 POC Glucose 113 (70-105) H 04/24/19 07:02 Calcium 9.1 mg/dL (8.4-10.2) 04/18/19 07:37 0.30 mg/dL (0.1-1.2) 04/12/19 04:40 AST 16 units/L (5-40) 04/12/19 04:40 ALT 17 units/L (7-56) 04/12/19 04:40 57 units/L (35-129) 04/12/19 04:40 < 0.010 ng/mL (0.00-0.029) 04/13/19 16:42 6.3 g/dL (6.3-8.2) 04/12/19 04:40 3.3 g/dL (3.9-5) L 04/12/19 04:40 1.1 % 04/12/19 04:40 Yellow (Yellow) 04/23/19 16:35 Slightly-cloudy (Clear) 04/23/19 16:35 5.0 (5.0-7.0) 04/23/19 16:35 Ur Specific [place] 1.019 (1.003-1.030) 04/23/19 16:35 <15 mg/dl mg/dL (Negative) 04/23/19 16:35 Neg mg/dL (Negative) 04/23/19 16:35 Neg mg/dL (Negative) 04/23/19 16:35 Neg (Negative) 04/23/19 16:35 Neg (Negative) 04/23/19 16:35 Neg (Negative) 04/23/19 16:35 < 2.0 mg/dL (<2.0) 04/23/19 16:35 Ur Leukocyte Esterase Lg (Negative) 04/23/19 16:35 12.0 /HPF (0.0-6.0) H 04/23/19 16:35 7.0 /HPF (0.0-6.0) 04/23/19 16:35 U Epithel Cells (Auto) 6.0 /HPF (0-13.0) 04/23/19 16:35 Few /HPF 04/23/19 16:35 Active Medications - Current Medications Current Medications: Generic Name Dose Route Start Last Admin Trade Name Freq PRN Reason Stop Dose Admin Acetaminophen 650 mg 04/11/19 12:58 Tylenol PO Q4H PRN Pain MILD(1-3)/Fever >100.5/SARABIA Aspirin 81 mg 04/12/19 08:00 04/24/19 09:17 Halfprin Ec PO 81 mg QDAY SHAILESH Administration Bisacodyl 10 mg 04/11/19 12:58 Dulcolax MI QDAY PRN Constipation unrelieved by MOM Diclofenac Sodium 1 applic 04/16/19 14:00 04/24/19 09:19 Diclofenac 1% TP 04/30/19 13:59 1 applic TID SHAILESH Administration Hydrochlorothiazide 25 mg 04/12/19 08:00 04/24/19 09:16 Hctz PO 25 mg QDAY SHAILESH Administration Losartan Potassium 75 mg 04/16/19 14:11 04/24/19 09:17 Cozaar PO 75 mg QDAY SHAILESH Administration Magnesium Hydroxide 30 ml 04/11/19 12:58 04/20/19 13:02 Milk Of Magnesia PO 30 ml Q4H PRN Administration Constipation Metformin HCl 500 mg 04/11/19 17:00 04/24/19 09:16 Glucophage PO 500 mg BIDDIAB SHAILESH Administration Pravastatin Sodium 40 mg 04/11/19 21:00 04/23/19 21:50 Pravachol PO 40 mg QHS SHAILESH Administration Promethazine HCl 25 mg 04/11/19 13:18 Phenergan PO Q6H PRN Nausea And Vomiting Simethicone 80 mg 04/16/19 13:10 Mylicon PO Q6H PRN Gas pain Warfarin Sodium 6 mg 04/23/19 17:00 04/23/19 17:19 Coumadin PO 6 mg DAILY@1700 SHAILESH Administration Nutrition/Malnutrition Assess - Dietary Evaluation Nutrition/Malnutrition Findings: Nutrition Notes Start: 04/12/19 1 7:44 Freq: Status: Active Protocol: Document 04/19/19 18:16 RM (Rec: 04/19/19 18:21 RM [id number]) Nutrition Notes Initial or Follow up Reassessment Current Diagnosis Hypertension,Stroke Current Diet Consistent CHO, Cardiac w/ Glucerna Chocolate daily Labs/Tests Reviewed Pertinent Medications Reviewed Height 5 ft 6 in Weight 105 kg [place] Body Weight (kg) 59.09 BMI 37.3 Subjective/Other Information Pt stated that she eats 1/3 of her meals. Stated she does not like the Glucerna but will try a different flavor. Percent of energy/protein needs met: 45%/34% Burn Absent Trauma Absent #1 Nutrition Diagnosis Inadequate oral intake As Evidenced by Signs and Symptoms pt meeting 45% of calorie and 34% of protein needs Diagnosis Progress(for reassessment Worsened documentation) Is patient on ventilator? No Is Patient Ambulatory and/or Out of Bed No REE-([facility]-confined to bed) 1921.368 Kcal/Kg value to use for calculation 14 Approximate Energy Requirements Using 1470 kcal/Kg Calculation Used for Recommendations Kcal/kg Additional Notes Protein Needs: 82-98g (1-1.25g /kg 82 kg adjBW) Fluid Needs: 1 ml/kcal Nutrition Intervention Change Diet Order: Cardiac/Consistent CHO Add Supplement/Snack (indicate name/kcal Glucerna Butter Pecan 1 daily /protein ) Provides kCal: 220 Provides Protein (gm) 10 Goal #1 Meet at least 75% of calorie and protein needs via PO and ONS intakes Anticipated Discharge Needs: Cardiac/Consistent CHO diet Follow-Up By: 04/24/19 Additional Comments Follow for PO and ONS intakes
[2019-04-24] MEDS: COUMADIN PO SCH (17:29)
[2019-04-24] MEDS: PRAVACHOL PO SCH (22:12)
[2019-04-25 10:07] LABS: Hematocrit 42.6 % (30.3-42.9); Mean Corpuscular HGB Conc 33 % (30-34); Mean Corpuscular Volume 93 fl (79-97); Platelet Count 295 K/mm3 (140-440); Red Blood Count 4.58 M/mm3 (3.65-5.03); Red Cell Distribution Width 13.9 % (13.2-15.2)
[2019-04-25 10:14] LABS: INR 2.35 (0.87-1.13)
[2019-04-25] MEDS: COZAAR PO SCH (10:22)
[2019-04-25] MEDS: HCTZ PO SCH (10:23)
[2019-04-25] MEDS: GLUCOPHAGE PO SCH ×2 (10:23→18:13)
[2019-04-25] MEDS: HALFPRIN EC PO SCH (10:23)
[2019-04-25 10:26] LABS: BUN/Creatinine Ratio 19; Blood Urea Nitrogen 19 mg/dL (7-17); Calcium 9.1 mg/dL (8.4-10.2); Hemolysis Index 9
[2019-04-25] MEDS: DICLOFENAC 1% TP SCH ×3 (10:26→23:03)
--- NOTE | 2019-04-25 10:28 | Progress Note ---
Subjective Date of service: 04/25/19 Principal diagnosis: CVA Interval history: 68 yo RHD female who woke up with right sided weakness and dysarthria. Son was present for the exam. She states she had a previous CVA and TIA and records confirm. She was evaluated and found to have acute left pontine lacunar infarcts. Cardiology was consulted due to previously known PFO. JAN showed EF 55-60, no thrombus and a PFO. She was advised to follow up as outpatient for PFO closure. No PE seen on chest CTA. Per cardiology, she was transitioned from Eliquis to Coumadin and is currently subtherapeutic. I will start her on a lovenox bridge until she has therapeutic INR. A1C was above the cutoff for diabetes - discussed with her and her son. Will start on carb controlled diet and metformin. Patient is participating in therapy and making reasonable progress. Taking rest breaks as needed. +BM, no incontinence of B/B. UA was possibly contaminated but did have elevated LE and WBC. Will start short course of Bactrim. Denies pain, palpitations, dyspnea, cough, N/V. Has increased pain in the right knee worse with weightbearing and not as bad when sitting or lying. Able to walk with a hemiwalker and assistance as well as knee immobilizer and dorsiflexion assist. Right hand strength has improved but her fine motor skills are still lacking in the right hand. Right lower extremity strength is improving as well. No tenderness to palpation or signs of shoulder-hand syndrome at this point. INR in range, pharmacy is still managing. Vitals stable, with some episodes of hypotension accompanied by dizziness. Will adjust medications. Monitor. Patient concerned today about going home and asked about SNF. Explained she is not appropriate for SNF but could consider [facility]. Will likely d/c with son. Walked outside on uneven surfaces today. All records, vitals, labs and medications were reviewed. No other issues per patient, nursing or therapy. Objective - Exam Narrative Exam: MUSCULOSKELETAL SPECIALTY EXAM CONSTITUTIONAL: Well developed, well nourished, obese, appropriately groomed. RIGHT hand dominant. RESPIRATORY: Clear to auscultation bilaterally, no increased work of breathing CARDIOVASCULAR: Regular Rate/ Rhythm, no swelling, edema or tenderness in BUE or BLE. All extremities warm. GI: + bowel sounds, soft, NTTP, nondistended. INTEGUMENTARY: Normal, no lesion, rash, masses or bruising noted in extremities. MUSCULOSKELETAL: BUE and BLE normal without defect, crepitus, subluxation, effusion, arthritic changes or TTP. SA EF WE EE FF FA HF KE ADF EHL APF R 2/5 4-/5 3/5 3/5 4-/5 3/5 2/5 2/5 2/5 2/5 2/5 L 4+/5 ROM decreased on right Tone decreased on the right NEURO: CN II-XII grossly intact except for Right facial droop and tongue protrudes slightly left Sensation intact in all extremities without extinction. No tremor noted in 4 extremities. Naming and repetition intact. Follows 2 step commands. Aphasia not appreciated Dysarthria present but improved Dysphagia not appreciated Neglect not appreciated POSTURE and GAIT: Sitting posture good. Balance and Gait need improvement. Utilizing hemiwalker, knee immobilizer and dorsiflexion assist PSYCH: Alert, orientated x3, affect appears euthymic. Insight appears intact. - Constitutional Vitals: Vital Signs - 12hr 04/25/19 04/25/19 03:21 10:22 Temperature 36.7 C Pulse Rate 70 77 Respiratory 19 Rate Blood Pressure 122/69 106/68 O2 Sat by Pulse 94 Oximetry - Allied health notes Allied health notes reviewed: nursing, PT, ST, OT FIMS assessment as documented by PT/OT/ST: Grooming Patient cleans teeth/dentures: Yes Patient capellan/brushes hair: Yes Patient washes, rinses and Yes dries face: Patient washes, rinses and Yes dries hands: Patient shaves: No Patient applies make-up: No Patient performs (no make-up/ 01/31 (100%) shaving): Grooming FIM Score 5. Supervision ([place] applies toothpaste or opens containers.) Toileting Patient able to: Clean self Patient able to perform: 1/3 (33%) Toileting FIM Score 2. Maximal Assistance (Patient = 25% or more) Social interaction/Memory/Problem solving Social Interaction FIM Score 7. Complete Hunt (Interacts appropriately. Controls temper.) Memory FIM Score 7. Complete Hunt (Remembers people and routines.) Problem Solving FIM Score 7. Complete Hunt (Solves complex problems. Self corrects.) Transfers Mode of Locomotion: Wheelchair Bed/Chair/Wheelchair Transfers 4. Minimal Assistance (Patient = 75% or more. FIM Score Needs touching.) Toilet Transfers FIM Score 3. Moderate Assistance (Patient = 50% or more. Some lifting.) Patient transferred to: Shower Shower Transfers FIM Score 3. Moderate Assistance (Patient = 50% or more. Some lifting.) Locomotion- walk/wheelchair Most Frequent Mode of Wheelchair Locomotion: Ambulation Distance 170 Walking FIM Score 4. Minimal Assistance (Patient = 75% or more. Minimum of 150 ft.) Wheelchair Propulsion Distance 350 Wheelchair FIM Score 5. Supervision (Minimum 150 ft. supv./cues or 50 ft. independently.) Eating Eating FIM Score 5. Supervision/Set-Up (Needs help w/ con tainers, cutting meat, etc.) Dressing-Upper body Patient retrieves clothing No items: Patient applies/removes UE n/a prosthesis or orthosis: Upper Body Dressing FIM Score 4. Minimal Assistance (Patient = 75% or more. Needs touching.) Dressing-lower body Patient retrieves clothing No items: Patient applies/removes LE n/a prosthesis or orthosis: Lower Body Dressing FIM Score 4. Minimal Assistance (Patient = 75% or more. Needs touching.) - Labs CBC & Chem 7: 04/25/19 09:24 04/25/19 09:24 Labs: Laboratory Results - last 72 hr 04/23/19 04/23/19 04/23/19 06:53 13:25 16:35 WBC RBC Hgb Hct MCV MCH MCHC RDW Plt Count PT 21.8 H INR 1.95 H Sodium Potassium Chloride Carbon Dioxide Anion Gap BUN Creatinine Estimated GFR BUN/Creatinine Ratio Glucose POC Glucose 119 H Calcium Urine Color Yellow Urine Turbidity Slightly-cloudy Urine pH 5.0 Ur Specific [place] 1.019 Urine Protein <15 mg/dl Urine Glucose (UA) Neg Urine Ketones Neg Urine Blood Neg Urine Nitrite Neg Urine Bilirubin Neg Urine Urobilinogen < 2.0 Ur Leukocyte Esterase Lg Urine WBC (Auto) 12.0 H Urine RBC (Auto) 7.0 U Epithel Cells (Auto) 6.0 Urine Mucus Few 04/24/19 04/24/19 04/25/19 04:48 07:02 06:07 WBC RBC Hgb Hct MCV MCH MCHC RDW Plt Count PT 22.9 H INR 2.07 H Sodium Potassium Chloride Carbon Dioxide Anion Gap BUN Creatinine Estimated GFR BUN/Creatinine Ratio Glucose POC Glucose 113 H 116 H Calcium Urine Color Urine Turbidity Urine pH Ur Specific [place] Urine Protein Urine Glucose (UA) Urine Ketones Urine Blood Urine Nitrite Urine Bilirubin Urine Urobilinogen Ur Leukocyte Esterase Urine WBC (Auto) Urine RBC (Auto) U Epithel Cells (Auto) Urine Mucus 04/25/19 04/25/19 04/25/19 09:24 09:24 09:24 WBC 4.7 RBC 4.58 Hgb 14.0 Hct 42.6 MCV 93 MCH 31 MCHC 33 RDW 13.9 Plt Count 295 PT 25.3 H INR 2.35 H Sodium 138 Potassium 3.5 L Chloride 99.7 Carbon Dioxide 24 Anion Gap 18 BUN 19 H Creatinine 1.0 Estimated GFR > 60 BUN/Creatinine Ratio 19 Glucose 168 H POC Glucose Calcium 9.1 Urine Color Urine Turbidity Urine pH Ur Specific [place] Urine Protein Urine Glucose (UA) Urine Ketones Urine Blood Urine Nitrite Urine Bilirubin Urine Urobilinogen Ur Leukocyte Esterase Urine WBC (Auto) Urine RBC (Auto) U Epithel Cells (Auto) Urine Mucus Assessment and Plan I69.351 hemiplegia affecting right dominant side after CVA: Continue secondary stroke prevention, discussed prognosis with patient and family, monitor for neurological decline, therapy is below, monitor for post stroke depression, monitor for shoulder hand syndrome. Strength is improving as noted in exam I69.322 dysarthria: MAYONNAISE MIXER for improving ability to speak clearly and improve vocal quality, improving I10 hypertension: Continue medications and adjust as needed. We'll consult medicine for further management. E11.9 DM: A1c this admission is 6.6, cutoff for prediabetes is 6.4 according to [facility]. Discussed with patient that this is also a risk factor for future strokes and will need to monitor this closely for her via dietary control and starting low-dose metformin. She may be able to discontinue metformin in the future if she is able to control her glucose with diet. Discussed with nursing to check glucose once daily, range has improved on metformin. Z73.6 ADL dysfunction: OT will work on improving ability to perform ADLs (inc luding assistive devices) to increase independence and decrease caregiver burden and improve functional transfers and mobility training. R26.2 Difficulty walking: PT will work on gait training and proper use of assistive devices and advance as appropriate to use of stairs and outside ambulation on uneven surfaces. R26.81 Unsteadiness on feet: PT will work on improving static and dynamic sitting and standing balance as well as proper use of assistive devices to decrease risk of falls. R26.89 Abnormality of gait: PT will work to improve safety and efficiency of gait through neuromotor training and gait training along with instruction on proper use of assistive devices. M62.81 Muscle weakness: PT & OT will work on strengthening exercises to improve functional strength including mixture of closed and open kinetic chain exercises. R53.81 Debility: PT & OT will work on improving overall functional status to improve participation with ADLs, mobility and social involvement. R53.83 Fatigue: PT & OT will work on improving endurance through aerobic exercises and therapeutic activity while monitoring patients tolerance for activity and vital signs as needed. Right Knee pain: continue Voltaren gel 3 times a day as ordered, XR shows mild arthritis, knee brace. PFO: We'll maintain patient on Coumadin with a goal INR of 2-3. Will need to follow up with cardiology as outpatient UTI- short course of bactrim DVT ppx: Coumadin for a/c Pain: Continue physical modalities in therapy and pain medications as needed to achieve functional pain control. Sleep: Monitor and address as needed. Bowel: Monitor and address as needed. Appetite: Monitor and address as needed. Discharge planning: Pending therapy progress and care plan meeting. Will continue discussion with therapy team, SW, patient and family. Restrictions/ Precautions: Falls WB status: FWB Functional Hx: ADLs: Independent Cognition: Independent Mobility: No AD mostly, used a cane occasionally. Barriers to Discharge: Decreased mobility and ability to perform self care, balance deficits, weakness, dysarthria, possible dysphagia and visual field deficit Estimated Length of Stay: 14-21 days Discharge Destination: Home with family
--- NOTE | 2019-04-25 11:09 | Progress Note ---
Assessment and Plan Assessment and plan: CVA-Right sided Hemiplegia Continue Coumadin with a goal INR of 2-3. INR therapeutic today. Dysarthria Hypertension--hypotension this morning. Hold BP meds. Costochondritis-improved * cardiac enzymes are negative. No reoccurrence DM Type 2, new onset-Discussed this new diagnosis with the patient. Accu check ACHS Continue Metformin Obese Debility PFO Outpatient cardiology for PFO closure History Interval history: Patient is a 68 year old male admitted to the Inpatient Rehab unit for management of right sided weakness and dysarthria secondary to CVA. Patient has had 2 previous strokes in the past, multiple work up has not shown an etiology and there is currently a discussion about Outpatien PFO closure as PFO was seen on JAN with no thrombus and an EF of 55-60% Patient was transitioned to Coumadin and is subtherapeutic on arrival to our facility and has been started on a lovenox bridge, she was previously on Eliquis but transition was done per the patient due to recurrent stroke on Eliquis She reports compliance with her medication. She also has metabolic syndrome with diabetes mellitus Patient complained of some mild lightheadedness morning No new issues overnight. Hospitalist Physical - Constitutional Vitals: Temp Pulse Resp BP Pulse Ox 98.0 F 77 18 106/68 96 04/25/19 10:22 04/25/19 10:22 04/25/19 10:22 04/25/19 10:22 04/25/19 10:22 General appearance: Present: no acute distress, obese - EENT Eyes: Present: PERRL, EOM intact ENT: hearing intact, clear oral mucosa, dentition normal - Neck Neck: Present: supple, normal ROM - Respiratory Respiratory effort: normal Respiratory: bilateral: CTA - Cardiovascular Rhythm: regular Heart Sounds: Present: S1 & S2. Absent: gallop, rub - Extremities Extremities: no ischemia, No edema, Full ROM - Abdominal General gastrointestinal: soft, non-tender, non-distended, normal bowel sounds - Integumentary Integumentary: Present: clear, warm, dry - Neurologic Neurologic: CNII-XII intact, moves all extremities Results - Labs CBC & Chem 7: 04/25/19 09:24 04/25/19 09:24 Labs: Laboratory Last Values WBC 4.7 K/mm3 (4.5-11.0) 04/25/19 09:24 RBC 4.58 M/mm3 (3.65-5.03) 04/25/19 09:24 Hgb 14.0 gm/dl (10.1-14.3) 04/25/19 09:24 Hct 42.6 % (30.3-42.9) 04/25/19 09:24 MCV 93 fl (79-97) 04/25/19 09:24 MCH 31 pg (28-32) 04/25/19 09:24 MCHC 33 % (30-34) 04/25/19 09:24 RDW 13.9 % (13.2-15.2) 04/25/19 09:24 Plt Count 295 K/mm3 (140-440) 04/25/19 09:24 Lymph % (Auto) 43.7 % (13.4-35.0) H 04/12/19 04:40 [place] % (Auto) 9.6 % (0.0-7.3) H 04/12/19 04:40 Eos % (Auto) 2.1 % (0.0-4.3) 04/12/19 04:40 Baso % (Auto) 0.6 % (0.0-1.8) 04/12/19 04:40 Lymph # 2.1 K/mm3 (1.2-5.4) 04/12/19 04:40 [place] # 0.5 K/mm3 (0.0-0.8) 04/12/19 04:40 Eos # 0.1 K/mm3 (0.0-0.4) 04/12/19 04:40 Baso # 0.0 K/mm3 (0.0-0.1) 04/12/19 04:40 Seg Neutrophils % 44.0 % (40.0-70.0) 04/12/19 04:40 Seg Neutrophils # 2.1 K/mm3 (1.8-7.7) 04/12/19 04:40 PT 25.3 Sec. (12.2-14.9) H 04/25/19 09:24 INR 2.35 (0.87-1.13) H 04/25/19 09:24 Sodium 138 mmol/L (137-145) 04/25/19 09:24 Potassium 3.5 mmol/L (3.6-5.0) L 04/25/19 09:24 Chloride 99.7 mmol/L (98-107) 04/25/19 09:24 Carbon Dioxide 24 mmol/L (22-30) 04/25/19 09:24 18 mmol/L 04/25/19 09:24 BUN 19 mg/dL (7-17) H 04/25/19 09:24 1.0 mg/dL (0.7-1.2) 04/25/19 09:24 Estimated GFR > 60 ml/min 04/25/19 09:24 19 % 04/25/19 09:24 Glucose 168 mg/dL (65-100) H 04/25/19 09:24 POC Glucose 116 (70-105) H 04/25/19 06:07 Calcium 9.1 mg/dL (8.4-10.2) 04/25/19 09:24 0.30 mg/dL (0.1-1.2) 04/12/19 04:40 AST 16 units/L (5-40) 04/12/19 04:40 ALT 17 units/L (7-56) 04/12/19 04:40 57 units/L (35-129) 04/12/19 04:40 < 0.010 ng/mL (0.00-0.029) 04/13/19 16:42 6.3 g/dL (6.3-8.2) 04/12/19 04:40 3.3 g/dL (3.9-5) L 04/12/19 04:40 1.1 % 04/12/19 04:40 Yellow (Yellow) 04/23/19 16:35 Slightly-cloudy (Clear) 04/23/19 16:35 5.0 (5.0-7.0) 04/23/19 16:35 Ur Specific [place] 1.019 (1.003-1.030) 04/23/19 16:35 <15 mg/dl mg/dL (Negative) 04/23/19 16:35 Neg mg/dL (Negative) 04/23/19 16:35 Neg mg/dL (Negative) 04/23/19 16:35 Neg (Negative) 04/23/19 16:35 Neg (Negative) 04/23/19 16:35 Neg (Negative) 04/23/19 16:35 < 2.0 mg/dL (<2.0) 04/23/19 16:35 Ur Leukocyte Esterase Lg (Negative) 04/23/19 16:35 12.0 /HPF (0.0-6.0) H 04/23/19 16:35 7.0 /HPF (0.0-6.0) 04/23/19 16:35 U Epithel Cells (Auto) 6.0 /HPF (0-13.0) 04/23/19 16:35 Few /HPF 04/23/19 16:35 Active Medications - Current Medications Current Medications: Generic Name Dose Route Start Last Admin Trade Name Freq PRN Reason Stop Dose Admin Acetaminophen 650 mg 04/11/19 12:58 Tylenol PO Q4H PRN Pain MILD(1-3)/Fever >100.5/SARABIA Aspirin 81 mg 04/12/19 08:00 04/25/19 10:23 Halfprin Ec PO 81 mg QDAY SHAILESH Administration Bisacodyl 10 mg 04/11/19 12:58 Dulcolax MD QDAY PRN Constipation unrelieved by MOM Diclofenac Sodium 1 applic 04/16/19 14:00 04/25/19 10:26 Diclofenac 1% TP 04/30/19 13:59 1 applic TID SHAILESH Administration Hydrochlorothiazide 25 mg 04/12/19 08:00 04/25/19 10:23 Hctz PO 25 mg QDAY SHAILESH Administration Losartan Potassium 75 mg 04/16/19 14:11 04/25/19 10:22 Cozaar PO Not Given QDAY SHAILESH Magnesium Hydroxide 30 ml 04/11/19 12:58 04/20/19 13:02 Milk Of Magnesia PO 30 ml Q4H PRN Administration Constipation Metformin HCl 500 mg 04/11/19 17:00 04/25/19 10:23 Glucophage PO 500 mg BIDDIAB SHAILESH Administration Pravastatin Sodium 40 mg 04/11/19 21:00 04/24/19 22:12 Pravachol PO 40 mg QHS SHAILESH Administration Promethazine HCl 25 mg 04/11/19 13:18 Phenergan PO Q6H PRN Nausea And Vomiting Simethicone 80 mg 04/16/19 13:10 Mylicon PO Q6H PRN Gas pain Warfarin Sodium 5 mg 04/25/19 17:00 Coumadin PO DAILY@[facility] Nutrition/Malnutrition Assess - Dietary Evaluation Nutrition/Malnutrition Findings: Nutrition Notes Start: 04/12/19 17:44 Freq: Status: Active Protocol: Document 04/24/19 13:26 LINH (Rec: 04/24/19 13:32 LINH [id number] [email or web address]) Nutrition Notes Initial or Follow up Reassessment Current Diagnosis Diabetes,Hypertension,Stroke, Hyperlipidemia Current Diet Cardiac/Consistent CHO + Glucerna daily Labs/Tests Reviewed Pertinent Medications Reviewed Height 5 ft 6 in Weight 105 kg [place] Body Weight (kg) 59.09 BMI 37.3 Subjective/Other Information Pt not in room at time of visit (10:25). She consumed 75% of meals on 04/21 (no PO intakes documented since then) . Percent of energy/protein needs met: 71% energy 77% pro Burn Absent Trauma Absent #1 Nutrition Diagnosis Inadequate oral intake As Evidenced by Signs and Symptoms PO intake meeting >50% of energy and pro needs Diagnosis Progress(for reassessment Improved documentation) Is patient on ventilator? No Is Patient Ambulatory and/or Out of Bed Yes REE-([facility]-ambulatory/OOB) [ 2075.775 [id number]] Kcal/Kg value to use for calculation 15 Approximate Energy Requirements Using 1575 kcal/Kg Additional Notes Pro needs 1-1.2g/kg adjBW: 82- 98g/day Fluid needs 1ml/kcal Nutrition Intervention Change Diet Order: Continue current diet Add Supplement/Snack (indicate name/kcal D/C ONS /protein ) Goal #1 PO intakes to meet at least 75 % energy and pro needs Follow-Up By: 05/01/19 Additional Comments F/U: intakes, wt
[2019-04-25] MEDS ORDERED: HCTZ PO SCH ×2 (15:05→15:30)
[2019-04-25] MEDS ORDERED: COUMADIN PO SCH (17:00)
[2019-04-25] MEDS ORDERED: BACTRIM DS PO SCH (22:00)
[2019-04-25] MEDS: PRAVACHOL PO SCH (23:03)
[2019-04-25] MEDS: BACTRIM 200-40 MG/5 ML PO SCH (23:03)
[2019-04-26 05:49] LABS: INR 2.62 (0.87-1.13)
[2019-04-26] MEDS ORDERED: HCTZ PO SCH (08:00)
[2019-04-26] MEDS: GLUCOPHAGE PO SCH ×2 (08:06→16:05)
[2019-04-26] MEDS: COZAAR PO SCH (08:45)
[2019-04-26] MEDS: DICLOFENAC 1% TP SCH ×3 (08:54→23:04)
[2019-04-26] MEDS: BACTRIM 200-40 MG/5 ML PO SCH ×2 (10:55→23:02)
[2019-04-26] MEDS: HALFPRIN EC PO SCH (11:04)
--- NOTE | 2019-04-26 14:58 | Progress Note ---
Subjective Date of service: 04/26/19 Principal diagnosis: CVA Interval history: 68 yo RHD female who woke up with right sided weakness and dysarthria. Son was present for the exam. She states she had a previous CVA and TIA and records confirm. She was evaluated and found to have acute left pontine lacunar infarcts. Cardiology was consulted due to previously known PFO. JAN showed EF 55-60, no thrombus and a PFO. She was advised to follow up as outpatient for PFO closure. No PE seen on chest CTA. Per cardiology, she was transitioned from Eliquis to Coumadin and is currently subtherapeutic. I will start her on a lovenox bridge until she has therapeutic INR. A1C was above the cutoff for diabetes - discussed with her and her son. Will start on carb controlled diet and metformin. Patient is participating in therapy and making reasonable progress. Taking rest breaks as needed. +BM, no incontinence of B/B. Cont short course of Bactrim for UTI. Denies pain, palpitations, dyspnea, cough, N/V. Has increased pain in the right knee worse with weightbearing and not as bad when sitting or lying. Able to walk with a hemiwalker and assistance as well as knee immobilizer and dorsiflexion assist. Knee is lax and has valgus deformity. Poor ability to weight bear and maintain standing position without bracing. Right hand strength has improved but her fine motor skills are still lacking in the right hand. No tenderness to palpation or signs of shoulder-hand syndrome at this point. INR in range, pharmacy is still managing. Vitals stable, with some episodes of hypotension accompanied by dizziness. Will adjust timing of medications. Monitor. Patient concerned today about going home, had a 20 minute discussion with patient and son concerning medical conditions, overall improvement in rehabilitation and her functional condition, dietary issues related to diabetes and prognosis overall. All questions were answered. Son states that he feels much better since he has heard this. He will be gone intermittently throughout the day and are night but she should be good for periods of time alone. Asked him to provide us with measurements of doorways so that we can assess for need of bedside commode. All records, vitals, labs and medications were reviewed. No other issues per patient, nursing or therapy. Objective - Exam Narrative Exam: MUSCULOSKELETAL SPECIALTY EXAM CONSTITUTIONAL: Well developed, well nourished, obese, appropriately groomed. RIGHT hand dominant. RESPIRATORY: Clear to auscultation bilaterally, no increased work of breathing CARDIOVASCULAR: Regular Rate/ Rhythm, no swelling, edema or tenderness in BUE or BLE. All extremities warm. GI: + bowel sounds, soft, NTTP, nondistended. INTEGUMENTARY: Normal, no lesion, rash, masses or bruising noted in extremities. MUSCULOSKELETAL: Right knee valgus deformity and laxities, otherwise BUE and BLE normal without defect, crepitus, subluxation, effusion, arthritic changes or TTP. SA EF WE EE FF FA HF KE ADF EHL APF R 2/5 4-/5 3/5 3/5 4-/5 3/5 2/5 2/5 2/5 2/5 2/5 L 4+/5 ROM decreased on right Tone decreased on the right NEURO: CN II-XII grossly intact except for Right facial droop and tongue protrudes slightly left Sensation intact in all extremities without extinction. No tremor noted in 4 extremities. Naming and repetition intact. Follows 2 step commands. Aphasia not appreciated Dysarthria present but improved Dysphagia not appreciated Neglect not appreciated POSTURE and GAIT: Sitting posture good. Balance and Gait need improvement. Utilizing hemiwalker, knee immobilizer and dorsiflexion assist PSYCH: Alert, orientated x3, affect appears euthymic. Insight appears intact. - Constitutional Vitals: Vital Signs - 12hr 04/26/19 04/26/19 04/26/19 05:05 05:12 08:34 Temperature 36.6 C 37.1 C 37.0 C Pulse Rate 76 67 86 Respiratory 20 20 18 Rate Blood Pressure 118/61 119/53 97/69 O2 Sat by Pulse 88 97 96 Oximetry - Allied health notes Allied health notes reviewed: nursing, PT, ST, OT FIMS assessment as documented by PT/OT/ST: Grooming Patient cleans teeth/dentures: Yes Patient capellan/brushes hair: Yes Patient washes, rinses and Yes dries face: Patient washes, rinses and Yes dries hands: Patient shaves: No Patient applies make-up: No Patient performs (no make-up/ 4/4 (100%) shaving): Grooming FIM Score 5. Supervision ([place] applies toothpaste or opens containers.) Toileting Patient able to: Clean self Patient able to perform: 1/3 (33%) Toileting FIM Score 2. Maximal Assistance (Patient = 25% or more) Social interaction/Memory/Problem solving Social Interaction FIM Score 7. Complete [place] (Interacts appropriately. Controls temper.) Memory FIM Score 7. Complete [place] (Remembers people and routines.) Problem Solving FIM Score 7. Complete [place] (Solves complex problems. Self corrects.) Transfers Mode of Locomotion: Wheelchair Bed/Chair/Wheelchair Transfers 5. Supervision (Needs supv. or set-up for FIM Score sliding board, foot rests.) Toilet Transfers FIM Score 3. Moderate Assistance (Patient = 50% or more. Some lifting.) Patient transferred to: Shower Shower Transfers FIM Score 3. Moderate Assistance (Patient = 50% or more. Some lifting.) Locomotion- walk/wheelchair Most Frequent Mode of Wheelchair Locomotion: Ambulation Distance 170 Walking FIM Score 4. Minimal Assistance (Patient = 75% or more. Minimum of 150 ft.) Wheelchair Propulsion Distance 200 Wheelchair FIM Score 5. Supervision (Minimum 150 ft. supv./cues or 50 ft. independently.) Eating Eating FIM Score 5. Supervision/Set-Up (Needs help w/ containers, cutting meat, etc.) Dressing-Upper body Patient retrieves clothing No items: Patient applies/removes UE n/a prosthesis or orthosis: Upper Body Dressing FIM Score 4. Minimal Assistance (Patient = 75% or more. Needs touching.) Dressing-lower body Patient retrieves clothing No items: Patient applies/removes LE n/a prosthesis or orthosis: Lower Body Dressing FIM Score 4. Minimal Assistance (Patient = 75% or more. Needs touching.) - Labs CBC & Chem 7: 04/25/19 09:24 04/25/19 09:24 Labs: Laboratory Results - last 72 hr 04/23/19 04/24/19 04/24/19 16:35 04:48 07:02 WBC RBC Hgb Hct MCV MCH MCHC RDW Plt Count PT 22.9 H INR 2.07 H Sodium Potassium Chloride Carbon Dioxide Anion Gap BUN Creatinine Estimated GFR BUN/Creatinine Ratio Glucose POC Glucose 113 H Calcium Urine Color Yellow Urine Turbidity Slightly-cloudy Urine pH 5.0 Ur Specific [place] 1.019 Urine Protein <15 mg/dl Urine Glucose (UA) Neg Urine Ketones Neg Urine Blood Neg Urine Nitrite Neg Urine Bilirubin Neg Urine Urobilinogen < 2.0 Ur Leukocyte Esterase Lg Urine WBC (Auto) 12.0 H Urine RBC (Auto) 7.0 U Epithel Cells (Auto) 6.0 Urine Mucus Few 04/25/19 04/25/19 04/25/19 06:07 09:24 09:24 WBC 4.7 RBC 4.58 Hgb 14.0 Hct 42.6 MCV 93 MCH 31 MCHC 33 RDW 13.9 Plt Count 295 PT 25.3 H INR 2.35 H Sodium Potassium Chloride Carbon Dioxide Anion Gap BUN Creatinine Estimated GFR BUN/Creatinine Ratio Glucose POC Glucose 116 H Calcium Urine Color Urine Turbidity Urine pH Ur Specific [place] Urine Protein Urine Glucose (UA) Urine Ketones Urine Blood Urine Nitrite Urine Bilirubin Urine Urobilinogen Ur Leukocyte Esterase Urine WBC (Auto) Urine RBC (Auto) U Epithel Cells (Auto) Urine Mucus 04/25/19 04/26/19 04/26/19 09:24 05:11 07:07 WBC RBC Hgb Hct MCV MCH MCHC RDW Plt Count PT 27.5 H INR 2.62 H Sodium 138 Potassium 3.5 L Chloride 99.7 Carbon Dioxide 24 Anion Gap 18 BUN 19 H Creatinine 1.0 Estimated GFR > 60 BUN/Creatinine Ratio 19 Glucose 168 H POC Glucose 119 H Calcium 9.1 Urine Color Urine Turbidity Urine pH Ur Specific [place] Urine Protein Urine Glucose (UA) Urine Ketones Urine Blood Urine Nitrite Urine Bilirubin Urine Urobilinogen Ur Leukocyte Esterase Urine WBC (Auto) Urine RBC (Auto) U Epithel Cells (Auto) Urine Mucus Assessment and Plan I69.351 hemiplegia affecting right dominant side after CVA: Continue secondary stroke prevention, discussed prognosis with patient and family, monitor for neurological decline, therapy is below, monitor for post stroke depression, monitor for shoulder hand syndrome. Strength is improving as noted in exam. Right knee laxity and valgus deformity coupled with right foot drop. Have requested knee brace to improve ability to stand and decrease falls and AFO for improved toe clearance while ambulating. I69.322 dysarthria: PREP MANAGER for improving ability to speak clearly and improve vocal quality, improving I10 hypertension: Continue medications and adjust as needed. We'll consult medicine for further management. E11.9 DM: A1c this admission is 6.6, cutoff for prediabetes is 6.4 according to [facility]. Discussed with patient that this is also a risk factor for future strokes and will need to monitor this closely for her via dietary control and starting low-dose metformin. She may be able to discontinue metformin in the future if she is able to control her glucose with diet. Discussed with nursing to check glucose once daily, range has improved on metformin. Z73.6 ADL dysfunction: OT will work on improving ability to perform ADLs (including assistive devices) to increase independence and decrease caregiver burden and improve functional transfers and mobility training. R26.2 Difficulty walking: PT will work on gait training and proper use of assistive devices and advance as appropriate to use of stairs and outside ambulation on uneven surfaces. R26.81 Unsteadiness on feet: PT will work on improving static and dynamic sitting and standing balance as well as proper use of assistive devices to decrease risk of falls. R26.89 Abnormality of gait: PT will work to improve safety and efficiency of gait through neuromotor training and gait training along with instruction on proper use of assistive devices. M62.81 Muscle weakness: PT & OT will work on strengthening exercises to improve functional strength including mixture of closed and open kinetic chain exercises. R53.81 Debility: PT & OT will work on improving overall functional status to improve participation with ADLs, mobility and social involvement. R53.83 Fatigue: PT & OT will work on improving endurance through aerobic exercises and therapeutic activity while monitoring patients tolerance for activity and vital signs as needed. Right Knee pain: continue Voltaren gel 3 times a day as ordered, XR shows mild arthritis, knee brace. PFO: We'll maintain patient on Coumadin with a goal INR of 2-3. Will need to follow up with cardiology as outpatient. Had discussion about risk of fall with head strike and the need for urgent evaluation if this occurs with both patient and son. UTI- short course of bactrim DVT ppx: Coumadin for a/c Pain: Continue physical modalities in therapy and pain medications as needed to achieve functional pain control. Sleep: Monitor and address as needed. Bowel: Monitor and address as needed. Appetite: Monitor and address as needed. Discharge planning: Pending therapy progress and care plan meeting. Will continue discussion with therapy team, SW, patient and family. Orthotics equipment: We have placed an order for a right AFO due to the patient's foot drop (M21.371) which is secondary to the CVA. We have also ordered a knee orthosis (double upright with flexion and extension and a suspension sleeve) due to laxity in the right lower extremity, valgus knee deformity (chronic), and quadricep weakness (due to CVA) which affects the patient's ability to stand and ambulate safely. With these 2 devices in the rehabilitation unit the patient is able to stand and walk, without them she is a high risk for fall and since she is on Coumadin this makes her an even higher risk for a bleeding incident in the brain if she does fall. Restrictions/ Precautions: Falls WB status: FWB Functional Hx: ADLs: Independent Cognition: Independent Mobility: No AD mostly, used a cane occasionally. Barriers to Discharge: Decreased mobility and ability to perform self care, balance deficits, weakness, dysarthria, possible dysphagia and visual field deficit Estimated Length of Stay: 14-21 days Discharge Destination: Home with family
--- NOTE | 2019-04-26 16:24 | Progress Note ---
Assessment and Plan Assessment and plan: CVA-Right sided Hemiplegia Continue Coumadin with a goal INR of 2-3. INR therapeutic today. Dysarthria Hypotension this morning. Hold BP meds. Patient remains hypotensive but asymptomatic. We will monitor. Costochondritis-improved * cardiac enzymes are negative. No reoccurrence DM Type 2, new onset-Discussed this new diagnosis with the patient. Accu check ACHS Continue Metformin Obese Debility PFO Outpatient cardiology for PFO closure History Interval history: Patient is a 68 year old male admitted to the Inpatient Rehab unit for management of right sided weakness and dysarthria secondary to CVA. Patient has had 2 previous strokes in the past, multiple work up has not shown an etiology and there is currently a discussion about Outpatien PFO closure as PFO was seen on JAN with no thrombus and an EF of 55-60% Patient was transitioned to Coumadin and is subtherapeutic on arrival to our facility and has been started on a lovenox bridge, she was previously on Eliquis but transition was done per the patient due to recurrent stroke on Eliquis She reports compliance with her medication. She also has metabolic syndrome with diabetes mellitus Patient complained of some mild lightheadedness morning No new issues overnight. Hospitalist Physical - Constitutional Vitals: Temp Pulse Resp BP Pulse Ox 98.6 F 86 18 97/69 96 04/26/19 08:34 04/26/19 08:34 04/26/19 08:34 04/26/19 08:34 04/26/19 08:34 General appearance: Present: no acute distress, obese - EENT Eyes: Present: PERRL, EOM intact ENT: hearing intact, clear oral mucosa, dentition normal - Neck Neck: Present: supple, normal ROM - Respiratory Respiratory effort: normal Respiratory: bilateral: CTA - Cardiovascular Rhythm: regular Heart Sounds: Present: S1 & S2. Absent: gallop, rub - Extremities Extremities: no ischemia, No edema, Full ROM - Abdominal General gastrointestinal: soft, non-tender, non-distended, normal bowel sounds - Integumentary Integumentary: Present: clear, warm, dry - Neurologic Neurologic: CNII-XII intact, moves all extremities Results - Labs CBC & Chem 7: 04/25/19 09:24 04/25/19 09:24 Labs: Laboratory Last Values WBC 4.7 K/mm3 (4.5-11.0) 04/25/19 09:24 RBC 4.58 M/mm3 (3.65-5.03) 04/25/19 09:24 Hgb 14.0 gm/dl (10.1-14.3) 04/25/19 09:24 Hct 42.6 % (30.3-42.9) 04/25/19 09:24 MCV 93 fl (79-97) 04/25/19 09:24 MCH 31 pg (28-32) 04/25/19 09:24 MCHC 33 % (30-34) 04/25/19 09:24 RDW 13.9 % (13.2-15.2) 04/25/19 09:24 Plt Count 295 K/mm3 (140-440) 04/25/19 09:24 Lymph % (Auto) 43.7 % (13.4-35.0) H 04/12/19 04:40 [place] % (Auto) 9.6 % (0.0-7.3) H 04/12/19 04:40 Eos % (Auto) 2.1 % (0.0-4.3) 04/12/19 04:40 Baso % (Auto) 0.6 % (0.0-1.8) 04/12/19 04:40 Lymph # 2.1 K/mm3 (1.2-5.4) 04/12/19 04:40 [place] # 0.5 K/mm3 (0.0-0.8) 04/12/19 04:40 Eos # 0.1 K/mm3 (0.0-0.4) 04/12/19 04:40 Baso # 0.0 K/mm3 (0.0-0.1) 04/12/19 04:40 Seg Neutrophils % 44.0 % (40.0-70.0) 04/12/19 04:40 Seg Neutrophils # 2.1 K/mm3 (1.8-7.7) 04/12/19 04:40 PT 27.5 Sec. (12.2-14.9) H 04/26/19 05:11 INR 2.62 (0.87-1.13) H 04/26/19 05:11 Sodium 138 mmol/L (137-145) 04/25/19 09:24 Potassium 3.5 mmol/L (3.6-5.0) L 04/25/19 09:24 Chloride 99.7 mmol/L (98-107) 04/25/19 09:24 Carbon Dioxide 24 mmol/L (22-30) 04/25/19 09:24 18 mmol/L 04/25/19 09:24 BUN 19 mg/dL (7-17) H 04/25/19 09:24 1.0 mg/dL (0.7-1.2) 04/25/19 09:24 Estimated GFR > 60 ml/min 04/25/19 09:24 19 % 04/25/19 09:24 Glucose 168 mg/dL (65-100) H 04/25/19 09:24 POC Glucose 119 (70-105) H 04/26/19 07:07 Calcium 9.1 mg/dL (8.4-10.2) 04/25/19 09:24 0.30 mg/dL (0.1-1.2) 04/12/19 04:40 AST 16 units/L (5-40) 04/12/19 04:40 ALT 17 units/L (7-56) 04/12/19 04:40 57 units/L (35-129) 04/12/19 04:40 < 0.010 ng/mL (0.00-0.029) 04/13/19 16:42 6.3 g/dL (6.3-8.2) 04/12/19 04:40 3.3 g/dL (3.9-5) L 04/12/19 04:40 1.1 % 04/12/19 04:40 Yellow (Yellow) 04/23/19 16:35 Slightly-cloudy (Clear) 04/23/19 16:35 5.0 (5.0-7.0) 04/23/19 16:35 Ur Specific [place] 1.019 (1.003-1.030) 04/23/19 16:35 <15 mg/dl mg/dL (Negative) 04/23/19 16:35 Neg mg/dL (Negative) 04/23/19 16:35 Neg mg/dL (Negative) 04/23/19 16:35 Neg (Negative) 04/23/19 16:35 Neg (Negative) 04/23/19 16:35 Neg (Negative) 04/23/19 16:35 < 2.0 mg/dL (<2.0) 04/23/19 16:35 Ur Leukocyte Esterase Lg (Negative) 04/23/19 16:35 12.0 /HPF (0.0-6.0) H 04/23/19 16:35 7.0 /HPF (0.0-6.0) 04/23/19 16:35 U Epithel Cells (Auto) 6.0 /HPF (0-13.0) 04/23/19 16:35 Few /HPF 04/23/19 16:35 Active Medications - Current Medications Current Medications: Generic Name Dose Route Start Last Admin Trade Name Freq PRN Reason Stop Dose Admin Acetaminophen 650 mg 04/11/19 12:58 Tylenol PO Q4H PRN Pain MILD(1-3)/Fever >100.5/[place]ARAB[place] Aspirin 81 mg 04/12/19 08:00 04/26/19 11:04 Halfprin Ec PO 81 mg QDAY [facility] Administration Bisacodyl 10 mg 04/11/19 12:58 Dulcolax [place] QDAY PRN Constipation unrelieved by MOM Diclofenac Sodium 1 applic 04/16/19 14:00 04/25/19 23:03 Diclofenac 1% TP 04/30/19 13:59 1 applic TID SHAILESH Administration Hydrochlorothiazide 12.5 mg 04/27/19 18:00 Hctz PO QDAY SHAILESH Losartan Potassium 75 mg 04/16/19 14:11 04/26/19 08:45 Cozaar PO Not Given QDAY SHAILESH Magnesium Hydroxide 30 ml 04/11/19 12:58 04/20/19 13:02 Milk Of Magnesia PO 30 ml Q4H PRN Administration Constipation Metformin HCl 500 mg 04/11/19 17:00 04/26/19 08:06 Glucophage PO 500 mg BIDDIAB SHAILESH Administration Pravastatin Sodium 40 mg 04/11/19 21:00 04/25/19 23:03 Pravachol PO 40 mg QHS SHAILESH Administration Promethazine HCl 25 mg 04/11/19 13:18 Phenergan PO Q6H PRN Nausea And Vomiting Simethicone 80 mg 04/16/19 13:10 Mylicon PO Q6H PRN Gas pain Trimethoprim/Sulfamethoxazole 160 mg 04/25/19 23:00 04/25/19 23:03 Bactrim 200-40 Mg/5 Ml PO 04/30/19 10:01 160 mg Q12HR SHAILESH Administration Warfarin Sodium 4 mg 04/26/19 17:00 Coumadin PO DAILY@1700 [facility] Nutrition/Malnutrition Assess - Dietary Evaluation Nutrition/Malnutrition Findings: Nutrition Notes Start: 04/12/19 17:44 Freq: Status: Active Protocol: Document 04/24/19 13:26 LINH (Rec: 04/24/19 13:32 LINH [id number] [email or web address]) Nutrition Notes Initial or Follow up Reassessment Current Diagnosis Diabetes,Hypertension,Stroke, Hyperlipidemia Current Diet Cardiac/Consistent CHO + Glucerna daily Labs/Tests Reviewed Pertinent Medications Reviewed Height 5 ft 6 in Weight 105 kg [place] Body Weight (kg) 59.09 BMI 37.3 Subjective/Other Information Pt not in room at time of visit (10:25). She consumed 75% of meals on 04/21 (no PO intakes documented since then) . Percent of energy/protein needs met: 71% energy 77% pro Burn Absent Trauma Absent #1 Nutrition Diagnosis Inadequate oral intake As Evidenced by Signs and Symptoms PO intake meeting >50% of energy and pro needs Diagnosis Progress(for reassessment Improved documentation) Is patient on ventilator? No Is Patient Ambulatory and/or Out of Bed Yes REE-([facility]-ambulatory/OOB) [ 2075.775 NUTR.[id number]] Kcal/Kg value to use for calculation 15 Approximate Energy Requirements Using 1575 kcal/Kg Additional Notes Pro needs 1-1.2g/kg adjBW: 82- 98g/day Fluid needs 1ml/kcal Nutrition Intervention Change Diet Order: Continue current diet Add Supplement/Snack (indicate name/kcal D/C ONS /protein ) Goal #1 PO intakes to meet at least 75 % energy and pro needs Follow-Up By: 05/01/19 Additional Comments F/U: intakes, wt
[2019-04-26] MEDS: COUMADIN PO SCH (16:46)
[2019-04-26] MEDS: PRAVACHOL PO SCH (23:04)
[2019-04-27 05:36] LABS: INR 3.08 (0.87-1.13)
[2019-04-27 08:18] LABS: Calcium 8.9 mg/dL (8.4-10.2)
[2019-04-27] MEDS: DICLOFENAC 1% TP SCH ×3 (08:32→20:00)
--- NOTE | 2019-04-27 08:50 | Progress Note ---
Subjective Date of service: 04/27/19 Principal diagnosis: CVA Interval history: 68 yo RHD female who woke up with right sided weakness and dysarthria. Son was present for the exam. She states she had a previous CVA and TIA and records confirm. She was evaluated and found to have acute left pontine lacunar infarcts. Cardiology was consulted due to previously known PFO. JAN showed EF 55-60, no thrombus and a PFO. She was advised to follow up as outpatient for PFO closure. No PE seen on chest CTA. Per cardiology, she was transitioned from Eliquis to Coumadin and is currently subtherapeutic. I will start her on a lovenox bridge until she has therapeutic INR. A1C was above the cutoff for diabetes - discussed with her and her son. Will start on carb controlled diet and metformin. Patient is participating in therapy and making reasonable progress. Taking rest breaks as needed. +BM, no incontinence of B/B. Cont short course of Bactrim for UTI. Denies pain, palpitations, dyspnea, cough, N/V. Able to walk with a hemiwalker and assistance as well as knee immobilizer and dorsiflexion assist. Knee is lax and has valgus deformity. Poor ability to weight bear and maintain standing position without bracing. Right hand strength has improved but her fine motor skills are still lacking in the right hand. No tenderness to palpation or signs of shoulder-hand syndrome at this point. INR slightly supratherapeutic, pharmacy is still managing. Vitals stable, BP better today. Monitor. All records, vitals, labs and medications were reviewed. No other issues per patient, nursing or therapy. Objective - Exam Narrative Exam: MUSCULOSKELETAL SPECIALTY EXAM CONSTITUTIONAL: Well developed, well nourished, obese, appropriately groomed. RIGHT hand dominant. RESPIRATORY: Clear to auscultation bilaterally, no increased work of breathing CARDIOVASCULAR: Regular Rate/ Rhythm, no swelling, edema or tenderness in BUE or BLE. All extremities warm. GI: + bowel sounds, soft, NTTP, nondistended. INTEGUMENTARY: Normal, no lesion, rash, masses or bruising noted in extremities. MUSCULOSKELETAL: Right knee valgus deformity and laxities, otherwise BUE and BLE normal without defect, crepitus, subluxation, effusion, arthritic changes or TTP. SA EF WE EE FF FA HF KE ADF EHL APF R 2/5 4-/5 3/5 3/5 4-/5 3/5 2/5 2/5 2/5 2/5 2/5 L 4+/5 ROM decreased on right Tone decreased on the right NEURO: CN II-XII grossly intact except for Right facial droop and tongue protrudes slightly left Sensation intact in all extremities without extinction. No tremor noted in 4 extremities. Naming and repetition intact. Follows 2 step commands. Aphasia not appreciated Dysarthria present but improved Dysphagia not appreciated Neglect not appreciated POSTURE and GAIT: Sitting posture good. Balance and Gait need improvement. Utilizing hemiwalker, knee immobilizer and dorsiflexion assist PSYCH: Alert, orientated x3, affect appears euthymic. Insight appears intact. - Constitutional Vitals: Vital Signs - 12hr 04/26/19 04/26/19 04/27/19 23:48 23:49 04:56 Temperature 36.8 C 37.0 C Pulse Rate 75 78 80 Respiratory 18 Rate Blood Pressure 128/60 Blood Pressure 128/70 [Right] O2 Sat by Pulse 94 91 94 Oximetry - Allied health notes Allied health notes reviewed: nursing, PT, ST, OT FIMS assessment as documented by PT/OT/ST: Grooming Patient cleans teeth/dentures: Yes Patient capellan/brushes hair: Yes Patient washes, rinses and Yes dries face: Patient washes, rinses and Yes dries hands: Patient shaves: No Patient applies make-up: No Patient performs (no make-up/ / (100%) shaving): Grooming FIM Score 5. Supervision ([place] applies toothpaste or opens containers.) Toileting Patient able to: Clean self Patient able to perform: 1/3 (33%) Toileting FIM Score 2. Maximal Assistance (Patient = 25% or more) Social interaction/Memory/Problem solving Social Interaction FIM Score 5. Supervision (Needs supv. <10%. Needs encouragement to participate.) Memory FIM Score 5. Supervision (Needs cueing <10%, stressful/ unfamiliar situations.) Problem Solving FIM Score 5. Supervision (Needs cueing <10% to solve routine problems.) Transfers Mode of Locomotion: Wheelchair Bed/Chair/Wheelchair Transfers 5. Supervision (Needs supv. or set-up for FIM Score sliding board, foot rests.) Toilet Transfers FIM Score 3. Moderate Assistance (Patient = 50% or more. Some lifting.) Patient transferred to: Shower Shower Transfers FIM Score 3. Moderate Assistance (Patient = 50% or more. Some lifting.) Locomotion- walk/wheelchair Most Frequent Mode of Wheelchair Locomotion: Ambulation Distance 170 Walking FIM Score 4. Minimal Assistance (Patient = 75% or more. Minimum of 150 ft.) Wheelchair Propulsion Distance 200 Wheelchair FIM Score 5. Supervision (Minimum 150 ft. supv./cues or 50 ft. independently.) Eating Eating FIM Score 5. Supervision/Set-Up (Needs help w/ containers, cutting meat, etc.) Dressing-Upper body Patient retrieves clothing No items: Patient applies/removes UE n/a prosthesis or orthosis: Upper Body Dressing FIM Score 4. Minimal Assistance (Patient = 75% or more. Needs touching.) Dressing-lower body Patient retrieves clothing No items: Patient applies/removes LE n/a prosthesis or orthosis: Lower Body Dressing FIM Score 4. Minimal Assistance (Patient = 75% or more. Needs touching.) - Labs CBC & Chem 7: 04/25/19 09:24 04/27/19 07:03 Labs: Laboratory Results - last 72 hr 04/25/19 04/25/19 04/25/19 06:07 09:24 09:24 WBC 4.7 RBC 4.58 Hgb 14.0 Hct 42.6 MCV 93 MCH 31 MCHC 33 RDW 13.9 Plt Count 295 PT 25.3 H INR 2.35 H Sodium Potassium Chloride Carbon Dioxide Anion Gap BUN Creatinine Estimated GFR BUN/Creatinine Ratio Glucose POC Glucose 116 H Calcium 04/25/19 04/26/19 04/26/19 09:24 05:11 07:07 WBC RBC Hgb Hct MCV MCH MCHC RDW Plt Count PT 27.5 H INR 2.62 H Sodium 138 Potassium 3.5 L Chloride 99.7 Carbon Dioxide 24 Anion Gap 18 BUN 19 H Creatinine 1.0 Estimated GFR > 60 BUN/Creatinine Ratio 19 Glucose 168 H POC Glucose 119 H Calcium 9.1 04/27/19 04/27/19 04/27/19 04:40 06:02 07:03 WBC RBC Hgb Hct MCV MCH MCHC RDW Plt Count PT 31.3 H INR 3.08 H Sodium 142 Potassium 3.6 Chloride 103.2 Carbon Dioxide 26 Anion Gap 16 BUN 16 Creatinine 1.3 H Estimated GFR 49 BUN/Creatinine Ratio 12 Glucose 109 H POC Glucose 106 H Calcium 8.9 Assessment and Plan I69.351 hemiplegia affecting right dominant side after CVA: Continue secondary stroke prevention, discussed prognosis with patient and family, monitor for neurological decline, therapy is below, monitor for post stroke depression, monitor for shoulder hand syndrome. Strength is improving as noted in exam. R ight knee laxity and valgus deformity coupled with right foot drop. Have requested knee brace to improve ability to stand and decrease falls and AFO for improved toe clearance while ambulating. I69.322 dysarthria: CRYPTOGRAPHER for improving ability to speak clearly and improve vocal quality, improving I10 hypertension: Continue medications and adjust as needed. We'll consult medicine for further management. E11.9 DM: A1c this admission is 6.6, cutoff for prediabetes is 6.4 according to [facility]. Discussed with patient that this is also a risk factor for future strokes and will need to monitor this closely for her via dietary control and starting low-dose metformin. She may be able to discontinue metformin in the future if she is able to control her glucose with diet. Discussed with nursing to check glucose once daily, range has improved on metformin. Z73.6 ADL dysfunction: OT will work on improving ability to perform ADLs (including assistive devices) to increase independence and decrease caregiver burden and improve functional transfers and mobility training. R26.2 Difficulty walking: PT will work on gait training and proper use of assistive devices and advance as appropriate to use of stairs and outside ambulation on uneven surfaces. R26.81 Unsteadiness on feet: PT will work on improving static and dynamic sitting and standing balance as well as proper use of assistive devices to decr ease risk of falls. R26.89 Abnormality of gait: PT will work to improve safety and efficiency of gai t through neuromotor training and gait training along with instruction on proper use of assistive devices. M62.81 Muscle weakness: PT & OT will work on strengthening exercises to improve functional strength including mixture of closed and open kinetic chain exercises. R53.81 Debility: PT & OT will work on improving overall functional status to improve participation with ADLs, mobility and social involvement. R53.83 Fatigue: PT & OT will work on improving endurance through aerobic exercises and therapeutic activity while monitoring patients tolerance for activity and vital signs as needed. Right Knee pain: continue Voltaren gel 3 times a day as ordered, XR shows mild arthritis, knee brace on order. PFO: We'll maintain patient on Coumadin with a goal INR of 2-3. Will need to follow up with cardiology as outpatient. Had discussion about risk of fall with head strike and the need for urgent evaluation if this occurs with both patient and son. UTI- short course of bactrim DVT ppx: Coumadin for a/c Pain: Continue physical modalities in therapy and pain medications as needed to achieve functional pain control. Sleep: Monitor and address as needed. Bowel: Monitor and address as needed. Appetite: Monitor and address as needed. Discharge planning: Pending therapy progress and care plan meeting. Will continue discussion with therapy team, SW, patient and family. Orthotics equipment: We have placed an order for a right AFO due to the patient's foot drop (M21.371) which is secondary to the CVA. We have also ordered a knee orthosis (double upright with flexion and extension and a suspension sleeve) due to laxity in the right lower extremity, valgus knee deformity (chronic), and quadricep weakness (due to CVA) which affects the patient's ability to stand and ambulate safely. With these 2 devices in the rehabilitation unit the patient is able to stand and walk, without them she is a high risk for fall and since she is on Coumadin this makes her an even higher risk for a bleeding incident in the brain if she does fall. Restrictions/ Precautions: Falls WB status: FWB Functional Hx: ADLs: Independent Cognition: Independent Mobility: No AD mostly, used a cane occasionally. Barriers to Discharge: Decreased mobility and ability to perform self care, balance deficits, weakness, dysarthria, possible dysphagia and visual field deficit Estimated Length of Stay: 14-21 days Discharge Destination: Home with family
[2019-04-27] MEDS: GLUCOPHAGE PO SCH ×2 (09:34→16:20)
[2019-04-27] MEDS: BACTRIM 200-40 MG/5 ML PO SCH ×2 (09:34→22:14)
[2019-04-27] MEDS: HALFPRIN EC PO SCH (09:34)
--- NOTE | 2019-04-27 12:54 | Progress Note ---
Assessment and Plan Assessment and plan: CVA-Right sided Hemiplegia Continue Coumadin with a goal INR of 2-3. INR therapeutic today. Dysarthria Hypotension this morning. Hold BP meds. Patient remains hypotensive but asymptomatic. We will monitor. Costochondritis-improved * cardiac enzymes are negative. No reoccurrence DM Type 2, new onset-Discussed this new diagnosis with the patient. Accu check ACHS Continue Metformin Obese Debility PFO Outpatient cardiology for PFO closure History Interval history: Patient is a 68 year old male admitted to the Inpatient Rehab unit for management of right sided weakness and dysarthria secondary to CVA. Patient has had 2 previous strokes in the past, multiple work up has not shown an etiology and there is currently a discussion about Outpatien PFO closure as PFO was seen on JAN with no thrombus and an EF of 55-60% Patient was transitioned to Coumadin and is subtherapeutic on arrival to our facility and has been started on a lovenox bridge, she was previously on Eliquis but transition was done per the patient due to recurrent stroke on Eliquis She reports compliance with her medication. She also has metabolic syndrome with diabetes mellitus No new issues overnight. Hospitalist Physical - Constitutional Vitals: Temp Pulse Resp BP Pulse Ox 98.3 F 71 20 103/54 91 04/27/19 08:02 04/27/19 08:02 04/27/19 08:02 04/27/19 08:02 04/27/19 08:02 General appearance: Present: no acute distress, obese - EENT Eyes: Present: PERRL, EOM intact ENT: hearing intact, clear oral mucosa, dentition normal - Neck Neck: Present: supple, normal ROM - Respiratory Respiratory effort: normal Respiratory: bilateral: CTA - Cardiovascular Rhythm: regular Heart Sounds: Present: S1 & S2. Absent: gallop, rub - Extremities Extremities: no ischemia, No edema, Full ROM - Abdominal General gastrointestinal: soft, non-tender, non-distended, normal bowel sounds - Integumentary Integumentary: Present: clear, warm, dry - Neurologic Neurologic: CNII-XII intact, moves all extremities Results - Labs CBC & Chem 7: 04/25/19 09:24 04/27/19 07:03 Labs: Laboratory Last Values WBC 4.7 K/mm3 (4.5-11.0) 04/25/19 09:24 RBC 4.58 M/mm3 (3.65-5.03) 04/25/19 09:24 Hgb 14.0 gm/dl (10.1-14.3) 04/25/19 09:24 Hct 42.6 % (30.3-42.9) 04/25/19 09:24 MCV 93 fl (79-97) 04/25/19 09:24 MCH 31 pg (28-32) 04/25/19 09:24 MCHC 33 % (30-34) 04/25/19 09:24 RDW 13.9 % (13.2-15.2) 04/25/19 09:24 Plt Count 295 K/mm3 (140-440) 04/25/19 09:24 Lymph % (Auto) 43.7 % (13.4-35.0) H 04/12/19 04:40 [place] % (Auto) 9.6 % (0.0-7.3) H 04/12/19 04:40 Eos % (Auto) 2.1 % (0.0-4.3) 04/12/19 04:40 Baso % (Auto) 0.6 % (0.0-1.8) 04/12/19 04:40 Lymph # 2.1 K/mm3 (1.2-5.4) 04/12/19 04:40 [place] # 0.5 K/mm3 (0.0-0.8) 04/12/19 04:40 Eos # 0.1 K/mm3 (0.0-0.4) 04/12/19 04:40 Baso # 0.0 K/mm3 (0.0-0.1) 04/12/19 04:40 Seg Neutrophils % 44.0 % (40.0-70.0) 04/12/19 04:40 Seg Neutrophils # 2.1 K/mm3 (1.8-7.7) 04/12/19 04:40 PT 31.3 Sec. (12.2-14.9) H 04/27/19 04:40 INR 3.08 (0.87-1.13) H 04/27/19 04:40 Sodium 142 mmol/L (137-145) 04/27/19 07:03 Potassium 3.6 mmol/L (3.6-5.0) 04/27/19 07:03 Chloride 103.2 mmol/L (98-107) 04/27/19 07:03 Carbon Dioxide 26 mmol/L (22-30) 04/27/19 07:03 16 mmol/L 04/27/19 07:03 BUN 16 mg/dL (7-17) 04/27/19 07:03 1.3 mg/dL (0.7-1.2) H 04/27/19 07:03 Estimated GFR 49 ml/min 04/27/19 07:03 12 % 04/27/19 07:03 Glucose 109 mg/dL (65-100) H 04/27/19 07:03 POC Glucose 106 (70-105) H 04/27/19 06:02 Calcium 8.9 mg/dL (8.4-10.2) 04/27/19 07:03 0.30 mg/dL (0.1-1.2) 04/12/19 04:40 AST 16 units/L (5-40) 04/12/19 04:40 ALT 17 units/L (7-56) 04/12/19 04:40 57 units/L (35-129) 04/12/19 04:40 < 0.010 ng/mL (0.00-0.029) 04/13/19 16:42 6.3 g/dL (6.3-8.2) 04/12/19 04:40 3.3 g/dL (3.9-5) L 04/12/19 04:40 1.1 % 04/12/19 04:40 Yellow (Yellow) 04/23/19 16:35 Slightly-cloudy (Clear) 04/23/19 16:35 5.0 (5.0-7.0) 04/23/19 16:35 Ur Specific [place] 1.019 (1.003-1.030) 04/23/19 16:35 <15 mg/dl mg/dL (Negative) 04/23/19 16:35 Neg mg/dL (Negative) 04/23/19 16:35 Neg mg/dL (Negative) 04/23/19 16:35 Neg (Negative) 04/23/19 16:35 Neg (Negative) 04/23/19 16:35 Neg (Negative) 04/23/19 16:35 < 2.0 mg/dL (<2.0) 04/23/19 16:35 Ur Leukocyte Esterase Lg (Negative) 04/23/19 16:35 12.0 /HPF (0.0-6.0) H 04/23/19 16:35 7.0 /HPF (0.0-6.0) 04/23/19 16:35 U Epithel Cells (Auto) 6.0 /HPF (0-13.0) 04/23/19 16:35 Few /HPF 04/23/19 16:35 Active Medications - Current Medications Current Medications: Generic Name Dose Route Start Last Admin Trade Name Freq PRN Reason Stop Dose Admin Acetaminophen 650 mg 04/11/19 12:58 Tylenol PO Q4H PRN Pain MILD(1-3)/Fever >100.5/[place] Aspirin 81 mg 04/12/19 08:00 04/27/19 09:34 Halfprin Ec PO 81 mg QDAY SHAILESH Administration Bisacodyl 10 mg 04/11/19 12:58 Dulcolax [place] QDAY PRN Constipation unrelieved by MOM Diclofenac Sodium 1 applic 04/16/19 14:00 04/26/19 23:04 Diclofenac 1% TP 04/30/19 13:59 1 applic TID SHAILESH Administration Hydrochlorothiazide 12.5 mg 04/27/19 18:00 Hctz PO QDAY SHAILESH Losartan Potassium 75 mg 04/16/19 14:11 04/26/19 08:45 Cozaar PO Not Given QDAY SHAILESH Magnesium Hydroxide 30 ml 04/11/19 12:58 04/20/19 13:02 Milk Of Magnesia PO 30 ml Q4H PRN Administration Constipation Metformin HCl 500 mg 04/11/19 17:00 04/27/19 09:34 Glucophage PO 500 mg BIDDIAB SHAILESH Administration Pravastatin Sodium 40 mg 04/11/19 21:00 04/26/19 23:04 Pravachol PO 40 mg QHS SHAILESH Administration Promethazine HCl 25 mg 04/11/19 13:18 Phenergan PO Q6H PRN Nausea And Vomiting Simethicone 80 mg 04/16/19 13:10 Mylicon PO Q6H PRN Gas pain Trimethoprim/Sulfamethoxazole 160 mg 04/25/19 23:00 04/27/19 09:34 Bactrim 200-40 Mg/5 Ml PO 04/30/19 10:01 160 mg Q12HR SHAILESH Administration Warfarin Sodium 4 mg 04/26/19 17:00 04/26/19 16:46 Coumadin PO 4 mg DAILY@1700 SHAILESH Administration Nutrition/Malnutrition Assess - Dietary Evaluation Nutrition/Malnutrition Findings: Nutrition Notes Start: 04/12/19 17:44 Freq: Status: Active Protocol: Document 04/24/19 13:26 LINH (Rec: 04/24/19 13:32 LINH [email or web address] [email or web address]) Nutrition Notes Initial or Follow up Reassessment Current Diagnosis Diabetes,Hypertension,Stroke, Hyperlipidemia Current Diet Cardiac/Consistent CHO + Glucerna daily Labs/Tests Reviewed Pertinent Medications Reviewed Height 5 ft 6 in Weight 105 kg [place] Body Weight (kg) 59.09 BMI 37.3 Subjective/Other Information Pt not in room at time of visit (10:25). She consumed 75% of meals on 04/21 (no PO intakes documented since then) . Percent of energy/protein needs met: 71% energy 77% pro Burn Absent Trauma Absent #1 Nutrition Diagnosis Inadequate oral intake As Evidenced by Signs and Symptoms PO intake meeting >50% of energy and pro needs Diagnosis Progress(for reassessment Improved documentation) Is patient on ventilator? No Is Patient Ambulatory and/or Out of Bed Yes REE-([facility]-ambulatory/OOB) [ 2075.775 NUTR.MSJOOB] Kcal/Kg value to use for calculation 15 Approximate Energy Requirements Using 1575 kcal/Kg Additional Notes Pro needs 1-1.2g/kg adjBW: 82- 98g/day Fluid needs 1ml/kcal Nutrition Intervention Change Diet Order: Continue current diet Add Supplement/Snack (indicate name/kcal D/C ONS /protein ) Goal #1 PO intakes to meet at least 75 % energy and pro needs Follow-Up By: 05/01/19 Additional Comments F/U: intakes, wt
[2019-04-27] MEDS: COUMADIN PO SCH (16:20)
[2019-04-27] MEDS: COZAAR PO SCH (16:27)
[2019-04-27] MEDS: HCTZ PO SCH (18:01)
[2019-04-27] MEDS: PRAVACHOL PO SCH (21:13)
[2019-04-28 06:24] LABS: INR 3.44 (0.87-1.13)
[2019-04-28] MEDS: HALFPRIN EC PO SCH (07:50)
[2019-04-28] MEDS: GLUCOPHAGE PO SCH ×2 (07:50→17:48)
[2019-04-28] MEDS: COZAAR PO SCH (07:50)
[2019-04-28] MEDS: HCTZ PO SCH (07:50)
[2019-04-28] MEDS: BACTRIM 200-40 MG/5 ML PO SCH ×3 (07:53→21:40)
[2019-04-28] MEDS: DICLOFENAC 1% TP SCH ×3 (07:56→22:13)
--- NOTE | 2019-04-28 18:05 | Progress Note ---
Assessment and Plan Assessment and plan: CVA-Right sided Hemiplegia Continue Coumadin with a goal INR of 2-3. INR therapeutic today. Dysarthria Hypotension this morning. Hold BP meds. Patient remains hypotensive but asymptomatic. We will monitor. Costochondritis-improved * cardiac enzymes are negative. No reoccurrence DM Type 2, new onset-Discussed this new diagnosis with the patient. Accu check ACHS Continue Metformin Obese Debility PFO Outpatient cardiology for PFO closure History Interval history: Patient is a 68 year old male admitted to the Inpatient Rehab unit for management of right sided weakness and dysarthria secondary to CVA. Patient has had 2 previous strokes in the past, multiple work up has not shown an etiology and there is currently a discussion about Outpatien PFO closure as PFO was seen on JAN with no thrombus and an EF of 55-60% Patient was transitioned to Coumadin and is subtherapeutic on arrival to our facility and has been started on a lovenox bridge, she was previously on Eliquis but transition was done per the patient due to recurrent stroke on Eliquis She reports compliance with her medication. She also has metabolic syndrome with diabetes mellitus No new issues overnight. Hospitalist Physical - Constitutional Vitals: Temp Pulse Resp BP Pulse Ox 97.8 F 66 18 103/56 92 04/28/19 07:24 04/28/19 07:25 04/28/19 07:24 04/28/19 07:24 04/28/19 07:25 General appearance: Present: no acute distress, obese - EENT Eyes: Present: PERRL, EOM intact ENT: hearing intact, clear oral mucosa, dentition normal - Neck Neck: Present: supple, normal ROM - Respiratory Respiratory effort: normal Respiratory: bilateral: CTA - Cardiovascular Rhythm: regular Heart Sounds: Present: S1 & S2. Absent: gallop, rub - Extremities Extremities: no ischemia, No edema, Full ROM - Abdominal General gastrointestinal: soft, non-tender, non-distended, normal bowel sounds - Integumentary Integumentary: Present: clear, warm, dry - Neurologic Neurologic: CNII-XII intact, moves all extremities Results - Labs CBC & Chem 7: 04/25/19 09:24 04/27/19 07:03 Labs: Laboratory Last Values WBC 4.7 K/mm3 (4.5-11.0) 04/25/19 09:24 RBC 4.58 M/mm3 (3.65-5.03) 04/25/19 09:24 Hgb 14.0 gm/dl (10.1-14.3) 04/25/19 09:24 Hct 42.6 % (30.3-42.9) 04/25/19 09:24 MCV 93 fl (79-97) 04/25/19 09:24 MCH 31 pg (28-32) 04/25/19 09:24 MCHC 33 % (30-34) 04/25/19 09:24 RDW 13.9 % (13.2-15.2) 04/25/19 09:24 Plt Count 295 K/mm3 (140-440) 04/25/19 09:24 Lymph % (Auto) 43.7 % (13.4-35.0) H 04/12/19 04:40 [place] % (Auto) 9.6 % (0.0-7.3) H 04/12/19 04:40 Eos % (Auto) 2.1 % (0.0-4.3) 04/12/19 04:40 Baso % (Auto) 0.6 % (0.0-1.8) 04/12/19 04:40 Lymph # 2.1 K/mm3 (1.2-5.4) 04/12/19 04:40 [place] # 0.5 K/mm3 (0.0-0.8) 04/12/19 04:40 Eos # 0.1 K/mm3 (0.0-0.4) 04/12/19 04:40 Baso # 0.0 K/mm3 (0.0-0.1) 04/12/19 04:40 Seg Neutrophils % 44.0 % (40.0-70.0) 04/12/19 04:40 Seg Neutrophils # 2.1 K/mm3 (1.8-7.7) 04/12/19 04:40 PT 34.1 Sec. (12.2-14.9) H 04/28/19 05:56 INR 3.44 (0.87-1.13) H 04/28/19 05:56 Sodium 142 mmol/L (137-145) 04/27/19 07:03 Potassium 3.6 mmol/L (3.6-5.0) 04/27/19 07:03 Chloride 103.2 mmol/L (98-107) 04/27/19 07:03 Carbon Dioxide 26 mmol/L (22-30) 04/27/19 07:03 16 mmol/L 04/27/19 07:03 BUN 16 mg/dL (7-17) 04/27/19 07:03 1.3 mg/dL (0.7-1.2) H 04/27/19 07:03 Estimated GFR 49 ml/min 04/27/19 07:03 12 % 04/27/19 07:03 Glucose 109 mg/dL (65-100) H 04/27/19 07:03 POC Glucose 96 (70-105) 04/28/19 07:23 Calcium 8.9 mg/dL (8.4-10.2) 04/27/19 07:03 0.30 mg/dL (0.1-1.2) 04/12/19 04:40 AST 16 units/L (5-40) 04/12/19 04:40 ALT 17 units/L (7-56) 04/12/19 04:40 57 units/L (35-129) 04/12/19 04:40 < 0.010 ng/mL (0.00-0.029) 04/13/19 16:42 6.3 g/dL (6.3-8.2) 04/12/19 04:40 3.3 g/dL (3.9-5) L 04/12/19 04:40 1.1 % 04/12/19 04:40 Yellow (Yellow) 04/23/19 16:35 Slightly-cloudy (Clear) 04/23/19 16:35 5.0 (5.0-7.0) 04/23/19 16:35 Ur Specific [place] 1.019 (1.003-1.030) 04/23/19 16:35 <15 mg/dl mg/dL (Negative) 04/23/19 16:35 Neg mg/dL (Negative) 04/23/19 16:35 Neg mg/dL (Negative) 04/23/19 16:35 Neg (Negative) 04/23/19 16:35 Neg (Negative) 04/23/19 16:35 Neg (Negative) 04/23/19 16:35 < 2.0 mg/dL (<2.0) 04/23/19 16:35 Ur Leukocyte Esterase Lg (Negative) 04/23/19 16:35 12.0 /HPF (0.0-6.0) H 04/23/19 16:35 7.0 /HPF (0.0-6.0) 04/23/19 16:35 U Epithel Cells (Auto) 6.0 /HPF (0-13.0) 04/23/19 16:35 Few /HPF 04/23/19 16:35 Active Medications - Current Medications Current Medications: Generic Name Dose Route Start Last Admin Trade Name Freq PRN Reason Stop Dose Admin Acetaminophen 650 mg 04/11/19 12:58 Tylenol PO Q4H PRN Pain MILD(1-3)/Fever >100.5/[place] Aspirin 81 mg 04/12/19 08:00 04/28/19 07:50 Halfprin Ec PO 81 mg QDAY SHAILESH Administration Bisacodyl 10 mg 04/11/19 12:58 Dulcolax [place] QDAY PRN Constipation unrelieved by MOM Diclofenac Sodium 1 applic 04/16/19 14:00 04/28/19 15:49 Diclofenac 1% TP 04/30/19 13:59 1 applic TID SHAILESH Administration Hydrochlorothiazide 12.5 mg 04/27/19 18:00 04/28/19 07:50 Hctz PO 12.5 mg QDAY SHAILESH Administration Losartan Potassium 75 mg 04/16/19 14:11 04/28/19 07:50 Cozaar PO 75 mg QDAY SHAILESH Administration Magnesium Hydroxide 30 ml 04/11/19 12:58 04/20/19 13:02 Milk Of Magnesia PO 30 ml Q4H PRN Administration Constipation Metformin HCl 500 mg 04/11/19 17:00 04/28/19 17:48 Glucophage PO 500 mg BIDDIAB SHAILESH Administration Pravastatin Sodium 40 mg 04/11/19 21:00 04/27/19 21:13 Pravachol PO 40 mg QHS SHAILESH Administration Promethazine HCl 25 mg 04/11/19 13:18 Phenergan PO Q6H PRN Nausea And Vomiting Simethicone 80 mg 04/16/19 13:10 Mylicon PO Q6H PRN Gas pain Trimethoprim/Sulfamethoxazole 160 mg 04/25/19 23:00 04/28/19 12:49 Bactrim 200-40 Mg/5 Ml PO 04/30/19 10:01 Not Given Q12HR [facility] Warfarin Sodium 4 mg 04/26/19 17:00 04/27/19 16:20 Coumadin PO 4 mg DAILY@1700 [facility] Administration Nutrition/Malnutrition Assess - Dietary Evaluation Nutrition/Malnutrition Findings: Nutrition Notes Start: 04/12/19 17:44 Freq: Status: Active Protocol: Document 04/24/19 13:26 LINH (Rec: 04/24/19 13:32 LINH [id number] [email or web address]) Nutrition Notes Initial or Follow up Reassessment Current Diagnosis Diabetes,Hypertension,Stroke, Hyperlipidemia Current Diet Cardiac/Consistent CHO + Glucerna daily Labs/Tests Reviewed Pertinent Medications Reviewed Height 5 ft 6 in Weight [address] [place] Body Weight (kg) 59.09 BMI 37.3 Subjective/Other Information Pt not in room at time of visit (10:25). She consumed 75% of meals on 04/21 (no PO intakes documented since then) . Percent of energy/protein needs met: 71% energy 77% pro Burn Absent Trauma Absent #1 Nutrition Diagnosis Inadequate oral intake As Evidenced by Signs and Symptoms PO intake meeting >50% of energy and pro needs Diagnosis Progress(for reassessment Improved documentation) Is patient on ventilator? No Is Patient Ambulatory and/or Out of Bed Yes REE-([facility]-ambulatory/OOB) [ 6855.775 NUTR.MSJOOB] Kcal/Kg value to use for calculation 15 Approximate Energy Requirements Using 1575 kcal/Kg Additional Notes Pro needs 1-1.2g/kg adjBW: 82- 98g/day Fluid needs 1ml/kcal Nutrition Intervention Change Diet Order: Continue current diet Add Supplement/Snack (indicate name/kcal D/C ONS /protein ) Goal #1 PO intakes to meet at least 75 % energy and pro needs Follow-Up By: 05/01/19 Additional Comments F/U: intakes, wt
[2019-04-28] MEDS: PRAVACHOL PO SCH (21:39)
[2019-04-29] MEDS: COZAAR PO SCH (08:30)
[2019-04-29] MEDS: GLUCOPHAGE PO SCH ×2 (09:05→17:04)
[2019-04-29] MEDS: BACTRIM 200-40 MG/5 ML PO SCH ×2 (09:05→21:54)
[2019-04-29] MEDS: HALFPRIN EC PO SCH (09:06)
[2019-04-29] MEDS: DICLOFENAC 1% TP SCH ×3 (09:06→21:55)
[2019-04-29] MEDS: HCTZ PO SCH (09:06)
[2019-04-29 09:10] LABS: Calcium 9.2 mg/dL (8.4-10.2)
[2019-04-29 09:26] LABS: Hematocrit 40.9 % (30.3-42.9); Hemoglobin 13.7 gm/dl (10.1-14.3); Mean Corpuscular HGB Conc 34 % (30-34); Mean Corpuscular Volume 93 fl (79-97); Platelet Count 252 K/mm3 (140-440); Red Blood Count 4.42 M/mm3 (3.65-5.03); Red Cell Distribution Width 14.1 % (13.2-15.2)
[2019-04-29 09:56] LABS: INR 2.68 (0.87-1.13)
--- NOTE | 2019-04-29 12:58 | Progress Note ---
Subjective Date of service: 04/29/19 Principal diagnosis: CVA Interval history: 68 yo RHD female who woke up with right sided weakness and dysarthria. Son was present for the exam. She states she had a previous CVA and TIA and records confirm. She was evaluated and found to have acute left pontine lacunar infarcts. Cardiology was consulted due to previously known PFO. JAN showed EF 55-60, no thrombus and a PFO. She was advised to follow up as outpatient for PFO closure. No PE seen on chest CTA. Per cardiology, she was transitioned from Eliquis to Coumadin and is currently subtherapeutic. I will start her on a lovenox bridge until she has therapeutic INR. A1C was above the cutoff for diabetes - discussed with her and her son. Will start on carb controlled diet and metformin. Patient is participating in therapy and making reasonable progress. Taking rest breaks as needed. +BM, no incontinence of B/B. Cont short course of Bactrim for UTI, no complaints of dysuria. Last dose tomorrow 04/30. Denies pain, palpitations, dyspnea, cough, N/V. Able to walk with a hemiwalker and assistance as well as knee immobilizer and dorsiflexion assist. Knee is lax and has valgus deformity. Poor ability to weight bear and maintain standing position without bracing. Right hand strength has improved and her fine motor skills are slighty improved as well in the right hand. No tenderness to palpation or signs of shoulder-hand syndrome at this point. INR slightly therapeutic, pharmacy is still managing. Vitals stable. BP has been better with adjustments in medications. Monitor. All records, vitals, labs and medications were reviewed. No other issues per patient, nursing or therapy. Objective - Exam Narrative Exam: MUSCULOSKELETAL SPECIALTY EXAM CONSTITUTIONAL: Well developed, well nourished, obese, appropriately groomed. RIGHT hand dominant. RESPIRATORY: Clear to auscultation bilaterally, no increased work of breathing CARDIOVASCULAR: Regular Rate/ Rhythm, no swelling, edema or tenderness in BUE or BLE. All extremities warm. GI: + bowel sounds, soft, NTTP, nondistended. INTEGUMENTARY: Normal, no lesion, rash, masses or bruising noted in extremities. MUSCULOSKELETAL: Right knee valgus deformity and laxities, otherwise BUE and BLE normal without defect, crepitus, subluxation, effusion, arthritic changes or TTP. SA EF WE EE FF FA HF KE ADF EHL APF R 2/5 4-/5 3/5 3/5 4-/5 3/5 2/5 2/5 2/5 2/5 2/5 L 4+/5 ROM decreased on right Tone decreased on the right NEURO: CN II-XII grossly intact except for Right facial droop and tongue protrudes slightly left Alternation of finger touch between 1st digit and 2nd,3rd digits is improved, fine motor improving Sensation intact in all extremities without extinction. No tremor noted in 4 extremities. Naming and repetition intact. Follows 2 step commands. Aphasia not appreciated Dysarthria present but improved Dysphagia not appreciated Neglect not appreciated POSTURE and GAIT: Sitting posture good. Balance and Gait need improvement. Utilizing hemiwalker, knee immobilizer and dorsiflexion assist PSYCH: Alert, orientated x3, affect appears euthymic. Insight appears intact. - Constitutional Vitals: Vital Signs - 12hr 04/29/19 04/29/19 04/29/19 04:47 08:05 12:35 Temperature 36.8 C 36.5 C 36.3 C L Pulse Rate 84 67 79 Respiratory 19 18 18 Rate Blood Pressure 131/47 107/64 107/53 O2 Sat by Pulse 92 92 90 Oximetry - Allied health notes Allied health notes reviewed: nursing, PT, ST, OT FIMS assessment as documented by PT/OT/ST: Grooming Patient cleans teeth/dentures: Yes Patient capellan/brushes hair: Yes Patient washes, rinses and Yes dries face: Patient washes, rinses and Yes dries hands: Patient shaves: No Patient applies make-up: No Patient performs (no make-up/ / (100%) shaving): Grooming FIM Score 5. Supervision ([place] applies toothpaste or opens containers.) Toileting Patient able to: Clean self Patient able to perform: 1/3 (33%) Toileting FIM Score 2. Maximal Assistance (Patient = 25% or more) Social interaction/Memory/Problem solving Social Interaction FIM Score 6. Mod. Cross (Mostly appropriate. May need meds. No supv.) Memory FIM Score 6. Modified Cross(Mild difficulty remembering people/routines.) Problem Solving FIM Score 5. Supervision (Needs cueing <10% to solve routine problems.) Transfers Mode of Locomotion: Wheelchair Bed/Chair/Wheelchair Transfers 5. Supervision (Needs supv. or set-up for FIM Score sliding board, foot rests.) Toilet Transfers FIM Score 3. Moderate Assistance (Patient = 50% or more. Some lifting.) Patient transferred to: Shower Shower Transfers FIM Score 3. Moderate Assistance (Patient = 50% or more. Some lifting.) Locomotion- walk/wheelchair Most Frequent Mode of Wheelchair Locomotion: Ambulation Distance 170 Walking FIM Score 4. Minimal Assistance (Patient = 75% or more. Minimum of 150 ft.) Wheelchair Propulsion Distance 200 Wheelchair FIM Score 5. Supervision (Minimum 150 ft. supv./cues or 50 ft. independently.) Eating Eating FIM Score 5. Supervision/Set-Up (Needs help w/ containers, cutting meat, etc.) Dressing-Upper body Patient retrieves clothing No items: Patient applies/removes UE n/a prosthesis or orthosis: Upper Body Dressing FIM Score 4. Minimal Assistance (Patient = 75% or more. Needs touching.) Dressing-lower body Patient retrieves clothing No items: Patient applies/removes LE n/a prosthesis or orthosis: Lower Body Dressing FIM Score 4. Minimal Assistance (Patient = 75% or more. Needs touching.) - Labs CBC & Chem 7: 04/29/19 07:38 04/29/19 07:38 Labs: Laboratory Results - last 72 hr 04/27/19 04/27/19 04/27/19 04:40 06:02 07:03 WBC RBC Hgb Hct MCV MCH MCHC RDW Plt Count PT 31.3 H INR 3.08 H Sodium 142 Potassium 3.6 Chloride 103.2 Carbon Dioxide 26 Anion Gap 16 BUN 16 Creatinine 1.3 H Estimated GFR 49 BUN/Creatinine Ratio 12 Glucose 109 H POC Glucose 106 H Calcium 8.9 04/28/19 04/28/19 04/29/19 05:56 07:23 06:12 WBC RBC Hgb Hct MCV MCH MCHC RDW Plt Count PT 34.1 H INR 3.44 H Sodium Potassium Chloride Carbon Dioxide Anion Gap BUN Creatinine Estimated GFR BUN/Creatinine Ratio Glucose POC Glucose 96 101 Calcium 04/29/19 04/29/19 04/29/19 07:38 07:38 07:38 WBC 3.9 L RBC 4.42 Hgb 13.7 Hct 40.9 MCV 93 MCH 31 MCHC 34 RDW 14.1 Plt Count 252 PT 28.0 H INR 2.68 H Sodium 141 Potassium 3.8 Chloride 103.0 Carbon Dioxide 25 Anion Gap 17 BUN 17 Creatinine 1.4 H Estimated GFR 45 BUN/Creatinine Ratio 12 Glucose 96 POC Glucose Calcium 9.2 Assessment and Plan I69.351 hemiplegia affecting right dominant side after CVA: Continue secondary stroke prevention, discussed prognosis with patient and family, monitor for neurological decline, therapy is below, monitor for post stroke depression, monitor for shoulder hand syndrome. Strength is improving as noted in exam. Right knee laxity and valgus deformity coupled with right foot drop. Have requested knee brace to improve ability to stand and decrease falls and AFO for improved toe clearance while ambulating. I69.322 dysarthria: BUNDLE PERSON for improving ability to speak clearly and improve vocal quality, improving I10 hypertension: Continue medications and adjust as needed. We'll consult medicine for further management. E11.9 DM: A1c this admission is 6.6, cutoff for prediabetes is 6.4 according to [employer]. Discussed with patient that this is also a risk factor for future strokes and will need to monitor this closely for her via dietary control and starting low-dose metformin. She may be able to discontinue metformin in the future if she is able to control her glucose with diet. Discussed with nursing to check glucose once daily, range has improved on metformin. Z73.6 ADL dysfunction: OT will work on improving ability to perform ADLs (including assistive devices) to increase independence and decrease caregiver burden and improve functional transfers and mobility training. R26.2 Difficulty walking: PT will work on gait training and proper use of assistive devices and advance as appropriate to use of stairs and outside ambulation on uneven surfaces. R26.81 Unsteadiness on feet: PT will work on improving static and dynamic sitting and standing balance as well as proper use of assistive devices to decrease risk of falls. R26.89 Abnormality of gait: PT will work to improve safety and efficiency of gait through neuromotor training and gait training along with instruction on proper use of assistive devices. M62.81 Muscle weakness: PT & OT will work on strengthening exercises to improve functional strength including mixture of closed and open kinetic chain exercises. R53.81 Debility: PT & OT will work on improving overall functional status to improve participation with ADLs, mobility and social involvement. R53.83 Fatigue: PT & OT will work on improving endurance through aerobic exercises and therapeutic activity while monitoring patients tolerance for activity and vital signs as needed. Right Knee pain: continue Voltaren gel 3 times a day as ordered, XR shows mild arthritis, knee brace on order. PFO: We'll maintain patient on Coumadin with a goal INR of 2-3. Will need to follow up with cardiology as outpatient. Had discussion about risk of fall with head strike and the need for urgent evaluation if this occurs with both patient and son. UTI- short course of bactrim, last dose 04/30 DVT ppx: Coumadin for a/c Pain: Continue physical modalities in therapy and pain medications as needed to achieve functional pain control. Sleep: Monitor and address as needed. Bowel: Monitor and address as needed. Appetite: Monitor and address as needed. Discharge planning: Pending therapy progress and care plan meeting. Will continue discussion with therapy team, SW, patient and family. Orthotics equipment: We have placed an order for a right AFO due to the patient's foot drop (M21.371) which is secondary to the CVA. We have also ordered a knee orthosis (double upright with flexion and extension and a bolivar spension sleeve) due to laxity in the right lower extremity, valgus knee deformity (chronic), and quadricep weakness (due to CVA) which affects the patient's ability to stand and ambulate safely. With these 2 devices in the rehabilitation unit the patient is able to stand and walk, without them she is a high risk for fall and since she is on Coumadin this makes her an even higher risk for a bleeding incident in the brain if she does fall. Restrictions/ Precautions: Falls WB status: FWB Functional Hx: ADLs: Independent Cognition: Independent Mobility: No AD mostly, used a cane occasionally. Barriers to Discharge: Decreased mobility and ability to perform self care, balance deficits, weakness, dysarthria, possible dysphagia and visual field deficit Estimated Length of Stay: 14-21 days Discharge Destination: Home with family
--- NOTE | 2019-04-29 15:07 | Progress Note ---
Assessment and Plan Assessment and plan: Patient is a 68 year old male admitted to the Inpatient Rehab unit for management of right sided weakness and dysarthria secondary to CVA. Patient has had 2 previous strokes in the past, multiple work up has not shown an etiology and there is currently a discussion about Outpatient PFO closure as PFO was seen on AJN with no thrombus and an EF of 55-60% Patient was transitioned to Coumadin and is subtherapeutic on arrival to our facility and has been started on a lovenox bridge, she was previously on Eliquis but transition was done per the patient due to recurrent stroke on Eliquis She reports compliance with her medication. She also has metabolic syndrome with diabetes mellitus CVA-Right sided Hemiplegia Continue Coumadin with a goal INR of 2-3. INR therapeutic today. Dysarthria; improving. Hypotension; normalized Costochondritis-improved cardiac enzymes are negative. No reoccurrence DM Type 2, new onset-Discussed this new diagnosis with the patient. Accu check ACHS Continue Metformin Obese Debility PFO Outpatient cardiology for PFO closure History Interval history: Patient was seen and evaluated this morning, patient was doing PT by the time I saw her. Hospitalist Physical - Physical exam Narrative exam: Not in cardiopulmonary distress. The patient is obese. Vital signs as documented. Head exam is unremarkable. No scleral icterus . Neck is without jugular venous distension, thyromegaly, or carotid bruits. Lungs are clear to auscultation. Cardiac exam reveals regular rate and Rhythm. Abdominal exam reveals normal bowel sounds, no masses, no organomegaly and no aortic enlargement. Extremities are nonedematous and both femoral and pedal pulses are normal. 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 right sided weakness. - Constitutional Vitals: Temp Pulse Resp BP Pulse Ox 97.4 F L 79 18 107/53 90 04/29/19 12:35 04/29/19 12:35 04/29/19 12:35 04/29/19 12:35 04/29/19 12:35 General appearance: Present: no acute distress, obese Results - Labs CBC & Chem 7: 04/29/19 07:38 04/29/19 07:38 Labs: Laboratory Last Values WBC 3.9 K/mm3 (4.5-11.0) L 04/29/19 07:38 RBC 4.42 M/mm3 (3.65-5.03) 04/29/19 07:38 Hgb 13.7 gm/dl (10.1-14.3) 04/29/19 07:38 Hct 40.9 % (30.3-42.9) 04/29/19 07:38 MCV 93 fl (79-97) 04/29/19 07:38 MCH 31 pg (28-32) 04/29/19 07:38 MCHC 34 % (30-34) 04/29/19 07:38 RDW 14.1 % (13.2-15.2) 04/29/19 07:38 Plt Count 252 K/mm3 (140-440) 04/29/19 07:38 Lymph % (Auto) 43.7 % (13.4-35.0) H 04/12/19 04:40 [place] % (Auto) 9.6 % (0.0-7.3) H 04/12/19 04:40 Eos % (Auto) 2.1 % (0.0-4.3) 04/12/19 04:40 Baso % (Auto) 0.6 % (0.0-1.8) 04/12/19 04:40 Lymph # 2.1 K/mm3 (1.2-5.4) 04/12/19 04:40 [place] # 0.5 K/mm3 (0.0-0.8) 04/12/19 04:40 Eos # 0.1 K/mm3 (0.0-0.4) 04/12/19 04:40 Baso # 0.0 K/mm3 (0.0-0.1) 04/12/19 04:40 Seg Neutrophils % 44.0 % (40.0-70.0) 04/12/19 04:40 Seg Neutrophils # 2.1 K/mm3 (1.8-7.7) 04/12/19 04:40 PT 28.0 Sec. (12.2-14.9) H 04/29/19 07:38 INR 2.68 (0.87-1.13) H 04/29/19 07:38 Sodium 141 mmol/L (137-145) 04/29/19 07:38 Potassium 3.8 mmol/L (3.6-5.0) 04/29/19 07:38 Chloride 103.0 mmol/L (98-107) 04/29/19 07:38 Carbon Dioxide 25 mmol/L (22-30) 04/29/19 07:38 17 mmol/L 04/29/19 07:38 BUN 17 mg/dL (7-17) 04/29/19 07:38 1.4 mg/dL (0.7-1.2) H 04/29/19 07:38 Estimated GFR 45 ml/min 04/29/19 07:38 12 % 04/29/19 07:38 Glucose 96 mg/dL (65-100) 04/29/19 07:38 POC Glucose 101 (70-105) 04/29/19 06:12 Calcium 9.2 mg/dL (8.4-10.2) 04/29/19 07:38 0.30 mg/dL (0.1-1.2) 04/12/19 04:40 AST 16 units/L (5-40) 04/12/19 04:40 ALT 17 units/L (7-56) 04/12/19 04:40 57 units/L (35-129) 04/12/19 04:40 < 0.010 ng/mL (0.00-0.029) 04/13/19 16:42 6.3 g/dL (6.3-8.2) 04/12/19 04:40 3.3 g/dL (3.9-5) L 04/12/19 04:40 1.1 % 04/12/19 04:40 Yellow (Yellow) 04/23/19 16:35 Slightly-cloudy (Clear) 04/23/19 16:35 5.0 (5.0-7.0) 04/23/19 16:35 Ur Specific [place] 1.019 (1.003-1.030) 04/23/19 16:35 <15 mg/dl mg/dL (Negative) 04/23/19 16:35 Neg mg/dL (Negative) 04/23/19 16:35 Neg mg/dL (Negative) 04/23/19 16:35 Neg (Negative) 04/23/19 16:35 Neg (Negative) 04/23/19 16:35 Neg (Negative) 04/23/19 16:35 < 2.0 mg/dL (<2.0) 04/23/19 16:35 Ur Leukocyte Esterase Lg (Negative) 04/23/19 16:35 12.0 /HPF (0.0-6.0) H 04/23/19 16:35 7.0 /HPF (0.0-6.0) 04/23/19 16:35 U Epithel Cells (Auto) 6.0 /HPF (0-13.0) 04/23/19 16:35 Few /HPF 04/23/19 16:35 Active Medications - Current Medications Current Medications: Generic Name Dose Route Start Last Admin Trade Name Freq PRN Reason Stop Dose Admin Acetaminophen 650 mg 04/11/19 12:58 Tylenol PO Q4H PRN Pain MILD(1-3)/Fever >100.5/[place] Aspirin 81 mg 04/12/19 08:00 04/29/19 09:06 Halfprin Ec PO 81 mg QDAY SHAILESH Administration Bisacodyl 10 mg 04/11/19 12:58 Dulcolax [place] QDAY PRN Constipation unrelieved by MOM Diclofenac Sodium 1 applic 04/16/19 14:00 04/29/19 09:06 Diclofenac 1% TP 04/30/19 13:59 1 applic TID SHAILESH Administration Hydrochlorothiazide 12.5 mg 04/27/19 18:00 04/29/19 09:06 Hctz PO 12.5 mg QDAY SHAILESH Administration Losartan Potassium 75 mg 04/16/19 14:11 04/29/19 08:30 Cozaar PO Not Given QDAY SHAILESH Magnesium Hydroxide 30 ml 04/11/19 12:58 04/20/19 13:02 Milk Of Magnesia PO 30 ml Q4H PRN Administration Constipation Metformin HCl 500 mg 04/11/19 17:00 04/29/19 09:05 Glucophage PO 500 mg BIDDIAB SHAILESH Administration Pravastatin Sodium 40 mg 04/11/19 21:00 04/28/19 21:39 Pravachol PO 40 mg QHS SHAILESH Administration Promethazine HCl 25 mg 04/11/19 13:18 Phenergan PO Q6H PRN Nausea And Vomiting Simethicone 80 mg 04/16/19 13:10 Mylicon PO Q6H PRN Gas pain Trimethoprim/Sulfamethoxazole 160 mg 04/25/19 23:00 04/29/19 09:05 Bactrim 200-40 Mg/5 Ml PO 07/02/19 10:01 160 mg Q12HR SHAILESH Administration Warfarin Sodium 4 mg 04/29/19 17:00 Coumadin PO DAILY@1700 [facility] Nutrition/Malnutrition Assess - Dietary Evaluation Nutrition/Malnutrition Findings: Nutrition Notes Start: 04/12/19 17:44 Freq: Status: Active Protocol: Document 04/24/19 13:26 LINH (Rec: 04/24/19 13:32 LINH [email or web address] [email or web address]) Nutrition Notes Initial or Follow up Reassessment Current Diagnosis Diabetes,Hypertension,Stroke, Hyperlipidemia Current Diet Cardiac/Consistent CHO + Glucerna daily Labs/Tests Reviewed Pertinent Medications Reviewed Height 5 ft 6 in Weight 105 kg [place] Body Weight (kg) 59.09 BMI 37.3 Subjective/Other Information Pt not in room at time of visit (10:25). She consumed 75% of meals on 04/21 (no PO intakes documented since then) . Percent of energy/protein needs met: 71% energy 77% pro Burn Absent Trauma Absent #1 Nutrition Diagnosis Inadequate oral intake As Evidenced by Signs and Symptoms PO intake meeting >50% of energy and pro needs Diagnosis Progress(for reassessment Improved documentation) Is patient on ventilator? No Is Patient Ambulatory and/or Out of Bed Yes REE-([facility]-ambulatory/OOB) [ 2075.775 NUTR.[id number]] Kcal/Kg value to use for calculation 15 Approximate Energy Requirements Using 1575 kcal/Kg Additional Notes Pro needs 1-1.2g/kg adjBW: 82- 98g/day Fluid needs 1ml/kcal Nutrition Intervention Change Diet Order: Continue current diet Add Supplement/Snack (indicate name/kcal D/C ONS /protein ) Goal #1 PO intakes to meet at least 75 % energy and pro needs Follow-Up By: 05/01/19 Additional Comments F/U: intakes, wt
[2019-04-29] MEDS: COUMADIN PO SCH (17:05)
[2019-04-29] MEDS: PRAVACHOL PO SCH (21:54)
[2019-04-30 04:46] LABS: INR 2.59 (0.87-1.13)
[2019-04-30] MEDS: COZAAR PO SCH ×3 (08:00→13:38)
[2019-04-30] MEDS: HALFPRIN EC PO SCH (08:03)
[2019-04-30] MEDS: DICLOFENAC 1% TP SCH (08:04)
[2019-04-30] MEDS: GLUCOPHAGE PO SCH ×2 (08:05→17:39)
[2019-04-30] MEDS: HCTZ PO SCH (08:05)
[2019-04-30] MEDS: BACTRIM 200-40 MG/5 ML PO SCH (10:13)
--- NOTE | 2019-04-30 10:24 | Progress Note ---
Subjective Date of service: 04/30/19 Principal diagnosis: CVA Interval history: 68 yo RHD female who woke up with right sided weakness and dysarthria. Son was present for the exam. She states she had a previous CVA and TIA and records confirm. She was evaluated and found to have acute left pontine lacunar infarcts. Cardiology was consulted due to previously known PFO. JAN showed EF 55-60, no thrombus and a PFO. She was advised to follow up as outpatient for PFO closure. No PE seen on chest CTA. Per cardiology, she was transitioned from Eliquis to Coumadin and is currently subtherapeutic. I will start her on a lovenox bridge until she has therapeutic INR. A1C was above the cutoff for diabetes - discussed with her and her son. Will start on carb controlled diet and metformin. Patient is participating in therapy and making reasonable progress. Taking rest breaks as needed. +BM, no incontinence of B/B. Last dose of Bactrim today 04/30. Denies pain, palpitations, dyspnea, cough, N/V. Able to walk with a hemiwalker and assistance as well as knee immobilizer and dorsiflexion assist. Knee is lax and has valgus deformity. Poor ability to weight bear and maintain standing position without bracing. Right hand strength has improved and her fine motor skills are slighty improved as well in the right hand. No tenderness to palpation or signs of shoulder-hand syndrome at this point. INR therapeutic, pharmacy is still managing. Vitals stable. Antihypertensives held this AM - uncertain why, noted to be due to low BP which was recorded as 119/58. Reduce Cozaar and Monitor. Discussed in team conference. Underwent fall recovery and needed moderate assistance for this. We'll need to do family training so they're able to assist her with falls. Otherwise she is doing fairly well with therapy and making reasonable progress, has been going to the bathroom by herself and have cautioned her about requesting assistance. Just today she was found half on half off the toilet seat by therapy when they went in to check on her. Needs supervision for minimal assistance and safety purposes. Coumadin level seems to be stabilized and I think she will be discharged on 4 mg daily. She will need frequent follow-ups with her PCP to ensure this is stable in the short-term and may need to be adjusted long-term. Blood pressure medications have been held multiple times in the last week and I am adjusting trying to find a reasonable dose to send her home on. Major concern is if she happens to get lightheaded with being overdosed on blood pressure medications falls and hits her head on Coumadin she will be high risk for bleeding injury. Hold parameters have been in place were not fully adhered to. We'll attempt to discern what dose she needs to be on before discharge. This will need to be followed up closely with her PCP so that she is not running the risk of being hypertensive or hypotensive. All records, vitals, labs and medications were reviewed. No other issues per patient, nursing or therapy. Objective - Exam Narrative Exam: MUSCULOSKELETAL SPECIALTY EXAM CONSTITUTIONAL: Well developed, well nourished, obese, appropriately groomed. RIGHT hand dominant. RESPIRATORY: Clear to auscultation bilaterally, no increased work of breathing CARDIOVASCULAR: Regular Rate/ Rhythm, no swelling, edema or tenderness in BUE or BLE. All extremities warm. GI: + bowel sounds, soft, NTTP, nondistended. INTEGUMENTARY: Normal, no lesion, rash, masses or bruising noted in extremities. MUSCULOSKELETAL: Right knee valgus deformity and laxities, otherwise BUE and BLE normal without defect, crepitus, subluxation, effusion, arthritic changes or TTP. SA EF WE EE FF FA HF KE ADF EHL APF R 4-/5 4-/5 4-/5 4-/5 4-/5 3/5 2/5 3/5 2/5 3/5 3/5 L 4+/5 ROM decreased on right Tone decreased on the right NEURO: CN II-XII grossly intact except for Right facial droop and tongue protrudes slightly left Alternation of finger touch between 1st digit and 2nd,3rd digits is improved, fine motor improving Sensation intact in all extremities without extinction. No tremor noted in 4 extremities. Naming and repetition intact. Follows 2 step commands. Aphasia not appreciated Dysarthria present but improved Dysphagia not appreciated Neglect not appreciated POSTURE and GAIT: Sitting posture good. Balance and Gait need improvement. Utilizing walker, knee immobilizer and dorsiflexion assist PSYCH: Alert, orientated x3, affect appears euthymic. Insight appears intact. - Constitutional Vitals: Vital Signs - 12hr 04/30/19 07:45 Temperature 36.8 C Pulse Rate 67 Respiratory 18 Rate Blood Pressure 119/58 O2 Sat by Pulse 96 Oximetry - Allied health notes Allied health notes reviewed: nursing, PT, ST, OT FIMS assessment as documented by PT/OT/ST: Grooming Patient cleans teeth/dentures: Yes Patient capellan/brushes hair: Yes Patient washes, rinses and Yes dries face: Patient washes, rinses and Yes dries hands: Patient shaves: No Patient applies make-up: No Patient performs (no make-up/ 01/31 (100%) shaving): Grooming FIM Score 5. Supervision ([place] applies toothpaste or opens containers.) Toileting Patient able to: Clean self Patient able to perform: 1/3 (33%) Toileting FIM Score 2. Maximal Assistance (Patient = 25% or more) Social interaction/Memory/Problem solving Social Interaction FIM Score 6. Mod. [place] (Mostly appropriate. May need meds. No supv.) Memory FIM Score 6. Modified [place](Mild difficulty remembering people/routines.) Problem Solving FIM Score 6. Mod. [place] (Mild difficulty or needs more time w/ complex.) Transfers Mode of Locomotion: Wheelchair Bed/Chair/Wheelchair Transfers 5. Supervision (Needs supv. or set-up for FIM Score sliding board, foot rests.) Toilet Transfers FIM Score 3. Moderate Assistance (Patient = 50% or more. Some lifting.) Patient transferred to: Shower Shower Transfers FIM Score 3. Moderate Assistance (Patient = 50% or more. Some lifting.) Locomotion- walk/wheelchair Most Frequent Mode of Wheelchair Locomotion: Ambulation Distance 190 Walking FIM Score 4. Minimal Assistance (Patient = 75% or more. Minimum of 150 ft.) Wheelchair Propulsion Distance 150 Wheelchair FIM Score 5. Supervision (Minimum 150 ft. supv./cues or 50 ft. independently.) Eating Eating FIM Score 5. Supervision/Set-Up (Needs help w/ containers, cutting meat, etc.) Dressing-Upper body Patient retrieves clothing No items: Patient applies/removes UE n/a prosthesis or orthosis: Upper Body Dressing FIM Score 4. Minimal Assistance (Patient = 75% or more. Needs touching.) Dressing-lower body Patient retrieves clothing No items: Patient applies/removes LE n/a prosthesis or orthosis: Lower Body Dressing FIM Score 4. Minimal Assistance (Patient = 75% or more. Needs touching.) - Labs CBC & Chem 7: 04/29/19 07:38 04/29/19 07:38 Labs: Laboratory Results - last 72 hr 04/28/19 04/28/19 04/29/19 05:56 07:23 06:12 WBC RBC Hgb Hct MCV MCH MCHC RDW Plt Count PT 34.1 H INR 3.44 H Sodium Potassium Chloride Carbon Dioxide Anion Gap BUN Creatinine Estimated GFR BUN/Creatinine Ratio Glucose POC Glucose 96 101 Calcium 04/29/19 04/29/19 04/29/19 07:38 07:38 07:38 WBC 3.9 L RBC 4.42 Hgb 13.7 Hct 40.9 MCV 93 MCH 31 MCHC 34 RDW 14.1 Plt Count 252 PT 28.0 H INR 2.68 H Sodium 141 Potassium 3.8 Chloride 103.0 Carbon Dioxide 25 Anion Gap 17 BUN 17 Creatinine 1.4 H Estimated GFR 45 BUN/Creatinine Ratio 12 Glucose 96 POC Glucose Calcium 9.2 04/30/19 04/30/19 04:17 07:51 WBC RBC Hgb Hct MCV MCH MCHC RDW Plt Count PT 27.3 H INR 2.59 H Sodium Potassium Chloride Carbon Dioxide Anion Gap BUN Creatinine Estimated GFR BUN/Creatinine Ratio Glucose POC Glucose 106 H Calcium Assessment and Plan I69.351 hemiplegia affecting right dominant side after CVA: Continue secondary stroke prevention, discussed prognosis with patient and family, monitor for neurological decline, therapy is below, monitor for post stroke depression, monitor for shoulder hand syndrome. Strength is improving as noted in exam. Right knee laxity and valgus deformity coupled with right foot drop. Have requested knee brace to improve ability to stand and decrease falls and AFO for improved toe clearance while ambulating. 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 Cozaar and HCTZ have both been reduced secondary to periods of hypotension. Some difficulty with holding meds when blood pressure is relatively normal. Will monitor and hopefully see her blood pressure stabilized on current dosing. E11.9 DM: A1c this admission is 6.6, cutoff for prediabetes is 6.4 according to [employer]. Discussed with patient that this is also a risk factor for future strokes and will need to monitor this closely for her via dietary control and starting low-dose metformin. She may be able to discontinue metformin in the future if she is able to control her glucose with diet. Discussed with nursing to check glucose once daily, range has improved on metformin. Z73.6 ADL dysfunction: OT will work on improving ability to perform ADLs (including assistive devices) to increase independence and decrease caregiver burden and improve functional transfers and mobility training. R26.2 Difficulty walking: PT will work on gait training and proper use of assistive devices and advance as appropriate to use of stairs and outside ambulation on uneven surfaces. R26.81 Unsteadiness on feet: PT will work on improving static and dynamic sitting and standing balance as well as proper use of assistive devices to decrease risk of falls. R26.89 Abnormality of gait: PT will work to improve safety and efficiency of gait through neuromotor training and gait training along with instruction on proper use of assistive devices. M62.81 Muscle weakness: PT & OT will work on strengthening exercises to improve functional strength including mixture of closed and open kinetic chain exercises. R53.81 Debility: PT & OT will work on improving overall functional status to improve participation with ADLs, mobility and social involvement. R53.83 Fatigue: PT & OT will work on improving endurance through aerobic exercises and therapeutic activity while monitoring patients tolerance for activity and vital signs as needed. Right Knee pain: continue Voltaren gel 3 times a day as ordered, XR shows mild arthritis, knee brace on order. PFO: We'll maintain patient on Coumadin with a goal INR of 2-3. Will need to follow up with cardiology as outpatient. Had discussion about risk of fall with head strike and the need for urgent evaluation if this occurs with both patient and son. UTI- short course of bactrim, last dose 04/30 DVT ppx: Coumadin for a/c Pain: Continue physical modalities in therapy and pain medications as needed to achieve functional pain control. Sleep: Monitor and address as needed. Bowel: Monitor and address as needed. Appetite: Monitor and address as needed. Discharge planning: Plan to DC home on Monday. Knee at least until then to get her blood pressure stabilized so that she is not at risk for falling due to being overmedicated. Pending therapy progress and care plan meeting. Will continue discussion with therapy team, SW, patient and family. Orthotics equipment: We have placed an order for a right AFO due to the patient's foot drop (M21.371) which is secondary to the CVA. We have also ordered a knee orthosis (double upright with flexion and extension and a suspension sleeve) due to laxity in the right lower extremity, valgus knee deformity (chronic), and quadricep weakness (due to CVA) which affects the patient's ability to stand and ambulate safely. With these 2 devices in the rehabilitation unit the patient is able to stand and walk, without them she is a high risk for fall and since she is on Coumadin this makes her an even higher risk for a bleeding incident in the brain if she does fall. Restrictions/ Precautions: Falls WB status: FWB Functional Hx: ADLs: Independent Cognition: Independent Mobility: No AD mostly, used a cane occasionally. Barriers to Discharge: Decreased mobility and ability to perform self care, balance deficits, weakness, dysarthria, possible visual field deficit Estimated Length of Stay: 14-21 days Discharge Destination: Home with family
[2019-04-30] MEDS ORDERED: NACL 0.9% 1000 ML 1,000 ML IV SCH (14:00)
--- NOTE | 2019-04-30 15:29 | Progress Note ---
Assessment and Plan Assessment and plan: Patient is a 68 year old male admitted to the Inpatient Rehab unit for management of right sided weakness and dysarthria secondary to CVA. Patient has had 2 previous strokes in the past, multiple work up has not shown an etiology and there is currently a discussion about Outpatient PFO closure as PFO was seen on JAN with no thrombus and an EF of 55-60% Patient was transitioned to Coumadin and is subtherapeutic on arrival to our facility and has been started on a lovenox bridge, she was previously on Eliquis but transition was done per the patient due to recurrent stroke on Eliquis She reports compliance with her medication. She also has metabolic syndrome with diabetes mellitus CVA-Right sided Hemiplegia Continue Coumadin with a goal INR of 2-3. INR therapeutic today. Dysarthria; improving. Hypotension; normalized Costochondritis-improved cardiac enzymes are negative. No reoccurrence DM Type 2, new onset-Discussed this new diagnosis with the patient. Accu check ACHS Continue Metformin Obese Debility PFO Outpatient cardiology for PFO closure History Interval history: Patient was seen and evaluated this morning, patient was doing PT by the time I saw her. Hospitalist Physical - Physical exam Narrative exam: Not in cardiopulmonary distress. The patient is obese. Vital signs as documented. Head exam is unremarkable. No scleral icterus . Neck is without jugular venous distension, thyromegaly, or carotid bruits. Lungs are clear to auscultation. Cardiac exam reveals regular rate and Rhythm. Abdominal exam reveals normal bowel sounds, no masses, no organomegaly and no aortic enlargement. Extremities are nonedematous and both femoral and pedal pulses are normal. SURGICAL SERVICES MANAGER: Alert and oriented 3. right sided weakness. - Constitutional Vitals: Temp Pulse Resp BP Pulse Ox 97.9 F 69 18 101/55 94 04/30/19 11:05 04/30/19 13:38 04/30/19 11:05 04/30/19 13:38 04/30/19 11:05 General appearance: Present: no acute distress, obese Results - Labs CBC & Chem 7: 04/29/19 07:38 04/29/19 07:38 Labs: Laboratory Last Values WBC 3.9 K/mm3 (4.5-11.0) L 04/29/19 07:38 RBC 4.42 M/mm3 (3.65-5.03) 04/29/19 07:38 Hgb 13.7 gm/dl (10.1-14.3) 04/29/19 07:38 Hct 40.9 % (30.3-42.9) 04/29/19 07:38 MCV 93 fl (79-97) 04/29/19 07:38 MCH 31 pg (28-32) 04/29/19 07:38 MCHC 34 % (30-34) 04/29/19 07:38 RDW 14.1 % (13.2-15.2) 04/29/19 07:38 Plt Count 252 K/mm3 (140-440) 04/29/19 07:38 Lymph % (Auto) 43.7 % (13.4-35.0) H 04/12/19 04:40 [place] % (Auto) 9.6 % (0.0-7.3) H 04/12/19 04:40 Eos % (Auto) 2.1 % (0.0-4.3) 04/12/19 04:40 Baso % (Auto) 0.6 % (0.0-1.8) 04/12/19 04:40 Lymph # 2.1 K/mm3 (1.2-5.4) 04/12/19 04:40 [place] # 0.5 K/mm3 (0.0-0.8) 04/12/19 04:40 Eos # 0.1 K/mm3 (0.0-0.4) 04/12/19 04:40 Baso # 0.0 K/mm3 (0.0-0.1) 04/12/19 04:40 Seg Neutrophils % 44.0 % (40.0-70.0) 04/12/19 04:40 Seg Neutrophils # 2.1 K/mm3 (1.8-7.7) 04/12/19 04:40 PT 27.3 Sec. (12.2-14.9) H 04/30/19 04:17 INR 2.59 (0.87-1.13) H 04/30/19 04:17 Sodium 141 mmol/L (137-145) 04/29/19 07:38 Potassium 3.8 mmol/L (3.6-5.0) 04/29/19 07:38 Chloride 103.0 mmol/L (98-107) 04/29/19 07:38 Carbon Dioxide 25 mmol/L (22-30) 04/29/19 07:38 17 mmol/L 04/29/19 07:38 BUN 17 mg/dL (7-17) 04/29/19 07:38 1.4 mg/dL (0.7-1.2) H 04/29/19 07:38 Estimated GFR 45 ml/min 04/29/19 07:38 12 % 04/29/19 07:38 Glucose 96 mg/dL (65-100) 04/29/19 07:38 POC Glucose 106 (70-105) H 04/30/19 07:51 Calcium 9.2 mg/dL (8.4-10.2) 04/29/19 07:38 0.30 mg/dL (0.1-1.2) 04/12/19 04:40 AST 16 units/L (5-40) 04/12/19 04:40 ALT 17 units/L (7-56) 04/12/19 04:40 57 units/L (35-129) 04/12/19 04:40 < 0.010 ng/mL (0.00-0.029) 04/13/19 16:42 6.3 g/dL (6.3-8.2) 04/12/19 04:40 3.3 g/dL (3.9-5) L 04/12/19 04:40 1.1 % 04/12/19 04:40 Yellow (Yellow) 04/23/19 16:35 Slightly-cloudy (Clear) 04/23/19 16:35 5.0 (5.0-7.0) 04/23/19 16:35 Ur Specific [place] 1.019 (1.003-1.030) 04/23/19 16:35 <15 mg/dl mg/dL (Negative) 04/23/19 16:35 Neg mg/dL (Negative) 04/23/19 16:35 Neg mg/dL (Negative) 04/23/19 16:35 Neg (Negative) 04/23/19 16:35 Neg (Negative) 04/23/19 16:35 Neg (Negative) 04/23/19 16:35 < 2.0 mg/dL (<2.0) 04/23/19 16:35 Ur Leukocyte Esterase Lg (Negative) 04/23/19 16:35 12.0 /HPF (0.0-6.0) H 04/23/19 16:35 7.0 /HPF (0.0-6.0) 04/23/19 16:35 U Epithel Cells (Auto) 6.0 /HPF (0-13.0) 04/23/19 16:35 Few /HPF 04/23/19 16:35 Active Medications - Current Medications Current Medications: Generic Name Dose Route Start Last Admin Trade Name Freq PRN Reason Stop Dose Admin Acetaminophen 650 mg 04/11/19 12:58 Tylenol PO Q4H PRN Pain MILD(1-3)/Fever >100.5/[place] Aspirin 81 mg 04/12/19 08:00 04/30/19 08:03 Halfprin Ec PO 81 mg QDAY SHAILESH Administration Bisacodyl 10 mg 04/11/19 12:58 Dulcolax ND QDAY PRN Constipation unrelieved by MOM Hydrochlorothiazide 12.5 mg 04/27/19 18:00 04/30/19 08:05 Hctz PO Not Given QDAY [facility] Sodium Chloride 1,000 mls @ 125 mls/hr 04/30/19 14:00 Nacl 0.9% 1000 Ml IV 04/30/19 21:59 DIRECT SHAILESH Losartan Potassium 50 mg 04/30/19 13:00 04/30/19 13:38 Cozaar PO Not Given QDAY [facility] Magnesium Hydroxide 30 ml 04/11/19 12:58 04/20/19 13:02 Milk Of Magnesia PO 30 ml Q4H PRN Administration Constipation Metformin HCl 500 mg 04/11/19 17:00 04/30/19 08:05 Glucophage PO 500 mg BIDDIAB SHAILESH Administration Pravastatin Sodium 40 mg 04/11/19 21:00 04/29/19 21:54 Pravachol PO 40 mg QHS SHAILESH Administration Promethazine HCl 25 mg 04/11/19 13:18 Phenergan PO Q6H PRN Nausea And Vomiting Simethicone 80 mg 04/16/19 13:10 Mylicon PO Q6H PRN Gas pain Warfarin Sodium 4 mg 04/29/19 17:00 04/29/19 17:05 Coumadin PO 4 mg DAILY@1700 SHAILESH Administration Nutrition/Malnutrition Assess - Dietary Evaluation Nutrition/Malnutrition Findings: Nutrition Notes Start: 04/12/19 17:44 Freq: Status: Active Protocol: Document 04/24/19 13:26 LINH (Rec: 04/24/19 13:32 LINH [email or web address]) Nutrition Notes Initial or Follow up Reassessment Current Diagnosis Diabetes,Hypertension,Stroke, Hyperlipidemia Current Diet Cardiac/Consistent CHO + Glucerna daily Labs/Tests Reviewed Pertinent Medications Reviewed Height 5 ft 6 in Weight 105 kg [place] Body Weight (kg) 59.09 BMI 37.3 Subjective/Other Information Pt not in room at time of visit (10:25). She consumed 75% of meals on 04/21 (no PO intakes documented since then) . Percent of energy/protein needs met: 71% energy 77% pro Burn Absent Trauma Absent #1 Nutrition Diagnosis Inadequate oral intake As Evidenced by Signs and Symptoms PO intake meeting >50% of energy and pro needs Diagnosis Progress(for reassessment Improved documentation) Is patient on ventilator? No Is Patient Ambulatory and/or Out of Bed Yes REE-([facility]ambulatory/OOB) [ 2075.775 [id number]] Kcal/Kg value to use for calculation 15 Approximate Energy Requirements Using 1575 kcal/Kg Additional Notes Pro needs 1-1.2g/kg adjBW: 82- 98g/day Fluid needs 1ml/kcal Nutrition Intervention Change Diet Order: Continue current diet Add Supplement/Snack (indicate name/kcal D/C ONS /protein ) Goal #1 PO intakes to meet at least 75 % energy and pro needs Follow-Up By: 05/01/19 Additional Comments F/U: intakes, wt
[2019-04-30] MEDS: COUMADIN PO SCH (17:38)
[2019-04-30] MEDS: PRAVACHOL PO SCH (21:08)
[2019-05-01] MEDS: GLUCOPHAGE PO SCH ×2 (08:29→16:55)
[2019-05-01] MEDS: HALFPRIN EC PO SCH (08:29)
[2019-05-01] MEDS: HCTZ PO SCH (08:30)
[2019-05-01] MEDS: COZAAR PO SCH (08:30)
[2019-05-01 08:44] LABS: INR 2.98 (0.87-1.13)
[2019-05-01 09:49] LABS: Calcium 9.6 mg/dL (8.4-10.2)
--- NOTE | 2019-05-01 12:29 | Progress Note ---
Subjective Date of service: 05/01/19 Principal diagnosis: CVA Interval history: 68 yo RHD female who woke up with right sided weakness and dysarthria. Son was present for the exam. She states she had a previous CVA and TIA and records confirm. She was evaluated and found to have acute left pontine lacunar infarcts. Cardiology was consulted due to previously known PFO. JAN showed EF 55-60, no thrombus and a PFO. She was advised to follow up as outpatient for PFO closure. No PE seen on chest CTA. Per cardiology, she was transitioned from Eliquis to Coumadin and is currently subtherapeutic. I will start her on a lovenox bridge until she has therapeutic INR. A1C was above the cutoff for diabetes - discussed with her and her son. Will start on carb controlled diet and metformin. Patient is participating in therapy and making reasonable progress. Taking rest breaks as needed. +BM, no incontinence of B/B. Denies palpitations, dyspnea, cough, N/V. Decreased ability to walk today due to increased knee pain. Knee is lax and has valgus deformity. IVF not given last night - discussed with nursing and patient and re-ordered. Right hand strength has improved and her fine motor skills are slighty improved as well in the right hand. No tenderness to palpation or signs of shoulder-hand syndrome at this point. INR therapeutic, pharmacy is still managing. Vitals stable. Antihypertensives held past 3 days with normal BP - d/c cozaar, monitor. All records, vitals, labs and medications were reviewed. No other issues per patient, nursing or therapy. Objective - Exam Narrative Exam: MUSCULOSKELETAL SPECIALTY EXAM CONSTITUTIONAL: Well developed, well nourished, obese, appropriately groomed. RIGHT hand dominant. RESPIRATORY: Clear to auscultation bilaterally, no increased work of breathing CARDIOVASCULAR: Regular Rate/ Rhythm, no swelling, edema or tenderness in BUE or BLE. All extremities warm. GI: + bowel sounds, soft, NTTP, nondistended. INTEGUMENTARY: Normal, no lesion, rash, masses or bruising noted in extremities. MUSCULOSKELETAL: Right knee valgus deformity and laxities with some TTP, otherwise BUE and BLE normal without defect, crepitus, subluxation, effusion, arthritic changes or TTP. SA EF WE EE FF FA HF KE ADF EHL APF R 4-/5 4-/5 4-/5 4-/5 4-/5 3/5 2/5 3/5 2/5 3/5 3/5 L 4+/5 ROM decreased on right Tone decreased on the right NEURO: CN II-XII grossly intact except for Right facial droop and tongue protrudes slightly left Alternation of finger touch between 1st digit and 2nd,3rd digits is improved, fine motor improving Sensation intact in all extremities without extinction. No tremor noted in 4 extremities. Naming and repetition intact. Follows 2 step commands. Aphasia not appreciated Dysarthria present but improved Dysphagia not appreciated Neglect not appreciated POSTURE and GAIT: Sitting posture good. Balance and Gait need improvement. Utilizing walker, knee immobilizer and dorsiflexion assist PSYCH: Alert, orientated x3, affect appears euthymic. Insight appears intact. - Constitutional Vitals: Vital Signs - 12hr 05/01/19 05/01/19 04:49 07:00 Temperature 36.5 C 36.4 C Pulse Rate 79 70 Respiratory 20 18 Rate Blood Pressure 105/63 Blood Pressure 108/53 [Right] O2 Sat by Pulse 94 94 Oximetry - Allied health notes Allied health notes reviewed: nursing, PT, ST, OT FIMS assessment as documented by PT/OT/ST: Grooming Patient cleans teeth/dentures: Yes Patient capellan/brushes hair: Yes Patient washes, rinses and Yes dries face: Patient washes, rinses and Yes dries hands: Patient shaves: No Patient applies make-up: No Patient performs (no make-up/ 01/31 (100%) shaving): Grooming FIM Score 5. Supervision ([place] applies toothpaste or opens containers.) Toileting Toileting Device Bedside Commode Patient able to: Adjust clothes before,Clean self,Adjust clothes after Patient able to perform: 3/3 (100%) Toileting FIM Score 5. Supv./Set-Up (Needs stand-by, set-up, applying prosth/orth.) Social interaction/Memory/Problem solving Social Interaction FIM Score 6. Mod. [place] (Mostly appropriate. May need meds. No supv.) Memory FIM Score 6. Modified [place](Mild difficulty remembering people/routines.) Problem Solving FIM Score 5. Supervision (Needs cueing <10% to solve routine problems.) Transfers Mode of Locomotion: Wheelchair Bed/Chair/Wheelchair Transfers 5. Supervision (Needs supv. or set-up for FIM Score sliding board, foot rests.) Toilet Transfers FIM Score 5. Supervision (Needs supervision or cueing.) Patient transferred to: Shower Shower Transfers FIM Score 3. Moderate Assistance (Patient = 50% or more. Some lifting.) Locomotion- walk/wheelchair Most Frequent Mode of Wheelchair Locomotion: Ambulation Distance 170 Walking FIM Score 4. Minimal Assistance (Patient = 75% or more. Minimum of 150 ft.) Wheelchair Propulsion Distance 150 Wheelchair FIM Score 5. Supervision (Minimum 150 ft. supv./cues or 50 ft. independently.) Eating Eating FIM Score 5. Supervision/Set-Up (Needs help w/ containers, cutting meat, etc.) Dressing-Upper body Patient retrieves clothing No items: Patient applies/removes UE n/a prosthesis or orthosis: Upper Body Dressing FIM Score 4. Minimal Assistance (Patient = 75% or more. Needs touching.) Dressing-lower body Patient retrieves clothing No items: Patient applies/removes LE n/a prosthesis or orthosis: Lower Body Dressing FIM Score 5. Supv./Set-Up ([place] sets out clothes or applies pros./orth.) - Labs CBC & Chem 7: 04/29/19 07:38 05/01/19 08:02 Labs: Laboratory Results - last 72 hr 04/29/19 04/29/19 04/29/19 06:12 07:38 07:38 WBC 3.9 L RBC 4.42 Hgb 13.7 Hct 40.9 MCV 93 MCH 31 MCHC 34 RDW 14.1 Plt Count 252 PT 28.0 H INR 2.68 H Sodium Potassium Chloride Carbon Dioxide Anion Gap BUN Creatinine Estimated GFR BUN/Creatinine Ratio Glucose POC Glucose 101 Calcium 04/29/19 04/30/19 04/30/19 07:38 04:17 07:51 WBC RBC Hgb Hct MCV MCH MCHC RDW Plt Count PT 27.3 H INR 2.59 H Sodium 141 Potassium 3.8 Chloride 103.0 Carbon Dioxide 25 Anion Gap 17 BUN 17 Creatinine 1.4 H Estimated GFR 45 BUN/Creatinine Ratio 12 Glucose 96 POC Glucose 106 H Calcium 9.2 05/01/19 05/01/19 05/01/19 06:25 08:02 08:02 WBC RBC Hgb Hct MCV MCH MCHC RDW Plt Count PT 30.5 H INR 2.98 H Sodium 140 Potassium 4.1 Chloride 103.0 Carbon Dioxide 24 Anion Gap 17 BUN 14 Creatinine 1.4 H Estimated GFR 45 BUN/Creatinine Ratio 10 Glucose 101 H POC Glucose 113 H Calcium 9.6 - Imaging and cardiology Other: report reviewed (Knee XR) Assessment and Plan I69.351 hemiplegia affecting right dominant side after CVA: Continue secondary stroke prevention, discussed prognosis with patient and family, monitor for neurological decline, therapy is below, monitor for post stroke depression, monitor for shoulder hand syndrome. Strength is improving as noted in exam. Right knee laxity and valgus deformity coupled with right foot drop. Have requested knee brace to improve ability to stand and decrease falls and AFO for improved toe clearance while ambulating. 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 Cozaar and HCTZ have both been reduced secondary to periods of hypotension. Some difficulty with holding meds when blood pressure is relatively normal. Will monitor and hopefully see her blood pressure stabilized on current dosing. E11.9 DM: A1c this admission is 6.6, cutoff for prediabetes is 6.4 according to [facility]. Discussed with patient that this is also a risk factor for future strokes and will need to monitor this closely for her via dietary control and starting low-dose metformin. She may be able to discontinue metformin in the future if s he is able to control her glucose with diet. Discussed with nursing to check glucose once daily, range has improved on metformin. Z73.6 ADL dysfunction: OT will work on improving ability to perform ADLs (including assistive devices) to increase independence and decrease caregiver burden and improve functional transfers and mobility training. R26.2 Difficulty walking: PT will work on gait training and proper use of assistive devices and advance as appropriate to use of stairs and outside ambulation on uneven surfaces. R26.81 Unsteadiness on feet: PT will work on improving static and dynamic si tting and standing balance as well as proper use of assistive devices to decrease risk of falls. R26.89 Abnormality of gait: PT will work to improve safety and efficiency of gait through neuromotor training and gait training along with instruction on proper use of assistive devices. M62.81 Muscle weakness: PT & OT will work on strengthening exercises to improve functional strength including mixture of closed and open kinetic chain exercises. R53.81 Debility: PT & OT will work on improving overall functional status to improve participation with ADLs, mobility and social involvement. R53.83 Fatigue: PT & OT will work on improving endurance through aerobic exercises and therapeutic activity while monitoring patients tolerance for activity and vital signs as needed. Right Knee pain: increased knee pain interfering with therapy. continue Voltaren gel 3 times a day as ordered, repeat XR shows mild arthritis, knee brace on order. PFO: We'll maintain patient on Coumadin with a goal INR of 2-3. Will need to follow up with cardiology as outpatient. Had discussion about risk of fall with head strike and the need for urgent evaluation if this occurs with both patient and son. UTI- short course of bactrim, last dose 04/30 DVT ppx: Coumadin for a/c Pain: Continue physical modalities in therapy and pain medications as needed to achieve functional pain control. Sleep: Monitor and address as needed. Bowel: Monitor and address as needed. Appetite: Monitor and address as needed. Discharge planning: Plan to DC home on Monday. Knee at least until then to get her blood pressure stabilized so that she is not at risk for falling due to being overmedicated. Pending therapy progress and care plan meeting. Will continue discussion with therapy team, SW, patient and family. Orthotics equipment: We have placed an order for a right AFO due to the patient's foot drop (M21.371) which is secondary to the CVA. We have also ordered a knee orthosis (double upright with flexion and extension and a suspension sleeve) due to laxity in the right lower extremity, valgus knee d eformity (chronic), and quadricep weakness (due to CVA) which affects the patient's ability to stand and ambulate safely. With these 2 devices in the rehabilitation unit the patient is able to stand and walk, without them she is a high risk for fall and since she is on Coumadin this makes her an even higher risk for a bleeding incident in the brain if she does fall. Restrictions/ Precautions: Falls WB status: FWB Functional Hx: ADLs: Independent Cognition: Independent Mobility: No AD mostly, used a cane occasionally. Barriers to Discharge: Decreased mobility and ability to perform self care, balance deficits, weakness, dysarthria, possible visual field deficit Estimated Length of Stay: 14-21 days Discharge Destination: Home with family
--- NOTE | 2019-05-01 12:53 | Progress Note ---
Assessment and Plan Assessment and plan: Patient is a 68 year old male admitted to the Inpatient Rehab unit for management of right sided weakness and dysarthria secondary to CVA. Patient has had 2 previous strokes in the past, multiple work up has not shown an etiology and there is currently a discussion about Outpatient PFO closure as PFO was seen on JAN with no thrombus and an EF of 55-60% Patient was transitioned to Coumadin and is subtherapeutic on arrival to our facility and has been started on a lovenox bridge, she was previously on Eliquis but transition was done per the patient due to recurrent stroke on Eliquis She reports compliance with her medication. She also has metabolic syndrome with diabetes mellitus CVA-Right sided Hemiplegia Continue Coumadin with a goal INR of 2-3. INR therapeutic today. Dysarthria; improving. Hypotension; normalized Costochondritis-improved cardiac enzymes are negative. No reccurrence DM Type 2, new onset-Discussed this new diagnosis with the patient. Accu check ACHS Continue Metformin Obese Debility PFO Outpatient cardiology for PFO closure History Interval history: Patient was seen and evaluated this morning, patient was doing PT by the time I saw her. Patient didn't have any complaints. Hospitalist Physical - Physical exam Narrative exam: Not in cardiopulmonary distress. The patient is obese. Vital signs as documented. Head exam is unremarkable. No scleral icterus . Neck is without jugular venous distension, thyromegaly, or carotid bruits. Lungs are clear to auscultation. Cardiac exam reveals regular rate and Rhythm. Abdominal exam reveals normal bowel sounds, no masses, no organomegaly and no aortic enlargement. Extremities are nonedematous and both femoral and pedal pulses are normal. 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 right sided weakness. - Constitutional Vitals: Temp Pulse Resp BP Pulse Ox 98.3 F 78 20 124/68 94 05/01/19 11:01 05/01/19 11:01 05/01/19 11:01 05/01/19 11:05/01/19 11:01 General appearance: Present: no acute distress, obese Results - Labs CBC & Chem 7: 04/29/19 07:38 05/01/19 08:02 Labs: Laboratory Last Values WBC 3.9 K/mm3 (4.5-11.0) L 04/29/19 07:38 RBC 4.42 M/mm3 (3.65-5.03) 04/29/19 07:38 Hgb 13.7 gm/dl (10.1-14.3) 04/29/19 07:38 Hct 40.9 % (30.3-42.9) 04/29/19 07:38 MCV 93 fl (79-97) 04/29/19 07:38 MCH 31 pg (28-32) 04/29/19 07:38 MCHC 34 % (30-34) 04/29/19 07:38 RDW 14.1 % (13.2-15.2) 04/29/19 07:38 Plt Count 252 K/mm3 (140-440) 04/29/19 07:38 Lymph % (Auto) 43.7 % (13.4-35.0) H 04/12/19 04:40 [place] % (Auto) 9.6 % (0.0-7.3) H 04/12/19 04:40 Eos % (Auto) 2.1 % (0.0-4.3) 04/12/19 04:40 Baso % (Auto) 0.6 % (0.0-1.8) 04/12/19 04:40 Lymph # 2.1 K/mm3 (1.2-5.4) 04/12/19 04:40 Travis # 0.5 K/mm3 (0.0-0.8) 04/12/19 04:40 Eos # 0.1 K/mm3 (0.0-0.4) 04/12/19 04:40 Baso # 0.0 K/mm3 (0.0-0.1) 04/12/19 04:40 Seg Neutrophils % 44.0 % (40.0-70.0) 04/12/19 04:40 Seg Neutrophils # 2.1 K/mm3 (1.8-7.7) 04/12/19 04:40 PT 30.5 Sec. (12.2-14.9) H 05/01/19 08:02 INR 2.98 (0.87-1.13) H 05/01/19 08:02 Sodium 140 mmol/L (137-145) 05/01/19 08:02 Potassium 4.1 mmol/L (3.6-5.0) 05/01/19 08:02 Chloride 103.0 mmol/L (98-107) 05/01/19 08:02 Carbon Dioxide 24 mmol/L (22-30) 05/01/19 08:02 17 mmol/L 05/01/19 08:02 BUN 14 mg/dL (7-17) 05/01/19 08:02 1.4 mg/dL (0.7-1.2) H 05/01/19 08:02 Estimated GFR 45 ml/min 05/01/19 08:02 10 % 05/01/19 08:02 Glucose 101 mg/dL (65-100) H 05/01/19 08:02 POC Glucose 113 (70-105) H 05/01/19 06:25 Calcium 9.6 mg/dL (8.4-10.2) 05/01/19 08:02 0.30 mg/dL (0.1-1.2) 04/12/19 04:40 AST 16 units/L (5-40) 04/12/19 04:40 ALT 17 units/L (7-56) 04/12/19 04:40 57 units/L (35-129) 04/12/19 04:40 < 0.010 ng/mL (0.00-0.029) 04/13/19 16:42 6.3 g/dL (6.3-8.2) 04/12/19 04:40 3.3 g/dL (3.9-5) L 04/12/19 04:40 1.1 % 04/12/19 04:40 Yellow (Yellow) 04/23/19 16:35 Slightly-cloudy (Clear) 04/23/19 16:35 5.0 (5.0-7.0) 04/23/19 16:35 Ur Specific Gregory 1.019 (1.003-1.030) 04/23/19 16:35 <15 mg/dl mg/dL (Negative) 04/23/19 16:35 Neg mg/dL (Negative) 04/23/19 16:35 Neg mg/dL (Negative) 04/23/19 16:35 Neg (Negative) 04/23/19 16:35 Neg (Negative) 04/23/19 16:35 Neg (Negative) 04/23/19 16:35 < 2.0 mg/dL (<2.0) 04/23/19 16:35 Ur Leukocyte Esterase Lg (Negative) 04/23/19 16:35 12.0 /HPF (0.0-6.0) H 04/23/19 16:35 7.0 /HPF (0.0-6.0) 04/23/19 16:35 U Epithel Cells (Auto) 6.0 /HPF (0-13.0) 04/23/19 16:35 Few /HPF 04/23/19 16:35 Active Medications - Current Medications Current Medications: Generic Name Dose Route Start Last Admin Trade Name Freq PRN Reason Stop Dose Admin Acetaminophen 650 mg 04/11/19 12:58 Tylenol PO Q4H PRN Pain MILD(1-3)/Fever >100.5/[place] Aspirin 81 mg 04/12/19 08:00 05/01/19 08:29 Halfprin Ec PO 81 mg QDAY SHAILESH Administration Bisacodyl 10 mg 04/11/19 12:58 Dulcolax TN QDAY PRN Constipation unrelieved by MOM Hydrochlorothiazide 12.5 mg 04/27/19 18:00 05/01/19 08:30 Hctz PO Not Given QDAY SHAILESH Losartan Potassium 50 mg 04/30/19 13:00 05/01/19 08:30 Cozaar PO Not Given QDAY SHAILESH Magnesium Hydroxide 30 ml 04/11/19 12:58 04/20/19 13:02 Milk Of Magnesia PO 30 ml Q4H PRN Administration Constipation Metformin HCl 500 mg 04/11/19 17:00 05/01/19 08:29 Glucophage PO 500 mg BIDDIAB SHAILESH Administration Pravastatin Sodium 40 mg 04/11/19 21:00 04/30/19 21:08 Pravachol PO 40 mg QHS SHAILESH Administration Promethazine HCl 25 mg 04/11/19 13:18 Phenergan PO Q6H PRN Nausea And Vomiting Simethicone 80 mg 04/16/19 13:10 Mylicon PO Q6H PRN Gas pain Warfarin Sodium 4 mg 04/29/19 17:00 04/30/19 17:38 Coumadin PO 4 mg DAILY@1700 SHAILESH Administration Nutrition/Malnutrition Assess - Dietary Evaluation Nutrition/Malnutrition Findings: Nutrition Notes Start: 04/12/19 17:44 Freq: Status: Active Protocol: Document 04/24/19 13:26 LINH (Rec: 04/24/19 13:32 LINH [email or web address] [email or web address]) Nutrition Notes Initial or Follow up Reassessment Current Diagnosis Diabetes,Hypertension,Stroke, Hyperlipidemia Current Diet Cardiac/Consistent CHO + Glucerna daily Labs/Tests Reviewed Pertinent Medications Reviewed Height 5 ft 6 in Weight 105 kg [place] Body Weight (kg) 59.09 BMI 37.3 Subjective/Other Information Pt not in room at time of visit (10:25). She consumed 75% of meals on 04/21 (no PO intakes documented since then) . Percent of energy/protein needs met: 71% energy 77% pro Burn Absent Trauma Absent #1 Nutrition Diagnosis Inadequate oral intake As Evidenced by Signs and Symptoms PO intake meeting >50% of energy and pro needs Diagnosis Progress(for reassessment Improved documentation) Is patient on ventilator? No Is Patient Ambulatory and/or Out of Bed Yes REE-(Tama-St. Jeor-ambulatory/OOB) [ 2075.775 NUTR.MSJOOB] Kcal/Kg value to use for calculation 15 Approximate Energy Requirements Using 1575 kcal/Kg Additional Notes Pro needs 1-1.2g/kg adjBW: 82- 98g/day Fluid needs 1ml/kcal Nutrition Intervention Change Diet Order: Continue current diet Add Supplement/Snack (indicate name/kcal D/C ONS /protein ) Goal #1 PO intakes to meet at least 75 % energy and pro needs Follow-Up By: 05/01/19 Additional Comments F/U: intakes, wt
[2019-05-01] MEDS ORDERED: NACL 0.9% 1000 ML 1,000 ML IV SCH (13:00)
--- NOTE | 2019-05-01 14:46 | XRay Report ---
3 views of the right knee INDICATION / CLINICAL INFORMATION: Right knee pain after physical therapy. COMPARISON: Right knee radiographs on 04/18/2019 FINDINGS: BONES/JOINT(S): No acute fracture or subluxation. Unchanged moderate tricompartmental DJD with joint space loss and subchondral sclerosis and marginal osteophyte formation. No significant joint effusion . SOFT TISSUES: No significant abnormality. ADDITIONAL FINDINGS: None. Signer Name: John Marte MD Signed: 05/01/2019 2:42 PM Workstation Name: [id number]
[2019-05-01] MEDS: COUMADIN PO SCH (16:59)
[2019-05-01] MEDS: PRAVACHOL PO SCH (21:45)
[2019-05-02 05:40] LABS: INR 3.42 (0.87-1.13)
[2019-05-02] MEDS: GLUCOPHAGE PO SCH ×2 (07:44→18:10)
[2019-05-02] MEDS: HALFPRIN EC PO SCH (07:44)
[2019-05-02] MEDS: HCTZ PO SCH (07:45)
--- NOTE | 2019-05-02 10:01 | Progress Note ---
Assessment and Plan Assessment and plan: Patient is a 68 year old male admitted to the Inpatient Rehab unit for management of right sided weakness and dysarthria secondary to CVA. Patient has had 2 previous strokes in the past, multiple work up has not shown an etiology and there is currently a discussion about Outpatient PFO closure as PFO was seen on JAN with no thrombus and an EF of 55-60% Patient was transitioned to Coumadin and is subtherapeutic on arrival to our facility and has been started on a lovenox bridge, she was previously on Eliquis but transition was done per the patient due to recurrent stroke on Eliquis She reports compliance with her medication. She also has metabolic syndrome with diabetes mellitus CVA-Right sided Hemiplegia Continue Coumadin with a goal INR of 2-3. INR is supratherapeutic today. Dysarthria; improving. Hypotension; normalized Costochondritis-improved cardiac enzymes are negative. No reccurrence DM Type 2, new onset-Discussed this new diagnosis with the patient. Accu check ACHS Continue Metformin Obese Debility PFO Outpatient cardiology for PFO closure History Interval history: Patient was seen and evaluated this morning, patient was doing PT by the time I saw her. Patient didn't have any complaints. Hospitalist Physical - Physical exam Narrative exam: Not in cardiopulmonary distress. The patient is obese. Vital signs as documented. Head exam is unremarkable. No scleral icterus . Neck is without jugular venous distension, thyromegaly, or carotid bruits. Lungs are clear to auscultation. Cardiac exam reveals regular rate and Rhythm. Abdominal exam reveals normal bowel sounds, no masses, no organomegaly and no aortic enlargement. Extremities are nonedematous and both femoral and pedal pulses are normal. 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 right sided weakness. - Constitutional Vitals: Temp Pulse Resp BP Pulse Ox 97.9 F 73 20 124/61 92 05/02/19 06:47 05/02/19 06:47 05/02/19 06:47 05/02/19 06:47 05/02/19 06:47 General appearance: Present: no acute distress, obese Results - Labs CBC & Chem 7: 04/29/19 07:38 05/01/19 08:02 Labs: Laboratory Last Values WBC 3.9 K/mm3 (4.5-11.0) L 04/29/19 07:38 RBC 4.42 M/mm3 (3.65-5.03) 04/29/19 07:38 Hgb 13.7 gm/dl (10.1-14.3) 04/29/19 07:38 Hct 40.9 % (30.3-42.9) 04/29/19 07:38 MCV 93 fl (79-97) 04/29/19 07:38 MCH 31 pg (28-32) 04/29/19 07:38 MCHC 34 % (30-34) 04/29/19 07:38 RDW 14.1 % (13.2-15.2) 04/29/19 07:38 Plt Count 252 K/mm3 (140-440) 04/29/19 07:38 Lymph % (Auto) 43.7 % (13.4-35.0) H 04/12/19 04:40 [place] % (Auto) 9.6 % (0.0-7.3) H 04/12/19 04:40 Eos % (Auto) 2.1 % (0.0-4.3) 04/12/19 04:40 Baso % (Auto) 0.6 % (0.0-1.8) 04/12/19 04:40 Lymph # 2.1 K/mm3 (1.2-5.4) 04/12/19 04:40 [place] # 0.5 K/mm3 (0.0-0.8) 04/12/19 04:40 Eos # 0.1 K/mm3 (0.0-0.4) 04/12/19 04:40 Baso # 0.0 K/mm3 (0.0-0.1) 04/12/19 04:40 Seg Neutrophils % 44.0 % (40.0-70.0) 04/12/19 04:40 Seg Neutrophils # 2.1 K/mm3 (1.8-7.7) 04/12/19 04:40 PT 34.0 Sec. (12.2-14.9) H 05/02/19 05:12 INR 3.42 (0.87-1.13) H 05/02/19 05:12 Sodium 140 mmol/L (137-145) 05/01/19 08:02 Potassium 4.1 mmol/L (3.6-5.0) 05/01/19 08:02 Chloride 103.0 mmol/L (98-107) 05/01/19 08:02 Carbon Dioxide 24 mmol/L (22-30) 05/01/19 08:02 17 mmol/L 05/01/19 08:02 BUN 14 mg/dL (7-17) 05/01/19 08:02 1.4 mg/dL (0.7-1.2) H 05/01/19 08:02 Estimated GFR 45 ml/min 05/01/19 08:02 10 % 05/01/19 08:02 Glucose 101 mg/dL (65-100) H 05/01/19 08:02 POC Glucose 103 (70-105) 05/02/19 06:26 Calcium 9.6 mg/dL (8.4-10.2) 05/01/19 08:02 0.30 mg/dL (0.1-1.2) 04/12/19 04:40 AST 16 units/L (5-40) 04/12/19 04:40 ALT 17 units/L (7-56) 04/12/19 04:40 57 units/L (35-129) 04/12/19 04:40 < 0.010 ng/mL (0.00-0.029) 04/13/19 16:42 6.3 g/dL (6.3-8.2) 04/12/19 04:40 3.3 g/dL (3.9-5) L 04/12/19 04:40 1.1 % 04/12/19 04:40 Yellow (Yellow) 04/23/19 16:35 Slightly-cloudy (Clear) 04/23/19 16:35 5.0 (5.0-7.0) 04/23/19 16:35 Ur Specific [place] 1.019 (1.003-1.030) 04/23/19 16:35 <15 mg/dl mg/dL (Negative) 04/23/19 16:35 Neg mg/dL (Negative) 04/23/19 16:35 Neg mg/dL (Negative) 04/23/19 16:35 Neg (Negative) 04/23/19 16:35 Neg (Negative) 04/23/19 16:35 Neg (Negative) 04/23/19 16:35 < 2.0 mg/dL (<2.0) 04/23/19 16:35 Ur Leukocyte Esterase Lg (Negative) 04/23/19 16:35 12.0 /HPF (0.0-6.0) H 04/23/19 16:35 7.0 /HPF (0.0-6.0) 04/23/19 16:35 U Epithel Cells (Auto) 6.0 /HPF (0-13.0) 04/23/19 16:35 Few /HPF 04/23/19 16:35 Active Medications - Current Medications Current Medications: Generic Name Dose Route Start Last Admin Trade Name Freq PRN Reason Stop Dose Admin Acetaminophen 650 mg 04/11/19 12:58 Tylenol PO Q4H PRN Pain MILD(1-3)/Fever >100.5/[place] Aspirin 81 mg 04/12/19 08:00 05/02/19 07:44 Halfprin Ec PO 81 mg QDAY SHAILESH Administration Bisacodyl 10 mg 04/11/19 12:58 Dulcolax AR QDAY PRN Constipation unrelieved by MOM Hydrochlorothiazide 12.5 mg 04/27/19 18:00 05/02/19 07:45 Hctz PO Not Given QDAY ON LICENSE OF [facility] Magnesium Hydroxide 30 ml 04/11/19 12:58 04/20/19 13:02 Milk Of Magnesia PO 30 ml Q4H PRN Administration Constipation Metformin HCl 500 mg 04/11/19 17:00 05/02/19 07:44 Glucophage PO 500 mg BIDDIAB SHAILESH Administration Pravastatin Sodium 40 mg 04/11/19 21:00 05/01/19 21:45 Pravachol PO 40 mg QHS SHAILESH Administration Promethazine HCl 25 mg 04/11/19 13:18 Phenergan PO Q6H PRN Nausea And Vomiting Simethicone 80 mg 04/16/19 13:10 Mylicon PO Q6H PRN Gas pain Warfarin Sodium 2 mg 05/01/19 17:00 05/01/19 16:59 Coumadin PO 2 mg DAILY@1700 ON LICENSE OF [facility] Administration Nutrition/Malnutrition Assess - Dietary Evaluation Nutrition/Malnutrition Findings: Nutrition Notes Start: 04/12/19 17:44 Freq: Status: Active Protocol: Document 05/01/19 17:25 RM (Rec: 05/01/19 17:29 RM [id number]) Nutrition Notes Initial or Follow up Reassessment Current Diagnosis Diabetes,Hypertension,Stroke, Hyperlipidemia Current Diet Cardiac/Consistent CHO Labs/Tests Reviewed Pertinent Medications Reviewed Height 5 ft 6 in Weight 105 kg Donald Body Weight (kg) 59.09 BMI 37.3 Subjective/Other Information Pt stated that her appetite is good but that she eats bites of her meals d/t disliking the meals and lack of variety. Noted preferences. Percent of energy/protein needs met: 0%/0% Burn Absent Trauma Absent #1 Nutrition Diagnosis Inadequate oral intake As Evidenced by Signs and Symptoms pt meeting 0% of calorie and protein needs Diagnosis Progress(for reassessment Worsened documentation) Is patient on ventilator? No Is Patient Ambulatory and/or Out of Bed Yes REE-([facility]-ambulatory/OOB) [ 2075.775 NUTR.[id number]] Kcal/Kg value to use for calculation 15 Approximate Energy Requirements Using 1575 kcal/Kg Calculation Used for Recommendations Kcal/kg Additional Notes Pro needs 1-1.2g/kg adjBW: 82- 98g/day Fluid needs 1ml/kcal Nutrition Intervention Change Diet Order: Continue current diet Add Supplement/Snack (indicate name/kcal Glucerna Butter Pecan 1 daily /protein ) Provides kCal: 220 Provides Protein (gm) 10 Goal #1 PO intakes to meet at least 75 % energy and pro needs Anticipated Discharge Needs: Cardiac/Consistent CHO diet Follow-Up By: 05/03/19 Additional Comments Follow for PO and ONS intakes
--- NOTE | 2019-05-02 15:27 | Progress Note ---
Subjective Date of service: 05/02/19 Principal diagnosis: CVA Interval history: 68 yo RHD female who woke up with right sided weakness and dysarthria. Son was present for the exam. She states she had a previous CVA and TIA and records confirm. She was evaluated and found to have acute left pontine lacunar infarcts. Cardiology was consulted due to previously known PFO. JAN showed EF 55-60, no thrombus and a PFO. She was advised to follow up as outpatient for PFO closure. No PE seen on chest CTA. Per cardiology, she was transitioned from Eliquis to Coumadin and is currently subtherapeutic. I will start her on a lovenox bridge until she has therapeutic INR. A1C was above the cutoff for diabetes - discussed with her and her son. Will start on carb controlled diet and metformin. Patient is participating in therapy and making reasonable progress. Taking rest breaks as needed. +BM, no incontinence of B/B. Denies palpitations, dyspnea, cough, N/V. IVF last night, labs tomorrow. Decreased ability to walk today due to increased knee pain. Knee is lax and has valgus deformity. Right hand strength has improved and her fine motor skills are slighty improved as well in the right hand. No tenderness to palpation or signs of shoulder-hand syndrome at this point. INR supratherapeutic, pharmacy is still managing, may need to discharge on 3.5mg. Vitals stable. monitor. Discussed discharge planning with patient and son - coumadin risks/benefits, therapy, CVA prognosis, and PFO follow up. All records, vitals, labs and medications were reviewed. No other issues per patient, nursing or therapy. Objective - Exam Narrative Exam: MUSCULOSKELETAL SPECIALTY EXAM CONSTITUTIONAL: Well developed, well nourished, obese, appropriately groomed. RIGHT hand dominant. RESPIRATORY: Clear to auscultation bilaterally, no increased work of breathing CARDIOVASCULAR: Regular Rate/ Rhythm, no swelling, edema or tenderness in BUE or BLE. All extremities warm. GI: + bowel sounds, soft, NTTP, nondistended. INTEGUMENTARY: Normal, no lesion, rash, masses or bruising noted in extremities. MUSCULOSKELETAL: Right knee valgus deformity and laxities with some TTP, otherwise BUE and BLE normal without defect, crepitus, subluxation, effusion, arthritic changes or TTP. SA EF WE EE FF FA HF KE ADF EHL APF R 4-/5 4-/5 4-/5 4-/5 4-/5 3/5 3/5 3/5 3/5 3/5 3/5 L 4+/5 ROM improved on right Tone improved on the right NEURO: CN II-XII grossly intact except for Right facial droop and tongue protrudes slightly left Alternation of finger touch between digits is improved, fine motor improving Sensation intact in all extremities without extinction. No tremor noted in 4 extremities. Naming and repetition intact. Follows 2 step commands. Aphasia not appreciated Dysarthria present but improved Dysphagia not appreciated Neglect not appreciated POSTURE and GAIT: Sitting posture good. Balance and Gait need improvement. Utilizing walker, knee immobilizer and dorsiflexion assist. Need to continue using knee brace during weight bearing PSYCH: Alert, orientated x3, affect appears euthymic. Insight appears intact. - Constitutional Vitals: Vital Signs - 12hr 05/02/19 05/02/19 05/02/19 05:04 06:47 11:49 Temperature 36.7 C 36.6 C 36.8 C Pulse Rate 77 73 71 Respiratory 20 20 20 Rate Blood Pressure 105/62 124/61 123/60 O2 Sat by Pulse 89 92 93 Oximetry - Allied health notes Allied health notes reviewed: nursing, PT, ST, OT FIMS assessment as documented by PT/OT/ST: Grooming Patient cleans teeth/dentures: Yes Patient capellan/brushes hair: Yes Patient washes, rinses and Yes dries face: Patient washes, rinses and Yes dries hands: Patient shaves: No Patient applies make-up: No Patient performs (no make-up/ / (100%) shaving): Grooming FIM Score 5. Supervision ([place] applies toothpaste or opens containers.) Toileting Toileting Device Bedside Commode Patient able to: Adjust clothes before,Clean self,Adjust clothes after Patient able to perform: 3/3 (100%) Toileting FIM Score 5. Supv./Set-Up (Needs stand-by, set-up, applying prosth/orth.) Social interaction/Memory/Problem solving Social Interaction FIM Score 6. Mod. [place] (Mostly appropriate. May need meds. No supv.) Memory FIM Score 6. Modified [place](Mild difficulty remembering people/routines.) Problem Solving FIM Score 6. Mod. [place] (Mild difficulty or needs more time w/ complex.) Transfers Mode of Locomotion: Wheelchair Bed/Chair/Wheelchair Transfers 5. Supervision (Needs supv. or set-up for FIM Score sliding board, foot rests.) Toilet Transfers FIM Score 5. Supervision (Needs supervision or cueing.) Patient transferred to: Shower Shower Transfers FIM Score 3. Moderate Assistance (Patient = 50% or more. Some lifting.) Locomotion- walk/wheelchair Most Frequent Mode of Wheelchair Locomotion: Ambulation Distance 1 Walking FIM Score 1. Total Assistance (Pt. < 25%, 2 or more person assist, or <50 ft.) Wheelchair Propulsion Distance 150 Wheelchair FIM Score 5. Supervision (Minimum 150 ft. supv./cues or 50 ft. independently.) Eating Eating FIM Score 5. Supervision/Set-Up (Needs help w/ containers, cutting meat, etc.) Dressing-Upper body Patient retrieves clothing No items: Patient applies/removes UE n/a prosthesis or orthosis: Upper Body Dressing FIM Score 4. Minimal Assistance (Patient = 75% or more. Needs touching.) Dressing-lower body Patient retrieves clothing Yes items: Patient applies/removes LE n/a prosthesis or orthosis: Lower Body Dressing FIM Score 5. Supv./Set-Up ([place] sets out clothes or applies pros./orth.) - Labs CBC & Chem 7: 04/29/19 07:38 05/01/19 08:02 Labs: Laboratory Results - last 72 hr 04/30/19 04/30/19 05/01/19 04:17 07:51 06:25 PT 27.3 H INR 2.59 H Sodium Potassium Chloride Carbon Dioxide Anion Gap BUN Creatinine Estimated GFR BUN/Creatinine Ratio Glucose POC Glucose 106 H 113 H Calcium 05/01/19 05/01/19 05/02/19 08:02 08:02 05:12 PT 30.5 H 34.0 H INR 2.98 H 3.42 H Sodium 140 Potassium 4.1 Chloride 103.0 Carbon Dioxide 24 Anion Gap 17 BUN 14 Creatinine 1.4 H Estimated GFR 45 BUN/Creatinine Ratio 10 Glucose 101 H POC Glucose Calcium 9.6 05/02/19 06:26 PT INR Sodium Potassium Chloride Carbon Dioxide Anion Gap BUN Creatinine Estimated GFR BUN/Creatinine Ratio Glucose POC Glucose 103 Calcium Assessment and Plan I69.351 hemiplegia affecting right dominant side after CVA: Continue secondary stroke prevention, discussed prognosis with patient and family, monitor for neurological decline, therapy is below, monitor for post stroke depression, monitor for shoulder hand syndrome. Strength is improving as noted in exam. Right knee laxity and valgus deformity coupled with right foot drop. Have requested knee brace to improve ability to stand and decrease falls and AFO for improved toe clearance while ambulating. 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 E11.9 DM: A1c this admission is 6.6, cutoff for prediabetes is 6.4 according to [facility]. Discussed with patient that this is also a risk factor for future strokes and will need to monitor this closely for her via dietary control and starting low-dose metformin. She may be able to discontinue metformin in the future if she is able to control her glucose with diet. Discussed with nursing to check glucose once daily, range has improved on metformin. Z73.6 ADL dysfunction: OT will work on improving ability to perform ADLs (including assistive devices) to increase independence and decrease caregiver burden and improve functional transfers and mobility training. R26.2 Difficulty walking: PT will work on gait training and proper use of assistive devices and advance as appropriate to use of stairs and outside ambulation on uneven surfaces. R26.81 Unsteadiness on feet: PT will work on improving static and dynamic sitting and standing balance as well as proper use of assistive devices to decrease risk of falls. R26.89 Abnormality of gait: PT will work to improve safety and efficiency of gait through neuromotor training and gait training along with instruction on proper use of assistive devices. M62.81 Muscle weakness: PT & OT will work on strengthening exercises to improve functional strength including mixture of closed and open kinetic chain exercises. R53.81 Debility: PT & OT will work on improving overall functional status to improve participation with ADLs, mobility and social involvement. R53.83 Fatigue: PT & OT will work on improving endurance through aerobic exercises and therapeutic activity while monitoring patients tolerance for activity and vital signs as needed. Right Knee pain: increased knee pain interfering with therapy. continue Voltaren gel 3 times a day as ordered, repeat XR shows mild arthritis, knee brace on o rder. PFO: We'll maintain patient on Coumadin with a goal INR of 2-3. Will need to follow up with cardiology as outpatient. Had discussion about risk of fall with head strike and the need for urgent evaluation if this occurs with both patient and son. UTI- resolved DVT ppx: Coumadin for a/c Pain: Continue physical modalities in therapy and pain medications as needed to achieve functional pain control. Sleep: Monitor and address as needed. Bowel: Monitor and address as needed. Appetite: Monitor and address as needed. Discharge planning: Plan to DC home on Monday. Pending therapy progress and care plan meeting. Will continue discussion with therapy team, SW, patient and family. Orthotics equipment: We have placed an order for a right AFO due to the patient's foot drop (M21.371) which is secondary to the CVA. We have also ordered a knee orthosis (double upright with flexion and extension and a suspension sleeve) due to laxity in the right lower extremity, valgus knee deformity (chronic), and quadricep weakness (due to CVA) which affects the patient's ability to stand and ambulate safely. With these 2 devices in the rehabilitation unit the patient is able to stand and walk, without them she is a high risk for fall and since she is on Coumadin this makes her an even higher risk for a bleeding incident in the brain if she does fall. Restrictions/ Precautions: Falls WB status: FWB Functional Hx: ADLs: Independent Cognition: Independent Mobility: No AD mostly, used a cane occasionally. Barriers to Discharge: Decreased mobility and ability to perform self care, balance deficits, weakness, dysarthria, possible visual field deficit Estimated Length of Stay: 14-21 days Discharge Destination: Home with family
[2019-05-02] MEDS: COUMADIN PO SCH (18:10)
[2019-05-02] MEDS: PRAVACHOL PO SCH (21:49)
[2019-05-03 08:58] LABS: Hematocrit 41.6 % (30.3-42.9); Hemoglobin 13.8 gm/dl (10.1-14.3); Mean Corpuscular HGB Conc 33 % (30-34); Mean Corpuscular Volume 93 fl (79-97); Platelet Count 248 K/mm3 (140-440); Red Blood Count 4.46 M/mm3 (3.65-5.03); Red Cell Distribution Width 14.5 % (13.2-15.2)
[2019-05-03 09:06] LABS: INR 1.97 (0.87-1.13)
[2019-05-03 09:21] LABS: BUN/Creatinine Ratio 11; Blood Urea Nitrogen 11 mg/dL (7-17); Calcium 9.6 mg/dL (8.4-10.2); Hemolysis Index 6
[2019-05-03] MEDS: GLUCOPHAGE PO SCH ×2 (10:00→17:46)
[2019-05-03] MEDS: HALFPRIN EC PO SCH (10:00)
[2019-05-03] MEDS: HCTZ PO SCH (10:00)
--- NOTE | 2019-05-03 12:52 | Progress Note ---
Assessment and Plan Assessment and plan: Patient is a 68 year old male admitted to the Inpatient Rehab unit for management of right sided weakness and dysarthria secondary to CVA. Patient has had 2 previous strokes in the past, multiple work up has not shown an etiology and there is currently a discussion about Outpatient PFO closure as PFO was seen on JAN with no thrombus and an EF of 55-60% Patient was transitioned to Coumadin and is subtherapeutic on arrival to our facility and has been started on a lovenox bridge, she was previously on Eliquis but transition was done per the patient due to recurrent stroke on Eliquis She reports compliance with her medication. She also has metabolic syndrome with diabetes mellitus CVA-Right sided Hemiplegia Continue Coumadin with a goal INR of 2-3. INR is 1.97 today restart her Coumadin Dysarthria; improving. Hypotension; normalized Costochondritis-improved cardiac enzymes are negative. No reccurrence DM Type 2, new onset-Discussed this new diagnosis with the patient. Accu check ACHS Continue Metformin Obese Debility PFO Outpatient cardiology for PFO closure History Interval history: Patient was seen and evaluated this morning. Patient didn't have any complaints. Hospitalist Physical - Physical exam Narrative exam: Not in cardiopulmonary distress. The patient is obese. Vital signs as documented. Head exam is unremarkable. No scleral icterus . Neck is without jugular venous distension, thyromegaly, or carotid bruits. Lungs are clear to auscultation. Cardiac exam reveals regular rate and Rhythm. Abdominal exam reveals normal bowel sounds, no masses, no organomegaly and no aortic enlargement. Extremities are nonedematous and both femoral and pedal pulses are normal. LICENSED PRACTICAL NURSE: Alert and oriented 3. right sided weakness. - Constitutional Vitals: Temp Pulse Resp BP Pulse Ox 97.4 F L 69 18 127/63 94 05/03/19 08:21 05/03/19 08:21 05/03/19 08:21 05/03/19 08:21 05/03/19 08:21 General appearance: Present: no acute distress, obese Results - Labs CBC & Chem 7: 05/03/19 08:21 05/03/19 08:21 Labs: Laboratory Last Values WBC 3.9 K/mm3 (4.5-11.0) L 05/03/19 08:21 RBC 4.46 M/mm3 (3.65-5.03) 05/03/19 08:21 Hgb 13.8 gm/dl (10.1-14.3) 05/03/19 08:21 Hct 41.6 % (30.3-42.9) 05/03/19 08:21 MCV 93 fl (79-97) 05/03/19 08:21 MCH 31 pg (28-32) 05/03/19 08:21 MCHC 33 % (30-34) 05/03/19 08:21 RDW 14.5 % (13.2-15.2) 05/03/19 08:21 Plt Count 248 K/mm3 (140-440) 05/03/19 08:21 Lymph % (Auto) 43.7 % (13.4-35.0) H 04/12/19 04:40 [place] % (Auto) 9.6 % (0.0-7.3) H 04/12/19 04:40 Eos % (Auto) 2.1 % (0.0-4.3) 04/12/19 04:40 Baso % (Auto) 0.6 % (0.0-1.8) 04/12/19 04:40 Lymph # 2.1 K/mm3 (1.2-5.4) 04/12/19 04:40 [place] # 0.5 K/mm3 (0.0-0.8) 04/12/19 04:40 Eos # 0.1 K/mm3 (0.0-0.4) 04/12/19 04:40 Baso # 0.0 K/mm3 (0.0-0.1) 04/12/19 04:40 Seg Neutrophils % 44.0 % (40.0-70.0) 04/12/19 04:40 Seg Neutrophils # 2.1 K/mm3 (1.8-7.7) 04/12/19 04:40 PT 22.0 Sec. (12.2-14.9) H 05/03/19 08:21 INR 1.97 (0.87-1.13) H 05/03/19 08:21 Sodium 141 mmol/L (137-145) 05/03/19 08:21 Potassium 4.2 mmol/L (3.6-5.0) 05/03/19 08:21 Chloride 105.2 mmol/L (98-107) 05/03/19 08:21 Carbon Dioxide 22 mmol/L (22-30) 05/03/19 08:21 18 mmol/L 05/03/19 08:21 BUN 11 mg/dL (7-17) 05/03/19 08:21 1.0 mg/dL (0.7-1.2) 05/03/19 08:21 Estimated GFR > 60 ml/min 05/03/19 08:21 11 % 05/03/19 08:21 Glucose 102 mg/dL (65-100) H 05/03/19 08:21 POC Glucose 93 (70-105) 05/03/19 06:41 Calcium 9.6 mg/dL (8.4-10.2) 05/03/19 08:21 0.30 mg/dL (0.1-1.2) 04/12/19 04:40 AST 16 units/L (5-40) 04/12/19 04:40 ALT 17 units/L (7-56) 04/12/19 04:40 57 units/L (35-129) 04/12/19 04:40 < 0.010 ng/mL (0.00-0.029) 04/13/19 16:42 6.3 g/dL (6.3-8.2) 04/12/19 04:40 3.3 g/dL (3.9-5) L 04/12/19 04:40 1.1 % 04/12/19 04:40 Yellow (Yellow) 04/23/19 16:35 Slightly-cloudy (Clear) 04/23/19 16:35 5.0 (5.0-7.0) 04/23/19 16:35 Ur Specific [place] 1.019 (1.003-1.030) 04/23/19 16:35 <15 mg/dl mg/dL (Negative) 04/23/19 16:35 Neg mg/dL (Negative) 04/23/19 16:35 Neg mg/dL (Negative) 04/23/19 16:35 Neg (Negative) 04/23/19 16:35 Neg (Negative) 04/23/19 16:35 Neg (Negative) 04/23/19 16:35 < 2.0 mg/dL (<2.0) 04/23/19 16:35 Ur Leukocyte Esterase Lg (Negative) 04/23/19 16:35 12.0 /HPF (0.0-6.0) H 04/23/19 16:35 7.0 /HPF (0.0-6.0) 04/23/19 16:35 U Epithel Cells (Auto) 6.0 /HPF (0-13.0) 04/23/19 16:35 Few /HPF 04/23/19 16:35 Active Medications - Current Medications Current Medications: Generic Name Dose Route Start Last Admin Trade Name Freq PRN Reason Stop Dose Admin Acetaminophen 650 mg 04/11/19 12:58 Tylenol PO Q4H PRN Pain MILD(1-3)/Fever >100.5/[place] Aspirin 81 mg 04/12/19 08:00 05/03/19 10:00 Halfprin Ec PO 81 mg QDAY SHAILESH Administration Bisacodyl 10 mg 04/11/19 12:58 Dulcolax [place] QDAY PRN Constipation unrelieved by MOM Hydrochlorothiazide 12.5 mg 04/27/19 18:00 05/03/19 10:00 Hctz PO 12.5 mg QDAY SHAILESH Administration Magnesium Hydroxide 30 ml 04/11/19 12:58 04/20/19 13:02 Milk Of Magnesia PO 30 ml Q4H PRN Administration Constipation Metformin HCl 500 mg 04/11/19 17:00 05/03/19 10:00 Glucophage PO 500 mg BIDDIAB [facility] Administration Pravastatin Sodium 40 mg 04/11/19 21:00 05/02/19 21:49 Pravachol PO 40 mg QHS SHAILESH Administration Promethazine HCl 25 mg 04/11/19 13:18 Phenergan PO Q6H PRN Nausea And Vomiting Simethicone 80 mg 04/16/19 13:10 Mylicon PO Q6H PRN Gas pain Warfarin Sodium 2.5 mg 05/03/19 17:00 Coumadin PO DAILY@1700 [facility] Nutrition/Malnutrition Assess - Dietary Evaluation Nutrition/Malnutrition Findings: Nutrition Notes Start: 04/12/19 17:44 Freq: Status: Active Protocol: Document 05/01/19 17:25 RM (Rec: 05/01/19 17:29 RM [id number]) Nutrition Notes Initial or Follow up Reassessment Current Diagnosis Diabetes,Hypertension,Stroke, Hyperlipidemia Current Diet Cardiac/Consistent CHO Labs/Tests Reviewed Pertinent Medications Reviewed Height 5 ft 6 in Weight 105 kg [place] Body Weight (kg) 59.09 BMI 37.3 Subjective/Other Information Pt stated that her appetite is good but that she eats bites of her meals d/t disliking the meals and lack of variety. Noted preferences. Percent of energy/protein needs met: 0%/0% Burn Absent Trauma Absent #1 Nutrition Diagnosis Inadequate oral intake As Evidenced by Signs and Symptoms pt meeting 0% of calorie and protein needs Diagnosis Progress(for reassessment Worsened documentation) Is patient on ventilator? No Is Patient Ambulatory and/or Out of Bed Yes REE-([facility]-ambulatory/OOB) [ 2075.775 NUTR.[id number]] Kcal/Kg value to use for calculation 15 Approximate Energy Requirements Using 1575 kcal/Kg Calculation Used for Recommendations Kcal/kg Additional Notes Pro needs 1-1.2g/kg adjBW: 82- 98g/day Fluid needs 1ml/kcal Nutrition Intervention Change Diet Order: Continue current diet Add Supplement/Snack (indicate name/kcal Glucerna Butter Pecan 1 daily /protein ) Provides kCal: 220 Provides Protein (gm) 10 Goal #1 PO intakes to meet at least 75 % energy and pro needs Anticipated Discharge Needs: Cardiac/Consistent CHO diet Follow-Up By: 05/03/19 Additional Comments Follow for PO and ONS intakes
[2019-05-03] MEDS ORDERED: COUMADIN PO SCH ×4 (17:00)
[2019-05-03] MEDS: PRAVACHOL PO SCH (22:32)
[2019-05-04 04:46] LABS: INR 1.75 (0.87-1.13)
[2019-05-04] MEDS ORDERED: COUMADIN PO ONE (08:25)
[2019-05-04] MEDS ORDERED: COZAAR PO SCH (09:00)
[2019-05-04] MEDS: HALFPRIN EC PO SCH (09:46)
[2019-05-04] MEDS: HCTZ PO SCH (09:46)
[2019-05-04] MEDS: GLUCOPHAGE PO SCH (09:46)
--- NOTE | 2019-05-04 10:52 | Discharge Summary ---
Providers - Providers Date of Admission: 04/11/19 15:18 Date of discharge: 05/04/19 Attending physician: DIONI STOKES III, MD 04/11/19 12:58 Consult to Dietitian/Nutrition [CONS] Routine Physician Instructions: Reason For Exam: New Diabetes Reason for Consult: Diet education Occupational Therapy Evaluate and Treat [CONS] Routine Comment: Reason For Exam: ADL dysfunction Physical Therapy Evaluation and Treat [CONS] Routine Comment: Reason For Exam: Mobility Dysfunction Speech Therapy Evaluation and Treat [CONS] Routine Reason For Exam: Eval & Treat CVA 04/11/19 13:13 Consult to Case Management [CONS] Routine Services Needed at Discharge: Home Health Services Notified:: HIGH SCHOOL GUIDANCE 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 Hospital course: 68 yo RHD female who woke up with right sided weakness and dysarthria. Son was present for the exam. She states she had a previous CVA and TIA and records confirm. She was evaluated and found to have acute left pontine lacunar infarcts. Cardiology was consulted due to previously known PFO. JAN showed EF 55-60, no thrombus and a PFO. She was advised to follow up as outpatient for PFO closure. No PE seen on chest CTA. Per cardiology, she was transitioned from Eliquis to Coumadin and was subtherapeutic once transferred to Rehab unit. I started her on a lovenox bridge until she had therapeutic INR. A1C was above the cutoff for diabetes - discussed with her and her son. Will start on carb controlled diet and metformin. Discussed with patient and family on numerous occasions post stroke prognosis and secondary stroke prevention. Also discussed with them the importance of controlling diet and diabetes as well as hypertension. She very well may be able to manage her diabetes with diet alone however due to risk for subsequent stroke I have started her on metformin and a carb controlled diet and informed her and family that she will need to follow up with her PCP for further hemoglobin A1c checks and modification of medications. I did ask her to maintain a diary of blood sugar checks in order to share with her PCP. Hypertension was labile during her stay on the rehabilitation unit with medications being held frequently due to hypotension or near hypotension. I was able to decrease her dose of antihypertensives to level that she has been normotensive. Did inform her in the family that as her diet and activity changes at home this will also likely change and she will need to maintain a diary of blood pressure and share this with her PCP in order to have medications adjusted for blood pressure control. Her Coumadin level was fairly therapeutic on 4 mg daily however she slowly trended above INR of 3. Unfortunately the dose was reduced for two days and she was not given the 3.5mg I ordered on 05/03. Her INR was 1.75 at discharge. I gave an extra dose of 1mg the morning of 05/04 prior to discharge. Coumadin 3.5 mg daily should keep her therapeutic based on the levels seen during her stay. She does like to eat leafy green vegetables and I informed her that this will affect her INR levels and she will need to keep a close check with her PCP for INR checks as well as maintain a stable intake of any foods containing vitamin K. Also informed her that she needed to maintain her appointment with cardiology to repair the PFO. X-ray was checked of her right knee due to increased knee pain and was found to have mild arthritis. She has increased laxity in the right knee as well as the right thumb. She also has right foot drop that is causing problems when ambulating. These issues were addressed with bracing including a AFO and knee orthosis. With these devices she is able to ambulate safely utilizing a rolling walker. We did try several times without the orthoses and she has extreme difficulty as well as buckling of the knee. At time of discharge patient is on a cardiac/control carb diet of normal consistency and thin liquids. Dysarthria has improved greatly. She is ambulating with supervision and a rolling walker as well as knee brace and AFO. She performed wheelchair to car transfers modified independent, and is able to perform bed to chair transfers with supervision. She needed supervision with most ADLs including dressing and toileting. Disposition: TO HOME OR SELFCARE Time spent for discharge: >30 mins - Discharge Diagnoses (1) Acute CVA (cerebrovascular accident) Status: Acute (2) Diabetes 1.5, managed as type 2 Status: Acute (3) Hypertension Status: Chronic Qualifiers: Hypertension type: essential hypertension Qualified Code(s): I10 - Essential (primary) hypertension (4) Patent foramen ovale Status: Chronic Comment: Placed on coumadin. Will need follow up with geography faculty member for PFO closure. (5) Arthritis Status: Chronic Core Measure Documentation - Palliative Care Palliative Care/ Comfort Measures: Not Applicable - Core Measures Any of the following diagnoses?: stroke - Stroke Discharge Requirements Statin for LDL = or >70 mg/dl on DC: Yes Anticoag for atrial fib/atrial flutter: Not Applicable (On Coumadin for PFO) Antithrombotic for ischemic stroke: Yes Exam - Physical Exam Narrative exam: MUSCULOSKELETAL SPECIALTY EXAM CONSTITUTIONAL: Well developed, well nourished, obese, appropriately groomed. RIGHT hand dominant. RESPIRATORY: Clear to auscultation bilaterally, no increased work of breathing CARDIOVASCULAR: Regular Rate/ Rhythm, no swelling, edema or tenderness in BUE or BLE. All extremities warm. GI: + bowel sounds, soft, NTTP, nondistended. INTEGUMENTARY: Normal, no lesion, rash, masses or bruising noted in extremities. MUSCULOSKELETAL: Right knee valgus deformity and laxities with some TTP, otherwise BUE and BLE normal without defect, crepitus, subluxation, effusion, arthritic changes or TTP. Bracing on Right hand - some laxity in thumb. SA EF WE EE FF FA HF KE ADF EHL APF R 4-/5 4-/5 4-/5 4-/5 4-/5 3/5 3/5 3/5 3/5 3/5 3/5 L 4+/5 ROM improved on right Tone improved on the right NEURO: CN II-XII grossly intact except for Right facial droop and tongue protrudes slightly left Alternation of finger touch between digits is improved, fine motor improving Sensation intact in all extremities without extinction. No tremor noted in 4 extremities. Naming and repetition intact. Follows 2 step commands. Aphasia not appreciated Dysarthria present but improved Dysphagia not appreciated Neglect not appreciated POSTURE and GAIT: Sitting posture good. Balance and Gait need improvement. Utilizing walker, knee immobilizer and dorsiflexion assist. Need to continue using knee brace during weight bearing PSYCH: Alert, orientated x3, affect appears euthymic. Insight appears intact. - Constitutional Vitals: Temp Pulse Resp BP Pulse Ox 37.2 C 63 18 152/58 94 07/06/19 07:10 05/04/19 09:57 05/04/19 07:10 05/04/19 09:57 05/04/19 07:10 - Allied Health Allied health notes reviewed: nursing, PT, ST, OT Plan Activity: advance as tolerated, no driving until cleared by PCP, fall precautions Weight Bearing Status: Full Weight Bearing Diet: diabetic (cardiac) Special Instructions: record daily BP diary, record blood sugar diary, follow up in rehab, physical therapy, occupational therapy, other (Check INR next week with PCP) Durable Medical Equipment Needed Upon Discharge: Walker-Rolling, Wheelchair, Bedside Commode, other (Right AFO and Knee orthosis) Follow up with: GUMARO LOTT MD [Primary Care Provider] - 7 Days (PT/INR, CBC, BMP recommended. Hemoglobin A1c recommended in 3-4 months (last on 04/08/2019 6.6%). Monitor blood pressure and blood glucose.) ANGELA LANGSTON MD [Staff Physician] - 14 Days (PFO Closure. Call for Appointment) Forms: Warfarin Discharge Instruction Prescriptions: Pravastatin [Pravachol] 40 mg PO QHS #30 tablet Aspirin EC 81 mg PO QDAY #30 tablet Warfarin [Coumadin] 1 mg PO DAILY@1700 #30 tablet Warfarin [Coumadin] 2.5 mg PO DAILY@1700 #30 tablet Losartan [Cozaar] 12.5 mg PO QDAY #15 tablet metFORMIN [Glucophage] 500 mg PO BIDDIAB #60 tablet hydroCHLOROthiazide [HCTZ] 12.5 mg PO QDAY #30 capsule
[2019-05-04 12:27] VITALS: BP 138/72
[2019-05-04] MEDS ORDERED: COUMADIN PO SCH ×3 (17:00)
== END 2019-05-04 12:50 | disposition home or self-care (01) | DRG 56 ==
LOC: 3A 09:36 → UNDOADMIN 09:36 → 3B 15:18
PROVIDERS: ADMIT Physical Medicine & Rehabilitation; ATTEND Physical Medicine & Rehabilitation
DX: I69.351 Hemiplegia and hemiparesis following cerebral infarction affecting right dominant side (principal); I63.9 Cerebral infarction, unspecified; Q21.1 Atrial septal defect; N39.0 Urinary tract infection, site not specified; Z68.37 Body mass index [BMI] 37.0-37.9, adult; R47.1 Dysarthria and anarthria; M94.0 Chondrocostal junction syndrome [Tietze]; I10 Essential (primary) hypertension; Z86.718 Personal history of other venous thrombosis and embolism; Z88.8 Allergy status to other drugs, medicaments and biological substances; R53.81 Other malaise; E66.9 Obesity, unspecified; E13.9 Other specified diabetes mellitus without complications
CPT/HCPCS: 36415; 80048; 80053; 81001; 82962; 84484; 85025; 85027; 85610; 87086; G0378; G0515; A9270-GY; J1650; J7030